=== PATIENT | female | born 1985 | race Caucasian/White ===

== ENCOUNTER 2022-01-27 14:02 | Emergency (ER) | payer OTHER, SELFPAY ==
--- NOTE | ~2022-01-27 | XR_ITS ---
EXAMINATION: XR nasal bones min 3V DATE: 01/27/2022 15:57 INDICATION: Nose injury. TECHNIQUE: 3 views of the nasal bones were obtained. COMPARISON: None. FINDINGS: There are nondisplaced fractures of the nasal bones. There is leftward deviation of the mihaela al septum. IMPRESSION: 1. Nondisplaced fractures of the nasal bones. Reviewed, dictated and finalized at location A.
[2022-01-27 14:20] VITALS: BP 131/88; PULSE 112; RESP 16; TEMP 36.6; O2SAT 100
[2022-01-27] MEDS: IBUPROFEN 400 MG TABLET PO (16:01)
[2022-01-27] MEDS: TETANUS,DIPHTHERIA,AC PERTUSSIS ADULT (0.5 ML) BOOSTRIX IM (16:01)
--- NOTE | 2022-01-27 16:16 | ED.FALL ---
HPI - Fall General Chief Complaint: Fall Stated Complaint: nose pain Time Seen by Provider: 01/27/22 14:48 Source: patient Mode of arrival: ambulatory Limitations: no limitations History of Present Illness HPI Narrative: This is a 36 year old female who presents for evaluation of nose injury. PAtient states last night she accidentally trip over her dog and she hit her nose on bed. She woke up and she nosed swelling and pain to her nose. She also reports having bleeding from her left nostril today. She denies LOC or headache. She denies taking blood thinners. She took ibuprofen for her pain. Related Data Home Medications Medication Instructions Recorded Confirmed alprazolam 0.5 mg tablet 0.5 tablet PO PRN PRN Anxiety 01/27/22 dextroamphetamine-amphetamine 10 10 mg PO PRN PRN adhd 01/27/22 mg tablet dextroamphetamine-amphetamine ER 30 cap PO DAILY 01/27/22 30 mg 24hr capsule,extend release lamotrigine 100 mg tablet 100 tablet PO HS 01/27/22 (Lamictal) lamotrigine 25 mg tablet (Lamictal) 50 tablet PO DAILY 01/27/22 zolpidem 10 mg tablet 10 tablet PO HS PRN Insomnia 01/27/22 Allergies Allergy/AdvReac Type Severity Reaction Status Date / Time No Known Allergies Allergy Unverified 02/07/16 22:34 [facility] Past Medical History Medical History (Updated 01/27/22 @ 22:47 by Raine Chan MD) Depression Surgical History Surgical History (Updated 01/27/22 @ 22:47 by Raine Chan MD) No pertinent past surgical history Social History Social History (Updated 01/27/22 @ 22:47 by Raine Chan MD) Smoking status: Former smoker Exam Const: General: no acute distress and alert Nutritional Appearance: well nourished Orientation/consciousness: patient oriented x3 HENMT: Head: normal to inspection and no hematomas Throat: posterior oropharynx normal Other: nasal bridge swelling and 2 superficial laceration, dried blood in nares, no active epistaxis, no septal hematoma visualized Eyes: Conjunctivae: conjunctivae normal Pupils: Equal, round and reactive pupils present EOM: EOMs intact bilaterally Resp: Effort & Inspection: normal respiratory effort Neuro: General: patient oriented x3, moves all extremities and CN's II-XI intact bilaterally Psych: Mental Status: mental status grossly normal Affect: normal affect Attitude: cooperative Course Reevaluation(s) Reevaluation #1: I Discussed with patient that she was found to have nondisplaced nasal fracture. I Discussed discharge plan Date: 01/27/22 Time: 16:25 Vital Signs Vital signs: Vital Signs Temperature 97.9 F 01/27/22 14:20 Pulse Rate 112 H 01/27/22 14:20 Respiratory Rate 16 01/27/22 14:20 Blood Pressure 131/88 01/27/22 14:20 Pulse Oximetry 100 01/27/22 14:20 Oxygen Delivery Room Air 01/27/22 14:20 Temperature 97.9 F 01/27/22 14:20 Pulse Rate 112 H 01/27/22 14:20 Respiratory Rate 16 01/27/22 14:20 Blood Pressure 131/88 01/27/22 14:20 Pulse Oximetry 100 01/27/22 14:20 Oxygen Delivery Room Air 01/27/22 14:20 MDM - Fall Imaging Data Radiologist's impression: ITS Impressions Nasal Bones X-Ray 01/27/22 15:59 IMPRESSION: 1. Nondisplaced fractures of the nasal bones. Discharge Plan Discharge Clinical Impression: Fracture of nasal bones Patient Disposition: Home, Self-Care Condition: Stable Instructions: Antibiotic Form, Nasal Fracture (ED) Additional Instructions: Today you were found to have broken nose. Follow up discharge instructions. 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 Take antibiotics to prevent infection. Prescriptions: New ibuprofen 800 mg tablet 800 mg PO TID PRN (Reason: pain) Qty: 20 0RF amoxicillin-pot clavulanate 875-125 mg tablet 1 tablet PO Q12H Qty: 14 0RF No Action dextroamphetamine-amphetamine 10 mg tablet 10 mg PO PRN PRN (Reason: adhd) lamotrigine [Lamictal] 25 mg
== END 2022-01-27 16:48 | disposition home or self-care (01) ==
PROVIDERS: Emergency Provider General Practice
DX: S02.2XXA Fracture of nasal bones, initial encounter for closed fracture (principal); Z23 Encounter for immunization; F32.A Depression, unspecified; Z87.891 Personal history of nicotine dependence; W01.190A Fall on same level from slipping, tripping and stumbling with subsequent striking against furniture, initial encounter
CPT/HCPCS: 70160; 90471; 90715; 99283; A9270

== ENCOUNTER 2022-02-05 02:00 | Day surgery (SDC) | payer OTHER, SELFPAY ==
[2022-02-01 11:48] VITALS: BMI 28.3
--- NOTE | 2022-02-01 11:57 | PC.NURSE ---
Report to the Outpatient Waiting Room, entrance under the green pavilion located off [facility], at time 0800 on date 02/05/22. OR Time: 1000. - You and your visitor will be asked a series of questions to screen for COVID 19 for your protection. - Only one visitor is allowed at this time. - The patient visitor is requested to leave or wait in car when not with patient. - A mask is required within the hospital. Patients may have clear liquids (water, carbonated beverages, clear teas, apple juice) until 3 hours prior to surgery with a maximum of 20 ounces. - No food from midnight until time of surgery Take the following medications with a SIP of water the morning of surgery: ANTIBIOTIC, XANAX (IF NEEDED) Medications to discontinue per physician: VITAMINS/SUPPLEMENTS Date to take last dose: 02/01/22 Please no make-up, nail macedonian, hairspray, perfume, deodorant, or body powder the day of surgery. No jewelry (including any body piercings) or valuables the day of surgery, leave them at home. Please take a shower or bath the night before, or the morning of, surgery with an antibacterial soap. Wear comfortable, loose fitting clothing. - Jewelry must be removed prior to entering the operating room. Rings and piercings that are not removed may be cut off. - The hospital will not accept responsibility for valuables. - Please leave all valuables, including medications, at home the day of surgery. If you are going home after surgery, a licensed lifter driver must drive you home. - NO public transportation without another adult. - We recommend that an adult stay with you for 24 hours following discharge. - We also recommend that you do not drive, make important decision, drink alcoholic beverages, or take any drugs that were not prescribed by your health care provider for at least 24 hours after your discharge time. Follow any additional instructions given to you from your surgeon. If you or anyone in your household have experienced Covid symptoms in the past week, please notify your surgeon or the nurse liaison at the phone number below for possible testing. Telephone instructions given to DIANNA MONGE and asked if any additional questions and then verbalized understanding. Patient advised to call surgeon office or pre surgery nurse liaison [phone] if any additional questions.
--- NOTE | 2022-02-04 13:43 | PM.IMHP ---
H&P: HPI History of Present Illness Date/Time: 02/04/22 13:43 Chief Complaint: nasal congestion nasal obstruction nasal septal fracture nasal deviation nasal bone fracture Narrative: patient presents for planned surgical procedure no change in symptoms no change in history Review of Systems Review of Systems: All systems reviewed & are unremarkable except as noted in HPI and below PMFSH Past Medical History Medical History Depression Surgical History Surgical History (Updated 01/27/22 @ 22:47 by Raine Chan MD) No pertinent past surgical history Family History Family History Daughter Leukemia Sibling Lymphoma Social History Social History Smoking packs per day: 0.75 Smoking cigarettes per day: 15.0 Years smoked: 5 Smoking pack-years: 3.75 Smoking status: Former smoker Tobacco type: cigarettes Smoking end date: 08/29/10 Alcohol intake: current Drinks per week: 3 Substance use: never Substance use type: does not use Living arrangements: with family Spiritual care concerns: No Meds Home Medications and Allergies Home Medications Medication Instructions Recorded Confirmed Type alprazolam 0.5 mg tablet 0.5 tablet PO PRN PRN Anxiety 01/27/22 02/01/22 History amoxicillin 875 mg-potassium 1 tablet PO Q12H #14 tabs 01/27/22 02/01/22 Rx clavulanate 125 mg tablet dextroamphetamine-amphetamine 10 10 mg PO PRN PRN adhd 01/27/22 02/01/22 History mg tablet dextroamphetamine-amphetamine ER 30 cap PO DAILY 01/27/22 02/01/22 History 30 mg 24hr capsule,extend release ibuprofen 800 mg tablet 800 mg PO TID PRN pain #20 tabs 01/27/22 02/01/22 Rx lamotrigine 100 mg tablet 100 tablet PO HS 01/27/22 02/01/22 History (Lamictal) lamotrigine 25 mg tablet (Lamictal) 50 tablet PO DAILY 01/27/22 02/01/22 History zolpidem 10 mg tablet 10 tablet PO HS PRN Insomnia 01/27/22 02/01/22 History cyanocobalamin (vitamin B-12) 100 mcg subcut MONTHLY 02/01/22 02/01/22 History 1,000 mcg/mL injection solution sumatriptan succinate 100 mg tablet See Rx Instructions PO .COMPLEX 02/01/22 02/01/22 History Allergies Allergy/AdvReac Type Severity Reaction Status Date / Time No Known Allergies Allergy Unverified 02/01/22 11:46 Exam HENMT: Other: septal deviation dorsal deflection left convex right concave Assessment and Plan Assessment and plan (1) Closed fracture of nasal septum: Code(s): S02.2XXA - Fracture of nasal bones, initial encounter for closed fracture Status: Acute Assessment and Plan: plan for OR closed reduction nasal bone and nasal septal fracture. Will need Aquaplast splint and small amounts of Gelfoam and brown tape. Risks discussed including change in cosmesis need for further procedures failure to resolve symptoms bleeding need for time off work need for postoperative pain medication. Patient voiced understanding of the risks and agreed. Also damage to vision damage to eyes orbit. (2) Nasal congestion: Code(s): R09.81 - Nasal congestion Status: Acute
[2022-02-05] VITALS (9 sets, daily range): BP systolic 122–158; BP diastolic 86–109; PULSE 65–110; RESP 15–26; TEMP 36.3–36.7; O2SAT 98–100
--- NOTE | 2022-02-05 07:07 | WPDHPUPDATE1 ---
History and Physical Update Update Date/Time: 02/05/22 07:07 History and Physical has been reviewed, including an updated exam of the patient. There are NO changes in the patient's condition. Risks, benefits, and alternatives have been discussed and questions answered. Patient agrees to proceed with procedure.
[2022-02-05] MEDS: LACTATED RINGERS 1,000 ML 30 ML IV CONT ×2 (08:44→11:05)
[2022-02-05] MEDS: ACETAMINOPHEN 500 MG TABLET 1000 MG PO (08:50)
--- NOTE | 2022-02-05 09:56 | WPDANESEPPF ---
Anes - Initial Pre Proc Eval Procedure: Operation Date: 02/05/22 10:00 Proposed Procedures p Closed Reduction Nasal Fracture with Septal Repair - Edil Olivo MD Date/Time: 02/05/22 09:56 Surgeon: Edil Olivo MD Pre Op Diagnosis: nasal fracture Patient Data Age: 36 Gender: F Height: 1.57 m Weight: 70 kg Last Vital Signs Temp 98.1 F 02/05/22 08:06 Pulse 82 02/05/22 08:06 Resp 16 02/05/22 08:06 BP 122/94 H 02/05/22 08:06 Pulse Ox 100 02/05/22 08:06 O2 Del Method Room Air 02/05/22 08:06 Allergies Allergy/AdvReac Type Severity Reaction Status Date / Time No Known Allergies Allergy Unverified 02/05/22 08:32 Home Medications Medication Instructions Recorded Confirmed Type alprazolam 0.5 mg tablet 0.5 tablet PO PRN PRN Anxiety 01/27/22 02/05/22 History amoxicillin 875 mg-potassium 1 tablet PO Q12H #14 tabs 01/27/22 02/05/22 Rx clavulanate 125 mg tablet dextroamphetamine-amphetamine 10 10 mg PO PRN PRN adhd 01/27/22 02/05/22 History mg tablet dextroamphetamine-amphetamine ER 30 cap PO DAILY 01/27/22 02/05/22 History 30 mg 24hr capsule,extend release ibuprofen 800 mg tablet 800 mg PO TID PRN pain #20 tabs 01/27/22 02/05/22 Rx lamotrigine 100 mg tablet 100 tablet PO HS 01/27/22 02/05/22 History (Lamictal) lamotrigine 25 mg tablet (Lamictal) 50 tablet PO DAILY 01/27/22 02/05/22 History zolpidem 10 mg tablet 10 tablet PO HS PRN Insomnia 01/27/22 02/05/22 History cyanocobalamin (vitamin B-12) 100 mcg subcut MONTHLY 02/01/22 02/05/22 History 1,000 mcg/mL injection solution sumatriptan succinate 100 mg tablet See Rx Instructions PO .COMPLEX 02/01/22 02/05/22 History Patient hx anesthesia problems: none Family hx anesthesia problems: none Results Review: All pre-operative results and documents have been reviewed as part of the pre-operative evaluation. [facility] Past Medical History Medical History Depression Surgical History Surgical History (Updated 01/27/22 @ 22:47 by Raine Chan MD) No pertinent past surgical history Family History Family History Daughter Leukemia Sibling Lymphoma Social History Social History Smoking packs per day: 0.75 Smoking cigarettes per day: 15.0 Years smoked: 5 Smoking pack-years: 3.75 Smoking status: Former smoker Tobacco type: cigarettes Smoking end date: 08/29/10 Alcohol intake: current Drinks per week: 3 Substance use: never Substance use type: does not use Living arrangements: with family Spiritual care concerns: No Anes - Eval Final PreProcedure Day of Procedure 02/05/22 09:56 Patient weight: normal Heart: regular rate and rhythm Lungs: clear to auscultation Airway: Mallampati scale class II Neurological: alert and oriented Last oral intake: >/= 8 hours ASA classification: II Emergent: no Anesthetic plan: proceed Anesthesia type and monitoring: general ETT and standard monitoring Results Review: All pre-operative results and documents have been reviewed as part of the pre-operative evaluation. Informed Consent: The patient's anesthetic plan and its attendant risks and benefits were discussed with the patient/family/POA. Questions were solicited and answers provided to the satisfaction of the patient/family/POA.
[2022-02-05] MEDS: ceFAZolin 2 GM/D5W 50 ML 2 GM/50 ML BAG IVPB (10:15)
[2022-02-05] MEDS: OXYMETAZOLINE HCL 0.05% NAS 15 ML BTL (*BKC) 1 SPRAY NASAL (10:25)
[2022-02-05] MEDS: fentaNYL CITRATE INJ (*CRX) 100 MCG/2 ML VIAL 25 MCG IV PUSH ×7 (11:06→12:01)
--- NOTE | 2022-02-05 11:09 | P.OP_ITS ---
Procedure Note - Detailed Date of Procedure 02/05/22 Pre-op Diagnosis nasal fracture, nasal septal fracture Post-op Diagnosis Same Procedure Performed Closed reduction nasal septum closed reduction nasal bones Surgeon Edil Olivo MD Anesthesia General Indications See above Findings Bones left was convex right concave right was outfractured left infractured much straighter nasal dorsum dorsal arm still exists which was present prior to injury. Septum leftward deflection corrected fractured right. Description of Procedure Patient identified consent verified. Patient brought operating. Time-out performed. General anesthesia induced endotracheal tube secured taped to left. Patient prepped and draped for procedure 2nd time-out performed. Turbinates outfractured septum fracture with [place] from left to right nasal bone right was outfractured left infractured much straighter nasal dorsum Afrin-soaked pledgets placed for about 15 minutes to stop bleeding Gelfoam then placed deep to the right nasal bone to provide further stenting. Brown tape followed by Aquaplast splint followed by more brown tape then placed over the dorsum. Total blood loss about 30 cc. Patient tolerated the procedure very well. Care the patient given Anesthesiology. Patient taken to PACU. I performed all dictated portions. Estimated Blood Loss -30.0 Drains No Packing Yes (Gelfoam) Pathology None sent Complications No immediate complications Condition Stable Disposition PACU
[2022-02-05] MEDS: oxyCODONE HCL (*CRX) 5 MG TAB IR PO (12:22)
== END 2022-02-05 13:05 | disposition home or self-care (01) ==
PROVIDERS: Visit Provider Otolaryngology
PROC: 0NSBXZZ Reposition Nasal Bone, External Approach (ICD-10-PCS; CPT 21315; principal; 2022-02-05 10:00)
DX: S02.2XXA Fracture of nasal bones, initial encounter for closed fracture (principal); R09.81 Nasal congestion; Z87.891 Personal history of nicotine dependence; W01.190A Fall on same level from slipping, tripping and stumbling with subsequent striking against furniture, initial encounter; F32.A Depression, unspecified
CPT/HCPCS: 21320; A9270; J0330; J0690; J1100; J2250; J2405; J2704; J3010; J7120

== ENCOUNTER 2024-08-29 03:39 | Emergency (ER) | payer OTHER, SELFPAY ==
[2024-08-29 03:53] VITALS: BP 137/94; PULSE 150; RESP 22; TEMP 36.7; O2SAT 97
--- NOTE | 2024-08-29 04:26 | PC.NURSE ---
Pt ambulatory to triage desk stating she had ordered uber and was going home. Pt educated on s/s that warrant a return visit. Pt instructed to follow up w pcp or return to ER if sx persist or worsen. Pt ambulatory out of ER entrance w steady gait.
--- OUTSIDE RECORDS SUMMARY | 2024-09-05 02:11 | XMS_ITS ---
Author Organization [facility] Address [address] [facility] [address] [place] [address] Care Team Providers Care Deck Lid Fitter Name Role Phone Adiel Demarco MD Primary Care Provider Willard Zelaya Unavailable [phone] REASON FOR VISIT Adderall Refill Medications Medication SIG (Take, Route, Frequency, Duration) Notes Start Date End Date Status Amphetamine-Dextroamphetam ine 10 MG 1 tablet Orally once a day for 30 days 08/28/2024 Active Amphetamine-Dextroamphet ER 30 MG 1 capsule every morning Oral Once a day for 30 days 08/28/2024 Active Social History Sex Assigned At : Social History Observation Description Sex Assigned At Female Encounters Encounter Location Date Provider Diagnosis [facility] [place] [address] [address] 08/28/2024 Willard Marin Attention-deficit hyperactivity disorder, combined type F90.2 Assessments Encounter Date Diagnosis (ICD Code) Assessment Notes Treatment Notes Treatment Clinical Notes Section Notes 08/28/2024 Attention-deficit hyperactivity disorder, combined type (ICD-10 - F90.2) Plan Of Treatment Medication Medication Name Sig Start Date Stop Date Notes Amphetamine-Dextroamphetamin e 10 MG 1 tablet Orally once a day for 30 days 08/28/2024 Amphetamine-Dextroamphet ER 30 MG 1 capsule every morning Oral Once a day for 30 days 08/28/2024 Next Appt Details Provider Name:Willard lambert, 09/10/2024 11:15:00 AM, [address] [facility] [address], [facility] [address], [place], [address], Progress Notes * DIANNA MONGE ADOB: [birth year] (38 yo F)Acc No.[id number]:08/28/2024 Patient:?DIANNA MONGE :1985???Age:38 Y???Sex:Female Address:[address] [place] [id number] * Refills? Refill Amphetamine-Dextroamphetamine Tablet, 10 MG, Orally, 30 Tablet, 1 tablet, once a day, 30 days, Refills=0 Refill Amphetamine-Dextroamphet ER Capsule Extended Release 24 Hour, 30 MG, Oral, 30 Capsule, 1 capsule every morning, Once a day, 30 days, Refills=0 Subjective: * Chief Complaints: * ???Adderall Refill * Medical History:? * Surgical History:? * Hospitalization/Major Diagno stic Procedure:? * Medications:? Objective: * Vitals:? * Physical Examination:? Assessment: * Assessment: 1.?Attention-deficit hyperac tivity disorder, combined type - F90.2 (Primary)??? Plan: * Treatment: * Procedure Codes:? * true * Date:? Generated for Kalina joyner/Ghislaine/Yojana on:?09/05/2024 02:10 AM [facility]
--- OUTSIDE RECORDS SUMMARY | 2024-09-05 02:11 | XMS_ITS ---
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 Medications Medication SIG (Take, Route, Frequency, Duration) Notes Start Date End Date Status Amphetamine-Dextroamphetami ne 10 MG 1 tablet Orally once a day for 30 days 08/02/2024 Active ALPRAZolam 0.5 MG 1 tablet Oral Twice a day for 30 days Active QUEtiapine Fumarate 200 MG 1 tablet at b edtime Oral Once a day for 30 days Active Lisinopril 20 MG TAKE 1 TABLET BY BRIANDA TH ONCE DAILY Oral for 30 Days Active Auvelity 45-105 MG 1 tablet once a day for 1 day, 1 tablet 2 times a day for 30 days Orally see sign for 30 days Active Prazosin HCl 1 MG 1 capsule at bedtime Oral Once a day for 30 days Active Spravato (84 MG Dose) 28 MG/DEVICE INHALE 84MG PER NASAL ROUTE TWICE A WEEK for 3 08/14/2024 Active Amphetamine-Dextroamphet ER 30 MG 1 capsule every morning Oral Once a day for 30 days Active lamoTRIgine 100 MG 1 tablet Oral Once a day for 30 days Active Social History Sex Assigned At : Social History Observation Description Sex Assigned At Female Vital Signs Blood pressure systolic 93 mm Hg 08/20/20 24 Blood pressure diastolic 63 mm Hg 024 Heart Rate 71 /min 08/20/2024 Height 62.00 in 08/20/2024 Height-cm 157.48 cm 08/20/2024 Encounters Encounter Location Date Provider Diagnosis [email or web address], [facility] [address] [place] [address] 08/20/2024 Robbie Adhikari Major depressive disorder, recurrent severe without psychotic features F33.2 Assessments Encounter Date Diagnosis (ICD Code) Assessment Notes Treatment Notes Treatment Clinical Notes Section Notes 08/20/2024 Major depressive disorder, 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-10 - F33.2) continue current tx as prescribed by primary psychiatric care provider. 1. Major Depressive Disorder - Patient reports a depression rating of 6/10. - Plan: a. Continue current antidepressant medication. b. Monitor for any changes in mood or worsening of symptoms. 2. Generalized Anxiety Disorder - Patient reports an anxiety rating of 7/10. - Plan: a. Continue current anxiolytic medication. b. Encourage practice of relaxation techniques (deep breathing, mindfulness meditation). 3. Sleep - Patient reports getting approximately 6 hours of sleep per night. - Plan: a. Encourage consistent sleep schedule and good sleep hygiene. 4. Appetite - Patient reports no significant changes in appetite, stating it's so so . - Plan: a. Encourage maintenance of a balanced diet. b. Monitor for changes in appetite or weight. 5. Suicidal ideation, self-harm, and harm to others - Patient denies thoughts of suicide, self-harm, or harming others. - Plan: a. Continue monitoring for changes in mood or behavior indicating increased risk. b. Encourage patient to reach out to support system if experiencing thoughts of self-harm or harm to others. c. Instruct patient to notify clinic if such thoughts occur. 6. Psychotic symptoms - Patient denies experiencing hallucinations, delusions - brief period of paranoia during esketamine observation period that started 15 minutes after administration and subsided within the 2-hour observation period. - Plan: a. Continue monitoring for signs of psychotic symptoms during follow-ups. 7. Medication changes and physical complaints - Patient reports no new medication changes or physical complaints. - Plan: a. Continue current medication regimen. b. Encourage reporting of any new physical complaints or concerns during future appointments. Plan Of Treatment Treatment Notes Assessment Notes Major depressive disorder, r ecurrent severe without psychotic features continue current tx as prescribed by primary psychiatric care provider. Next Appt Details Follow Up: 08/30/2024 @ 3pm, Reason: Esketamine administration Provider Name:Willard lambert, 09/10/2024 11:15:00 AM, [address], [address], [place], [address], Medications Administered Medication Instructions Date of Administration Dosage Notes Spravato (84 MG Dose) 08/20/2024 84 mg Progress Notes * DIANNA MONGE ADOB: [birth year] (38 yo F)Acc No.[id number]:08/20/2024 Patient:?DIANNA MONGE Provider:?MALISSA Recinos :1985???Age:38 Y???Sex:Female D ate:08/20/2024 Address:[address] [place], [place] [id number] Pcp:Adiel Demarco MD Subjective: * Chief Complaints: * ???Patient is here for her E sketamine 84mg treatment.Depression screening positiveSelf rates her depression as a 610. * HPI: ???General Follow Up:?1 Review patient medical records, any recent test results, last visit summary, etc Yes1 Time spent 22 Greet patient and escort to the treatment room No3 Initial Obtained vital signs No4 Prepare equipment and supplies Yes4 Time spent 15 Reviewed and documented history and medication Yes5 Time spent 36 Evaluate patient's clinical status [relevant history/physical assessment] and determine readiness/appropriateness of treatment Yes6 Time spent 17 Confirm orders and review plans with staff Yes7 Time spent 18 Ensure appropriate positioning for administration, observe patient administration, ensure patient comfort and safety Yes8 Time spent 29 Obtained vital signs: Assess treatment tolerance No10 Assess the patient response to treatment: Visually and verbally evaluate the patient; review treatment progress with staff [vital signs, patient tolerance, side effects, etc.] Yes10 Time spent 1511 obtained vital signs: assess treatment tolerance No12 At the completion of observation., Reviewed treatment course and assess the patient for clinical stability/discharge readiness Yes12 Time spent 213 Write a prescription or Reviewed RX for next session and submit to pharmacy No14 Provide patient education/instruction/ Yes14 Time spent 315 Coordinate home-going [that is, discharged to escorted transportation] No16 Complete medical record documentation Yes16 Time spent 1017 cleaning of room/equipment by clinical staff No18 complete medical record documentation; complete and submit rems patient monitoring form Feng attest to the total time spent Before, During and after ecounter was (in Minutes) 40 The note is transcribed using speech recognition software. It is a reflection of a visit with the patient. It might have some inaccuracy, including medication names and transcribing errors, though efforts have been made to correct them. HPI: The patient rates their depression as a 6/10 and anxiety as a 7/10. They deny any thoughts of suicide, self-harm, or harming others. The patient also denies experiencing hallucinations, delusions, or paranoia. Sleep: Dianna reports getting approximately six hours of sleep per night. Other Symptoms: Her appetite is described as so so, No changes in medication or new physical complaints were mentioned during the visit. ???Depression Screening:?RHETT-7 (2018 Edition)?Feeling nervous, anxious, or on edge?More than half the days,?Not being able to stop or control worrying?More than half the days,?Worrying too much about different things?More than hafl the days,?Trouble relaxing?More than half the days,?Being so restless that it is hard to sit still?More than half the days,?Becoming easily annoyed or irritable?More than half the days,?Feeling afraid as if something awful might happen?More than half the days,?Total RHETT-7 Score?14,?Interpretation of Total?(10 to 14) Moderate.?Depression screening:?PHQ-9?Little interest or pleasure in doing things?Several days,?Feeling down, depressed, or hopeless?Several days,?Trouble falling or staying asleep, or sleeping too much?More than half the days,?Feeling tired or having little energy?Several days,?Poor appetite or overeating?Several days,?Feeling bad about yourself or that you are a failure, or have let yourself or your family down?Several days,?Trouble concentrating on things, such as reading the newspaper or watching television?More than half the days,?Moving or speaking so slowly that other people could have noticed; or the opposite, being so fidgety or restless that you have been moving around a lot more than usual?Several days,?Thoughts that you would be better off or of hurting yourself in some way?Not at all,?Total Score?10,?Interpretation?Moderate Depression.?Intervention?Depression Screening Findings?Positve,?Follow-Up for Depression?Mental health treatment assessment, Patient follow-up to return when and if necessary,?Suicide Risk Assessment Performed?08/20/2024 ,?Additional Evaluation for Depression?Psychiatric interview and evaluation,?Name of the standardized tool used for adult depression screening:?Patient Health Questionnaire (PHQ-9).?Esketamine Administration:?Esketamine administration?Time at the start of administration? 1:03 pm,?Time of discharge? 3:03 pm,?Patient must be monitored for at least 2 hours?Yes,?Was the patient clinically ready for discharge prior to the required 2-hour: Yes,?Serious adverse events during the treatment session or since the last treatment session? none? NO,?Silent Alarm used by patient? NO,?staff Notes about today's Visit? Patient last ate last night. Patients is picking her up..? Esketamine Nasal [place] Administration and Supervised monitoring Staff attending the patient Tresa Supervising provider as in rendering provider: MALISSA Recinos Is patient taking any of the following concomitant medication that may cause sedation of blood pressure changes Benzodiazepine Yes Non-benzodiazepine sedative-hypnotics: No Psychostimulant: Yes Monoamine oxidase inhibitors [MAOIs]: No Dose of Spravato: 84 Mg Lot number [id number] Date: 11/27/2026. * ROS:?General / Constitutional:?Fatigue?denies.?Dizziness?Denies.?Sedation?Denies.?spinning sensation?Deneis.?Gastrointestinal:?Nausea?denies.?Vomiting?denies.?Psychiatric:?Patient denies?auditory / visual hallucinations, delusions, eating disorder, loss of appetite, mental or physical abuse, nervous breakdown, mood disorder, stressors, substance abuse, suicidal thoughts, milly, Feeling Intoxicated, Dissociations, Excited, psychosis, irritability, panic attacks, difficulty concentrating, involuntary movements.?Patient complains of?anxiety, depressed mood,difficulty sleeping??brief period of paranoia during esketamine observation period that started 15 minutes after administration and subsided within the 2- hour observation period..?Anxiety?admits.?Auditory / visual hallucinations?denies.?Delusions?denies.?Suicidal thoughts?denies.?Dissociations?Denies.?Excited?Denies.? * Medical History:? * Surgical History:? * Hospitalization/Major Diagno stic Procedure:? * Medications:?TakingAmphetami ne-Dextroamphetamine 10 MG Tablet 1 tablet Orally once a day Lisinopril 20 MG Tablet TAKE 1 TABLET BY MOUTH ONCE DAILY Oral Auvelity 45- 105 MG Tablet Extended Release 1 tablet once a day for 1 day, 1 tablet 2 times a day for 30 days Orally see sign ALPRAZolam 0.5 MG Tablet 1 tablet Oral Twice a day QUEtiapine Fumarate 200 MG Tablet 1 tablet at bedtime Oral Once a day lamoTRIgine 100 MG Tablet 1 tablet Oral Once a day Amphetamine-Dextroamphet ER 30 MG Capsule Extended Release 24 Hour 1 capsule every morning Oral Once a day Prazosin HCl 1 MG Capsule 1 capsule at bedtime Oral Once a day Spravato (84 MG Dose) 28 MG/DEVICE Solution Therapy Pack INHALE 84MG PER NASAL ROUTE TWICE A WEEK Medication List reviewed and reconciled with the patientTaking Amphetamine-Dextroamphetamine 10 MG Tablet 1 tablet Orally once a day Taking Lisinopril 20 MG Tablet TAKE 1 TABLET BY MOUTH ONCE DAILY Oral Taking Auvelity 45-105 MG Tablet Extended Release 1 tablet once a day for 1 day, 1 tablet 2 times a day for 30 days Orally see sign Taking ALPRAZolam 0.5 MG Tablet 1 tablet Oral Twice a day Taking QUEtiapine Fumarate 200 MG Tablet 1 tablet at bedtime Oral Once a day Taking lamoTRIgine 100 MG Tablet 1 tablet Oral Once a day Taking Amphetamine-Dextroamphet ER 30 MG Capsule Extended Release 24 Hour 1 capsule every morning Oral Once a day Taking Prazosin HCl 1 MG Capsule 1 capsule at bedtime Oral Once a day Taking Spravato (84 MG Dose) 28 MG/DEVICE Solution Therapy Pack INHALE 84MG PER NASAL ROUTE TWICE A WEEK Medication List reviewed and reconciled with the patient * Allergies:?N.K.D.A.no[Allerg ies Verified] Objective: * Vitals:?BP: 101/70 mm Hg,107 /73 mm Hg,93/63mm Hg, HR: 76 /min,64 /min,71/min, Ht: 62.00 in, Ht-cm: 157.48 cm. * Examination: ???General Examination: ?Psych:?alert and oriented x 3, cognitive function intact, cooperative with exam, maintains good eye contact, with good judgement and insight, normal affect / mood, with no auditory or visual hallucinations, speech is clear and coherent, thought process is logical and goal directed without suidical ideation or delusions.?- Mental Status Examination: - Patient rates depression severity at 6/10 and anxiety severity at 7/10. - Denies experiencing suicidal or homicidal ideation. - Denies visual or auditory hallucinations, delusions, and feelings of paranoia. - Sleeps approximately six hours per night. - Appetite described as also, which is ambiguous and requires clarification. - patient experienced slight paranoia during treatment 20 minutes after medication administration, which subsided during the 2 hour observation period. - Vital Signs: see note. - Medication: - Reports no changes in medication recently. - Physical Complaints: - No new physical complaints have been reported. ???Psychiatry: ?Thought content:??brief period of paranoia during esketamine observation period that started 15 minutes after administration and subsided within the 2-hour observation period..? Assessment: * Assessment: 1.?Major depressive disorder , recurrent severe without psychotic features - F33.2??? 1. Major Depressive Disorder - Patient reports a depression rating of 6/10. - Plan: a. Continue current antidepressant medication. b. Monitor for any changes in mood or worsening of symptoms. 2. Generalized Anxiety Disorder - Patient reports an anxiety rating of 7/10. - Plan: a. Continue current anxiolytic medication. b. Encourage practice of relaxation techniques (deep breathing, mindfulness meditation). 3. Sleep - Patient reports getting approximately 6 hours of sleep per night. - Plan: a. Encourage consistent sleep schedule and good sleep hygiene. 4. Appetite - Patient reports no significant changes in appetite, stating it's so so . - Plan: a. Encourage maintenance of a balanced diet. b. Monitor for changes in appetite or weight. 5. Suicidal ideation, self-harm, and harm to others - Patient denies thoughts of suicide, self-harm, or harming others. - Plan: a. Continue monitoring for changes in mood or behavior indicating increased risk. b. Encourage patient to reach out to support system if experiencing thoughts of self-harm or harm to others. c. Instruct patient to notify clinic if such thoughts occur. 6. Psychotic symptoms - Patient denies experiencing hallucinations, delusions - brief period of paranoia during esketamine observation period that started 15 minutes after administration and subsided within the 2-hour observation period. - Plan: a. Continue monitoring for signs of psychotic symptoms during follow-ups. 7. Medication changes and physical complaints - Patient reports no new medication changes or physical complaints. - Plan: a. Continue current medication regimen. b. Encourage reporting of any new physical complaints or concerns during future appointments. Plan: * Treatment: * Therapeutic Injections:? Spravato 84 mg : 84 mg (Route: Nasal) given by MALISSA Recinos (Major depressive disorder, recurrent severe without psychotic features) * Procedure Codes:?79039 BEHAV ASSMT W/SCORE & DOCD/STAND [id number] PROLONGED OFFICE OR OTHER OUTPATIENT EVALUATION AND MANAGEMENT SERVICE(S) (BEYOND THE TOTAL TIME OF THE PRIMARY PROCEDURE WHICH HAS BEEN SELECTED USING TOTAL TIME), REQUIRING TOTAL TIME WITH OR WITHOUT DIRECT PATIENT CONTACT BEYOND THE USUAL SERVICE, ON T, Units: 4.00 * Follow Up:?08/30/2024 @ 3pm ( Reason: Esketamine administration) * Billing Information: * Visit Code:? 08086 OFFICE OUTPATIENT VISIT 40 MINUTES COMPREHENSIVE HISTORY AND EXAM/HIGH MEDICAL DECISION MAKING. * Procedure Codes:? 07292 BEHAV ASSMT W/SCORE & DOCD/STAND INSTRUMENT. 28112 PROLONGED OFFICE OR OTHER OUTPATIENT EVALUATION AND MANAGEMENT SERVICE(S) (BEYOND THE TOTAL TIME OF THE PRIMARY PROCEDURE WHICH HAS BEEN SELECTED USING TOTAL TIME), REQUIRING TOTAL TIME WITH OR WITHOUT DIRECT PATIENT CONTACT BEYOND THE USUAL SERVICE, ON T. Units: 4.00. * CAL FACILITIES SECTION DIRECTOR Sign off status: Completed true * Provider:?MALISSA Recinos Date:?08/20 Generated for Kalina joyner/Ghislaine/eTransmitting on:?09/05/2024 02:11 AM MEDICAL FACILITIES SECTION DIRECTOR History and Physical Notes * HPI (History of Present Illness) Category Sub-Category Detail Notes Category Not es Depression screening PHQ-9 Little inte rest or pleasure in doing things: Several days Feeling down, depressed, or hopeless: Se veral days Trouble falling or staying a sleep, or sleeping too much: More than half the days Feeling tired or having little energy: S everal days Poor appetite or overeating: Several day s Feeling bad about yourself o r that you are a failure, or have let yourself or your family down: Several days Trouble concentrating on thi ngs, such as reading the newspaper or watching television: More than half the days Moving or speaking so slowly that other people could have noticed; or the opposite, being so fidgety or restless that you have been moving around a lot more than usual: Several days Thoughts that you would be b tesfaye off or of hurting yourself in some way: Not at all Total Score: 10 Interpretation: Moderate Depression Intervention Depression Screening Findings: P ositve Follow-Up for Depression: [facility] treatment assessment, Patient follow-up to return when and if necessary Suicide Risk Assessment Performed: 08/20 Additional Evaluation for De pression: Psychiatric interview and evaluation Name of the standardized too l used for adult depression screening:: Patient Health Questionnaire (PHQ-9) Depression Screening RHETT-7 (2018 Edition) Feelin g nervous, anxious, or on edge: More than half the days Not being able to stop or control worryi ng: More than half the days Worrying too much about different things : More than hafl the days Trouble relaxing: More than half the day s Being so restless that it is hard to sit still: More than half the days Becoming easily annoyed or irritable: Mo re than half the days Feeling afraid as if something awful marlyn ht happen: More than half the days Total RHETT-7 Score: 14 Interpretation of Total: (10 to 14) Mode rate Esketamine Administration Esketamine administration Time at the start of administration: 1:03 pm Esketamine Nasal [place] Administration and Supervised monitoring Staff attending the patient Tresa Supervising provider as in rendering provider: MALISSA Recinos Is patient taking any of the following concomitant medication that may cause sedation of blood pressure changes Benzodiazepine Yes Non-benzodiazepine sedative-hypnotics: No Psychostimulant: Yes Monoamine oxidase inhibitors [MAOIs]: No Dose of Spravato: 84 Mg Lot number [id number] Date: 11/27/2026 Time of discharge: 3:03 pm Patient must be monitored fo r at least 2 hours: Yes Was the patient clinically r lottie for discharge prior to the required 2-hour:: Yes Serious adverse events durin g the treatment session or since the last treatment session? none: NO Silent Alarm used by patient: NO staff Notes about today's Visit: Patient last ate last night. Patients is picking her up. Examination Category Sub-Category Detail Notes Category Notes Psychiatry Thought content: brief period of paranoia during esketamine observation period that started 15 minutes after administration and subsided within the 2-hour observation period. General Examination Psych: alert and oriented x 3, cogn itive function intact, cooperative with exam, maintains good eye contact, with good judgement and insight, normal affect / mood, with no auditory or visual hallucinations, speech is clear and coherent, thought process is logical and goal directed without suidical ideation or delusions - Mental Status Examination: - Patient rates depression severity at 6/10 and anxiety severity at 7/10. - Denies experiencing suicidal or homicidal ideation. - Denies visual or auditory hallucinations, delusions, and feelings of paranoia. - Sleeps approximately six hours per night. - Appetite described as also, which is ambiguous and requires clarification. - patient experienced slight paranoia during treatment 20 minutes after medication administration, which subsided during the 2 hour observation period. - Vital Signs: see note. - Medication: - Reports no changes in medication recently. - Physical Complaints: - No new physical complaints have been reported.
--- OUTSIDE RECORDS SUMMARY | 2024-09-05 02:11 | XMS_ITS ---
Author Organization [facility] [employer] Address [address] [place] [address] Care Team Providers Care Document Control Assistant Name Role Phone Adiel Demarco MD Primary Care Provider Willard Zelaya Unavailable [phone] Robbie Adhikari Unavailable [phone] Allergies No Known Allergies REASON FOR VISIT Esketamine Administration, The patient rates their depression as a 5/10., MIPS Pre hypertension Medications Medication SIG (Take, Route, Frequency, Duration) Notes Start Date End Date Status lamoTRIgine 100 MG 1 tablet Oral Once a day for 30 days Active QUEtiapine Fumarate 200 MG 1 tablet at b edtime Oral Once a day for 30 days Active Prazosin HCl 1 MG 1 capsule at bedtime Oral Once a day for 30 days Active Amphetamine-Dextroamphet ER 30 MG 1 capsule every morning Oral Once a day for 30 days Active Spravato (84 MG Dose) 28 MG/DEVICE INHALE 84MG PER NASAL ROUTE TWICE A WEEK for 3 08/14/2024 Active ALPRAZolam 0.5 MG 1 tablet Oral Twice a day for 30 days Active Auvelity 45-105 MG 1 tablet once a day for 1 day, 1 tablet 2 times a day for 30 days Orally see sign for 30 days Active Lisinopril 20 MG TAKE 1 TABLET BY BRIANDA ONCE DAILY Oral for 30 Days Active Amphetamine-Dextroamphetami ne 10 MG 1 tablet Orally once a day for 30 days 08/02/2024 Active Social History Tobacco Use: Social History Observation Description Date Details (start date - stop date) Unknown Sex Assigned At : Social History Observation Description Sex Assigned At Female Tobacco Control (Standard) Question Answer Notes Tobacco use: Uses tobacco in other forms Vital Signs Blood pressure systolic 133 mm Hg 08/28/20 24 Blood pressure diastolic 73 mm Hg 024 Heart Rate 80 /min 08/28/2024 Height 62.00 in 08/28/2024 Height-cm 157.48 cm 08/28/2024 Encounters Encounter Location Date Provider Diagnosis [facility] [employer] [address] [facility] [address] [place] [address] 08/28/2024 Robbie Zeynep Major depressive disorder, recurrent severe without psychotic features F33.2 and Elevated blood pressure reading R03.0 Assessments Encounter Date Diagnosis (ICD Code) Assessment Notes Treatment Notes Treatment Clinical Notes Section Notes 08/28/2024 Major depressive disorder, 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-10 - F33.2) continue current tx as prescribed by primary psychiatric care provider. 1. Depression - Patient rates her depression as 5/10. - Plan: - Continue current medications. - Monitor patient's mood and adjust medications as needed. - Encourage patient to engage in therapy and self-care activities. 2. Anxiety - Patient rates her anxiety as 8-9/10. - Plan: - Continue current medications. - Monitor patient's anxiety levels and adjust medications as needed. - Encourage patient to engage in relaxation techniques and therapy. 3. Sleep - Patient reports getting approximately 7 hours of sleep per night. - Plan: - Continue current medication. - Encourage patient to maintain good sleep hygiene. 4. Appetite - Patient reports a neutral appetite, stating It's not like I'm not starving, but I'm not, like, small. - Plan: - Monitor appetite and weight during follow-up visits. - Reassess need for medication adjustments if appetite changes significantly or patient remains concerned. - Provide education on maintaining balanced diet and healthy eating habits. 5. Medication Management - No recent changes in medication. plan: - continue current treatment as prescribed by primary psychiatric care provider. 6. Suicidal/Homicid al Ideation - Patient denies any thoughts of suicide, self-harm, or hurting others. - Plan: a. Continue to assess for suicidal or homicidal ideation at each visit. b. Provide crisis resources and emergency contact information to the patient. 7. Psychotic Symptoms - Patient denies any hallucinations, delusions, or paranoia. - Plan: a. Continue to monitor for any emergence of psychotic symptoms at follow-up visits. 08/28/2024 Elevated blood pressure reading (ICD-10 - R03.0) 1. Depression - Patient rates her depression as 5/10. - Plan: - Continue current medications. - Monitor patient's mood and adjust medications as needed. - Encourage patient to engage in therapy and self-care activities. 2. Anxiety - Patient rates her anxiety as 8-9/10. - Plan: - Continue current medications. - Monitor patient's anxiety levels and adjust medications as needed. - Encourage patient to engage in relaxation techniques and therapy. 3. Sleep - Patient reports getting approximately 7 hours of sleep per night. - Plan: - Continue current medication. - Encourage patient to maintain good sleep hygiene. 4. Appetite - Patient reports a neutral appetite, stating It's not like I'm not starving, but I'm not, like, small. - Plan: - Monitor appetite and weight during follow-up visits. - Reassess need for medication adjustments if appetite changes significantly or patient remains concerned. - Provide education on maintaining balanced diet and healthy eating habits. 5. Medication Management - No recent changes in medication. plan: - continue current treatment as prescribed by primary psychiatric care provider. 6. Suicidal/Homicid al Ideation - Patient denies any thoughts of suicide, self-harm, or hurting others. - Plan: a. Continue to assess for suicidal or homicidal ideation at each visit. b. Provide crisis resources and emergency contact information to the patient. 7. Psychotic Symptoms - Patient denies any hallucinations, delusions, or paranoia. - Plan: a. Continue to monitor for any emergence of psychotic symptoms at follow-up visits. Plan Of Treatment Treatment Notes Assessment Notes Major depressive disorder, r ecurrent severe without psychotic features continue current tx as prescribed by primary psychiatric care provider. Next Appt Details Follow Up: 09/06/2024 @ 3:00 P M, Reason: Esketamine administration Provider Name:Willard lambert, 09/10/2024 11:15:00 AM, [address], [address], [place], [address], Medications Administered Medication Instructions Date of Administration Dosage Notes Spravato (84 MG Dose) 08/28/2024 84 mg Progress Notes * DIANNA MONGE ADOB: [birth year] (38 yo F)Acc No.[id number]:08/28/2024 Patient:DIANNA GARCIA Provider:?MALISSA Recinos :1985???Age:38 Y???Sex:Female D ate:08/28/2024 Address:[address] [place], [place] [id number] Pcp:Adiel Demarco MD Subjective: * Chief Complaints: * ???Esketamine Administration The patient rates their depression as a 5/10.MIPS Pre hypertension * HPI: ???General Follow Up:?1 Review patient medical records, any recent test results, last visit summary, etc?Yes1 Time spent?22 Greet patient and escort to the treatment room?Yes2 Time spent?13 Initial Obtained vital signs?No4 Prepare equipment and supplies?Yes4 Time spent?25 Reviewed and documented history and medication?Yes5 Time spent?36 Evaluate patient's clinical status [relevant history/physical assessment] and determine readiness/appropriateness of treatment?Yes6 Time spent?27 Confirm orders and review plans with staff?Yes7 Time spent?18 Ensure appropriate positioning for administration, observe patient administration, ensure patient comfort and safety?Yes8 Time spent?29 Obtained vital signs: Assess treatment tolerance?No10 Assess the patient response to treatment: Visually and verbally evaluate the patient; review treatment progress with staff [vital signs, patient tolerance, side effects, etc.]?Yes10 Time spent?1511 obtained vital signs: assess treatment tolerance?No12 At the completion of observation., Reviewed treatment course and assess the patient for clinical stability/discharge readiness?Yes12 Time spent?213 Write a prescription or Reviewed RX for next session and submit to pharmacy?No14 Provide patient education/instruction/?Yes14 Time spent?215 Coordinate home-going [that is, discharged to escorted transportation]?No16 Complete medical record documentation?Yes16 Time spent?1017 cleaning of room/equipment by clinical staff?No18 complete medical record documentation; complete and submit rems patient monitoring form?Feng attest to the total time spent Before, During and after ecounter was (in Minutes)?42 The note is transcribed using speech recognition software. It is a reflection of a visit with the patient. It might have some inaccuracy, including medication names and transcribing errors, though efforts have been made to correct them. HPI: The patient rates their depression as a 5/10 and anxiety between 8-9/10. They deny any thoughts of suicide, self-harm, or harming others. The patient also denies experiencing hallucinations, delusions, or paranoia. They report getting approximately 7 hours of sleep per night. Their appetite is described as neutral , neither increased nor decreased, clarifying that they're not starving but also not eating less than usual. The patient reports no recent changes in medication or any physical complaints. ???Esketamine Administration:?Esketamine administration?Time at the start of administration? 1:15 PM,?Time of discharge? 3:15 PM,?Patient must be monitored for at least 2 hours?Yes,?Was the patient clinically ready for discharge prior to the required 2- hour: No,?Silent Alarm used by patient?No,?staff Notes about today's Visit? Patient will be picked up by her . Se said she has not eaten anything yet today. Patient voiced no concerns or issues since last treatment..? Esketamine Nasal [facility] Administration and Supervised monitoring Staff attending the patient Lynnette Ruiz Supervising provider as in rendering provider : MALISSA Recinos Is patient taking any of the following concomitant medication that may cause sedation of blood pressure changes Benzodiazepine Yes Non-benzodiazepine sedative-hypnotics: No Psychostimulant: Yes Monoamine oxidase inhibitors [MAOIs]: No Dose of Spravato: 84 Mg Lot number [id number] Date: 12/26/2026. * ROS:?General / Constitutional:?Fatigue?denies.?Dizziness?Denies.?Sedation?Denies.?spinning sensation?Deneis.?Gastrointestinal:?Nausea?denies.?Vomiting?denies.?Psychiatric:?Anxiety?admits.?Auditory / visual hallucinations?denies.?Delusions?denies.?Suicidal thoughts?denies.?Dissociations?Denies.?Excited?Denies.? * Medical History:? * Surgical History:? * Hospitalization/Major Diagno stic Procedure:? * Social History:?Tobacco Use:?Tobacco Control (Standard)?Tobacco use:?Uses tobacco in other forms.? * Medications:?TakingAmphetami ne-Dextroamphetamine 10 MG Tablet 1 [...] * Allergies:?N.K.D.A.no[Allerg ies Verified] Objective: * Vitals:?BP: 104/83 mm Hg,139 /101 mm Hg,133/73mm Hg, HR: 72 /min,63 /min,80/min, Ht: 62.00 in, Ht-cm: 157.48 cm. * [...] Examination: - Patient rates depression severity at 5/10 and anxiety severity between 8/10 and 9/10. - Denies experiencing suicidal or homicidal ideation. - Denies visual or auditory hallucinations, delusions, or feelings of paranoia. - Reports sleeping approximately seven hours per night. - Describes appetite as neutral, with no significant increase or decrease noted. - Vital Signs: see note - Medication: - No changes in medication reported. Assessment: * Assessment: 1.?Major depressive disorder , recurrent severe without psychotic features - F33.2???2.?Elevated blood pressure reading - R03.0??? 1. Depression - Patient rates her depression as 5/10. - Plan: - Continue current medications. - Monitor patient's mood and adjust medications as needed. - Encourage patient to engage in therapy and self-care activities. 2. Anxiety - Patient rates her anxiety as 8-9/10. - Plan: - Continue current medications. - Monitor patient's anxiety levels and adjust medications as needed. - Encourage patient to engage in relaxation techniques and therapy. 3. Sleep - Patient reports getting approximately 7 hours of sleep per night. - Plan: - Continue current medication. - Encourage patient to maintain good sleep hygiene. 4. Appetite - Patient reports a neutral appetite, stating It's not like I'm not starving, but I'm not, like, small. - Plan: - Monitor appetite and weight during follow-up visits. - Reassess need for medication adjustments if appetite changes significantly or patient remains concerned. - Provide education on maintaining balanced diet and healthy eating habits. 5. Medication Management - No recent changes in medication. plan: - continue current treatment as prescribed by primary psychiatric care provider. 6. Suicidal/Homicidal Ideation - Patient denies any thoughts of suicide, self-harm, or hurting others. - Plan: a. Continue to assess for suicidal or homicidal ideation at each visit. b. Provide crisis resources and emergency contact information to the patient. 7. Psychotic Symptoms - Patient denies any hallucinations, delusions, or paranoia. - Plan: a. Continue to monitor for any emergence of psychotic symptoms at follow-up visits. Plan: * Treatment: * Therapeutic Injections:? Spravato 84 mg : 84 mg (Route: Nasal) given by MALISSA Recinos (Major depressive disorder, recurrent severe without psychotic features) * Procedure Codes:?26203 PROLO NGED OFFICE OR OTHER OUTPATIENT EVALUATION AND MANAGEMENT SERVICE(S) (BEYOND THE TOTAL TIME OF THE PRIMARY PROCEDURE WHICH HAS BEEN SELECTED USING TOTAL TIME), REQUIRING TOTAL TIME WITH OR WITHOUT DIRECT PATIENT CONTACT BEYOND THE USUAL SERVICE, ON T, Units: 4.00 * Preventive Medicine:? ??Counseling:?BP Management:?PRE-HYPERTENSIVE FOLLOW-UP PLAN:?Follow-up 2 weeks ____,?LIFESTYLE RECOMMENDATION:?Lifestyle education Recommended Nonpharmacologic Interventions (Lifestyle Modifications) -Weight ReductionA heart-healthy diet , such as Dietary Approaches to Stop Hypertension (DASH) Eating PlanDietary Sodium RestrictionIncreased Physical ActivityModeration in alcohol consumption,?REFERRAL TO ALTERNATIVE / PRIMARY CARE PROVIDER:?Referral to general physician .? * Follow Up:?09/06/2024 @ 3:00 P M (Reason: Esketamine administration) * Billing Information: * Visit Code:? 12663 OFFICE OUTPATIENT VISIT 40 MINUTES COMPREHENSIVE HISTORY AND EXAM/HIGH MEDICAL DECISION MAKING. * Procedure Codes:? 69740 PROLONGED OFFICE OR OTHER OUTPATIENT EVALUATION AND MANAGEMENT SERVICE(S) (BEYOND THE TOTAL TIME OF THE PRIMARY PROCEDURE WHICH HAS BEEN SELECTED USING TOTAL TIME), REQUIRING TOTAL TIME WITH OR WITHOUT DIRECT PATIENT CONTACT BEYOND THE USUAL SERVICE, ON T. Units: 4.00. * CAULKER Sign off status: Completed true * Provider:?MALISSA Recinos Date:?08/28 Generated for Kalina joyner/Ghislaine/Yojana on:?09/05/2024 02:11 AM [employer] CAULKER History and Physical Notes * HPI (History of Present Illness) Category Sub-Category Detail Notes Category Not es Esketamine Administration Esketamine administration Time at the start of administratio n: 1:15 PM Esketamine Nasal [facility] Administration and Supervised monitoring Staff attending the patient Lynnette Ruiz Supervising provider as in rendering provider : MALISSA Recinos Is patient taking any of the following concomitant medication that may cause sedation of blood pressure changes Benzodiazepine Yes Non-benzodiazepine sedative-hypnotics: No Psychostimulant: Yes Monoamine oxidase inhibitors [MAOIs]: No Dose of Spravato: 84 Mg Lot number [id number] Date: 12/26/2026 Time of discharge: 3:15 PM Patient must be monitored fo r at least 2 hours: Yes Was the patient clinically r lottie for discharge prior to the required 2-hour:: No Silent Alarm used by patient: No staff Notes about today's Visit: Patient will be picked up by her . Se said she has not eaten anything yet today. Patient voiced no concerns or issues since last treatment. Examination Category Sub-Category Detail Notes Category Not es General Examination Psych: alert and or iented x 3, cognitive function intact, cooperative with exam, maintains good eye contact, with good judgement and insight, normal affect / mood, with no auditory or visual hallucinations, speech is clear and coherent, thought process is logical and goal directed without suidical ideation or delusions - Mental Status Examination: - Patient rates depression severity at 5/10 and anxiety severity between 8/10 and 9/10. - Denies experiencing suicidal or homicidal ideation. - Denies visual or auditory hallucinations, delusions, or feelings of paranoia. - Reports sleeping approximately seven hours per night. - Describes appetite as neutral, with no significant increase or decrease noted. - Vital Signs: see note - Medication: - No changes in medication reported.
--- OUTSIDE RECORDS SUMMARY | 2024-09-05 02:12 | XMS_ITS | Clinical Summary ---
Author Organization [facility] Address [address] [place] [phone] Care Team Providers Care Transfer Car Operator Name Role Phone Adiel Demarco MD Primary Care Provider [phone] Allergies No known active allergies Medications ALPRAZolam (XANAX) 0.5 mg tablet TAKE ONE TABLET BY MOUTH THREE TIMES A DAY NEEDED FOR ANXIETY 90 tablet 2 10/29/19 22 Active lamoTRIgine (LaMICtal) 100 mg tablet Take 1.5 tablets (150 mg total) by mouth daily 10/28/19 22 Active dextroamphetamin e-amphetamine (ADDERALL) 10 mg tablet 03/08/20 22 Active dextroamphetamin e-amphetamine XR (ADDERALL XR) 30 mg 24 hr capsule 03/08/20 22 Active Auvelity 45-105 mg tablet, IR & ER, biphasic Take 1 tablet by mouth 2 (two) times a day 12/09/19 23 Active cyanocobalamin (Vitamin B-12) 1,000 mcg/mL injection 01/26/20 23 Active traZODone (DESYREL) 50 mg tabletIndication s:Insomnia due to medical condition TAKE 1 TABLET BY MOUTH ONCE NIGHTLY NEEDED FOR SLEEP 90 tablet 03/22/20 23 Active zolpidem CR (AMBIEN CR) 12.5 mg CR tablet Take 1 tablet (12.5 mg total) by mouth nightly as needed for sleep for sleep 30 tablet 09/05/19 24 Active lisinopriL (PRINIVIL,ZESTRI L) 20 mg tabletIndication s:Elevated BP without diagnosis of hypertension Take 1 tablet by mouth once daily 30 tablet 08/30/19 25 Active lisinopriL (PRINIVIL,ZESTRI L) 20 mg tabletIndication s:Elevated BP without diagnosis of hypertension Take 1 tablet (20 mg total) by mouth daily 30 tablet 06/29/20 24 025 Discontinued Active Problems Problem Noted Date Diagnosed Date Stomatitis and mucositis 11/27/2020 Hypertension, essential 10/26/2019 Parent coping with child illness or disability 0 12/13/2017 Colitis 03/16/2016 Crohn's disease ([facility]) 02/17/2016 Overview (12/09/2017): Impression: stable, followed by GI. Obesity 07/31/2015 Overview (12/09/2017): Impression: she is on wellbutrin and naltrexone to aid with weight loss efforts, tolerating meds without problems. Major depressive disorder 10/01/2014 Overview (12/09/2017): Impression: Doing well on current medication regimen Obesity with body mass index 30 or greater 07/15 Overview (12/09/2017): Impression: she is losing weight Vitamin D deficiency disease 07/15/2014 Generalized anxiety disorder 07/15/2014 Overview (12/09/2017): Impression: Doing well on current medication regimen Insomnia 07/15/2014 Overview (12/09/2017): Impression: Doing well on current medication regimen Encounters Date Type Department Care Team Description 06/29/2024 Orders Only [address] [address] Adiel Demarco MD Elevated BP without diagnosis of hypertension from Last 3 Months Immunizations Name Administration Dates Next Due Flucelvax Influenza Quad 07/08/2018,08/20/2017 HPV, Quadrivalent 02/05/2023,11/20/2022 HPV9 06/30/2023,02/05/2023,11/20/2022 Influenza, Quadrivalent, Isamar l Culture-based MDCK, Preservative Free, Antibiotic Free, Intramuscular 06/30/2023,07/06/2022,05/22/2021,06/16,07/08/2018,08/20/2017,05/08/2016 Influenza, Quadrivalent, Spl it, Intramuscular 04/05/2020 Influenza, Quadrivalent, Spl it, Preservative Free, Intramuscular 04/05/2020,06/11/2015 Influenza, Trivalent, IM (MDV) 05/05/2020,2015 Influenza, Trivalent, Preser vative Free, Intramuscular 08/09/2017,05/08/2016,06/11/2015 Influenza, Unspecified 07/06/2022,05/22/2021 Moderna SARS-CoV-2 Monovalen t Vaccination (12+ YRS) 08/15/2021 Tdap 11/03/2018 Family History Medical History Relation Name Comments Hypertension Father Family history of hypertension - (Added by TW Conv) Ulcerative colitis Other Family hi story of ulcerative colitis - Relation: Aunt (Added by TW Conv) Relation Name Status Comments Father Other Social History Tobacco Use Types Packs/Day Years Used Date Smoking Tobacco: Former Tobacco Cessation:Counseling Given: Not Answered PHQ-2 Answer Date Recorded PHQ-2 Total Score (If total score is 3 or more points, staff should administer the PHQ-9) 0 01/28/2023 Personal Safety Answer Date Recorded Have you ever been in or are you currently in a harmful physical or emotional relationship or is someone making you feel afraid or unsafe? Denies 08/30/2023 Comments No Sex and Gender Information Value Date Recorded Sex Assigned at Not on file Legal Sex Female 4:31 AM RN ACUTE Gender Identity Female 11/23/2019 9:35 AM CDT Sexual Orientation Straight 11/23/2019 9: 35 AM CDT Obstetrics History Last Filed Vital Signs Vital Sign Reading Time Taken Comments Blood Pressure 105/79 08/31/2023 4:45 AM RN ACUTE Pulse 89 08/31/2023 4:45 AM RN ACUTE Temperature 37 ??C (98.6 ??F) 08/30/2023 10:29 PM RN ACUTE Respiratory Rate 15 08/31/2023 4:45 AM RN ACUTE Oxygen Saturation 97% 08/31/2023 4:45 AM RN ACUTE Inhaled Oxygen Concentration - - Weight 65.8 kg (145 lb) 08/30/2023 10:29 PM RN ACUTE Height 152.4 cm (5') 08/30/2023 10:29 PM RN ACUTE Body Mass Index 28.32 08/30/2023 10:29 PM RN ACUTE Plan of Treatment Health Maintenance Due Date Last Done Comments Cervical Cancer Screening 1985 Hepatitis C Screening 1985 Varicella Vaccines (1 of 2 - 13+ 2-dose series) 11/10/2000 Hepatitis B Screening 11/10/2005 Depression Screening 01/29/2024 01/28/2023 Regular Well Visit/Exam 18-64 01/29/2024 01/28/2023, 11/16/2021, 10/26/2019, Additional history exists Covid-19 Vaccine ( season) 2024 08/15/2021, 12/02/2020, 11/04/2020 Influenza Vaccine (#1) 2024 , 07/06/2022, 07/06/2022, Additional history exists DTaP/Tdap/Td Vaccine (3 - Td or Tdap) 01/28/2032 01/27/2022, 11/03/2018 HPV Vaccines Completed 06/30/2023, 01/27, 02/05/2023, Additional history exists Pneumococcal vaccine <65 Aged Out No longer eligible based on patient's age to complete this topic Insurance [facility] Address: [address] [place] [address] R [facility] Address: [address] [address] Care Teams Transfer Car Operator Relationship Specialty Start Date End Date Adiel Demarco MD [address] [place] [address] PCP - General 08/24/17
--- OUTSIDE RECORDS SUMMARY | 2024-09-05 02:12 | XMS_ITS | Encounter Summary ---
Author Organization [facility] Address [address] [place] [address] Phone Care Team Providers Care Mortgage Loan Assistant Name Role Phone Ines Santoyo MD Primary Care Provider Unav argentinaable Haley Irving DO Unavailable Kali Coon DO Unavailable [phone] BALLPOINT PEN ASSEMBLY MACHINE OPERATOR, DIET ASSISTANT Unavailable Reason for Visit * Reason Onset Date Comments Medication Refill 01/11/2020 Encounter Details Date Type Department Care Team (Late st Contact Info) Description 01/11/2020 Refill [facility] - Gastroenterology [facility] [address] [place] [address] Kali Coon, DO [address] [id number] Medication Refill Social History Tobacco Use Types Packs/Day Years Used Date Smoking Tobacco: Never Alcohol Use Standard Drinks/Week Comments No 0 (1 standard drink = 0.6 oz pur e alcohol) 4-5 beers 2-3 days per week Comments No Sex and Gender Information Value Date Recorded Sex Assigned at Not on file Legal Sex Female 9:27 AM CDT Gender Identity Not on file Sexual Orientation Not on file 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 mesalamine (LIALDA) 1.2 GM Tablet Delayed Response 120 Tab 3 Last fill: Patients last OV with GI: 06/08/16 Next Office Visit with GI: None scheduled documented in this encounter Plan of Treatment Not on file documented as of this encounter Visit Diagnoses Not on filedocumented in this encounter Care Teams Mortgage Loan Assistant Relationship Specialty Start Date End Date Ines Santoyo MD PCP - General Internal Medicine 02/27/16 Haley Irving DO [address] [place] [address] Consulting Physician Internal Medicine 02/27/16 Kali Coon DO [address], [place] [address] Gastroenterology 02/27/16 Mey Rm APRN, DIET ASSISTANT [address] [place] [address] Nurse Practitioner Advanced Practice Nurse 06/08/16 documented as of this encounter
--- OUTSIDE RECORDS SUMMARY | 2024-09-05 02:12 | XMS_ITS | Encounter Summary ---
Author Organization [facility] Address [address] [place] [address] Phone Care Team Providers Care Forming Tube Selector Name Role Phone Adiel Demarco MD Primary Care Provider [phone] Encounter Details Date Type Department Care Team (Late st Contact Info) Description 06/29/[address] 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 Gender Identity Female 11/23/2019 9:35 AM CDT Sexual Orientation Straight 11/23/2019 9: 35 AM CDT documented as of this encounter Ordered Prescriptions Prescription Sig Dispense Quantity Refills Last Filled Start Date End Date lisinopriL (PRINIVIL,ZESTRIL) 20 mg tabletIndications: Elevated BP without diagnosis of hypertension Take 1 tablet (20 mg total) by mouth daily 30 tablet 06/29/2024 08/30/2024 documented in this encounter Plan of Treatment Not on file documented as of this encounter Visit Diagnoses Diagnosis Elevated BP without diagnosis of hypertension documented in this encounter Discontinued Medications Medication Sig Discontinue Reason Start Date End Da te scopolamine 1 mg over 3 days patch [address] 1 patch on the skin every third day as needed (nausea) 01/28/2023 06/29/2024 lisinopriL (PRINIVIL,ZESTRIL) 20 mg tabletIndications:Elevate d BP without diagnosis of hypertension Take 1 tablet by mouth once daily Reorder 06/14/2024 06/29/2024 documented as of this encounter Care Teams Forming Tube Selector Relationship Specialty Start Date End Date Adiel Demarco MD [address] [place] [address] PCP - General 08/24/17 documented as of this encounter
--- OUTSIDE RECORDS SUMMARY | 2024-09-05 02:12 | XMS_ITS | Patient Health Record ---
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 Name Role Phone Adiel Demarco MD Primary Care Provider Willard Zelaya Unavailable [phone] Yimi Michael Unavailable [phone] Chelsie Tony Unavailable [phone] Madison Wagner Unavailable [phone] Abdulkadir Vora Unavailable [phone] Katie, Thena Unavailable [phone] Migration, Provider Unavailable Unavailable Robbie Adhikari Unavailable [phone] Allergies No Known Allergies Results Component Value Reference Range Notes AMPHETAMINES, QUALITATIVE, U RINE Reviewed date:11/02/2023 12:00:00 AM Interpretation: Performing Lab: Notes/Report: AMPHETAMINE 2668 ng/mL AMPHETAMINES POSITIVE ng/mL MEDMATCH AMPHETAMINE CONSISTENT METHAMPHETAMINE NEGATIVE ng/mL DRUG SCREEN, 14 DRUGS (DETEC TIMED), URINE Reviewed date:11/02/2023 12:00:00 AM Interpretation: Performing Lab: Notes/Report: Amphetamine positive Barbiturates negative Benzodiazipine negative Buprenorphine negative Cocaine negative MDMA/Ectasy negative Methadone negative Methamphetamine negative Morphine negative Oxycodone negative Phenocyclidine negative THC positive TETRAHYDROCANNABINOL, QUANTI TATIVE, URINE Reviewed date:11/02/2023 12:00:00 AM Interpretation: Performing Lab: Notes/Report: MARIJUANA METABOLITE 43 ng/mL MEDMATCH MARIJUANA METAB INCONSISTENT UNKNOWN Reviewed date:11/02/2023 12:00:00 AM Interpretation: Performing Lab: Notes/Report: PRESCRIBED DRUG 1 Adderall(TM) PRESCRIBED DRUG 2 Alprazolam DOCUMENT LABEL NOT LISTED Reviewed date:11/04/2023 12:00:00 AM Interpretation: Performing Lab: Notes/Report: DRUG SCREEN, 14 DRUGS (DETEC TIMED), URINE Reviewed date:12/01/2023 12:00:00 AM Interpretation: Performing Lab: Notes/Report: Amphetamine positive Barbiturates negative Benzodiazipine negative Buprenorphine negative Cocaine negative Creatinine 20 mg/dl MDMA/Ectasy negative Methadone negative Methamphetamine negative Morphine negative Oxycodone negative PH 7.0 Phenocyclidine negative SG Specific [place] 1.005 THC negative DRUG MONITOR, MARIJUANA META B, QN, URINE ([id number]) Reviewed date:05/25/2024 11:41:49 AM Interpretation: Performing Lab:W[facility] [id number], [id number] Luke Hdz Notes/Report: FASTING: NO Marijuana Metabolite >5000 <5 ng/mL Marijuana Comments See Carole martinez Notes, LDT Notes DRUG MONITOR, ZOLPIDEM, QN, URINE ([id number]) Reviewed date:05/25/2024 11:41:49 AM Interpretation: Performing Lab:W[facility] [id number], [id number] Luke Hdz, Director - [id number] [place], [place] [address] Notes/Report: FASTING: NO Zolpidem NEGATIVE <5 ng/mL Zolpidem Metabolite NEGATIVE <5 ng/mL Zolpidem Comments See LDT No ilya Notes and Comments This drug testing is for medical treatment only. Analysis was performed as non-forensic testing and these results should be used only by healthcare providers to render diagnosis or treatment, or to monitor progress of medical conditions. Marijuana Notes: Marijuana Metabolite detected is consistent with exposure to Marijuana (THC) and/or hemp derived products. Some jurisdictions do not include hemp within the definition of Marijuana. LDT Notes: Confirmation tests were developed and their analytical performance characteristics have been determined by [facility]. It has not been cleared or approved by the FDA. This assay has been validated pursuant to the CLIA regulations and is used for clinical purposes. Healthcare Providers needing Interpretation assistance, please contact us at [phone] ( ) M-F, 8am to 10pm EST DRUG MONITOR, BENZO, QN, [place] ([id number]) Reviewed date:05/25/2024 11:41:49 AM Interpretation: Performing Lab:WILL, [facility] [id number], [id number] Luke Hdz Notes/Report: FASTING: NO Alphahydroxyalprazolam NEGATIVE <25 ng/mL Alphahydroxymidazolam NEGATIVE <50 ng/mL Alphahydroxytriazolam NEGATIVE <50 ng/mL Aminoclonazepam NEGATIVE <25 ng/mL Hydroxyethylflurazepam NEGATIVE <50 ng/mL Lorazepam NEGATIVE <50 ng/mL Nordiazepam NEGATIVE <50 ng/mL Oxazepam NEGATIVE <50 ng/mL Temazepam NEGATIVE <50 ng/mL Benzodiazepines Comments See LDT Notes DRUG MONITOR,AMPHETAMINE, QN , URINE ([id number]) Reviewed date:05/25/2024 11:41:49 AM Interpretation: Performing Lab:WILL, [facility] [id number] [facility], [id number] Luke Hdz Notes/Report: FASTING: NO Amphetamine NEGATIVE <250 ng/mL Methamphetamine NEGATIVE <250 ng/mL Amphetamines Comments See LD T Notes UDT Reviewed date:05/15/2024 11:45:54 AM Interpretation: Performing Lab: Notes/Report: THC POS 0 - 50 ng/ml Cocaine NEG 0 - 300 ng/ml Amphetamine NEG 0 - 1000 ng/ml Buprenorphine (BUP) NEG 0 - 10 ng/ml Secobarbital (Bar) NEG 0 - 300 ng/ml Oxazepam (BZO) NEG 0 - 300 ng/ml 6-logdhapbpd-5,4-ihsejcbb-0, 3-diphe nylpyrrolidine (EDDP) NEG 0 - 300 ng/ml Methamphetamine (MET) NEG 0 - 1000 ng/ml Methylenedioxymethamphetamin e (MDMA) NEG 0 - 500 ng/ml Morphine (MOP 300/[id number]) NEG 0 - 300 ng/ml Methadone (MTD) NEG 0 - 300 ng/ml Phencyclidine (PCP) NEG 0 - 25 ng/ml Propoxyphene (PPX) NEG 0 - 300 ng/ml Nortriptyline (TCA) NEG 0 - 1000 ng/ml Oxycodone NEG 0 - 300 ng/ml Reason For Referral No Information Medications Medication SIG (Take, Route, Frequency, Duration) Notes Start Date End Date Status ALPRAZolam 0.5 MG 1 tablet Oral Twice a day for 30 days Active Auvelity 45-105 MG 1 tablet once a day for 1 day, 1 tablet 2 times a day for 30 days Orally see sign for 30 days Active lamoTRIgine 100 MG [...] a day for 30 days 08/28/2024 Active Prazosin HCl 1 MG 1 capsule at bedtime Oral Once a day for 30 days Active Amphetamine-Dextroamphet ER 30 MG 1 capsule every morning Oral Once a day for 30 days 08/28/2024 Active Spravato (84 MG Dose) 28 MG/DEVICE INHALE 84MG PER NASAL ROUTE TWICE A WEEK for 3 08/14/2024 Active Immunizations Vaccine Route Administration Date Status Comme nts Pfizer Biontech Covid-19 Vac cine 2nd dose Unknown 11/04/2020 Administered Pfizer Biontech Covid-19 Vac cine 2nd dose Unknown 12/02/2020 Administered Moderna Covid-19 Vaccine 1st dose Unknown 08/15/2021 Ad ministered Social History Tobacco Use: Social History Observation Description Date Details (start date - stop date) Unknown Sex Assigned At : Social History Observation Description Sex Assigned At Female Tobacco Control (Standard) Question Answer Notes Tobacco use: Uses tobacco in other forms Problems Problem Type SNOMED Code ICD Code Onset Dates Problem Status W/U Status Risk Notes Problem Severe recurrent major depression without psychotic features (49491731) Major depressive disorder, recurrent severe without 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) Active confirmed Problem Generalized anxiety disorder (41981498) Generalized anxiety disorder (F41.1) Active confirmed Problem Insomnia disorder related to another mental disorder (12748790) Insomnia due to other mental 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) Active confirmed Problem Attention deficit hyperactivity disorder, combined type (57444262) Attention-deficit hyperactivity disorder, combined type (F90.2) 12/26/19 24 Active confirmed Problem 32002197 MDD (major depressive disorder), recurrent episode, moderate (F33.1) Active confirmed Problem 5971344 Passive suicidal ideations (R45.851) Active confirmed Problem 099901520 Vapes nicotine containing substance (Z72.0) Active confirmed Vital Signs Heart Rate 80 /min 08/28/2024 Blood pressure diastolic 73 mm Hg 08/28/2024 Height-cm 157.48 cm 08/28/2024 Weight-kg 78.47 kg 08/07/2024 Height 62.00 in 08/28/2024 Blood pressure systolic 133 mm Hg 08/28/2024 Weight 173.0 lbs 08/07/2024 BMI 31.64 kg/m2 08/07/2024 Encounters Encounter Location Date Provider Diagnosis [address] [address] 07/09/2024 Chelsie Membreno [place] [address] [address] [facility] [address] [address] 09/06/2023 Abdulkadir Diony Major depressive disorder, recurrent, mild F33.0 ; Attention-deficit hyperactivity disorder, combined type F90.2 ; Generalized anxiety disorder F41.1 and Insomnia due to other mental disorder F51.05 [facility] [employer] [address] 09/09/2023 Provider Migration Generalized anxiety disorder F41.1 [facility] [employer] [address] 09/13/2023 Abdulkadir Diony Major depressive disorder, recurrent, mild F33.0 ; Attention-deficit hyperactivity disorder, combined type F90.2 ; Insomnia due to other mental disorder F51.05 and Generalized anxiety disorder F41.1 [facility] [place] [address] [facility] [address] [address] 09/15/2023 Yimi Michael Generalized anxiety disorder F41.1 and Major depressive disorder, recurrent, moderate F33.1 [facility] [place] [address] [facility] [address] [address] 09/20/2023 Abdulkadir Diony Insomnia due to othe r mental disorder F51.05 ; Generalized anxiety disorder F41.1 ; Attention-deficit hyperactivity disorder, combined type F90.2 and Major depressive disorder, recurrent severe without psychotic features F33.2 [facility] [employer] [address] [place] [address] 09/27/2023 Willard Marin Insomnia due to othe r mental disorder F51.05 ; Generalized anxiety disorder F41.1 ; Attention-deficit hyperactivity disorder, combined type F90.2 and Major depressive disorder, recurrent severe without psychotic features F33.2 [facility], [facility] [address] [place] [address] 09/29/2023 Yimi Michael Generalized anxiety disorder F41.1 and Major depressive disorder, recurrent, moderate F33.1 [facility], [facility] [address] [place] [address] 10/04/2023 Abdulkadir Diony Major depressive disorder, recurrent, moderate F33.1 ; Insomnia due to other mental disorder F51.05 ; Generalized anxiety disorder F41.1 and Attention-deficit hyperactivity disorder, combined type F90.2 [facility], [facility] [address] [place] [address] 10/13/2023 Yimi Michael Generalized anxiety disorder F41.1 and Major depressive disorder, recurrent, moderate F33.1 [facility], [facility] [address] [place] [address] 10/18/2023 Abdulkadir Diony Attention-deficit hyperactivity disorder, combined type F90.2 ; Major depressive disorder, recurrent, moderate F33.1 and Insomnia due to other mental disorder F51.05 [facility], [facility] [address] [place] [address] 10/24/2023 Abdulkadir Diony Major depressive disorder, recurrent severe without psychotic features F33.2 [facility], [facility] [address] [place] [address] 10/26/2023 Abdulkadir Diony Major depressive disorder, recurrent severe without psychotic features F33.2 [facility], [facility] [address] [place] [address] 10/27/2023 Abdulkadir Diony Major depressive disorder, recurrent severe without psychotic features F33.2 [facility], [facility] [address] [place] [address] 10/28/2023 Abdulkadir Diony Attention-deficit hyperactivity disorder, combined type F90.2 and Major depressive disorder, recurrent severe without psychotic features F33.2 [facility], [facility] [address] [place] [address] 10/31/2023 Abdulkadir Diony Major depressive disorder, recurrent severe without psychotic features F33.2 [facility], [facility] [address] [place] [address] 11/01/2023 Abdulkadir Diony Major depressive disorder, recurrent severe without psychotic features F33.2 [facility], [facility] [address] [place] [address] 11/02/2023 Abdulkadir Diony Major depressive disorder, recurrent severe without psychotic features F33.2 ; Attention-deficit hyperactivity disorder, combined type F90.2 and Bariatric surgery status Z98.84 [facility], [facility] [address] [place] [address] 11/02/2023 Abdulkadir Dioyn [facility], [facility] [address] [place] [address] 11/04/2023 Abdulkadir Diony Major depressive disorder, recurrent severe without psychotic features F33.2 [facility], [facility] [address] [place] [address] 11/07/2023 Abdulkadir Diony Major depressive disorder, recurrent severe without psychotic features F33.2 [facility], [facility] [address] [place] [address] 11/08/2023 Yimi Michael Major depressive disorder, recurrent, moderate F33.1 ; Generalized anxiety disorder F41.1 and Major depressive disorder, recurrent severe without psychotic features F33.2 [facility], [facility] [address] [place] [address] 11/08/2023 Abdulkadir Diony [facility], [facility] [address] [place] [address] 11/09/2023 Abdulkadir Diony Major depressive disorder, recurrent severe without psychotic features F33.2 [facility], [facility] [address] [place] [address] 11/10/2023 Abdulkadir Diony Bariatric surgery status Z98.84 ; Attention-deficit hyperactivity disorder, combined type F90.2 and Major depressive disorder, recurrent severe without psychotic features F33.2 [facility], [facility] [address] [place] [address] 11/10/2023 Abdulkadir Diony [facility], [facility] [address] [place] [address] 2023 Abdulkadir Diony Major depressive disorder, recurrent severe without psychotic features F33.2 [facility], [facility] [address] [place] [address] 11/14/2023 Abdulkadir Diony Major depressive disorder, recurrent severe without psychotic features F33.2 [facility], [facility] [address] [place] [address] 11/15/2023 Abdulkadir Diony Major depressive disorder, recurrent severe without psychotic features F33.2 [facility], [facility] [address] [place] [address] 11/16/2023 Abdulkadir Diony Major depressive disorder, recurrent severe without psychotic features F33.2 [facility], [facility] [address] [place] [address] 11/17/2023 Abdulkadir Diony Major depressive disorder, recurrent severe without psychotic features F33.2 [facility], [facility] [address] [place] [address] 11/18/2023 Abdulkadir Diony Major depressive disorder, recurrent severe without psychotic features F33.2 [facility], [facility] [address] [place] [address] 11/21/2023 Abdulkadir Diony Major depressive disorder, recurrent severe without psychotic features F33.2 [facility], [facility] [address] [place] [address] 11/22/2023 Abdulkadir Diony Major depressive disorder, recurrent severe without psychotic features F33.2 [facility], [facility] [address] [place] [address] 11/28/2023 Provider Migration Attention-deficit hyperactivity disorder, combined type F90.2 [facility], [facility] [address] [place] [address] 11/30/2023 Abdulkadir Diony Major depressive disorder, recurrent severe without psychotic features F33.2 [facility], [facility] [address] [place] [address] 12/01/2023 Abdulkadir Diony Major depressive disorder, recurrent, moderate F33.1 and Major depressive disorder, recurrent severe without psychotic features F33.2 [facility], [facility] [address] [place] [address] 12/01/2023 Abdulkadir Diony [facility], [facility] [address] [place] [address] 12/02/2023 Abdulkadir Diony [facility], [facility] [address] [place] [address] 12/08/2023 Abdulkadir Diony Major depressive disorder, recurrent severe without psychotic features F33.2 and Generalized anxiety disorder F41.1 [facility], [facility] [address] [place] [address] 12/09/2023 Thena Katie Major depressive disorder, recurrent severe without psychotic features F33.2 [facility], [facility] [address] [place] [address] 12/12/2023 Thena Katie Major depressive disorder, recurrent severe without psychotic features F33.2 [facility], [facility] [address] [place] [address] 12/13/2023 Provider Migration [facility], [facility] [address] [place] [address] 12/15/2023 Thena Katie Major depressive disorder, recurrent severe without psychotic features F33.2 [facility], [facility] [address] [place] [address] 12/16/2023 Thena Katie Major depressive disorder, recurrent severe without psychotic features F33.2 [facility], [facility] [address] [place] [address] 12/26/2023 Provider Migration Attention-deficit hyperactivity disorder, combined type F90.2 [facility], [facility] [address] [place] [address] 01/09/2024 Provider Migration Generalized anxiety disorder F41.1 [facility], [facility] [address] [place] [address] 05/14/2024 Willard Marin Attention-deficit hyperactivity disorder, combined type F90.2 ; Generalized anxiety disorder F41.1 ; Major depressive disorder, recurrent severe without psychotic features F33.2 and Insomnia due to other mental disorder F51.05 [facility] [employer], [facility] [address] [place] [address] 05/18/2024 Chelsie Membreno Attention-deficit hyperactivity disorder, combined type F90.2 ; Major depressive disorder, recurrent severe without psychotic features F33.2 and Generalized anxiety disorder F41.1 [facility] [employer], [facility] [address] [place] [address] 06/14/2024 Willard Marin Attention-deficit hyperactivity disorder, combined type F90.2 ; Generalized anxiety disorder F41.1 ; Major depressive disorder, recurrent severe without psychotic features F33.2 and Insomnia due to other mental disorder F51.05 [facility] [employer], [facility] [address] [place] [address] 06/19/2024 Robbie Clubb MDD (major depressiv e disorder), recurrent episode, moderate F33.1 and Nicotine use Z72.0 [facility] [address] [place] [address] 06/22/2024 Robbie Clubb Nicotine use Z72.0 ; Major depressive disorder, recurrent severe without psychotic features F33.2 and Passive suicidal ideations R45.851 [facility] [address] [place] [address] 06/25/2024 Robbie Clubb Nicotine use Z72.0 and Major depressive disorder, recurrent severe without psychotic features F33.2 [facility] [employer], [facility] [address] [place] [address] 06/26/2024 Chelsie Membreno Attention-deficit hyperactivity disorder, combined type F90.2 ; Major depressive disorder, recurrent severe without psychotic features F33.2 and Generalized anxiety disorder F41.1 [facility] [employer] [facility] [address] [place] [address] 06/28/2024 Robbie Clubb Major depressive disorder, recurrent severe without psychotic features F33.2 [facility] [address] [place] [address] 07/02/2024 Robbie Clubb Major depressive disorder, recurrent severe without psychotic features F33.2 [facility] [employer] [facility] [address] [place] [address] 07/05/2024 Robbie Clubb Major depressive disorder, recurrent severe without psychotic features F33.2 [facility], [facility] [address] [place] [address] 07/10/2024 Robbie Clubb Major depressive disorder, recurrent severe without psychotic features F33.2 [facility], [facility] [address] [place] [address] 07/12/2024 Robbie Clubb Major depressive disorder, recurrent severe without psychotic features F33.2 [facility] [address] [place] [address] 07/18/2024 Willard Marin Attention-deficit hyperactivity disorder, combined type F90.2 ; Generalized anxiety disorder F41.1 ; Major depressive disorder, recurrent severe without psychotic features F33.2 and Insomnia due to other mental disorder F51.05 [facility], [facility] [address] [place] [address] 07/19/2024 Robbie Clubb Major depressive disorder, recurrent severe without psychotic features F33.2 [facility] [address] [place] [address] 07/24/2024 Robbie Clubb Major depressive disorder, recurrent severe without psychotic features F33.2 and Vapes nicotine containing substance Z72.0 [facility] [address] [place] [address] 08/02/2024 Madison Kristy Major depressive disorder, recurrent severe without psychotic features F33.2 [facility] [address] [place] [address] 08/07/2024 Willard Marin Attention-deficit hyperactivity disorder, combined type F90.2 ; Generalized anxiety disorder F41.1 ; Major depressive disorder, recurrent severe without psychotic features F33.2 and Insomnia due to other mental disorder F51.05 [facility], [facility] [address] [place] [address] 08/09/2024 Robbie Clubb Major depressive disorder, recurrent severe without psychotic features F33.2 and Vapes nicotine containing substance Z72.0 [facility], [facility] [address] [place] [address] 08/20/2024 Robbie Clubb Major depressive disorder, recurrent severe without psychotic features F33.2 [facility], [facility] [address] [place] [address] 08/28/2024 Robbie Adhikari Major depressive disorder, recurrent severe without psychotic features F33.2 and Elevated blood pressure reading R03.0 [facility], [facility] [address] [place] [address] 09/09/2023 Provider [facility], [facility] [address] [place] [address] 09/13/2023 Provider [facility], [facility] [address] [place] [address] 09/14/2023 Provider [facility], [facility] [address] [place] [address] 10/07/2023 Provider [facility], [facility] [address] [place] [address] 10/12/2023 Provider [place] [facility] [address] [place] [address] 10/28/2023 Provider [facility], [facility] [address] [place] [address] 11/03/2023 Provider [facility], [facility] [address] [place] [address] 11/07/2023 Provider [facility], [facility] [address] [place] [address] 11/08/2023 Provider [facility], [facility] [address] [place] [address] 11/09/2023 Provider [facility], [facility] [address] [place] [address] 11/17/2023 Provider [facility], [facility] [address] [place] [address] 11/27/2023 Provider [facility], [facility] [address] [place] [address] 11/28/2023 Provider [facility], [facility] [address] [place] [address] 11/29/2023 Provider [facility], [facility] [address] [place] [address] 12/07/2023 Provider [facility], [facility] [address] [place] [address] 12/16/2023 Provider [facility], [facility] [address] [place] [address] 12/26/2023 Provider [facility], [facility] [address] [place] [address] 01/04/2024 Provider [facility], [facility] [address] [place] [address] 01/05/2024 Provider [facility], [facility] [address] [place] [address] 01/06/2024 Provider [facility], [facility] [address] [place] [address] 01/14/2024 Provider [facility], [facility] [address] [place] [address] 01/15/2024 [facility], [facility] [address] [place] [address] 04/24/2024 Abdulkadir Vora [facility], [facility] [address] [place] [address] 05/08/2024 [facility] [address] [place] [address] 05/09/2024 [facility] [address] [place] [address] 05/23/2024 [facility] [address] [place] [address] 05/28/2024 [employer], [facility] [address] [place] [address] 06/06/2024 Willard Marin Major depressive disorder, recurrent severe without psychotic features F33.2 [facility], [facility] [address] [place] [address] 06/13/2024 [facility] [address] [place] [address] 06/15/2024 [facility] [address] [place] [address] 06/15/2024 [facility] [address] [place] [address] 06/20/2024 Willard Marin Major depressive disorder, recurrent severe without psychotic features F33.2 [facility], [facility] [address] [place] [address] 06/20/2024 Willard Eliasa [facility], [facility] [address] [place] [address] 08/02/2024 Willard Eliasa [facility], [facility] [address] [place] [address] 08/13/2024 Willard Marin [facility], [facility] [address] [place] [address] 08/28/2024 Willard Marin Attention-deficit hyperactivity disorder, combined type F90.2 [facility], [facility] [address] [place] [address] 02/21/2024 Abdulkadircarlos alberto Vora Attention-deficit hyperactivity disorder, combined type F90.2 [facility], [facility] [address] [place] [address] 02/21/2024 Abdulkadir Waddellam [facility], [facility] [address] [place] [address] 02/23/2024 Madison Wagner [facility], [facility] [address] [place] [address] 03/27/2024 Willard Marin Attention-deficit hyperactivity disorder, combined type F90.2 [facility], [facility] [address] [place] [address] 04/16/2024 Willard Marin Attention-deficit hyperactivity disorder, combined type F90.2 and Major depressive disorder, recurrent, mild F33.0 [facility], [facility] [address] [place] [address] 04/20/2024 Abdulkadir Diony [facility], [facility] [address] [place] [address] 04/23/2024 Willard Eliasa [facility], [facility] [address] [place] [address] 04/26/2024 Willard Eliasa [facility], [facility] [address] [place] [address] 05/02/2024 Willard Eliasa [facility], [facility] [address] [place] [address] 05/07/2024 Willard Marin Attention-deficit hyperactivity disorder, combined type F90.2 [facility], [facility] [address] [place] [address] 05/08/2024 [facility], [facility] [address] [place] [address] 05/08/20[facility] [address] [place] [address] 05/08/2024 [facility], [facility] [address] [place] [address] 05/24/2024 Willard Marin [facility], [facility] [address] [place] [address] 06/05/2024 Willard Marin [facility], [facility] [address] [place] [address] 06/07/2024 Willard Marin Attention-deficit hyperactivity disorder, combined type F90.2 [facility], [facility] [address] [place] [address] 06/11/2024 Willard Marin Attention-deficit hyperactivity disorder, combined type F90.2 [facility], [facility] [address] [place] [address] 06/11/2024 Willard Marin Attention-deficit hyperactivity disorder, combined type F90.2 [facility], [facility] [address] [place] [address] 06/13/2024 Willard Eliasa [facility], [facility] [address] [place] [address] 06/15/2024 Willard Batistaoza [facility], [facility] [address] [place] [address] 07/09/2024 Willard Marin Attention-deficit hyperactivity disorder, combined type F90.2 [facility], [facility] [address] [place] [address] 07/09/2024 Willard Marin [facility], [facility] [address] [place] [address] 07/09/2024 Madison Wagner Generalized anxiety disorder F41.1 [facility] [address] [place] [address] 07/10/2024 Willrad Marin Attention-deficit hyperactivity disorder, combined type F90.2 [facility] [address] [place] [address] 08/02/2024 Willard Marin Major depressive disorder, recurrent severe without psychotic features F33.2 [facility] [address] [place] [address] 08/02/2024 Willard Marin Attention-deficit hyperactivity disorder, combined type F90.2 [facility] [address] [address] 08/03/2024 Willard Marin [facility] [address] [address] 08/05/2024 Willard Marin [facility], [facility] [address] [facility] [address] [place] [address] 08/06/2024 Willard Marin [facility], [facility] [address] [facility] [address] [place] [address] 08/16/2024 Willardmarquez Batistaoza [facility], [facility] [address] [address] 08/16/2024 Willard Marin Assessments Encounter Date Diagnosis (ICD Code) Assessment Notes Treatment Notes Treatment Clinical Notes Section Notes 02/21/2024 Attention-defic it hyperactivity disorder, combined type (ICD-10 - F90.2) 06/20/2024 Major depressive disorder, 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-10 - F33.2) 08/28/2024 Attention-defic it hyperactivity disorder, combined type (ICD-10 - F90.2) 08/07/2024 Attention-defic it hyperactivity disorder, combined type (ICD-10 - F90.2) SPRAVATO trademark is contraindicated in patients with: Aneurysmal vascular disease (including thoracic and abdominal aorta, No history intracranial and peripheral arterial vessels) or arteriovenous malformation No history History of intracerebral hemorrhage No history Hypersensitivity to esketamine, ketamine, or any of the ingredients No history 1. Suspected Autism Spectrum Disorder (ASD) or Learning Disability: - Patient reports difficulty with social cues, comprehension, and obsessive behaviors. Plan: - Refer the patient to Dr. Marcus Rivas for a comprehensive neuropsychological evaluation, including ADHD questionnaires, memory tests, and intelligence assessments. - Frame the referral in terms of obsessive behaviors, ADHD behaviors, social cue behaviors, and comprehension issues to increase the likelihood of insurance coverage. 2. Depression: - Patient reports improvement in mood since starting Spravato. Plan: - Continue Spravato as prescribed. - Monitor for any changes in mood or depressive symptoms. 3. Anxiety and Insomnia: - Patient reports increased anxiety and difficulty sleeping. Plan: - Temporarily increase quetiapine dosage to 200mg at bedtime to help with sleep and anxiety. - Reassess the patient's response to the increased dosage at the next visit. 4. Possible Bipolar Disorder: - Patient reports a history of significant overspending after a traumatic event. Plan: - Continue to monitor the patient for any signs of milly or hypomania. - Consider further evaluation for bipolar disorder if symptoms emerge. 5. Medication management: - Current medications: Spravato, quetiapine, Auvelity, Xanax. Plan: - Continue current medications as prescribed, with the temporary increase in quetiapine dosage. - Monitor for any side effects or changes in the patient's response to medications. 08/09/2024 Major depressive disorder, 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-10 - F33.2) 1. Anxiety - Patient reports anxiety levels at 7-8 out of 10. - Patient denies suicidal thoughts, homicidal thoughts, hallucinations, paranoia, and delusions. - Plan: a. Continue monitoring anxiety levels. b. Consider adjusting medication dosage or adding an anxiolytic if anxiety persists or worsens. c. Encourage engagement in stress-reducing activities (exercise, meditation, therapy). 2. Depression - Patient reports depression levels at 5 out of 10. - Patient denies suicidal thoughts, homicidal thoughts, hallucinations, paranoia, and delusions. - Plan: a. Continue monitoring depression levels. B. Encourage engagement in activities promoting mental well-being (socializing, exercise, therapy). 3. Sleep Disturbance - Patient reports broken sleep, averaging 4-6 hours per night. - Plan: a. Monitor sleep patterns and quality. b. Consider sleep hygiene interventions (regular sleep schedule, relaxing bedtime routine, limiting screen exposure). c. Initiate quetiapine dose 4. Medication Management - Patient's medication dosage increased to 200 mg but not yet started. - Plan: a. Encourage patient to start taking increased dosage as prescribed. b. Monitor for side effects or adverse reactions. c. Reevaluate medication effectiveness and dosage at next appointment. 5. Physical Health - Patient denies new physical complaints. - Patient reports adequate appetite. - Plan: a. Continue monitoring for new or worsening physical symptoms. b. Encourage maintenance of healthy lifestyle (regular exercise, balanced diet, routine medical check-ups). 08/09/2024 Vapes nicotine containing substance (ICD-10 - Z72.0) 6-Quit - Yes [place] Tobacco Quitline Call a Smoking Quitline The [employer] [place]'s Smoking Quitline, (4-900-01S-QUIT ) Smokefree.gov, which connects you with your State's Quitline, (5-358-IREYFZO) Veterans Smoking Quitline, (2-837-VIGHIND) 1. Anxiety - Patient reports anxiety levels at 7-8 out of 10. - Patient denies suicidal thoughts, homicidal thoughts, hallucinations, paranoia, and delusions. - Plan: a. Continue monitoring anxiety levels. b. Consider adjusting medication dosage or adding an anxiolytic if anxiety persists or worsens. c. Encourage engagement in stress-reducing activities (exercise, meditation, therapy). 2. Depression - Patient reports depression levels at 5 out of 10. - Patient denies suicidal thoughts, homicidal thoughts, hallucinations, paranoia, and delusions. - Plan: a. Continue monitoring depression levels. B. Encourage engagement in activities promoting mental well-being (socializing, exercise, therapy). 3. Sleep Disturbance - Patient reports broken sleep, averaging 4-6 hours per night. - Plan: a. Monitor sleep patterns and quality. b. Consider sleep hygiene interventions (regular sleep schedule, relaxing bedtime routine, limiting screen exposure). c. Initiate quetiapine dose 4. Medication Management - Patient's medication dosage increased to 200 mg but not yet started. - Plan: a. Encourage patient to start taking increased dosage as prescribed. b. Monitor for side effects or adverse reactions. c. Reevaluate medication effectiveness and dosage at next appointment. 5. Physical Health - Patient denies new physical complaints. - Patient reports adequate appetite. - Plan: a. Continue monitoring for new or worsening physical symptoms. b. Encourage maintenance of healthy lifestyle (regular exercise, balanced diet, routine medical check-ups). 08/20/2024 Major depressive disorder, recurrent severe without [...] physical complaints or concerns during future appointments. 08/28/2024 Major depressive disorder, recurrent severe without [...] emergence of psychotic symptoms at follow-up visits. 07/18/2024 Attention-defic it hyperactivity disorder, combined type (ICD-10 - F90.2) SPRAVATO trademark is contraindicated in patients with: Aneurysmal vascular disease (including thoracic and abdominal aorta, No history intracranial and peripheral arterial vessels) or arteriovenous malformation No history History of intracerebral hemorrhage No history Hypersensitivity to esketamine, ketamine, or any of the ingredients No history 1. Major Depressive Disorder: - Patient reports improvement in mood and interest in activities since starting Spravato treatments. - PHQ-9 score has decreased from 12 to 8, indicating improvement. Plan: - Continue Spravato treatments, transitioning from twice weekly to once weekly. - Monitor patient's response and adjust frequency as needed. - Encourage patient to track mood changes between treatments. 2. Attention Deficit Hyperactivity Disorder (ADHD): - Patient is currently on Adderall ER 30 mg daily and reports it is working well. Plan: - Continue Adderall ER 30 mg daily. - Monitor for tolerance and consider alternative treatments if necessary. - Encourage patient to continue working on ADHD management skills through therapy and self-help resources. 3. Anxiety: - Patient is taking alprazolam twice daily and reports no issues. Plan: - Continue alprazolam as prescribed. - Encourage patient to discuss anxiety management strategies with therapist. 4. Insomnia and Nightmares: - Patient is taking prazosin for nightmares and reports it is effective. Plan: - Continue prazosin as prescribed. - Encourage patient to maintain good sleep hygiene and discuss any sleep concerns with therapist. 5. Medication management for depression: - Patient is on Auvelity twice daily, quetiapine 100 mg at bedtime, and lamotrigine 100 mg daily. Plan: - Continue current medications as prescribed. - Monitor patient's response to treatment and adjust as needed. 6. Therapy: - Patient is seeing therapist Chelsie and reports a positive experience. Plan: - Encourage patient to continue therapy sessions and work on stress management, self-love, and ADHD management skills. Overall, the patient is showing improvement in depressive symptoms and is engaging in positive life changes. Continue to monitor progress and adjust treatment plans as needed. 07/19/2024 Major depressive disorder, 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-10 - F33.2) continue current treatment as prescribed by primary psychiatric care provider 1. Depression - Patient rates depression 01/05 - Plan: a. Continue current antidepressant medication. b. Monitor for changes in symptoms. c. Encourage regular physical activity. 2. Anxiety - Patient rates anxiety as 03/07. - Plan: a. Continue current anxiolytic medication. b. Monitor for changes in symptoms. c. Encourage relaxation techniques such as deep breathing exercises and mindfulness. 3. Suicidal Ideation and Self-Harm - Patient denies thoughts of suicide or self-harm. - Plan: a. Continue monitoring for changes in mood or behavior indicating increased risk. 4. Homicidal Ideation - Patient denies thoughts of hurting others. - Plan: a. Continue monitoring for changes in mood or behavior indicating increased risk. 5. Psychotic Symptoms - Patient denies experiencing hallucinations, delusions, or paranoia. - Plan: a. No intervention needed at this time. b. Continue monitoring for changes in symptoms. 6. Appetite - Patient reports mediocre appetite, describing it as Not bad, but not good. - Plan: a. Encourage maintaining a balanced diet. b. Monitor for changes in appetite that may indicate need for intervention. 7. Sleep - Patient reports sleep as okay. - Plan: a. Continue current sleep hygiene practices. b. Monitor for changes in sleep quality. 8. Medication Changes - No recent changes in medication reported. - Plan: a. Continue monitoring for side effects or changes in symptoms. 07/24/2024 Major depressive disorder, 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-10 - F33.2) 1. Tobacco Use - Patient confirms they are still a smoker. - Plan: a. Provide smoking cessation education and resources. b. Encourage patient to consider quitting. c. Discuss potential pharmacological and non-pharmacological interventions. d. Inform patient about health risks of smoking. 2. Depression - Patient rates her depression as 5-6/10. - Plan: a. Continue current antidepressant therapy as prescribed by primary psychiatric care provider. b. Monitor patient's mood and response to treatment. c. Encourage regular physical activity and social interactions. 3. Anxiety - Patient rates her anxiety as 6-7/10. - Plan: a. Continue current anxiolytic therapy as prescribed by primary psychiatric care provider. b. Monitor anxiety levels and response to treatment. c. Encourage relaxation techniques like deep breathing and mindfulness. 4. Suicidality and Self-Harm - Patient reports no thoughts of suicide or self-harm. - Plan: a. Continue monitoring for signs of suicidality or self-harm at future visits. b. Ensure clear communication and understanding of self-harm related questions. 5. Psychosis - Patient denies hallucinations, delusions, or paranoia. - Plan: a. Continue monitoring for signs of psychosis at future visits. 6. Sleep - Patient reports 6-7 hours of sleep per night. - Plan: a. Encourage maintenance of good sleep hygiene. 7. Appetite - Patient reports okay appetite. - Plan: a. Continue monitoring appetite. b. Consider interventions if appetite worsens or does not improve. 8. Medication Changes - No reported medication changes. - Plan: a. Continue current medication regimen. b. Monitor for side effects or changes in efficacy. 9. Physical Complaints - No reported physical complaints. - Plan: a. Encourage patient to report any new or worsening physical symptoms at future visits. 07/24/2024 Vapes nicotine containing substance (ICD-10 - Z72.0) -Quit - Yes [place] [employer] Quitline Call a Smoking Quitline The [employer] [place]'s Smoking Quitline, (1-466-27W-QUIT ) Smokefree.gov, which connects you with your State's Quitline, (5-487-DCSOQGA) Veterans Smoking Quitline, (7-188-VFJJCEF) 1. Tobacco Use - Patient confirms they are still a smoker. - Plan: a. Provide smoking cessation education and resources. b. Encourage patient to consider quitting. c. Discuss potential pharmacological and non-pharmacological interventions. d. Inform patient about health risks of smoking. 2. Depression - Patient rates her depression as 5-6/10. - Plan: a. Continue current antidepressant therapy as prescribed by primary psychiatric care provider. b. Monitor patient's mood and response to treatment. c. Encourage regular physical activity and social interactions. 3. Anxiety - Patient rates her anxiety as 6-7. - Plan: a. Continue current anxiolytic therapy as prescribed by primary psychiatric care provider. b. Monitor anxiety levels and response to treatment. c. Encourage relaxation techniques like deep breathing and mindfulness. 4. Suicidality and Self-Harm - Patient reports no thoughts of suicide or self-harm. - Plan: a. Continue monitoring for signs of suicidality or self-harm at future visits. b. Ensure clear communication and understanding of self-harm related questions. 5. Psychosis - Patient denies hallucinations, delusions, or paranoia. - Plan: a. Continue monitoring for signs of psychosis at future visits. 6. Sleep - Patient reports 6-7 hours of sleep per night. - Plan: a. Encourage maintenance of good sleep hygiene. 7. Appetite - Patient reports okay appetite. - Plan: a. Continue monitoring appetite. b. Consider interventions if appetite worsens or does not improve. 8. Medication Changes - No reported medication changes. - Plan: a. Continue current medication regimen. b. Monitor for side effects or changes in efficacy. 9. Physical Complaints - No reported physical complaints. - Plan: a. Encourage patient to report any new or worsening physical symptoms at future visits. 08/02/2024 Major depressive disorder, 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-10 - F33.2) 08/02/2024 Attention-defic it hyperactivity disorder, combined type (ICD-10 - F90.2) 06/22/2024 Major depressive disorder, 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-10 - F33.2) 1. Major Depressive Disorder - Patient rates her depression as 7/10. - Reports passive suicidal thoughts, occurring about three times, but denies any plan or intent. - Plan: a. Continue current medication regimen. b. Monitor for increase in suicidal thoughts or worsening of depressive symptoms. c. Consider referral to a therapist for additional support and coping strategies. D. safety plan in place. discussed crisis prevention and '988'. 2. Generalized Anxiety Disorder - Patient rates her anxiety as 8/10. - Plan: a. Continue current medication regimen. b. Monitor for any increase in anxiety symptoms. c. Consider referral to a therapist for additional support and coping strategies, such as CBT. 3. Sleep - Patient reports approximately 6 hours of sleep per night. - Describes sleep as okay. - Plan: a. Encourage good sleep hygiene practices, including consistent sleep schedule and relaxing bedtime routine. b. Monitor for changes in sleep patterns or quality. 4. Appetite - Patient reports appetite as okay. - Plan: a. Encourage a balanced diet and regular meal times. b. Monitor for changes in appetite or weight. 5. Safety - Patient denies hallucinations, delusions, paranoia, or thoughts of harming others. - Plan: a. Continue to monitor for changes in mental status or safety concerns. 6. Physical Health - Patient reports no physical complaints. - Plan: a. Encourage regular exercise and routine healthcare appointments. 06/22/2024 Nicotine use (ICD-10 - Z72.0) 1-866-Quit - Yes [place] Tobacco Quitline Call a Smoking Quitline The [employer] [place]'s Smoking Quitline, (6-487-01S-QUIT ) Smokefree.gov, which connects you with your State's Quitline, (0-054-FFTOJQT) Veterans Smoking Quitline, (7-222-VOTOYHU) Advised patient to quit smoking 1. Major Depressive Disorder - Patient rates her depression as 7/10. - Reports passive suicidal thoughts, occurring about three times, but denies any plan or intent. - Plan: a. Continue current medication regimen. b. Monitor for increase in suicidal thoughts or worsening of depressive symptoms. c. Consider referral to a therapist for additional support and coping strategies. D. safety plan in place. discussed crisis prevention and '988'. 2. Generalized Anxiety Disorder - Patient rates her anxiety as 8/10. - Plan: a. Continue current medication regimen. b. Monitor for any increase in anxiety symptoms. c. Consider referral to a therapist for additional support and coping strategies, such as CBT. 3. Sleep - Patient reports approximately 6 hours of sleep per night. - Describes sleep as okay. - Plan: a. Encourage good sleep hygiene practices, including consistent sleep schedule and relaxing bedtime routine. b. Monitor for changes in sleep patterns or quality. 4. Appetite - Patient reports appetite as okay. - Plan: a. Encourage a balanced diet and regular meal times. b. Monitor for changes in appetite or weight. 5. Safety - Patient denies hallucinations, delusions, paranoia, or thoughts of harming others. - Plan: a. Continue to monitor for changes in mental status or safety concerns. 6. Physical Health - Patient reports no physical complaints. - Plan: a. Encourage regular exercise and routine healthcare appointments. 06/25/2024 Nicotine use (ICD-10 - Z72.0) 1-694-Quit - Yes [place] Tobacco Quitline Call a Smoking Quitline The National [facility] [place]'s Smoking Quitline, (3-533-93T-QUIT ) Smokefree.gov, which connects you with your State's Quitline, (6-358-BKYKWPO) Veterans Smoking Quitline, (6-962-TSAYSLZ) Advised patient to quit smoking Patient had reduction in suicidal ideation and/or behavior upon follow-up assessment within 120 days of index assessment ([id number]) 1. Major Depressive Disorder - Patient rates her depression as 8/10. - Plan: a. Continue current antidepressant medication. b. Monitor for changes in symptoms. c. Encourage regular physical activity. d. Consider incorporating relaxation techniques like deep breathing or mindfulness meditation. 2. Generalized Anxiety Disorder - Patient rates her anxiety as 8/10. - Plan: a. Continue current anxiolytic medication. b. Monitor for changes in symptoms. c. Encourage regular physical activity. d. Consider incorporating relaxation techniques like deep breathing or mindfulness meditation. 3. Suicidal Ideation - Patient denies thoughts of suicide or harm to others. - Plan: a. Continue monitoring for changes in mood or suicidal ideation at follow-ups. b. Encourage reaching out to support system or mental health professional if experiencing thoughts of self-harm or harm to others. 4. Psychotic Symptoms - Patient denies hallucinations, delusions, or paranoia. - Plan: a. Continue monitoring for changes in psychotic symptoms at follow-ups. 5. Appetite - Patient reports neutral appetite. - Plan: a. Encourage maintaining a balanced diet. b. Monitor for changes in appetite at follow-ups. 6. Sleep Disturbances - Patient reports no change in sleep quality, which is currently poor. - Plan: a. Encourage good sleep hygiene practices. b. Consider referral to sleep specialist if disturbances persist. 7. Medication Management - No reported changes in medication. - Plan: a. Continue current medication regimen. b. Monitor for side effects or changes in symptoms. c. Encourage reporting of any concerns or adverse effects related to medications. 06/26/2024 Attention-defic it hyperactivity disorder, combined type (ICD-10 - F90.2) PLAN: DBT and follow up Thought Evaluation, Codependent on , and Belief Challenge Major Depressive Disorder - Assessment: Patient has Major Depressive Disorder and is currently receiving Spravato treatment (on third treatment). Previous TMS treatment reported as ineffective. - Plan: - Continue current antidepressant medication. - Encourage daily exercise, such as 15 minutes on the elliptical at [employer]. - Recommend engaging in activities that improve mood, such as tanning and massage bed at [employer]. - Consider EMDR therapy for trauma-related symptoms. - Schedule regular follow-up appointments to monitor progress and adjust treatment as needed. Anxiety - Assessment: Patient experiences anxiety. - Plan: - Teach patient coping strategies, such as tapping for anxiety management. - Encourage patient to engage in daily affirmations and explore page for support. - Address family dynamics and communication with parents to reduce anxiety triggers. - Monitor patient's response to anxiety management strategies during follow-up appointments. Low Self-Esteem and Negative Core Beliefs - Assessment: Patient has low self-esteem and negative core beliefs. Identified thinking errors include catastrophizing and minimization. - Plan: - Utilize Cognitive Behavioral Therapy (CBT) techniques to challenge and reframe negative beliefs. - Encourage patient to recognize and celebrate personal achievements. - Address the impact of childhood experiences and comparisons on self-esteem. - Explore the possibility of pursuing a career in cosmetology as a means of personal fulfillment and empowerment. - Implement thought evaluation exercises and belief challenge worksheets. Codependency - Assessment: Patient shows signs of codependency in relationship with spouse. - Plan: - Discuss the importance of maintaining individual interests and activities outside of the relationship with spouse. - Encourage the development of a support network, including friends and support groups. - Monitor progress in establishing healthy boundaries and independence during follow-up appointments. Each section addresses a specific problem area and outlines a corresponding plan for treatment and support. 06/28/2024 Major depressive disorder, 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-10 - F33.2) 1. Major Depressive Disorder - Patient rates her depression as 7/10. - No thoughts of suicide or self-harm. - No hallucinations, delusions, or paranoia. - Plan: a. Continue current medication regimen. b. Monitor for any changes in mood or symptoms. c. Encourage engagement in therapy and self-care activities. 2. Generalized Anxiety Disorder - Patient rates her anxiety as 7/10. - No thoughts of hurting others. - Plan: a. Continue current medication regimen. b. Monitor for any changes in anxiety levels. c. Encourage engagement in relaxation techniques and therapy. 3. Sleep - Patient reports approximately 6 hours of sleep per night. - Plan: a. Encourage good sleep hygiene practices. b. Consider adjusting medications if sleep does not improve. c. Monitor for any changes in sleep patterns. 4. Appetite - Patient reports appetite is okay . - Plan: a. Continue to monitor appetite. b. Encourage maintenance of a balanced diet. 5. Medication Management - No recent medication changes. - Plan: a. Continue current medication regimen. b. Monitor for any side effects or changes in symptoms. c. Schedule regular follow-up appointments to assess medication effectiveness. 6. Physical Health - No physical complaints reported. - Plan: a. Encourage regular physical activity. b. Encourage maintenance of a healthy lifestyle. c. Monitor for any new physical complaints during follow-up appointments. 07/02/2024 Major depressive disorder, 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-10 - F33.2) 1. Major Depressive Disorder - Patient reports depression rating of 7/10. - No thoughts of suicide or self-harm. - No hallucinations, delusions, or paranoia. - Sleep: approximately 6 hours per night. - Appetite: within normal limits. - No recent medication changes. - Plan: a. Continue current antidepressant medication regimen. b. Encourage regular physical activity and consistent sleep schedule. c. Provide psychoeducation on coping strategies for managing depressive symptoms. 2. Generalized Anxiety Disorder - Patient reports anxiety rating of 7/10. - No thoughts of harming others. - No recent medication changes. - Plan: a. Continue current anxiolytic medication regimen. b. Encourage relaxation techniques like deep breathing exercises and progressive muscle relaxation. 07/05/2024 Major depressive disorder, 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-10 - F33.2) 1. Major Depressive Disorder - Patient rates her depression as 6/10. - Plan: a. Continue current antidepressant medication. b. Monitor for changes in symptoms. 2. Generalized Anxiety Disorder - Patient rates her anxiety as 7/10. - Plan: a. Continue current anxiolytic medication. b. Encourage engagement in relaxation techniques (deep breathing exercises, mindfulness meditation). 3. Sleep - Patient reports getting 6 hours of sleep per night. - Plan: a. Encourage good sleep hygiene practices (consistent sleep schedule, relaxing bedtime routine). b. Advise avoiding caffeine and electronic devices before bedtime. c. Reassess sleep duration and quality at next appointment. 4. Appetite - Patient reports normal appetite. - Plan: a. Encourage maintenance of a balanced diet. b. Monitor for appetite changes related to mental health. 5. Suicidal ideation, homicidal ideation, and psychosis - Patient denies suicidal thoughts, thoughts of harming others, hallucinations, delusions, or paranoia. - Plan: a. Continue monitoring for changes in mental status. b. Encourage immediate reporting of any concerning thoughts or experiences. 6. Medication management - Patient reports no changes in medication. - Plan: a. Continue current medications as prescribed. b. Monitor for side effects or changes in treatment response. c. Review medication regimen at next appointment. 7. Physical complaints - Patient reports no physical complaints. 07/09/2024 Attention-defic it hyperactivity disorder, combined type (ICD-10 - F90.2) 07/09/2024 Generalized anxiety disorder (ICD-10 - F41.1) 07/10/2024 Attention-defic it hyperactivity disorder, combined type (ICD-10 - F90.2) 07/10/2024 Major depressive disorder, 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-10 - F33.2) continue current treatment prescribed by [facility] psychiatric care provider. 1. Major Depressive Disorder - Patient reports a depression rating of 7/10. - No recent thoughts of suicide or self-harm. - No recent thoughts of harming others. - No reported hallucinations, delusions, or paranoia. - No recent changes in medication or medical conditions. - Plan: a. Continue current antidepressant medication regimen. b. Monitor patient's mood and depressive symptoms closely. c. Encourage patient to engage in regular therapy sessions. 2. Generalized Anxiety Disorder - Patient reports an anxiety rating of 8/10. - Plan: a. Continue current anxiolytic medication regimen. b. Monitor patient's anxiety levels closely. c. Encourage patient to practice relaxation techniques and engage in regular therapy sessions. 3. Sleep Disturbance - Patient reports getting approximately 6 hours of sleep per night. - Plan: a. Encourage patient to practice good sleep hygiene, including maintaining a consistent sleep schedule and creating a relaxing bedtime routine. 4. Appetite - Patient reports an okay appetite. - Plan: a. Monitor patient's appetite and weight. b. Encourage patient to maintain a balanced diet and regular meal schedule. 5. Physical Health - Patient reports no physical complaints. - Plan: a. Continue to monitor patient's overall physical health. b. Encourage patient to engage in regular physical activity and maintain a healthy lifestyle. 07/12/2024 Major depressive disorder, 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-10 - F33.2) continue current treatment prescribed by [facility] psychiatric care provider. 1. Major Depressive Disorder - Patient reports a depression rating of 7/10. - Decreased appetite, stating I haven't really been eating. - No recent medication changes. - Plan: a. Continue current antidepressant medication regimen. b. Monitor depressive symptoms and appetite closely. c. Encourage regular physical activity and social interactions. d. Follow up with psychiatric provider. 2. Generalized Anxiety Disorder - Patient reports an anxiety rating of 8/10. - No recent medication changes. - Plan: a. Continue current anxiolytic medication regimen. b. Monitor anxiety symptoms closely. c. Encourage relaxation techniques, such as deep breathing exercises and mindfulness meditation. d. Follow up with psychiatric provider next week. 3. Sleep Disturbance - Patient reports average of 6-7 hours of sleep per night, with only 5 hours last night. - Plan: a. Encourage consistent sleep schedule and good sleep hygiene. b. Monitor sleep patterns and consider medication adjustments if disturbances persist. c. Follow up with psychiatric provider next week. 4. Mental Status - No reported thoughts of suicide, self-harm, or harm to others. - No reported hallucinations, delusions, or paranoia. - Plan: a. Continue monitoring for changes in mental status or emergence of concerning symptoms. b. Encourage patient to reach out to support system and mental health providers if experiencing distressing thoughts or behaviors. c. Follow up with psychiatric provider next week. 5. Treatment Progress - Patient expressed positivity, stating This is helping. I can tell it's helping. We're moving forward, so that's good. 04/16/2024 Attention-defic it hyperactivity disorder, combined type (ICD-10 - F90.2) 05/07/2024 Attention-defic it hyperactivity disorder, combined type (ICD-10 - F90.2) 05/14/2024 Generalized anxiety disorder (ICD-10 - F41.1) SPRAVATO trademark is contraindicated in patients with: Aneurysmal vascular disease (including thoracic and abdominal aorta, No history intracranial and peripheral arterial vessels) or arteriovenous malformation No history History of intracerebral hemorrhage No history Hypersensitivity to esketamine, ketamine, or any of the ingredients No history 1. Major Depressive Disorder: - Patient reports worsening depression symptoms, difficulty getting out of bed, and lack of interest in daily activities. Plan: - Taper off vilazodone (20 mg for two days, then 10 mg for two days, then discontinue). - Initiate Auvelity (one tablet once a day for a week, then one tablet twice a day). - Submit prior authorization for Spravato. - Continue quetiapine and lamotrigine at current doses. 2. Anxiety: - Patient reports increased anxiety and stress due to recent life events. Plan: - Increase alprazolam to twice a day as needed for anxiety. - Monitor patient's response to medication adjustments and consider additional interventions if needed. 3. Insomnia: - Patient reports quetiapine helps with sleep, achieving approximately six hours per night. Plan: - Continue quetiapine at the current dose. 4. Nightmares and Night Sweats: - Patient reports no current nightmares or night sweats. Plan: - Continue prazosin at the current dose. 5. ADHD: - Patient is currently on amphetamine/dextroam phetamine ER 30 mg. Plan: - Continue amphetamine/dextroam phetamine ER at the current dose. Follow-up: - Patient to see provider next week for further evaluation and monitoring of medication adjustments. - Complete paperwork for prior authorization for Spravato before leaving the clinic. - Provide patient with medication samples. 05/14/2024 Attention-defic it hyperactivity disorder, combined type (ICD-10 - F90.2) SPRAVATO trademark is contraindicated in patients with: Aneurysmal vascular disease (including thoracic and abdominal aorta, No history intracranial and peripheral arterial vessels) or arteriovenous malformation No history History of intracerebral hemorrhage No history Hypersensitivity to esketamine, ketamine, or any of the ingredients No history 1. Major Depressive Disorder: - Patient reports worsening depression symptoms, difficulty getting out of bed, and lack of interest in daily activities. Plan: - Taper off vilazodone (20 mg for two days, then 10 mg for two days, then discontinue). - Initiate Auvelity (one tablet once a day for a week, then one tablet twice a day). - Submit prior authorization for Spravato. - Continue quetiapine and lamotrigine at current doses. 2. Anxiety: - Patient reports increased anxiety and stress due to recent life events. Plan: - Increase alprazolam to twice a day as needed for anxiety. - Monitor patient's response to medication adjustments and consider additional interventions if needed. 3. Insomnia: - Patient reports quetiapine helps with sleep, achieving approximately six hours per night. Plan: - Continue quetiapine at the current dose. 4. Nightmares and Night Sweats: - Patient reports no current nightmares or night sweats. Plan: - Continue prazosin at the current dose. 5. ADHD: - Patient is currently on amphetamine/dextroam phetamine ER 30 mg. Plan: - Continue amphetamine/dextroam phetamine ER at the current dose. Follow-up: - Patient to see provider next week for further evaluation and monitoring of medication adjustments. - Complete paperwork for prior authorization for Spravato before leaving the clinic. - Provide patient with medication samples. 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 She explained, I have been depressed since I was a teenager and things have gotten progressively worse. I completed IOP at [facility] for suicidal ideations early in the year. Dianna is a pt of Giovanni Marin, customer service analyst, [facility]. Dianna takes prescribed Adderall, Seroquel, Lamictal, and Xanax. She is starting Auvelity tomorrow. I want to change my temperament and I want to be in control my reaction/actions. I do not do well with a change. I do not do well handling stress. I over think everything and then catastrophize. I need validation and approval to make a decision. Core Belief: I am not good enough. Youngest daughter was dx with cancer in 2017. She is in remission. When she was sick, I did not care about anything else. I let everything go. We defaulted on our home last year. The IRS has put a lean on our home. We are in a financial mess. Family Origin (/children): Pt and her of 15 years have two children, ages 12 and 9. They attend [employer]. My does a lot around the house because I have been so depressed. Childhood Family Dynamic: Dianna has 2 older brothers; one lives in [place] (9 years older) and one in [place] (6 years older). They are identified as helpful and supportive. Parents are supportive as well. I am starting to open up to my parents. Pt explained her mother freaked out over everything during her childhood. I am repeating a cycle. Dad was controlling and hard on me . My dad called the outside machinist on me in for drinking ETOH in the basement of my home. Trauma/PTSD: I grew up in a home of yelling and criticism. Education and Occupation: Went to [employer]. 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 He is a pharmacist. : None Drug/ETOH use/Pattern of use/treatment? Overuse of ETOH in early 2023 as part of a suicide plan to drink herself to . She did not need detox or have any seizures. She has not drink since August with the exception of 1 drink 1 day. Spirituality: Attends [employer] Other family members with mental illness or substance abuse/addiction issues: Generational trauma, MGGM was it by a car and grandmother took over in raining young children at a young age. Legal: None Major Depressive Disorder - Assessment: - Patient reports longstanding depression issues since teenage years. - Recent severe depressive episode in August leading to IOP treatment. - Plan: - Consider exploring possible bipolar disorder, particularly depressive type. Anxiety - Assessment: - Patient reports significant anxiety and overthinking. - Struggles with change and unexpected events. ADHD - Assessment: - Patient mentions difficulty with organization and time management. - Plan: - Consider additional support or strategies for ADHD symptoms. Family and Relationship Issues - Assessment: - History of family issues, particularly with parents. - Past marital stress due to 's social media behavior. Financial Stress - Assessment: - Significant financial issues stemming from daughter's cancer treatment in 2016. - Current tax debt and potential home foreclosure. Substance Use (Alcohol) - Assessment: - History of problematic drinking, particularly during stressful period. - One reported drink since August, otherwise maintaining sobriety. Possible Undiagnosed Bipolar Disorder or Borderline Personality Disorder - Plan: - Consider further evaluation for borderline personality traits. - Explore family history of mood disorders. Follow-up and Continuity of Care - Plan: - Recommend reading Adult Children of Emotionally Immature Parents . - Consider family therapy to address generational trauma. - Explore strategies for improving communication with children about schedule changes and expectations. 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 She explained, I have been depressed since I was a teenager and things have gotten progressively worse. I completed IOP at [facility] for suicidal ideations early in the year. Dianna is a pt of Giovanni Marin, customer service analyst, at [facility]. Dianna takes prescribed Adderall, Seroquel, Lamictal, and Xanax. She is starting Auvelity tomorrow. I want to change my temperament and I want to be in control my reaction/actions. I do not do well with a change. I do not do well handling stress. I over think everything and then catastrophize. I need validation and approval to make a decision. Core Belief: I am not good enough. Youngest daughter was dx with cancer in 2017. She is in remission. When she was sick, I did not care about anything else. I let everything go. We defaulted on our home last year. The IRS has put a lean on our home. We are in a financial mess. Family Origin (/children): Pt and her of 15 years have two children, ages 12 and 9. They attend [employer]. My does a lot around the house because I have been so depressed. Childhood Family Dynamic: Dianna has 2 older brothers; one lives in [place] (9 years older) and one in [place] (6 years older). They are identified as helpful and supportive. Parents are supportive as well. I am starting to open up to my parents. Pt explained her mother freaked out over everything during her childhood. I am repeating a cycle. Dad was controlling and hard on me . My dad called the outside machinist on me in for drinking ETOH in the basement of my home. Trauma/PTSD: I grew up in a home of yelling and criticism. Education and Occupation: Went to [employer]. 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 He is a pharmacist. : None Drug/ETOH use/Pattern of use/treatment? Overuse of ETOH in early 2023 as part of a suicide plan to drink herself to . She did not need detox or have any seizures. She has not drink since August with the exception of 1 drink 1 day. Spirituality: Attends [employer] Other family members with mental illness or substance abuse/addiction issues: Generational trauma, MGGM was it by a car and grandmother took over in raining young children at a young age. Legal: None Major Depressive Disorder - Assessment: - Patient reports longstanding depression issues since teenage years. - Recent severe depressive episode in August leading to IOP treatment. - Plan: - Consider exploring possible bipolar disorder, particularly depressive type. Anxiety - Assessment: - Patient reports significant anxiety and overthinking. - Struggles with change and unexpected events. ADHD - Assessment: - Patient mentions difficulty with organization and time management. - Plan: - Consider additional support or strategies for ADHD symptoms. Family and Relationship Issues - Assessment: - History of family issues, particularly with parents. - Past marital stress due to 's social media behavior. Financial Stress - Assessment: - Significant financial issues stemming from daughter's cancer treatment in 2017. - Current tax debt and potential home foreclosure. Substance Use (Alcohol) - Assessment: - History of problematic drinking, particularly during stressful period. - One reported drink since August, otherwise maintaining sobriety. Possible Undiagnosed Bipolar Disorder or Borderline Personality Disorder - Plan: - Consider further evaluation for borderline personality traits. - Explore family history of mood disorders. Follow-up and Continuity of Care - Plan: - Recommend reading Adult Children of Emotionally Immature Parents . - Consider family therapy to address generational trauma. - Explore strategies for improving communication with children about schedule changes and expectations. 06/06/2024 Major depressive disorder, 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-10 - F33.2) 06/07/2024 Attention-defic it hyperactivity disorder, combined type (ICD-10 - F90.2) 06/11/2024 Attention-defic it hyperactivity disorder, combined type (ICD-10 - F90.2) 06/11/2024 Attention-defic it hyperactivity disorder, combined type (ICD-10 - F90.2) 06/14/2024 Attention-defic it hyperactivity disorder, combined type (ICD-10 - F90.2) SPRAVATO trademark is contraindicated in patients with: Aneurysmal vascular disease (including thoracic and abdominal aorta, No history intracranial and peripheral arterial vessels) or arteriovenous malformation No history History of intracerebral hemorrhage No history Hypersensitivity to esketamine, ketamine, or any of the ingredients No history 1. Major Depressive Disorder: - Patient reports worsening depression symptoms, difficulty getting out of bed, and lack of interest in daily activities. Plan: - Taper off vilazodone (20 mg for two days, then 10 mg for two days, then discontinue). - Initiate Auvelity (one tablet once a day for a week, then one tablet twice a day). - Submit prior authorization for Spravato. - Continue quetiapine and lamotrigine at current doses. 2. Anxiety: - Patient reports increased anxiety and stress due to recent life events. Plan: - Increase alprazolam to twice a day as needed for anxiety. - Monitor patient's response to medication adjustments and consider additional interventions if needed. 3. Insomnia: - Patient reports quetiapine helps with sleep, achieving approximately six hours per night. Plan: - Continue quetiapine at the current dose. 4. Nightmares and Night Sweats: - Patient reports no current nightmares or night sweats. Plan: - Continue prazosin at the current dose. 5. ADHD: - Patient is currently on amphetamine/dextroam phetamine ER 30 mg. Plan: - Continue amphetamine/dextroam phetamine ER at the current dose. Follow-up: - Patient to see provider next week for further evaluation and monitoring of medication adjustments. - Complete paperwork for prior authorization for Spravato before leaving the clinic. - Provide patient with medication samples. 1. Major Depressive Disorder: - Patient reports improvement in mood and fewer severely expressed days since starting Auvelity twice a day. - Patient is interested in Spravato treatment. Plan: - Continue Auvelity twice a day. - Patient to discuss Spravato treatment with work and arrange transportation. - Schedule Spravato treatment once patient confirms availability and transportation. 2. Anxiety: - Patient experiences impulsive reactions and struggles with sudden changes. Plan: - Encourage patient to work on pausing before responding and managing anxiety through therapy. - Continue lamotrigine 100 mg once a day and quetiapine 100 mg at bedtime. 3. ADHD: - Patient reports Adderall helps with ADHD symptoms and impulsive reactions. Plan: - Continue Adderall as prescribed. - Sent Adderall prescription to the pharmacy. 4. Nightmares: - Patient did not report any nightmares during the visit. Plan: - Continue prazosin as prescribed. 5. Spravato Treatment: - Patient is interested in Spravato treatment and its potential benefits. Plan: - Provide patient with information about Spravato treatment, including scheduling, side effects, and precautions. - Patient to discuss Spravato treatment with work and arrange transportation. - Schedule Spravato treatment once patient confirms availability and transportation. 6. Therapy: - Patient acknowledges the importance of therapy in conjunction with medication. Plan: - Encourage patient to continue therapy and work on developing positive habits and tools. Follow-up: - Patient to reach out to [facility] for scheduling Spravato treatment. - Schedule a follow-up appointment to assess patient's progress and response to treatment. 06/19/2024 MDD (major depressive disorder), recurrent episode, moderate (ICD-10 - F33.1) Assessment and plan reviewed with patient Call for problems with medication, side effects or need for dosage change Compliance issues reviewed Discussed the risks/benefits of this medication Discussed medication side effects Return if symptoms worsen Treatment options reviewed. discussed that it can take weeks to see full therapeutic effects of psychotropic medications. discussed when to seek emergency services. discussed crisis prevention hotline [id number]. 1. Depression - She rates depression as 6/10. - Plan: a. Continue current medications. b. Monitor for any changes in mood. c. Encourage regular physical activity. d. Maintain a healthy sleep schedule. 2. Anxiety - She rates anxiety as 8/10. - Plan: a. Continue Xanax 0.5 mg twice a day as needed. b. Consider incorporating relaxation techniques and deep breathing exercises. 3. Insomnia - She reports difficulty falling asleep and getting 6-7 hours of sleep per night. - Plan: a. Continue quetiapine as prescribed, taken once a night. b. Encourage consistent bedtime routine and good sleep hygiene. 4. Appetite - She reports not eating very well. - Plan: a. Encourage balanced diet and regular meals. b. Monitor for changes in appetite and weight. 5. Suicidal Ideation and Self-Harm - No reported suicidal ideation, self-harm, or harm to others. - She confirmed no passive thoughts of suicide. 8. Psychosis - No reported hallucinations, delusions, or paranoia. 9. pt uses nicotine - discussed the risk of nicotine use - discussed tx options - pt in precontemplation stage of change. - provide support. Follow-up: - Plan: a. Schedule follow-up appointment in 4 weeks. b. Monitor progress and adjust treatment plan as needed. c. Encourage her to reach out if concerns or changes in symptoms arise before next appointment. 06/19/2024 Nicotine use (ICD-10 - Z72.0) -6-Quit - Yes [place] Tobacco Quitline Call a Smoking Quitline The National [facility] [place]'s Smoking Quitline, (9-908-46E-QUIT )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 currently poor. - Plan: a. Encourage good sleep hygiene practices. b. Consider referral to sleep specialist if disturbances persist. 7. Medication Management - No reported changes in medication. - Plan: a. Continue current medication regimen. b. Monitor for side effects or changes in symptoms. c. Encourage reporting of any concerns or adverse effects related to medications. 08/07/2024 Generalized anxiety disorder (ICD-10 - F41.1) SPRAVATO trademark is contraindicated in patients with: Aneurysmal vascular disease (including thoracic and abdominal aorta, No history intracranial and peripheral arterial vessels) or arteriovenous malformation No history History of intracerebral hemorrhage No history Hypersensitivity to esketamine, ketamine, or any of the ingredients No history 1. Suspected Autism Spectrum Disorder (ASD) or Learning Disability: - Patient reports difficulty with social cues, comprehension, and obsessive behaviors. Plan: - Refer the patient to Dr. Marcus Rivas for a comprehensive neuropsychological evaluation, including ADHD questionnaires, memory tests, and intelligence assessments. - Frame the referral in terms of obsessive behaviors, ADHD behaviors, social cue behaviors, and comprehension issues to increase the likelihood of insurance coverage. 2. Depression: - Patient reports improvement in mood since starting Spravato. Plan: - Continue Spravato as prescribed. - Monitor for any changes in mood or depressive symptoms. 3. Anxiety and Insomnia: - Patient reports increased anxiety and difficulty sleeping. Plan: - Temporarily increase quetiapine dosage to 200mg at bedtime to help with sleep and anxiety. - Reassess the patient's response to the increased dosage at the next visit. 4. Possible Bipolar Disorder: - Patient reports a history of significant overspending after a traumatic event. Plan: - Continue to monitor the patient for any signs of milly or hypomania. - Consider further evaluation for bipolar disorder if symptoms emerge. 5. Medication management: - Current medications: Spravato, quetiapine, Auvelity, Xanax. Plan: - Continue current medications as prescribed, with the temporary increase in quetiapine dosage. - Monitor for any side effects or changes in the patient's response to medications. 08/02/2024 Major depressive disorder, 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-10 - F33.2) Electronic Prior Authorization was requested for Auvelity 45-105 MG Tablet Extended Release. Provider can order medication once approval received. 08/28/2024 Elevated blood pressure reading (ICD-10 - [...] emergence of psychotic symptoms at follow-up visits. 08/07/2024 Major depressive disorder, 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-10 - F33.2) Spravato 84mg- change to weekly SPRAVATO trademark is contraindicated in patients with: Aneurysmal vascular disease (including thoracic and abdominal aorta, No history intracranial and peripheral arterial vessels) or arteriovenous malformation No history History of intracerebral hemorrhage No history Hypersensitivity to esketamine, ketamine, or any of the ingredients No history 1. Suspected Autism Spectrum Disorder (ASD) or Learning Disability: - Patient reports difficulty with social cues, comprehension, and obsessive behaviors. Plan: - Refer the patient to Dr. Marcus Rivas for a comprehensive neuropsychological evaluation, including ADHD questionnaires, memory tests, and intelligence assessments. - Frame the referral in terms of obsessive behaviors, ADHD behaviors, social cue behaviors, and comprehension issues to increase the likelihood of insurance coverage. 2. Depression: - Patient reports improvement in mood since starting Spravato. Plan: - Continue Spravato as prescribed. - Monitor for any changes in mood or depressive symptoms. 3. Anxiety and Insomnia: - Patient reports increased anxiety and difficulty sleeping. Plan: - Temporarily increase quetiapine dosage to 200mg at bedtime to help with sleep and anxiety. - Reassess the patient's response to the increased dosage at the next visit. 4. Possible Bipolar Disorder: - Patient reports a history of significant overspending after a traumatic event. Plan: - Continue to monitor the patient for any signs of milly or hypomania. - Consider further evaluation for bipolar disorder if symptoms emerge. 5. Medication management: - Current medications: Spravato, quetiapine, Auvelity, Xanax. Plan: - Continue current medications as prescribed, with the temporary increase in quetiapine dosage. - Monitor for any side effects or changes in the patient's response to medications. 06/26/2024 Generalized anxiety disorder (ICD-10 - F41.1) PLAN: DBT and follow up Thought Evaluation, Codependent on , and Belief Challenge Major Depressive Disorder - Assessment: Patient has Major Depressive Disorder and is currently receiving Spravato treatment (on third treatment). Previous TMS treatment reported as ineffective. - Plan: - Continue current antidepressant medication. - Encourage daily exercise, such as 15 minutes on the elliptical at [employer]. - Recommend engaging in activities that improve mood, such as tanning and massage bed at [employer]. - Consider EMDR therapy for trauma-related symptoms. - Schedule regular follow-up appointments to monitor progress and adjust treatment as needed. Anxiety - Assessment: Patient experiences anxiety. - Plan: - Teach patient coping strategies, such as tapping for anxiety management. - Encourage patient to engage in daily affirmations and explore page for support. - Address family dynamics and communication with parents to reduce anxiety triggers. - Monitor patient's response to anxiety management strategies during follow-up appointments. Low Self-Esteem and Negative Core Beliefs - Assessment: Patient has low self-esteem and negative core beliefs. Identified thinking errors include catastrophizing and minimization. - Plan: - Utilize Cognitive Behavioral Therapy (CBT) techniques to challenge and reframe negative beliefs. - Encourage patient to recognize and celebrate personal achievements. - Address the impact of childhood experiences and comparisons on self-esteem. - Explore the possibility of pursuing a career in [employer] as a means of personal fulfillment and empowerment. - Implement thought evaluation exercises and belief challenge worksheets. Codependency - Assessment: Patient shows signs of codependency in relationship with spouse. - Plan: - Discuss the importance of maintaining individual interests and activities outside of the relationship with spouse. - Encourage the development of a support network, including friends and support groups. - Monitor progress in establishing healthy boundaries and independence during follow-up appointments. Each section addresses a specific problem area and outlines a corresponding plan for treatment and support. 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 Major Depressive Disorder: - Patient reports improvement in mood and interest in activities since starting Spravato treatments. - PHQ-9 score has decreased from 12 to 8, indicating improvement. Plan: - Continue Spravato treatments, transitioning from twice weekly to once weekly. - Monitor patient's response and adjust frequency as needed. - Encourage patient to track mood changes between treatments. 2. Attention Deficit Hyperactivity Disorder (ADHD): - Patient is currently on Adderall ER 30 mg daily and reports it is working well. Plan: - Continue Adderall ER 30 mg daily. - Monitor for tolerance and consider alternative treatments if necessary. - Encourage patient to continue working on ADHD management skills through therapy and self-help resources. 3. Anxiety: - Patient is taking alprazolam twice daily and reports no issues. Plan: - Continue alprazolam as prescribed. - Encourage patient to discuss anxiety management strategies with therapist. 4. Insomnia and Nightmares: - Patient is taking prazosin for nightmares and reports it is effective. Plan: - Continue prazosin as prescribed. - Encourage patient to maintain good sleep hygiene and discuss any sleep concerns with therapist. 5. Medication management for depression: - Patient is on Auvelity twice daily, quetiapine 100 mg at bedtime, and lamotrigine 100 mg daily. Plan: - Continue current medications as prescribed. - Monitor patient's response to treatment and adjust as needed. 6. Therapy: - Patient is seeing therapist Chelsie and reports a positive experience. Plan: - Encourage patient to continue therapy sessions and work on stress management, self-love, and ADHD management skills. Overall, the patient is showing improvement in depressive symptoms and is engaging in positive life changes. Continue to monitor progress and adjust treatment plans as needed. 05/14/2024 Insomnia due to other mental disorder (ICD-10 - F51.05) cont prazosin 1mg hs for nightmares SPRAVATO trademark is contraindicated in patients with: Aneurysmal vascular disease (including thoracic and abdominal aorta, No history intracranial and peripheral arterial vessels) or arteriovenous malformation No history History of intracerebral hemorrhage No history Hypersensitivity to esketamine, ketamine, or any of the ingredients No history 1. Major Depressive Disorder: - Patient reports worsening depression symptoms, difficulty getting out of bed, and lack of interest in daily activities. Plan: - Taper off vilazodone (20 mg for two days, then 10 mg for two days, then discontinue). - Initiate Auvelity (one tablet once a day for a week, then one tablet twice a day). - Submit prior authorization for Spravato. - Continue quetiapine and lamotrigine at current doses. 2. Anxiety: - Patient reports increased anxiety and stress due to recent life events. Plan: - Increase alprazolam to twice a day as needed for anxiety. - Monitor patient's response to medication adjustments and consider additional interventions if needed. 3. Insomnia: - Patient reports quetiapine helps with sleep, achieving approximately six hours per night. Plan: - Continue quetiapine at the current dose. 4. Nightmares and Night Sweats: - Patient reports no current nightmares or night sweats. Plan: - Continue prazosin at the current dose. 5. ADHD: - Patient is currently on amphetamine/dextroam phetamine ER 30 mg. Plan: - Continue amphetamine/dextroam phetamine ER at the current dose. Follow-up: - Patient to see provider next week for further evaluation and monitoring of medication adjustments. - Complete paperwork for prior authorization for Spravato before leaving the clinic. - Provide patient with medication samples. 06/14/2024 Major depressive disorder, 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-10 - F33.2) Spravato approved SPRAVATO trademark is contraindicated in patients with: Aneurysmal vascular disease (including thoracic and abdominal aorta, No history intracranial and peripheral arterial vessels) or arteriovenous malformation No history History of intracerebral hemorrhage No history Hypersensitivity to esketamine, ketamine, or any of the ingredients No history 1. Major Depressive Disorder: - Patient reports worsening depression symptoms, difficulty getting out of bed, and lack of interest in daily activities. Plan: - Taper off vilazodone (20 mg for two days, then 10 mg for two days, then discontinue). - Initiate Auvelity (one tablet once a day for a week, then one tablet twice a day). - Submit prior authorization for Spravato. - Continue quetiapine and lamotrigine at current doses. 2. Anxiety: - Patient reports increased anxiety and stress due to recent life events. Plan: - Increase alprazolam to twice a day as needed for anxiety. - Monitor patient's response to medication adjustments and consider additional interventions if needed. 3. Insomnia: - Patient reports quetiapine helps with sleep, achieving approximately six hours per night. Plan: - Continue quetiapine at the current dose. 4. Nightmares and Night Sweats: - Patient reports no current nightmares or night sweats. Plan: - Continue prazosin at the current dose. 5. ADHD: - Patient is currently on amphetamine/dextroam phetamine ER 30 mg. Plan: - Continue amphetamine/dextroam phetamine ER at the current dose. Follow-up: - Patient to see provider next week for further evaluation and monitoring of medication adjustments. - Complete paperwork for prior authorization for Spravato before leaving the clinic. - Provide patient with medication samples. 1. Major Depressive Disorder: - Patient reports improvement in mood and fewer severely expressed days since starting Auvelity twice a day. - Patient is interested in Spravato treatment. Plan: - Continue Auvelity twice a day. - Patient to discuss Spravato treatment with work and arrange transportation. - Schedule Spravato treatment once patient confirms availability and transportation. 2. Anxiety: - Patient experiences impulsive reactions and struggles with sudden changes. Plan: - Encourage patient to work on pausing before responding and managing anxiety through therapy. - Continue lamotrigine 100 mg once a day and quetiapine 100 mg at bedtime. 3. ADHD: - Patient reports Adderall helps with ADHD symptoms and impulsive reactions. Plan: - Continue Adderall as prescribed. - Sent Adderall prescription to the pharmacy. 4. Nightmares: - Patient did not report any nightmares during the visit. Plan: - Continue prazosin as prescribed. 5. Spravato Treatment: - Patient is interested in Spravato treatment and its potential benefits. Plan: - Provide patient with information about Spravato treatment, including scheduling, side effects, and precautions. - Patient to discuss Spravato treatment with work and arrange transportation. - Schedule Spravato treatment once patient confirms availability and transportation. 6. Therapy: - Patient acknowledges the importance of therapy in conjunction with medication. Plan: - Encourage patient to continue therapy and work on developing positive habits and tools. Follow-up: - Patient to reach out to [place] for scheduling Spravato treatment. - Schedule a follow-up appointment to assess patient's progress and response to treatment. 06/14/2024 Insomnia due to other mental disorder (ICD-10 - F51.05) cont prazosin 1mg hs for nightmares SPRAVATO trademark is contraindicated in patients with: Aneurysmal vascular disease (including thoracic and abdominal aorta, No history intracranial and peripheral arterial vessels) or arteriovenous malformation No history History of intracerebral hemorrhage No history Hypersensitivity to esketamine, ketamine, or any of the ingredients No history 1. Major Depressive Disorder: - Patient reports worsening depression symptoms, difficulty getting out of bed, and lack of interest in daily activities. Plan: - Taper off vilazodone (20 mg for two days, then 10 mg for two days, then discontinue). - Initiate Auvelity (one tablet once a day for a week, then one tablet twice a day). - Submit prior authorization for Spravato. - Continue quetiapine and lamotrigine at current doses. 2. Anxiety: - Patient reports increased anxiety and stress due to recent life events. Plan: - Increase alprazolam to twice a day as needed for anxiety. - Monitor patient's response to medication adjustments and consider additional interventions if needed. 3. Insomnia: - Patient reports quetiapine helps with sleep, achieving approximately six hours per night. Plan: - Continue quetiapine at the current dose. 4. Nightmares and Night Sweats: - Patient reports no current nightmares or night sweats. Plan: - Continue prazosin at the current dose. 5. ADHD: - Patient is currently on amphetamine/dextroam phetamine ER 30 mg. Plan: - Continue amphetamine/dextroam phetamine ER at the current dose. Follow-up: - Patient to see provider next week for further evaluation and monitoring of medication adjustments. - Complete paperwork for prior authorization for Spravato before leaving the clinic. - Provide patient with medication samples. 1. Major Depressive Disorder: - Patient reports improvement in mood and fewer severely expressed days since starting Auvelity twice a day. - Patient is interested in Spravato treatment. Plan: - Continue Auvelity twice a day. - Patient to discuss Spravato treatment with work and arrange transportation. - Schedule Spravato treatment once patient confirms availability and transportation. 2. Anxiety: - Patient experiences impulsive reactions and struggles with sudden changes. Plan: - Encourage patient to work on pausing before responding and managing anxiety through therapy. - Continue lamotrigine 100 mg once a day and quetiapine 100 mg at bedtime. 3. ADHD: - Patient reports Adderall helps with ADHD symptoms and impulsive reactions. Plan: - Continue Adderall as prescribed. - Sent Adderall prescription to the pharmacy. 4. Nightmares: - Patient did not report any nightmares during the visit. Plan: - Continue prazosin as prescribed. 5. Spravato Treatment: - Patient is interested in Spravato treatment and its potential benefits. Plan: - Provide patient with information about Spravato treatment, including scheduling, side effects, and precautions. - Patient to discuss Spravato treatment with work and arrange transportation. - Schedule Spravato treatment once patient confirms availability and transportation. 6. Therapy: - Patient acknowledges the importance of therapy in conjunction with medication. Plan: - Encourage patient to continue therapy and work on developing positive habits and tools. Follow-up: - Patient to reach out to [facility] for scheduling Spravato treatment. - Schedule a follow-up appointment to assess patient's progress and response to treatment. 07/18/2024 Insomnia due to other mental disorder (ICD-10 - F51.05) cont prazosin 1mg hs for nightmares SPRAVATO trademark is contraindicated in patients with: Aneurysmal vascular disease (including thoracic and abdominal aorta, No history intracranial and peripheral arterial vessels) or arteriovenous malformation No history History of intracerebral hemorrhage No history Hypersensitivity to esketamine, ketamine, or any of the ingredients No history 1. Major Depressive Disorder: - Patient reports improvement in mood and interest in activities since starting Spravato treatments. - PHQ-9 score has decreased from 12 to 8, indicating improvement. Plan: - Continue Spravato treatments, transitioning from twice weekly to once weekly. - Monitor patient's response and adjust frequency as needed. - Encourage patient to track mood changes between treatments. 2. Attention Deficit Hyperactivity Disorder (ADHD): - Patient is currently on Adderall ER 30 mg daily and reports it is working well. Plan: - Continue Adderall ER 30 mg daily. - Monitor for tolerance and consider alternative treatments if necessary. - Encourage patient to continue working on ADHD management skills through therapy and self-help resources. 3. Anxiety: - Patient is taking alprazolam twice daily and reports no issues. Plan: - Continue alprazolam as prescribed. - Encourage patient to discuss anxiety management strategies with therapist. 4. Insomnia and Nightmares: - Patient is taking prazosin for nightmares and reports it is effective. Plan: - Continue prazosin as prescribed. - Encourage patient to maintain good sleep hygiene and discuss any sleep concerns with therapist. 5. Medication management for depression: - Patient is on Auvelity twice daily, quetiapine 100 mg at bedtime, and lamotrigine 100 mg daily. Plan: - Continue current medications as prescribed. - Monitor patient's response to treatment and adjust as needed. 6. Therapy: - Patient is seeing therapist Chelsie and reports a positive experience. Plan: - Encourage patient to continue therapy sessions and work on stress management, self-love, and ADHD management skills. Overall, the patient is showing improvement in depressive symptoms and is engaging in positive life changes. Continue to monitor progress and adjust treatment plans as needed. 08/07/2024 Insomnia due to other mental disorder (ICD-10 - F51.05) cont prazosin 1mg hs for nightmares SPRAVATO trademark is contraindicated in patients with: Aneurysmal vascular disease (including thoracic and abdominal aorta, No history intracranial and peripheral arterial vessels) or arteriovenous malformation No history History of intracerebral hemorrhage No history Hypersensitivity to esketamine, ketamine, or any of the ingredients No history 1. Suspected Autism Spectrum Disorder (ASD) or Learning Disability: - Patient reports difficulty with social cues, comprehension, and obsessive behaviors. Plan: - Refer the patient to Dr. Marcus Rivas for a comprehensive neuropsychological evaluation, including ADHD questionnaires, memory tests, and intelligence assessments. - Frame the referral in terms of obsessive behaviors, ADHD behaviors, social cue behaviors, and comprehension issues to increase the likelihood of insurance coverage. 2. Depression: - Patient reports improvement in mood since starting Spravato. Plan: - Continue Spravato as prescribed. - Monitor for any changes in mood or depressive symptoms. 3. Anxiety and Insomnia: - Patient reports increased anxiety and difficulty sleeping. Plan: - Temporarily increase quetiapine dosage to 200mg at bedtime to help with sleep and anxiety. - Reassess the patient's response to the increased dosage at the next visit. 4. Possible Bipolar Disorder: - Patient reports a history of significant overspending after a traumatic event. Plan: - Continue to monitor the patient for any signs of milly or hypomania. - Consider further evaluation for bipolar disorder if symptoms emerge. 5. Medication management: - Current medications: Spravato, quetiapine, Auvelity, Xanax. Plan: - Continue current medications as prescribed, with the temporary increase in quetiapine dosage. - Monitor for any side effects or changes in the patient's response to medications. 06/14/2024 Other What to expect on the day you will receive Spravato: Expect that you will be in the clinic for about 2 hours. During these 2 hours we will assess your blood pressure prior to administration, at 40 minutes post administration, and blood pressure prior to discharge. We will monitor for any side effects during this time. Spravato [Esketamine] can cause sedation and/or dissociation. You are instructed not to engage in potentially hazardous activities, such as driving a motor vehicle or operating machinery, until the next day after a restful sleep SPRAVATO trademark is contraindicated in patients with: Aneurysmal vascular disease (including thoracic and abdominal aorta, No history intracranial and peripheral arterial vessels) or arteriovenous malformation No history History of intracerebral hemorrhage No history Hypersensitivity to esketamine, ketamine, or any of the ingredients No history 1. Major Depressive Disorder: - Patient reports worsening depression symptoms, difficulty getting out of bed, and lack of interest in daily activities. Plan: - Taper off vilazodone (20 mg for two days, then 10 mg for two days, then discontinue). - Initiate Auvelity (one tablet once a day for a week, then one tablet twice a day). - Submit prior authorization for Spravato. - Continue quetiapine and lamotrigine at current doses. 2. Anxiety: - Patient reports increased anxiety and stress due to recent life events. Plan: - Increase alprazolam to twice a day as needed for anxiety. - Monitor patient's response to medication adjustments and consider additional interventions if needed. 3. Insomnia: - Patient reports quetiapine helps with sleep, achieving approximately six hours per night. Plan: - Continue quetiapine at the current dose. 4. Nightmares and Night Sweats: - Patient reports no current nightmares or night sweats. Plan: - Continue prazosin at the current dose. 5. ADHD: - Patient is currently on amphetamine/dextroam phetamine ER 30 mg. Plan: - Continue amphetamine/dextroam phetamine ER at the current dose. Follow-up: - Patient to see provider next week for further evaluation and monitoring of medication adjustments. - Complete paperwork for prior authorization for Spravato before leaving the clinic. - Provide patient with medication samples. 1. Major Depressive Disorder: - Patient reports improvement in mood and fewer severely expressed days since starting Auvelity twice a day. - Patient is interested in Spravato treatment. Plan: - Continue Auvelity twice a day. - Patient to discuss Spravato treatment with work and arrange transportation. - Schedule Spravato treatment once patient confirms availability and transportation. 2. Anxiety: - Patient experiences impulsive reactions and struggles with sudden changes. Plan: - Encourage patient to work on pausing before responding and managing anxiety through therapy. - Continue lamotrigine 100 mg once a day and quetiapine 100 mg at bedtime. 3. ADHD: - Patient reports Adderall helps with ADHD symptoms and impulsive reactions. Plan: - Continue Adderall as prescribed. - Sent Adderall prescription to the pharmacy. 4. Nightmares: - Patient did not report any nightmares during the visit. Plan: - Continue prazosin as prescribed. 5. Spravato Treatment: - Patient is interested in Spravato treatment and its potential benefits. Plan: - Provide patient with information about Spravato treatment, including scheduling, side effects, and precautions. - Patient to discuss Spravato treatment with work and arrange transportation. - Schedule Spravato treatment once patient confirms availability and transportation. 6. Therapy: - Patient acknowledges the importance of therapy in conjunction with medication. Plan: - Encourage patient to continue therapy and work on developing positive habits and tools. Follow-up: - Patient to reach out to [facility] for scheduling Spravato treatment. - Schedule a follow-up appointment to assess patient's progress and response to treatment. 06/22/2024 Other Assessment and plan reviewed with patient Call for problems with medication, side effects or need for dosage change Compliance issues reviewed Discussed the risks/benefits of this medication Discussed medication side effects Return if symptoms worsen Treatment options reviewed. discussed that it can take weeks to see full therapeutic effects of psychotropic medications. discussed when to seek emergency services. discussed crisis prevention hotline 988. 1. Major Depressive Disorder - Patient rates her depression as 7/10. - Reports passive suicidal thoughts, occurring about three times, but denies any plan or intent. - Plan: a. Continue current medication regimen. b. Monitor for increase in suicidal thoughts or worsening of depressive symptoms. c. Consider referral to a therapist for additional support and coping strategies. D. safety plan in place. discussed crisis prevention and '988'. 2. Generalized Anxiety Disorder - Patient rates her anxiety as 8/10. - Plan: a. Continue current medication regimen. b. Monitor for any increase in anxiety symptoms. c. Consider referral to a therapist for additional support and coping strategies, such as CBT. 3. Sleep - Patient reports approximately 6 hours of sleep per night. - Describes sleep as okay. - Plan: a. Encourage good sleep hygiene practices, including consistent sleep schedule and relaxing bedtime routine. b. Monitor for changes in sleep patterns or quality. 4. Appetite - Patient reports appetite as okay. - Plan: a. Encourage a balanced diet and regular meal times. b. Monitor for changes in appetite or weight. 5. Safety - Patient denies hallucinations, delusions, paranoia, or thoughts of harming others. - Plan: a. Continue to monitor for changes in mental status or safety concerns. 6. Physical Health - Patient reports no physical complaints. - Plan: a. Encourage regular exercise and routine healthcare appointments. 06/25/2024 Other Assessment and plan reviewed with patient Call for problems with medication, side effects or need for dosage change Compliance issues reviewed Discussed the risks/benefits of this medication Discussed medication side effects Return if symptoms worsen Treatment options reviewed. discussed that it can take weeks to see full therapeutic effects of psychotropic medications. discussed when to seek emergency services. discussed crisis prevention hotline 988. Patient had reduction in suicidal ideation and/or behavior upon follow-up assessment within 120 days of index assessment ([id number]) 1. Major Depressive Disorder - Patient rates her depression as 8/10. - Plan: a. Continue current antidepressant medication. b. Monitor for changes in symptoms. c. Encourage regular physical activity. d. Consider incorporating relaxation techniques like deep breathing or mindfulness meditation. 2. Generalized Anxiety Disorder - Patient rates her anxiety as 8/10. - Plan: a. Continue current anxiolytic medication. b. Monitor for changes in symptoms. c. Encourage regular physical activity. d. Consider incorporating relaxation techniques like deep breathing or mindfulness meditation. 3. Suicidal Ideation - Patient denies thoughts of suicide or harm to others. - Plan: a. Continue monitoring for changes in mood or suicidal ideation at follow-ups. b. Encourage reaching out to support system or mental health professional if experiencing thoughts of self-harm or harm to others. 4. Psychotic Symptoms - Patient denies hallucinations, delusions, or paranoia. - Plan: a. Continue monitoring for changes in psychotic symptoms at follow-ups. 5. Appetite - Patient reports neutral appetite. - Plan: a. Encourage maintaining a balanced diet. b. Monitor for changes in appetite at follow-ups. 6. Sleep Disturbances - Patient reports no change in sleep quality, which is currently poor. - Plan: a. Encourage good sleep hygiene practices. b. Consider referral to sleep specialist if disturbances persist. 7. Medication Management - No reported changes in medication. - Plan: a. Continue current medication regimen. b. Monitor for side effects or changes in symptoms. c. Encourage reporting of any concerns or adverse effects related to medications. 07/18/2024 Other She is using [employer] alisha SPRAVATO trademark is contraindicated in patients with: Aneurysmal vascular disease (including thoracic and abdominal aorta, No history intracranial and peripheral arterial vessels) or arteriovenous malformation No history History of intracerebral hemorrhage No history Hypersensitivity to esketamine, ketamine, or any of the ingredients No history 1. Major Depressive Disorder: - Patient reports improvement in mood and interest in activities since starting Spravato treatments. - PHQ-9 score has decreased from 12 to 8, indicating improvement. Plan: - Continue Spravato treatments, transitioning from twice weekly to once weekly. - Monitor patient's response and adjust frequency as needed. - Encourage patient to track mood changes between treatments. 2. Attention Deficit Hyperactivity Disorder (ADHD): - Patient is currently on Adderall ER 30 mg daily and reports it is working well. Plan: - Continue Adderall ER 30 mg daily. - Monitor for tolerance and consider alternative treatments if necessary. - Encourage patient to continue working on ADHD management skills through therapy and self-help resources. 3. Anxiety: - Patient is taking alprazolam twice daily and reports no issues. Plan: - Continue alprazolam as prescribed. - Encourage patient to discuss anxiety management strategies with therapist. 4. Insomnia and Nightmares: - Patient is taking prazosin for nightmares and reports it is effective. Plan: - Continue prazosin as prescribed. - Encourage patient to maintain good sleep hygiene and discuss any sleep concerns with therapist. 5. Medication management for depression: - Patient is on Auvelity twice daily, quetiapine 100 mg at bedtime, and lamotrigine 100 mg daily. Plan: - Continue current medications as prescribed. - Monitor patient's response to treatment and adjust as needed. 6. Therapy: - Patient is seeing therapist Chelsie and reports a positive experience. Plan: - Encourage patient to continue therapy sessions and work on stress management, self-love, and ADHD management skills. Overall, the patient is showing improvement in depressive symptoms and is engaging in positive life changes. Continue to monitor progress and adjust treatment plans as needed. 07/24/2024 Other continue treatment as prescribed by [facility] psychiatric care provider. 1. Tobacco Use - Patient confirms they are still a smoker. - Plan: a. Provide smoking cessation education and resources. b. Encourage patient to consider quitting. c. Discuss potential pharmacological and non-pharmacological interventions. d. Inform patient about health risks of smoking. 2. Depression - Patient rates her depression as 5-6/10. - Plan: a. Continue current antidepressant therapy as prescribed by primary psychiatric care provider. b. Monitor patient's mood and response to treatment. c. Encourage regular physical activity and social interactions. 3. Anxiety - Patient rates her anxiety as 6-7/10. - Plan: a. Continue current anxiolytic therapy as prescribed by primary psychiatric care provider. b. Monitor anxiety levels and response to treatment. c. Encourage relaxation techniques like deep breathing and mindfulness. 4. Suicidality and Self-Harm - Patient reports no thoughts of suicide or self-harm. - Plan: a. Continue monitoring for signs of suicidality or self-harm at future visits. b. Ensure clear communication and understanding of self-harm related questions. 5. Psychosis - Patient denies hallucinations, delusions, or paranoia. - Plan: a. Continue monitoring for signs of psychosis at future visits. 6. Sleep - Patient reports 6-7 hours of sleep per night. - Plan: a. Encourage maintenance of good sleep hygiene. 7. Appetite - Patient reports okay appetite. - Plan: a. Continue monitoring appetite. b. Consider interventions if appetite worsens or does not improve. 8. Medication Changes - No reported medication changes. - Plan: a. Continue current medication regimen. b. Monitor for side effects or changes in efficacy. 9. Physical Complaints - No reported physical complaints. - Plan: a. Encourage patient to report any new or worsening physical symptoms at future visits. 08/09/2024 Other continue current treatment as prescribed by primary psychiatric care provider. 1. Anxiety - Patient reports anxiety levels at 7-8 out of 10. - Patient denies suicidal thoughts, homicidal thoughts, hallucinations, paranoia, and delusions. - Plan: a. Continue monitoring anxiety levels. b. Consider adjusting medication dosage or adding an anxiolytic if anxiety persists or worsens. c. Encourage engagement in stress-reducing activities (exercise, meditation, therapy). 2. Depression - Patient reports depression levels at 5 out of 10. - Patient denies suicidal thoughts, homicidal thoughts, hallucinations, paranoia, and delusions. - Plan: a. Continue monitoring depression levels. B. Encourage engagement in activities promoting mental well-being (socializing, exercise, therapy). 3. Sleep Disturbance - Patient reports broken sleep, averaging 4-6 hours per night. - Plan: a. Monitor sleep patterns and quality. b. Consider sleep hygiene interventions (regular sleep schedule, relaxing bedtime routine, limiting screen exposure). c. Initiate quetiapine dose 4. Medication Management - Patient's medication dosage increased to 200 mg but not yet started. - Plan: a. Encourage patient to start taking increased dosage as prescribed. b. Monitor for side effects or adverse reactions. c. Reevaluate medication effectiveness and dosage at next appointment. 5. Physical Health - Patient denies new physical complaints. - Patient reports adequate appetite. - Plan: a. Continue monitoring for new or worsening physical symptoms. b. Encourage maintenance of healthy lifestyle (regular exercise, balanced diet, routine medical check-ups). Plan Of Treatment Next Appt Details Provider Name:Willard lambert, 09/10/2024 11:15:00 AM, [address] [facility] [address], [facility] [address], [place], [address], Insurance Providers Payer Name Payer Address Payer Phone Subscriber Number Group Number Insured Name Patient Relationship to Insured Coverage Start Date Coverage End Date [facility] [address] [address] [place] [address] [id number] PATRICK MONGE Spouse - patient is the spouse of the insured Medications Administered Medication Instructions Date of Administration Dosage Notes Spravato (56 MG Dose) 06/19/2024 56 mg Spravato (84 MG Dose) 06/22/2024 84 mg Spravato (84 MG Dose) 06/25/2024 84 mg Spravato (84 MG Dose) 06/28/2024 84 mg Spravato (84 MG Dose) 07/02/2024 84 mg Spravato (84 MG Dose) 07/05/2024 84 mg Spravato (84 MG Dose) 07/10/2024 84 mg Spravato (84 MG Dose) 07/12/2024 84 mg Spravato (84 MG Dose) 07/19/2024 84 mg Spravato (84 MG Dose) 07/24/2024 84 mg Spravato (84 MG Dose) 08/02/2024 84 mg Spravato (84 MG Dose) 08/09/2024 84 mg Spravato (84 MG Dose) 08/20/2024 84 mg Spravato (84 MG Dose) 08/28/2024 84 mg Medical (General) History Medical History History ICD Code Problems: Attention deficit hyperactivit y disorder, combined type Generalized anxiety disorder 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
--- OUTSIDE RECORDS SUMMARY | 2024-09-05 02:12 | XMS_ITS | Clinical Summary ---
Author Organization [facility] Address [address], [address] [address] Phone Care Team Providers Care Easement Man Name Role Phone Ines Santoyo MD Primary Care Provider Unav ailable Haley Irving DO Unavailable [phone] Kali Coon DO Unavailable [phone] Mey Rm SALES EXHIBITOR, HEALTH RECORD TECHNICIAN Unavailable Allergies No known active allergies Medications venlafaxine (EFFEXOR-XR) 150 MG CAPSULE SR 24 HR Take 150 mg by mouth daily. Active Ergocalciferol (VITAMIN D2 PO) Take 50,000 Units by mouth daily. Active Vit-Fe Fumarate-FA ( MULTIVITAMIN) 27-0.8 MG Tablet Take 1 Tab by mouth nightly. Active budesonide (ENTOCORT ED) [address] Particles TAKE ONE CAPSULE BY MOUTH ONCE DAILY IN THE MORNING 60 Cap 0 05/05/2016 Active metroNIDAZOLE (FLAGYL) 500 MG Tablet Take 1 Tab by mouth 3 times daily. 30 Tab 0 06/08/2016 Active ondansetron (ZOFRAN) 4 MG Tablet TAKE ONE TABLET BY MOUTH EVERY 6 HOURS NEEDED FOR NAUSEA 30 Tab 1 10/27/2016 Active hyoscyamine (LEVSIN SL) 0.125 MG SL Tablet DISSOLVE ONE TABLET UNDER THE TONGUE EVERY 8 HOURS NEEDED FOR CRAMPS 20 Tab 2 01/10/2017 Active mesalamine (LIALDA) 1.2 GM Tablet Delayed Response Take 4 Tabs by mouth daily. 360 Tab 3 01/11/2020 Active Active Problems Problem Noted Date Diagnosed Date Colitis 03/16/2016 Immunizations Immunization Administration Dates Next Due Influenza Vaccine greater than 3 yrs 05/11/2016 Family History Medical History Relation Name Comments Hypertension Father Relation Name Status Comments Father Social History Tobacco Use Types Packs/Day Years [...] file Not on file Not on file Last Filed Vital Signs Vital Sign Reading Time Taken Comments Blood Pressure 118/80 06/08/2016 1:58 PM CDT Pulse 100 06/08/2016 1:58 PM CDT Temperature 36.2 ??C (97.2 ??F) 06/08/2016 1:58 PM CD T Respiratory Rate 16 06/08/2016 1:58 PM CDT Oxygen Saturation 98% 06/08/2016 1:58 PM CDT Inhaled Oxygen Concentration - - Weight 104.8 kg (231 lb) 06/08/2016 1:58 PM CDT Height 157.5 cm (5' 2 ) 06/08/2016 1:58 PM CDT Body Mass Index 42.25 06/08/2016 1:58 PM CDT Plan of Treatment Health Maintenance Due Date Last Done Comments Hepatitis C Virus (HCV) Screening 1985 TdaP Immunization 1985 Hepatitis B Immunization (1 of 3 - 19+ 3-dose series) 11/10/2006 Pap Smear 11/10/2008 Cervical Cancer Screening (CCS) 11/10/2017 HPV/Cotest 11/10/2017 Influenza Immunization (#1) 2024 05/11/2016 SARS-COV-2 Immunization ( - 2023- season) 2024 Respiratory Syncytial Virus (RSV) Immunization (Adult) (1 - 1-dose 75+ series) 11/10/2062 Meningococcal Immunization (ACWY) Aged Out No longer eligible based on patient's age to complete this topic Pneumococcal Immunization Combined Aged Out No longer eligible based on patient's age to complete this topic Rotavirus Immunization Aged Out No lo nger eligible based on patient's age to complete this topic Care Teams Easement Man Relationship Specialty Start Date End Date Ines Santoyo MD PCP - General Internal Medicine 02/27/16 Haley Irving DO [address] [place] [address] Consulting Physician Internal Medicine 02/27/16 Kali Coon DO [address] [place] [address] Gastroenterology 02/27/16 Mey Rm APRN, HEALTH RECORD TECHNICIAN [address] [place] [address] Nurse Practitioner Advanced Practice Nurse 06/08/16
--- OUTSIDE RECORDS SUMMARY | 2024-09-05 02:12 | XMS_ITS | Referral Summary ---
Author Organization [facility] Address [address] [place] [id number] Care Team Providers Care Associate Professor Of Sociology Name Role Phone Adiel Demarco MD Primary Care Provider [phone] Encounters Date Type Department Care Team Description 06/29/2024 Orders Only [address] [address] Adiel Demarco MD Elevated BP without diagnosis of hypertension from Last 3 Months Allergies No known active allergies Medications ALPRAZolam [...] disability 0 12/13/2017 Colitis 03/16/2016 Crohn's disease ([facility]) 02/17/2016 Overview (12/09/2017): Impression: stable, followed by [...] Impression: Doing well on current medication regimen Immunizations Name Administration Dates Next Due Flucelvax [...] t Vaccination (12+ YRS) 08/15/2021 Tdap 11/03/2018 Social History Tobacco Use Types Packs/Day Years [...] on file Legal Sex Female 4:31 AM ACETONE BUTTON PASTER Gender Identity Female 11/23/2019 9:35 AM CDT Sexual Orientation Straight 11/23/2019 9: 35 AM CDT Last Filed Vital Signs Vital Sign Reading Time Taken Comments Blood Pressure 105/79 08/31/2023 4:45 AM ACETONE BUTTON PASTER Pulse 89 08/31/2023 4:45 AM ACETONE BUTTON PASTER Temperature 37 ??C (98.6 ??F) 08/30/2023 10:29 PM ACETONE BUTTON PASTER Respiratory Rate 15 08/31/2023 4:45 AM ACETONE BUTTON PASTER Oxygen Saturation 97% 08/31/2023 4:45 AM ACETONE BUTTON PASTER Inhaled Oxygen Concentration - - Weight 65.8 kg (145 lb) 08/30/2023 10:29 PM ACETONE BUTTON PASTER Height 152.4 cm (5') 08/30/2023 10:29 PM ACETONE BUTTON PASTER Body Mass Index 28.32 08/30/2023 10:29 PM ACETONE BUTTON PASTER Plan of Treatment Not on file Insurance [facility] H[facility]PPO Address: [address] [address] [facility]PPO Address: [address] [place] [phone] Care Teams Associate Professor Of Sociology Relationship Specialty Start Date End Date Adiel Demarco MD [address] [place] [address] [facility] - General 08/24/17
--- OUTSIDE RECORDS SUMMARY | 2024-09-05 02:12 | XMS_ITS | Encounter Summary ---
Author Organization [facility] Address [address] [place] [address] Phone Care Team Providers Care Tailoring Teacher Name Role Phone Ines Santoyo MD Primary Care Provider Unav Haley Humphrey DO Unavailable [phone] Kali Coon DO Unavailable [phone] Mey Rm RETURNED GOODS RECEIVING CLERK, OUTREACH AND EDUCATION SOCIAL WORKER Unavailable Reason for Visit * Reason Comments Medication Refill Encounter Details Date Type Department Care Team (Late st Contact Info) Description 09/13/2019 Refill [facility] - Gastroenterology [facility] [address] [place] [id number] Mey Rm, RETURNED GOODS RECEIVING CLERK, OUTREACH AND EDUCATION SOCIAL WORKER [address] [place] [address] Medication Refill Social History Tobacco Use Types [...] Miscellaneous Notes * Telephone Encounter - Indra Love, SR. LOGISTICS ANALYST - 09/13/2019 12:52 PM HEEL SEAT TRIMMER Patient calling requesting refill of: Requested Prescriptions Pending Prescriptions Disp Refills ??? mesalamine (LIALDA) 1.2 GM Tablet Delayed Response [Pharmacy Med Name: Mesalamine 1.2 GM Oral Tablet Delayed Release] 120 Tab 0 Sig: TAKE 4 TABLETS BY MOUTH ONCE DAILY Last fill: 09/13/2019 Patients last OV with GI: 06/08/16 Next Office Visit with GI: None scheduled SEAT TRIMMER documented in this encounter Plan of Treatment Not on file documented as of this encounter Visit Diagnoses Not on filedocumented in this encounter Care Teams Tailoring Teacher Relationship Specialty Start Date End Date Ines Santoyo MD PCP - General Internal Medicine 02/27/16 Haley Irving DO [address], [place] [address] Consulting Physician Internal Medicine 02/27/16 Kali Coon DO [address] [place] [address] Gastroenterology 02/27/16 Mey Rm APRN, CNP [address], [place] [address] Nurse Practitioner Advanced Practice Nurse 06/08/16 documented as of this encounter
--- OUTSIDE RECORDS SUMMARY | 2024-09-05 02:13 | XMS_ITS | Encounter Summary ---
Author Organization [facility] Address [address] [place] [address] Phone Care Team Providers Care Airplane Gas Tank Liner Assembler Name Role Phone Adiel Demarco MD Primary Care Provider [phone] Reason for Visit * Reason Onset Date Comments Med Refill 10/26/2019 Encounter Details Date Type Department Care Team (Late st Contact Info) Description 10/26/2019 Telephone [facility] [address] [place] [address] Adiel Demarco MD [address] [place] [address] Med Refill Social History Tobacco Use Types Packs/Day Years Used Date Smoking Tobacco: Former Comments Unknown Sex and Gender Information Value Date Recorded Sex Assigned at Not on file Legal Sex Female 4:31 AM CITY MAINTENANCE MANAGER Gender Identity Female 11/23/2019 9:35 AM CDT Sexual Orientation Straight 11/23/2019 9: 35 AM CDT documented as of this encounter Miscellaneous Notes * Telephone Encounter - Gem Topete MA - 10/26/2019 3:46 PM CST PHONED IN PTS RX. MAINTENANCE MANAGER * Telephone Encounter - Aydee Villanueva MA - 10/26/2019 3:01 PM CST She has two scripts that Dr. Demarco gave her that weren't signed. Wanting to confirm you will callin those scripts today. MAINTENANCE MANAGER documented in this encounter Plan of Treatment Not on file documented as of this encounter Visit Diagnoses Not on filedocumented in this encounter Care Teams Airplane Gas Tank Liner Assembler Relationship Specialty Start Date End Date Adiel Demarco MD [address] [place] [address] PCP - General 08/24/17 documented as of this encounter
--- OUTSIDE RECORDS SUMMARY | 2024-09-05 02:13 | XMS_ITS | Encounter Summary ---
Author Organization [facility] Address [address] [place] [address] Phone Care Team Providers Care Arborer Name Role Phone Adiel Demarco MD Primary Care Provider [phone] Encounter Details Date Type Department Care Team (Late st Contact Info) Description 07/15/2020 Telephone [facility] [address] [place] [address] Adiel Demarco MD [address] [place] [address] Social History Tobacco Use Types Packs/Day Years Used Date Smoking Tobacco: Former Comments Unknown Sex and Gender Information Value Date Recorded Sex Assigned at Not on file Legal Sex Female 4:31 AM FOUNDRY SUPERVISOR Gender Identity Female 11/23/2019 9:35 AM CDT Sexual Orientation Straight 11/23/2019 9: 35 AM CDT documented as of this encounter Miscellaneous Notes * Telephone Encounter - Aydee Villanueva MA - 07/15/2020 12:01 PM CST My Chart says that a script was sent to her pharmacy but she called the pharmacy and they don't have any medication for her. DRY SUPERVISOR documented in this encounter Plan of Treatment Not on file documented as of this encounter Visit Diagnoses Not on filedocumented in this encounter Care Teams Arborer Relationship Specialty Start Date End Date Adiel Demarco MD [address] [place] [address] PCP - General 08/24/17 documented as of this encounter
--- OUTSIDE RECORDS SUMMARY | 2024-09-05 02:13 | XMS_ITS | Encounter Summary ---
Author Organization [facility] Address [address] [place] [address] Phone Care Team Providers Care Non Licensed Nuclear Equipment Operator Name Role Phone Adiel Demarco MD Primary Care Provider [phone] Reason for Visit * Reason Comments Surgical Clearance Encounter Details Date Type Department Care Team (Late st Contact Info) Description 04/23/2020 9:30 AM CDT Office Visit 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 Gender Identity Female 11/23/2019 9:35 AM CDT Sexual Orientation Straight 11/23/2019 9: 35 AM CDT documented as of this encounter Last Filed Vital Signs Vital Sign Reading Time Taken Comments Blood Pressure 124/80 04/23/2020 9:30 AM CDT Pulse 93 04/23/2020 9:30 AM CDT Temperature 36.2 ??C (97.2 ??F) 04/23/2020 9:30 AM CD T Respiratory Rate - - Oxygen Saturation 96% 04/23/2020 9:30 AM CDT Inhaled Oxygen Concentration - - Weight 107.5 kg (237 lb) 04/23/2020 9:30 AM CDT Height - - Body Mass Index 42.66 10/26/2019 11:14 AM CRITICAL CARE NURSE SPECIALIST documented in this encounter Ordered Prescriptions Prescription Sig Dispense Quantity Refills Last Filled Start Date End Date hydrocortisone 2.5 % creamIndications:A llergic dermatitis due to other chemical product Apply topically 2 (two) times a day as needed for irritation or rash 30 g 5 04/23/2020 1 documented in this encounter Progress Notes * Lynnette Perry NP - 04/23/2020 9:30 AM CDT Subjective/Objective Patient ID: Brissa Buckley is a 34 y.o. female. Chief Complaint Surgical Clearance HPI [facility]. She is hoping to have a gastric sleeve procedure. Has a rash on her abdomen that has been present for about a week or so. She recently changed detergents. Review of Systems All other systems reviewed and are negative. Physical Exam Vitals signs reviewed. Constitutional: Appearance: She is well-developed. HENT: Head: Normocephalic and atraumatic. Right Ear: External ear normal. Left Ear: External ear normal. Eyes: Conjunctiva/sclera: Conjunctivae normal. Pupils: Pupils are equal, round, and reactive to light. Neck: Musculoskeletal: Normal range of motion and neck supple. Cardiovascular: Rate and Rhythm: Normal rate and regular rhythm. Pulmonary: Effort: Pulmonary effort is normal. Breath sounds: Normal breath sounds. Abdominal: General: Bowel sounds are normal. Palpations: Abdomen is soft. Musculoskeletal: Normal range of motion. Skin: General: Skin is warm and dry. Capillary Refill: Capillary refill takes less than 2 seconds. Neurological: Mental Status: She is alert and oriented to person, place, and time. Psychiatric: Behavior: Behavior normal. Vitals BP 124/80 Pulse 93 Temp 36.2 ??C (97.2 ??F) Wt 107.5 kg (237 lb) SpO2 96% BMI 42.66 kg/m?? Current Outpatient Medications Medication Sig Dispense Refill ??? ALPRAZolam (XANAX) 0.5 mg tablet TAKE ONE TABLET BY MOUTH THREE TIMES A DAY NEEDED FOR ANXIETY 90 tablet 2 ??? mesalamine (LIALDA) 1.2 gram EC tablet TAKE 4 TABLETS BY MOUTH ONCE DAILY ??? sertraline (ZOLOFT) 100 mg tablet TAKE ONE TABLET BY MOUTH ONCE DAILY 30 tablet 2 ??? SUMAtriptan (IMITREX) 100 mg tablet ??? zolpidem (AMBIEN) 10 mg tablet TAKE ONE-HALF TO ONE TABLET BY MOUTH AT BEDIME NEEDED 30 tablet 0 No current facility-administered medications for this visit. Assessment/Plan Diagnoses and all orders for this visit: Pre-operative clearance (Z01.818) (Primary) She is safe to proceed with the surgery pending clearance from the anesthesia department/Pre-op laboratory data. Essential hypertension (I10) She will work on sodium intake and exercise . Contact dermatitis: Hydrocortisone 2.5% BID to rash. All medications were discussed. Use and possible adverse effects were reviewed. We discussed red flag symptoms and when to seek emergency treatment. The patient verbalized understanding and agreement. The patient was encouraged to reach out to this provider with any further needs or questions. documented in this encounter Plan of Treatment Not on file documented as of this encounter Visit Diagnoses Diagnosis Pre-operative clearance- Primary Unspecified pre-operative examination Essential hypertension Unspecified essential hypertension Encounter for pre-bariatric surgery counseling and education Allergic dermatitis due to other chemical product documented in this encounter Discontinued Medications Medication Sig Discontinue Reason Start Date End Da te butalbital-acetaminophe n-caffeine (FIORICET,ESGIC) 50-300-40 mg per capsule TAKE 1 TO 2 CAPSULES BY MOUTH EVERY 4 HOURS NEEDED FOR PAIN. MAX DAILY DOSE OF 6 CAPSULES IN 24 HOUR PERIOD. 05/01/2019 04/23/2020 documented as of this encounter Historical Medications * This list may reflect changes made after this encounter. Medication Sig Dispense Quantity Refills Last Filled Start D ate End Date SUMAtriptan (IMITREX) 100 mg tablet 11/14/2019 11/16/2021 added in this encounter Care Teams Non Licensed Nuclear Equipment Operator Relationship Specialty Start Date End Date Adiel Demarco MD [address] [place] [address] PCP - General 08/24/17 documented as of this encounter
--- OUTSIDE RECORDS SUMMARY | 2024-09-05 02:13 | XMS_ITS | Encounter Summary ---
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 Gender Identity Female 11/23/2019 9:35 AM CDT Sexual Orientation Straight 11/23/2019 9: 35 AM CDT documented as of this encounter Ordered Prescriptions Prescription Sig Dispense Quantity Refills Last Filled Start Date End Date valACYclovir (VALTREX) 1 gram tablet Take 2 tablets (2,000 mg total) by mouth 2 (two) times a day for 1 day 4 tablet 04/17/2021 documented in this encounter Plan of Treatment Not on file documented as of this encounter Visit Diagnoses Not on filedocumented in this encounter Care Teams Guest Service Host Relationship Specialty Start Date End Date Adiel Demarco MD [address] [place] [address] PCP - General 08/24/17 documented as of this encounter
--- OUTSIDE RECORDS SUMMARY | 2024-09-05 02:13 | XMS_ITS | Encounter Summary ---
Author Organization 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 TELEVISIT Brissa Buckley is a 35 y.o. female called to discuss the following: Ten days ago she went to urgent care because she had sores in her mouth and tongue. She had difficulty swallowing. She had no loss of taste. She had no fever, chills or sweats. She was diagnosed withstomatitis. She has not had any alfa cold sores that she can identify but her mouth is sore and painful and she wonders about thrush or vitamin malabsorption from her bariatric surgery. Patient Name: Brissa Buckley Date of : 1985 No past medical history on file. No past surgical history on file. Family History: Family History Problem Relation Age of Onset ??? Hypertension Father Family history of hypertension - (Added by TW Conv) ??? Ulcerative colitis Other Family history of ulcerative colitis - Relation: Aunt (Added by TW Conv) Social History: Social History Socioeconomic History ??? Marital status: Spouse name: Not on file ??? Number of children: Not on file ??? Years of education: Not on file ??? Highest education level: Not on file Occupational History ??? Not on file Tobacco Use ??? Smoking status: Former Smoker Substance and Sexual Activity ??? Alcohol use: Not on file ??? Drug use: Not on file ??? Sexual activity: Not on file Social Determinants of Health Physical Activity: ??? Days of Exercise per Week: ??? Minutes of Exercise per Session: Stress: ??? Feeling of Stress : Allergies: No Known Allergies Current Medications: Outpatient Encounter Medications as of 11/27/2020 Medication Sig Dispense Refill ? ? al & mag hydroxide emfhxuzqcwn-tvaqodvgrqsxpog-owiwvowmd-nystatin (MAGIC MOUTHWASH) suspension 1-1-1-1 Swish and swallow 20 mL every 4 (four) hours as needed (Mouth pain) 240 mL 3 ??? ALPRAZolam (XANAX) 0.5 mg tablet Take 1 tablet (0.5 mg total) by mouth 3 (three) times a day asneeded for anxiety 90 tablet 2 ??? sertraline (ZOLOFT) 100 mg tablet TAKE ONE TABLET BY MOUTH ONCE DAILY 30 tablet 2 ??? sertraline (ZOLOFT) 25 mg tablet Take 2 tablets (50 mg total) by mouth daily Take along with 100 mg tablet for total daily dose of 125 mg 180 tablet 3 ??? SUMAtriptan (IMITREX) 100 mg tablet ??? zolpidem (AMBIEN) 10 mg tablet 1 at bedtime if needed 30 tablet 3 No facility-administered encounter medications on file as of 11/27/2020. There were no vitals filed for this visit. Care Team Providers: Patient Care Team: Adiel Demarco MD as PCP - General Primary Pharmacy/DME suppliers: [facility] - [place], [place] - [address] [facility] [address] [place] [address] [place] [address] ROS per HPI otherwise all other systems negative. There were no vitals taken for this visit. PHYSICAL EXAMINATION: GENERAL: This is a well- developed, well nourished age appropriate patient in no acute distress. The patient is alert and oriented x3. Pleasant and cooperative. PSYCHIATRIC: Mood is euthymic. Affect appears appropriate. EYES: Anicteric sclera. Extraocular movements appear intact. EAR, NOSE, THROAT: Hearing is intact to the spoken word. Nares are patent with no drainage. What I can visualize of her mouth and oropharynx on the TB screen does not demonstrate any lesions. The mucosa is rather beefy red. RESPIRATORY: There is equal chest rise on inspection. Breathing is non-labored with no audible wheezing. CARDIOVASCULAR: There is no upper extremity lymphedema. ABDOMEN:Nondistended SKIN: No obvious skin lesions or rashes are noted. NEUROLOGIC: No ataxia. Awake alert. Speech is fluent and clear. Lab Results Component Value Date WBC 10.2 07/16/2014 HGB 11.0 (L) 07/16/2014 CREATININE 0.89 07/16/2014 BUNSER 11 07/16/2014 CO2 23 07/16/2014 TSH 1.120 07/16/2014 HGBA1C 4.9 07/16/2014 Diagnoses and all orders for this visit: Stomatitis and mucositis (Primary) Other orders - al & mag hydroxide wclwtcgymgd-krogebpfyftagpc-xehlcnrtv-nystatin (MAGIC MOUTHWASH) suspension 1-1-1-1; Swish and swallow 20 mL every 4 (four) hours as needed (Mouth pain) Adiel Demarco MD This was a telemedicine visit which took place via [email or web address] . During the visit, I was located in [facility] and the patient was located at his home in the state of [place]. The patient visit started at 3:50 p.m. and ended at 4:05 p.m. Total encounter time includes time spent in direct contact with patient The patient: has been informed that the visit may not be secure and acknowledged the information. The option of participating in a telephone or video visit during the COVID-19 public health emergencywas explained to them. documented in this encounter Plan of Treatment Not on file documented as of this encounter Visit Diagnoses Diagnosis Stomatitis and mucositis- Primary Stomatitis and mucositis, unspecified documented in this encounter Care Teams Chairman Emeritus Relationship Specialty Start Date End Date Adiel Demarco MD [address] [place] [address] PCP - General 08/24/17 documented as of this encounter
--- OUTSIDE RECORDS SUMMARY | 2024-09-05 02:13 | XMS_ITS | Encounter Summary ---
Author Organization [facility] Address [address] [place] [address] Phone Care Team Providers Care Footwear Sales Leader Name Role Phone Adiel Demarco MD Primary Care Provider [phone]- [phone] Reason for Visit * Reason Onset Date Comments Med Refill 11/20/2020 Encounter Details Date Type Department Care Team (Late st Contact Info) Description 11/20/2020 Telephone [facility] [address] [place] [address] Adiel Demarco MD [address] [place] [address] Med Refill Social History Tobacco Use Types Packs/Day Years Used Date Smoking Tobacco: Former Comments Unknown Sex and Gender Information Value Date Recorded Sex Assigned at Not on file 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 * Telephone Encounter - Divya Rain MA - 11/20/2020 8:40 AM CDT sent Sertraline 100mg and 50mg What is the pt taking 125mg Or 150mg please advise documented in this encounter Plan of Treatment Not on file documented as of this encounter Visit Diagnoses Not on filedocumented in this encounter Care Teams Footwear Sales Leader Relationship Specialty Start Date End Date Adiel Demarco MD [address] [place] [address] PCP - General 08/24/17 documented as of this encounter
--- OUTSIDE RECORDS SUMMARY | 2024-09-05 02:13 | XMS_ITS | Encounter Summary ---
Author Organization [facility] Healthcare Address [address] [place] [address] Care Team Providers Care Jewel Gauger Name Role Phone Adiel Demarco MD Primary Care Provider [phone]- [phone] Encounter Details Date Type Department Care Team (Late st Contact Info) Description 03/14/2020 E-Visit [facility] HealthCare/ Physicians [address], [place] [id number] Vania Cullen NP [address] [place], [place] [id number] RE: E-Visit Submission: COVID-19 Evaluation Social History Tobacco Use Types Packs/Day Years Used Date Smoking Tobacco: Former Comments Unknown Sex and Gender Information Value Date Recorded Sex Assigned at Not on file 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 The patient-submitted questionnaire was assessed for pertinent information and the patient's problem list, medication list, and allergies were reviewed as part of the e-visit. The chart was updated to identify any changes in these areas. Assessment: Diagnosis Plan 1. Sore throat Self-isolate 10 days, work note routed Salt water gargles Tylenol as needed Increase fluid intake Report new or worsening symptoms to PCP 2. Loss of smell 3. Loss of taste 4. Diarrhea, unspecified type Plan: The patient was given information regarding any new medication(s) prescribed, if applicable, as well as any [id number] remedies. She was given instructions regarding follow up and timeframe if symptoms worsen or don???t improve. These instructions were included in the [x+1] message reply tothe patient. Patient Instructions were included in the message reply to patient. Vania Cullen NP documented in this encounter Plan of Treatment Not on file documented as of this encounter Visit Diagnoses Diagnosis Sore throat- Primary Acute pharyngitis Loss of smell Disturbances of sensation of smell and taste Loss of taste Disturbances of sensation of smell and taste Diarrhea, unspecified type documented in this encounter Care Teams Jewel Gauger Relationship Specialty Start Date End Date Adiel Demarco MD [address] [place] [address] PCP - General 08/24/17 documented as of this encounter
--- OUTSIDE RECORDS SUMMARY | 2024-09-05 02:13 | XMS_ITS | Encounter Summary ---
Author Organization [facility] Address [address] [place] [address] Phone Care Team Providers Care Almond Pan Finisher Name Role Phone Adiel Demarco MD Primary Care Provider [phone]- [phone] Encounter Details Date Type Department Care Team (Late st Contact Info) Description 11/16/2021 10:00 AM CDT Office Visit 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 Gender Identity Female 11/23/2019 9:35 AM CDT Sexual Orientation Straight 11/23/2019 9: 35 AM CDT documented as of this encounter Last Filed Vital Signs Vital Sign Reading Time Taken Comments Blood Pressure 123/98 11/16/2021 10:06 AM CDT Pulse 83 11/16/2021 10:06 AM CDT Temperature - - Respiratory Rate - - Oxygen Saturation - - Inhaled Oxygen Concentration - - Weight 75.8 kg (167 lb) 11/16/2021 10:06 AM CDT Height 157.5 cm (5' 2 ) 11/16/2021 10:06 AM CDT Body Mass Index 30.54 11/16/2021 10:06 AM CDT documented in this encounter Progress Notes * Lynnette Perry NP - 11/16/2021 10:00 AM CDT Subjective: Chief Complaint: Brissa Buckley is an 36 y.o. female here for an annual wellness visit. Patient Care Team: Adiel Demarco MD as PCP - General HPI: Reports feeling well since the last visit. The diet is reported to be healthy with adequate fruits and vegetables. Lean proteins are favored. Exercise is regular. They are driving with no accidents or problems in the past year. There have been no recent falls. Lives independently with help available. Depression/anxiety: Seeing a psychiatric registered nurse who changed her to Lamictal. Feeling good. 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 ADD: recently started on adderall. Feeling great with it. Smoking: none Exercise: very active Alcohol: social drinker - minimal Diet: well rounded Dentition: sees dentist Sexual Activity: active Illicit Drugs: none Seatbelt Use: always Texting while driving: none Sunscreen use: needs improvement No past medical history on file. No past surgical history on file. Family History Problem Relation Age of Onset ??? Hypertension Father Family history of hypertension - (Added by TW Conv) ??? Ulcerative colitis Other Family history of ulcerative colitis - Relation: Aunt (Added by TW Conv) Current Outpatient Medications Medication Sig Dispense Refill ??? ALPRAZolam (XANAX) 0.5 mg tablet TAKE ONE TABLET BY MOUTH THREE TIMES A DAY NEEDED FOR ANXIETY 90 tablet 2 ??? lamoTRIgine (LaMICtal) 100 mg tablet Take 150 mg by mouth daily ??? zolpidem (AMBIEN) 10 mg tablet TAKE ONE TABLET BY MOUTH AT BEDTIME NEEDED 30 tablet 3 ??? dextroamphetamine-amphetamine XR (ADDERALL XR) 20 mg 24 hr capsule No current facility-administered medications for this visit. Review of Systems All other systems reviewed and are negative. Objective: Vital Signs: BP 123/98 Pulse 83 Ht 157.5 cm (5' 2 ) Wt 75.8 kg (167 lb) BMI 30.54 kg/m?? No exam data present Physical Exam Vitals reviewed. Constitutional: Appearance: She is well-developed. HENT: Head: Normocephalic and atraumatic. Right Ear: External ear normal. Left Ear: External ear normal. Eyes: Conjunctiva/sclera: Conjunctivae normal. Pupils: Pupils are equal, round, and reactive to light. Cardiovascular: Rate and Rhythm: Normal rate and regular rhythm. Heart sounds: Normal heart sounds. Pulmonary: Effort: Pulmonary effort is normal. Breath sounds: Normal breath sounds. Abdominal: General: Bowel sounds are normal. Palpations: Abdomen is soft. Musculoskeletal: General: Normal range of motion. Cervical back: Normal range of motion and neck supple. Skin: General: Skin is warm and dry. Capillary Refill: Capillary refill takes less than 2 seconds. Neurological: Mental Status: She is alert and oriented to person, place, and time. Psychiatric: Behavior: Behavior normal. Assessment and Plan: Diagnoses and all orders for this visit: Healthcare maintenance (Primary) - POCT lipid panel - POCT glucose - POCT hemoglobin A1c Wellness: Influenza: Discussed. Encouraged Annual Flu Shot. Tetanus: Tetanus vaccination status reviewed: Next TDaP due: 2028 PAP AND PELVIC EXAMS: Last PAP: 2020 BONE HEALTH: Encouraged adequate Vitamin D and Calcium intake as well as weight bearing exercises. DIABETES SCREENING TESTS: Discussed. Hemoglobin A1C: 4.8% All medications were discussed. Use and possible adverse effects were reviewed. We discussed red flag symptoms and when to seek emergency treatment. The patient verbalized understanding and agreement. The patient was encouraged to reach out to this provider with any further needs or questions. The patient presented today for an annual wellness visit. This procedure was completed. In addition, counselling has been provided to maintain a healthy lifestyle through fitness, diet, rest, resilience, prevention/reduction and safety. Immunization status was reviewed and addressed. Today, the patient presented with additional active problems which were separately tended to. The result of this evaluation and management are outlined above. Things look good but each of these issues contributed to separate additional evaluation and management. Annual Wellness Visit in one year is encouraged to be scheduled. The following health maintenance schedule was reviewed with the patient and provided in printed form in the after visit summary: Health Maintenance Topic Date Due ??? Depression Screening-PHQ Never done ??? Cervical Cancer Screening-Pap and HPV Never done ??? Varicella Vaccines (1 of 2 - 2-dose childhood series) Never done ??? Regular Well Visit/Exam 18-64 11/16/2022 ??? DTaP/Tdap/Td Vaccine (2 - Td or Tdap) 11/03/2028 ??? Covid-19 Vaccine Completed ??? Influenza Vaccine Completed ? ? Pneumococcal vaccine <65 Aged Out documented in this encounter Plan of Treatment Not on file documented as of this encounter Procedures Procedure Name Priority Date/Time Associated Diagnosis Comments POCT LIPID PANEL Routine 11/16/2021 10:3 1 AM CDT Healthcare maintenance POCT GLUCOSE Routine 11/16/2021 10:31 AM CDT Healthcare maintenance POCT HEMOGLOBIN A1C Routine 11/16/2021 1 0:21 AM CDT Healthcare maintenance documented in this encounter Results * POCT glucose (11/16/2021 10:31 AM CDT) Glucose Blood, POC 75 mg/dL Blood specimen (specimen) 11/16/2021 10:31 AM CDT Lynnette Perry FIRE LOSS PREVENTION ENGINEER POINT OF CARE ALONSO T ORDERABLES Final Result * POCT lipid panel (11/16/2021 10:31 AM CDT) Cholesterol, POC 175 mg/dL HDL, POC 69 mg/dL Triglycerides, POC 103 mg/dL LDL Cholesterol POC 86 mg/dL Chol/HDL Ratio, POC 2.6 Non-HDL Cholesterol, POC 107 mg/dL Cholesterol Total, POC 175 mg/dL Capillary blood 11/16/2021 1 0:31 AM CDT Lynnette Perry NP POINT OF CARE ALONSO T ORDERABLES Final Result * POCT hemoglobin A1c (11/16/2021 10:21 AM CDT) Hemoglobin A1C, POC 4.8 Blood specimen (specimen) 11/16/2021 10:21 AM CDT Lynnette Perry NP POINT OF CARE ALONSO T ORDERABLES Final Result documented in this encounter Visit Diagnoses Diagnosis Healthcare maintenance- Primary documented in this encounter Discontinued Medications Medication Sig Discontinue Reason Start Date End Da te hydrOXYzine (ATARAX) 25 mg tabletIndications:Genera lized anxiety disorder Take 1 tablet (25 mg total) by mouth 3 (three) times a day Therapy completed 05/18/2021 11/16/2021 lamoTRIgine (LaMICtal) 25 mg tablet Therapy completed 09/30/2021 11/16/2021 ALPRAZOLAM ORAL Take 0.5 mg by mouth 2 (two) times a day as needed Therapy completed 11/16/2021 vortioxetine (TRINTELLIX) 10 mg tabletIndications:major depressive disorder Take 1 tablet (10 mg total) by mouth daily 06/24/2021 11/16/2021 SUMAtriptan (IMITREX) 100 mg tablet 11/14/2019 11/16/2021 documented as of this encounter Historical Medications * This list may reflect changes made after this encounter. lamoTRIgine (LaMICtal) 100 mg tablet Take 1.5 tablets (150 mg total) by mouth daily 10/27/2021 dextroamphetamine -amphetamine XR (ADDERALL XR) 20 mg 24 hr capsule 11/09/2021 03/19/20 lamoTRIgine (LaMICtal) 25 mg tablet 09/30/2021 11/16/2021 ALPRAZOLAM ORAL Take 0.5 mg by mouth 2 (two) times a day as needed 11/16/2021 added in this encounter Care Teams Almond Pan Finisher Relationship Specialty Start Date End Date Adiel Demarco MD [address] [place] [address] PCP - General 08/24/17 documented as of this encounter
--- OUTSIDE RECORDS SUMMARY | 2024-09-05 02:13 | XMS_ITS | Encounter Summary ---
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
--- OUTSIDE RECORDS SUMMARY | 2024-09-05 02:13 | XMS_ITS | Encounter Summary ---
Author Organization [facility] Healthcare Address [address] [place] [address] Care Team Providers Care Watch Train Assembler Name Role Phone Adiel Demarco MD Primary Care Provider [phone]- [phone] Encounter Details Date Type Department Care Team (Late st Contact Info) Description 03/08/2020 Patient Self-Triage [facility] HealthCare/ Physicians [address] [place] [address] Mychart, Generic Provider [address] [place], [place] [address] Social History Tobacco Use Types Packs/Day Years Used Date Smoking Tobacco: Former Comments Unknown Sex and Gender Information Value Date Recorded Sex Assigned at Not on file 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
--- OUTSIDE RECORDS SUMMARY | 2024-09-05 02:13 | XMS_ITS | Encounter Summary ---
Author Organization [facility] Address [address] [place] [address] Phone Care Team Providers Care Senior Project Coordinator Name Role Phone Adiel Demarco MD Primary Care Provider [phone] Encounter Details Date Type Department Care Team (Late st Contact Info) Description 12/17/2022 10:30 AM CDT Office Visit 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 Gender Identity Female 11/23/2019 9:35 AM CDT Sexual Orientation Straight 11/23/2019 9: 35 AM CDT documented as of this encounter Last Filed Vital Signs Vital Sign Reading Time Taken Comments Blood Pressure 155/104 12/17/2022 10:43 AM CDT Pulse 100 12/17/2022 10:43 AM CDT Temperature 36.7 ??C (98 ??F) 12/17/2022 10: 43 AM CDT Respiratory Rate - - Oxygen Saturation - - Inhaled Oxygen Concentration - - Weight 67.4 kg (148 lb 11.2 oz) 023 10:43 AM CDT Height 154.9 cm (5' 1 ) 12/17/2022 10:4 3 AM CDT Body Mass Index 28.1 12/17/2022 10:43 AM CDT documented in this encounter Patient Instructions * Patient Instructions* Lynnette Perry NP - 12/17/2022 10:30 AM CDT Images from the original note were not included. Patient Education DASH Eating Plan CLIENT INTEGRATION MANAGER: The DASH (Dietary Approaches to Stop Hypertension) Eating Plan is designed to help prevent or lowerhigh blood pressure. It can also help to lower LDL (bad) cholesterol and decrease your risk for heart disease. The plan is low in sodium, sugar, unhealthy fats, and total fat. It is high in potassium, calcium, magnesium, and fiber. These nutrients are added when you eat more fruits, vegetables, andwhole grains. Your sodium limit each day: Your dietitian will tell you how much sodium is safe for you to have each day. People with high blood pressure should have no more than 1,500 to 2,300 mg of sodium in a day. A teaspoon (tsp) of salt has 2,300 mg of sodium. This may seem like a difficult goal, but small changes to the foods you eat can make a big difference. Your healthcare provider or dietitian can help you create a meal plan that follows your sodium limit. How to limit sodium: Read food labels. Food labels can help you choose foods that are low in sodium. The amount of sodium is listed in milligrams (mg). The % Daily Value (DV) column tells you how much of your daily needsare met by 1 serving of the food for each nutrient listed. Choose foods that have less than 5% of the DV of sodium. These foods are considered low in sodium. Foods that have 20% or more of the DV of s odium are considered high in sodium. Avoid foods that have more than 300 mg of sodium in each serving. Choose foods that say low-sodium, reduced-sodium, or no salt added on the food label. Avoid salt. Do not salt food at the table, and add very little salt to foods during cooking. Use herbs and spices, such as onions, garlic, and salt-free seasonings to add flavor to foods. Try lemon or [place] juice or vinegar to give foods a tart flavor. Use hot peppers or a small amount of hot peppersauce to add a spicy flavor to foods. Ask about salt substitutes. Ask your healthcare provider if you may use salt substitutes. Some saltsubstitutes have ingredients that can be harmful if you have certain health conditions. Choose foods carefully at restaurants. Meals from restaurants, especially fast food restaurants, are often high in sodium. Some restaurants have nutrition information that tells you the amount of sodium in their foods. Ask to have your food prepared with less, or no salt. What you need to know about fats: Include healthy fats. Examples are unsaturated fats and omega-3 fatty acids. Unsaturated fats are found in soybean, canola, olive, or sunflower oil, and liquid and soft tub margarines. [place]-3 fatty acids are found in fatty fish, such as salmon, tuna, mackerel, and sardines. It is also found in flaxseed oil and ground flaxseed. Avoid unhealthy fats. Do not eat unhealthy fats, such as saturated fats and trans fats. Saturated fats are found in foods that contain fat from animals. Examples are fatty meats, whole milk, butter, cream, and other dairy foods. It is also found in shortening, stick margarine, palm oil, and coconutoil. Trans fats are found in fried foods, crackers, chips, and baked goods made with margarine or shortening. Foods to include: With the DASH eating plan, you need to eat a certain number of servings from eachfood group. This will help you get enough of certain nutrients and limit others. The amount of servings you should eat depends on how many calories you need. Your dietitian can tell you how many calories you need. The number of servings listed next to the food groups below are for people who need about 2,000 calories each day. Grains: 6 to 8 servings (3 of these servings should be whole-grain foods) 1 slice of whole-grain bread 1 ounce of dry cereal ?? cup of cooked cereal, pasta, or brown rice Vegetables and fruits: 4 to 5 servings of fruits and 4 to 5 servings of vegetables 1 medium fruit ?? cup of frozen, canned (no added salt), or chopped fresh vegetables ?? cup of fresh, frozen, dried, or canned fruit (canned in light syrup or fruit juice) ?? cup of vegetable or fruit juice Dairy: 2 to 3 servings 1 cup of nonfat (skim) or 1% milk 1?? ounces of fat-free or low-fat cheese 6 ounces of nonfat or low-fat yogurt Lean meat, poultry, and fish: 6 ounces or less Poultry (chicken, turkey) with no skin Fish (especially fatty fish, such as salmon, fresh tuna, or mackerel) Lean beef and pork (loin, round, extra lean hamburger) Egg whites and egg substitutes Nuts, seeds, and legumes: 4 to 5 servings each week ?? cup of cooked beans and peas 1?? ounces of unsalted nuts 2 tablespoons of peanut butter or seeds Sweets and added sugars: 5 or less each week 1 tablespoon of sugar, jelly, or jam ?? cup of sorbet or gelatin 1 cup of lemonade Fats: 2 to 3 servings each day 1 teaspoon of soft margarine or vegetable oil 1 tablespoon of mayonnaise 2 tablespoons of salad dressing Foods to avoid: Grains: Baked goods, such as doughnuts, pastries, cookies, and biscuits (high in fat and sugar) Mixes for cornbread and biscuits, packaged foods, such as bread stuffing, rice and pasta mixes, macaroni and cheese, and instant cereals (high in sodium) Fruits and vegetables: Regular, canned vegetables (high in sodium) Sauerkraut, pickled vegetables, and other foods prepared in brine (high in sodium) Fried vegetables or vegetables in butter or high-fat sauces Fruit in cream or butter sauce (high in fat) Dairy: Whole milk, 2% milk, and cream (high in fat) Regular cheese and processed cheese (high in fat and sodium) Meats and protein foods: Smoked or cured meat, such as corned beef, valero, ham, hot dogs, and sausage (high in fat and sodium) Canned beans and canned meats or spreads, such as potted meats, sardines, anchovies, and imitation seafood (high in sodium) Deli or lunch meats, such as bologna, ham, turkey, and roast beef (high in sodium) High-fat meat (T-bone steak, regular hamburger, and ribs) Whole eggs and egg yolks (high in fat) Other: Seasonings made with salt, such as garlic salt, celery salt, onion salt, seasoned salt, meat tenderizers, and monosodium glutamate (MSG) Miso soup and canned or dried soup mixes (high in sodium) Regular soy sauce, barbecue sauce, teriyaki sauce, steak sauce, Worcestershire sauce, and most flavored vinegars (high in sodium) Regular condiments, such as mustard, ketchup, and salad dressings (high in sodium) Gravy and sauces, such as [place] or cheese sauces (high in sodium and fat) Drinks high in sugar, such as soda or fruit drinks Snack foods, such as salted chips, popcorn, pretzels, pork rinds, salted crackers, and salted nuts Frozen foods, such as dinners, entrees, vegetables with sauces, and breaded meats (high in sodium) Other guidelines to follow: Maintain a healthy weight. Your risk for heart disease is higher if you are overweight. Your healthcare provider may suggest that you lose weight if you are overweight. You can lose weight by eating fewer calories and foods that have added sugars and fat. The DASH meal plan can help you do this. Decrease calories by eating smaller portions at each meal and fewer snacks. Ask your healthcare provider for more information about how to lose weight. Exercise regularly. Regular exercise can help you reach or maintain a healthy weight. Regular exercise can also help decrease your blood pressure and improve your cholesterol levels. Get 30 minutes or more of moderate exercise each day of the week. To lose weight, get at least 60 minutes of exercise. Talk to your healthcare provider about the best exercise program for you. Limit alcohol. Women should limit alcohol to 1 drink a day. Men should limit alcohol to 2 drinks a day. A drink of alcohol is 12 ounces of beer, 5 ounces of wine, or 1?? ounces of liquor. ?? Copyright [employer] 2020 Information is for End User's use only and may not be sold, redistributed or otherwise used for commercial purposes. All illustrations and images included in CareNotes?? are the copyrighted property of [employer] or [employer] The above information is an certified medical aide only. It is not intended as medical advice for individual conditions or treatments. Talk to your doctor, nurse or pharmacist before following any medical regimen to see if it is safe and effective for you. documented in this encounter Ordered Prescriptions Prescription Sig Dispense Quantity Refills Last Filled Start Date End Date lisinopriL (PRINIVIL,ZESTRIL) 20 mg tabletIndications: Elevated BP without diagnosis of hypertension Take 1 tablet (20 mg total) by mouth daily 90 tablet 4 12/17/2022 01/28/2023 documented in this encounter Progress Notes * Lynnette Perry NP - 12/17/2022 10:30 AM CDT Subjective/Objective Patient ID: Brissa Buckley is a 37 y.o. female. Chief Complaint No chief complaint on file. HPI BP: Takes adderall 30mg on more mornings and recently added auvelity. Stress has been high recently. Home BP has been around 139/103. Review of Systems All other systems reviewed and are negative. Physical Exam Vitals reviewed. Constitutional: Appearance: She [...] time. Psychiatric: Behavior: Behavior normal. Vitals BP (!) 155/104 (BP Location: Right arm, Patient Position: Sitting) Pulse 100 Temp 36.7 ??C (98 ??F) Ht 154.9 cm (5' 1 ) Wt 67.4 kg (148 lb 11.2 oz) BMI 28.10 kg/m?? Current Outpatient Medications Medication Sig Dispense Refill ALPRAZolam (XANAX) 0.5 mg tablet TAKE ONE TABLET BY MOUTH THREE TIMES A DAY NEEDED FOR ANXIETY 90 tablet 2 dextroamphetamine-amphetamine (ADDERALL) 10 mg tablet dextroamphetamine-amphetamine XR (ADDERALL XR) 30 mg 24 hr capsule lamoTRIgine (LaMICtal) 100 mg tablet Take 1.5 tablets (150 mg total) by mouth daily zolpidem (AMBIEN) 10 mg tablet TAKE 1 TABLET BY MOUTH NIGHTLY NEEDED FOR SLEEP 30 tablet 0 No current facility-administered medications for this visit. Assessment/Plan Diagnoses and all orders for this visit: Elevated BP without diagnosis of hypertension (R03.0) (Primary) - lisinopriL (PRINIVIL,ZESTRIL) 20 mg tablet; Take 1 tablet (20 mg total) by mouth daily All medications were discussed. Use and possible [...] Diagnoses Diagnosis Elevated BP without diagnosis of hypertension- Primary documented in this encounter Historical Medications * This list may reflect changes made after this encounter. Auvelity 45-105 mg tablet, IR & ER, biphasic Take 1 tablet by mouth 2 (two) times a day 12/08/2022 added in this encounter Care Teams Senior Project Coordinator Relationship Specialty Start Date End Date Adiel Demarco MD [address] [place] [address] PCP - General 08/24/17 documented as of this encounter
--- OUTSIDE RECORDS SUMMARY | 2024-09-05 02:13 | XMS_ITS | Encounter Summary ---
Author Organization [facility] Address [address] [place] [address] Phone Care Team Providers Care Medical Record Librarians Teacher Name Role Phone Adiel Demarco MD Primary Care Provider [phone]- [phone] Reason for Visit * Reason Comments Annual Exam Encounter Details Date Type Department Care Team (Late st Contact Info) Description 01/28/2023 10:00 AM CDT Office Visit [facility] [address] [place] [address] Lynnette Perry NP [address] [place], [place] [id number] Healthcare maintenance (Primary Dx); Vitamin D deficiency disease; History of anemia due to vitamin B12 deficiency; Insomnia due to medical condition; Elevated BP without diagnosis of hypertension Social History Tobacco Use Types Packs/Day Years Used Date Smoking Tobacco: Former Tobacco Cessation:Counseling Given: Not Answered PHQ-2 Answer Date Recorded PHQ-2 Total Score (If total score is 3 or more points, staff should administer the PHQ-9) 0 01/28/2023 Comments No Sex and Gender Information Value Date Recorded Sex Assigned at Not on file 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 Gender Identity Female 11/23/2019 9:35 AM CDT Sexual Orientation Straight 11/23/2019 9: 35 AM CDT documented as of this encounter Last Filed Vital Signs Vital Sign Reading Time Taken Comments Blood Pressure 115/83 01/28/2023 10:07 AM CDT Pulse 74 01/28/2023 10:07 AM CDT Temperature 36.4 ??C (97.5 ??F) 01/28/2023 10:07 AM C DT Respiratory Rate - - Oxygen Saturation 99% 01/28/2023 10:07 AM CDT Inhaled Oxygen Concentration - - Weight 68.5 kg (151 lb) 01/28/2023 10:07 AM CDT Height 157.5 cm (5' 2 ) 01/28/2023 10:07 AM CDT Body Mass Index 27.62 01/28/2023 10:07 AM CDT documented in this encounter Ordered Prescriptions Prescription Sig Dispense Quantity Refills Last Filled Start Date End Date scopolamine 1 mg over 3 days patch [address] 1 patch on the skin every third day as needed (nausea) 4 patch 2 01/28/2023 4 lisinopriL (PRINIVIL,ZESTRIL) 20 mg tabletIndications: Elevated BP without diagnosis of hypertension Take 1 tablet (20 mg total) by mouth daily 90 tablet 4 01/28/2023 4 traZODone (DESYREL) 50 mg tabletIndications: Insomnia due to medical condition Take 1 tablet (50 mg total) by mouth nightly as needed for sleep for up to 90 doses 90 tablet 01/28/2023 3 documented in this encounter Progress Notes * Lynnette Perry, ARASH - 01/28/2023 10:00 AM CDT Subjective: Chief Complaint: Brissa Buckley is an 37 y.o. female here for an annual wellness [...] recent falls. Lives independently with help available. HTN: Started lisinopril 20mg 12/17/2022 due to elevated BP likely secondary to stimulant use. Reports home BP 120s/80s. ADD: Taking adderall and is managed by psych. Depression: Started auvelity but stopped due to side effects. Smoking: none Exercise: moderately active Alcohol: social drinker Diet: well rounded Dentition: sees regularly Sexual Activity: active with Illicit Drugs: none Seatbelt Use: always Texting while driving: rare Sunscreen use: daily Guns in the home: yes, locked in safe No past medical history on file. No past surgical history on file. Family History Problem Relation Age of Onset Hypertension Father Family history of hypertension - (Added by МАРИНА Conv) Ulcerative colitis Other Family history of ulcerative colitis - Relation: Aunt (Added by МАРИНА Cody) Current Outpatient Medications Medication Sig Dispense Refill ALPRAZolam (XANAX) 0.5 mg tablet TAKE ONE TABLET BY MOUTH THREE TIMES A DAY NEEDED FOR ANXIETY 90 tablet 2 Auvelity 45-105 mg tablet, IR & ER, biphasic Take 1 tablet by mouth 2 (two) times a day dextroamphetamine-amphetamine (ADDERALL) 10 mg tablet dextroamphetamine-amphetamine XR (ADDERALL XR) 30 mg 24 hr capsule lamoTRIgine (LaMICtal) 100 mg tablet Take 1.5 tablets (150 mg total) by mouth daily zolpidem (AMBIEN) 10 mg tablet Take 1 tablet (10 mg total) by mouth nightly as needed for sleep forsleep 30 tablet 0 cyanocobalamin (Vitamin B-12) 1,000 mcg/mL injection lisinopriL (PRINIVIL,ZESTRIL) 20 mg tablet Take 1 tablet (20 mg total) by mouth daily 90 tablet 4 scopolamine 1 mg over 3 days patch [address] 1 patch on the skin every third day as needed (nausea) 4 patch 2 traZODone (DESYREL) 50 mg tablet Take 1 tablet (50 mg total) by mouth nightly as needed for sleep for up to 90 doses 90 tablet 0 No current facility-administered medications for this visit. Review of Systems All other systems reviewed and are negative. Objective: Vital Signs: BP 115/83 Pulse 74 Temp 36.4 ??C (97.5 ??F) Ht 157.5 cm (5' 2 ) Wt 68.5 kg (151 lb) SpO2 99% BMI 27.62 kg/m?? No results found. Physical Exam Vitals reviewed. Constitutional: Appearance: She [...] for this visit: Healthcare maintenance (Primary) - Hemoglobin A1c; Future - Lipid panel; Future - Comprehensive metabolic panel; Future - CBC with auto differential; Future Vitamin D deficiency disease - Vitamin D 25 hydroxy; Future History of anemia due to vitamin B12 deficiency - Vitamin B12; Future - Iron profile w/ IBC; Future Insomnia due to medical condition - traZODone (DESYREL) 50 mg tablet; Take 1 tablet (50 mg total) by mouth nightly as needed for sleep for up to 90 doses Elevated BP without diagnosis of hypertension - lisinopriL (PRINIVIL,ZESTRIL) 20 mg tablet; Take 1 tablet (20 mg total) by mouth daily Other orders - scopolamine 1 mg over 3 days patch 3 day; Place 1 patch on the skin every third day as needed (nausea) Wellness: Influenza: Discussed. Encouraged Annual Flu Shot. Tetanus: Tetanus vaccination status reviewed: Next TDaP due: 2019 PAP AND PELVIC EXAMS: Last PAP: follows with [facility] [employer] [facility], 11/2022 Result: negative BONE HEALTH: Encouraged adequate Vitamin D and Calcium intake as well as weight bearing exercises. DIABETES SCREENING TESTS: Discussed. All medications were discussed. Use and possible [...] visit summary: Health Maintenance Topic Date Due Cervical Cancer Screening-Pap and HPV Never done Varicella Vaccines (1 of 2 - 2-dose childhood series) Never done Covid-19 Vaccine (4 - Pfizer series) 10/10/2021 Regular Well Visit/Exam 18-64 11/16/2022 Depression Screening-PHQ 01/29/2024 DTaP/Tdap/Td Vaccine (2 - Td or Tdap) 11/03/2028 Influenza Vaccine Completed Pneumococcal vaccine <65 Aged Out Cosigned by Adiel Demarco MD at 02/03/2023 4:00 PM CDT documented in this encounter Plan of Treatment Not on file documented as of this encounter Procedures Procedure Name Priority Date/Time Associated Diagnosis Comments IRON PROFILE W/ IBC Routine 01/28/2023 1 0:25 AM CDT History of anemia due to vitamin B12 deficiency VITAMIN D 25 HYDROXY Routine 01/28/2023 10:25 AM CDT Vitamin D deficiency disease VITAMIN B12 Routine 01/28/2023 10:25 AM CDT History of anemia due to vitamin B12 deficiency CBC WITH AUTO DIFFERENTIAL Routine 01/28/2023 10:23 AM CDT Healthcare maintenance HEMOGLOBIN A1C Routine 01/28/2023 10:23 AM CDT Healthcare maintenance LIPID PANEL Routine 01/28/2023 10:23 AM CDT Healthcare maintenance COMPREHENSIVE METABOLIC PANEL Routine 01/28/2023 10:23 AM CDT Healthcare maintenance documented in this encounter Results * (ABNORMAL) Iron profile w/ IBC (01/28/2023 10:25 AM CDT) Iron 154.1(H) 37.0 - 145.0 ug/dL [facility] Total Iron Binding Capacity 337.9 ug/dL [facility] Unsaturated Iron Binding Capacity 183.8 112.0 - 346.0 ug/dL [facility] % Iron Saturation 45.6(H) 25.0 - 45.0 % [facility] Blood 01/28/2023 10:2 5 AM CDT 01/28/2023 10:37 AM CDT Lynnette Perry SUPPORT SERVICES SPECIALIST LAB BLOOD ORDERAB LES Final Result Performing Organization Address [facility] Co de Phone Number [address] [phone] * (ABNORMAL) Vitamin D 25 hydroxy (01/28/2023 10:25 AM CDT) Vitamin D 23.50(L) >29.00 ng/ml [facility] Blood 01/28/2023 10:2 5 AM CDT 01/28/2023 10:37 AM CDT Lynnette Perry SUPPORT SERVICES SPECIALIST LAB BLOOD ORDERAB LES Final Result Performing Organization Address [facility] Co de Phone Number [address] [phone] * (ABNORMAL) Vitamin B12 (01/28/2023 10:25 AM CDT) Vitamin B12 1,551(H) 232 - 1,245 pg/mL [facility] Blood 01/28/2023 10:2 5 AM CDT 01/28/2023 10:37 AM CDT Lynnette Perry SUPPORT SERVICES SPECIALIST LAB BLOOD ORDERAB LES Final Result Performing Organization Address [facility]/ZIP Co de Phone Number [address] [phone] * CBC with auto differential (01/28/2023 10:23 AM CDT) WBC 5.0 3.5 - 10.0 K/uL [facility] RBC 4.56 3.50 - 5.50 M/uL [facility] Hemoglobin 13.9 11.5 - 16.5 g/dL [facility] Hematocrit 38.8 35.0 - 55.0 % [facility] MCV 85.0 75.0 - 100.0 fL [facility] MCH 30.60 25.00 - 35.00 pg [facility] MCHC 36.00 31.00 - 38.00 g/dL [facility] RDW 13.0 11.0 - 16.0 % [facility] Platelets 364 140 - 400 K/uL [facility] MPV 8.0 8.0 - 11.0 fL [facility] Granulocyte, Absolute 3.2 1.2 - 8.0 K/uL [facility] Lymphocyte, Absolute 1.4 0.5 - 5.0 K/uL [facility] Monocyte, Absolute 0.4 0.1 - 1.5 K/uL [facility] Granulocyte, Percentage 63.8 35.0 - 80.0 % [facility] Lymphocyte, Percentage 28.9 15.0 - 50.0 % [facility] Monocyte, Percentage 7.3 2.0 - 15.0 % [facility] Blood 01/28/2023 10:2 3 AM CDT 01/28/2023 10:37 AM CDT Lynnette Perry SUPPORT SERVICES SPECIALIST LAB BLOOD ORDERAB LES Final Result Performing Organization Address City/State/[facility] Co de Phone Number [facility] [address] [place] [address] * (ABNORMAL) Comprehensive metabolic panel (01/28/2023 10:23 AM CDT) Glucose 75 74 - 200 mg/dL [facility] BUN 9 6 - 20 mg/dL [facility] Creatinine 0.7 0.7 - 1.3 mg/dL [facility] eGFR 99 mL/min/1.7 3m2 [facility] BUN/Creat Ratio 13 Ratio [facility] Bilirubin, Total 0.2 0.0 - 1.2 mg/dL [facility] AST (SGOT) 13 0 - 32 U/L [facility] ALT (SGPT) 12 10 - 35 U/L [facility] Alkaline phosphatase 65 35 - 104 U/L [facility] Calcium 8.9 8.6 - 10.0 mg/dL [facility] Sodium 135(L) 136 - 145 mEq/L [facility] Potassium 4.5 3.5 - 5.1 mEq/L [facility] Chloride 102 98 - 107 mEq/L [facility] CO2 28.0 22.0 - 29.0 mEq/L [facility] Anion Gap 5 3 - 12 mEq/L [facility] Total Protein 6.7 6.6 - 8.7 g/dL [facility] Albumin 4.2 3.5 - 5.2 g/dL [facility] Globulin 2.5 g/dL [facility] Albumin/Globulin 1.6 Ratio [facility] Blood 01/28/2023 10:2 3 AM CDT 01/28/2023 10:37 AM CDT Lynnette Perry NP LAB BLOOD ORDERAB LES Final Result Performing Organization Address City/[facility] Co de Phone Number [facility] [address] [place] [address] * Lipid panel (01/28/2023 10:23 AM CDT) Triglyceride 79 0 - 150 mg/dL [facility] Cholesterol 159 0 - 200 mg/dL [facility] HDL 92 >45 mg/dL [facility] LDL-Calculated 51 mg/dL [facility] CHOL/HDL Risk Ratio 2 Ratio [facility] LDL/HDL Risk Ratio 1 Ratio [facility] Blood 01/28/2023 10:2 3 AM CDT 01/28/2023 10:37 AM CDT Lynnette Perry NP LAB BLOOD ORDERAB LES Final Result Performing Organization Address City/[facility] Co de Phone Number [facility] [address] [place] [address] * (ABNORMAL) Hemoglobin A1c (01/28/2023 10:23 AM CDT) HBA1C 4.8(L) 5.0 - 6.3 % [facility] Comment: Interpretive Comment: Normal: ? 4.5 - 5.6 Pre-Diabetes: 5.7 - 6.4 Diabetes is: ??6.5 Ranges based on ADA Guidelines Blood 01/28/2023 10:2 3 AM CDT 01/28/2023 10:37 AM CDT Lynnette Perry SUPPORT SERVICES SPECIALIST LAB BLOOD ORDERAB LES Final Result [facility] [address] [place] [address] documented in this encounter Visit Diagnoses Diagnosis Healthcare maintenance- Primary Vitamin D deficiency disease Unspecified vitamin D deficiency History of anemia due to vitamin B12 deficiency Insomnia due to medical condition Organic insomnia, unspecified Elevated BP without diagnosis of hypertension documented in this encounter Discontinued Medications Medication Sig Discontinue Reason Start Date End Da te lisinopriL (PRINIVIL,ZESTRIL) 20 mg tabletIndications:Elevate d BP without diagnosis of hypertension Take 1 tablet (20 mg total) by mouth daily Reorder 12/17/2022 01/28/2023 documented as of this encounter Historical Medications * This list may reflect changes made after this encounter. Medication Sig Dispense Quantity Refills Last Filled Start D ate End Date cyanocobalamin (Vitamin B-12) 1,000 mcg/mL injection 01/25/2023 added in this encounter Care Teams Medical Record Librarians Teacher Relationship Specialty Start Date End Date Adiel Demarco MD [address] [place] [address] PCP - General 08/24/17 documented as of this encounter
--- OUTSIDE RECORDS SUMMARY | 2024-09-05 02:13 | XMS_ITS | Encounter Summary ---
Author Organization [facility] Address [address] [place] [address] Phone Care Team Providers Care Seat Nailer Name Role Phone Adiel Demarco MD Primary Care Provider [phone]- [phone] Encounter Details Date Type Department Care Team (Late st Contact Info) Description 06/24/2021 4:[address] 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 female. Chief Complaint No chief complaint on file. HPI Depression/anxiety: liking the trintellix. It is very helpful but very expensive. Sees a therapist and has been having good progress. Therapist is of the opinion that Brissa may have ADHD. She has been off work since 05/18/2021. She would like to go back to work and transition to intermittent FMLA. She would like to return to work 06/29/2021. Review of Systems All other systems reviewed and are negative. Physical Exam GENERAL: Alert and oriented x 3. No apparent distress. Pleasant and cooperative. PSYCHIATRIC: Mood is euthymic. Affect appears appropriate. EYES: Anicteric sclera and moist conjunctiva. Extraocular movements appear intact. EAR/NOSE/THROAT: Hearing intact to spoken word. Nares patent, with no drainage. RESPIRATORY: Equal chest rise on inspection. Breathing is non-labored, with no audible wheezing CARDIOVASCULAR: Distal pedal pulses were present and symmetric in the bilateral lower extremities. No lower extremity edema. SKIN: No skin lesions or rashes noted. Warm to touch. GASTROINTESTINAL: Abdomen soft, non-tender, non-distended, no masses palpated. NEUROLOGICAL: Speaks with ease, no agitation, PERRLA MUSCULOSKELETAL: Moves all extremities well, no deformities or edema There were no vitals taken for this visit. Current Outpatient Medications Medication Sig Dispense Refill ? ? al & mag hydroxide bialxixzjoe-iwxypgvjoyggcez-avreznabg-nystatin (MAGIC MOUTHWASH) suspension 1-1-1-1 Swish and swallow 20 mL every 4 (four) hours as needed (Mouth pain) 240 mL 3 ??? ALPRAZolam (XANAX) 0.5 mg tablet TAKE ONE TABLET BY MOUTH THREE TIMES A DAY NEEDED FOR ANXIETY 90 tablet 2 ??? hydrOXYzine (ATARAX) 25 mg tablet Take 1 tablet (25 mg total) by mouth 3 (three) times a day 90tablet 3 ??? SUMAtriptan (IMITREX) 100 mg tablet ??? valACYclovir (VALTREX) 1 gram tablet Take 2 tablets (2,000 mg total) by mouth 2 (two) times a day for 1 day 4 tablet 0 ??? vortioxetine (TRINTELLIX) 10 mg tablet Take 1 tablet (10 mg total) by mouth daily 90 tablet 3 ??? zolpidem (AMBIEN) 10 mg tablet TAKE ONE TABLET BY MOUTH AT BEDTIME NEEDED 30 tablet 3 No current facility-administered medications for this visit. Assessment/Plan Diagnoses and all orders for this visit: Generalized anxiety disorder (F41.1) - vortioxetine (TRINTELLIX) 10 mg tablet; Take 1 tablet (10 mg total) by mouth daily Mild episode of recurrent major depressive disorder (HCC) (F33.0) - vortioxetine (TRINTELLIX) 10 mg tablet; Take 1 tablet (10 mg total) by mouth daily She will continue with trintellix and therapy. Return to work 06/29/21 with change to intermittent FMLA. All medications were discussed. Use and possible adverse effects were reviewed. We discussed red flag symptoms and when to seek emergency treatment. The patient verbalized understanding and agreement. The patient was encouraged to reach out to this provider with any further needs or questions. This was a telemedicine visit with Brissa griffin which took place via Real-time video connection (aCon, Mix[employer] or similar). During the visit, I was located in the office and the patient was located in the state [facility]. The patient visit started at 1615 and ended at 1640. Greater than 50 % ofthe video/phone call was spent on counseling and coordinating care. Patient was counseled on depression and anxiety management. The patient: has been informed that the visit may not be secure and acknowledged the information. The option of participating in a telephone or video visit during the [address] explained to them. After being given an opportunity to ask questions about and discuss this type of visit, they verbally consented to proceeding with the telephone/video visit and understand thatthis service replaces an office visit. documented in this encounter Plan of Treatment Not on file documented as of this encounter Visit Diagnoses Diagnosis Generalized anxiety disorder Mild episode of recurrent major depressive disorder (HCC) documented in this encounter Discontinued Medications Medication Sig Discontinue Reason Start Date End Da te vortioxetine (TRINTELLIX) 10 mg tabletIndications:major depressive disorder Take 1 tablet (10 mg total) by mouth daily Reorder 05/18/2021 06/24/2021 al & mag hydroxide simethicone-diphenhydram mbb-xjycykzor-zdekwkhg (MAGIC MOUTHWASH) suspension 1-1-1-1 Swish and swallow 20 mL every 4 (four) hours as needed (Mouth pain) 11/27/2020 06/24/2021 documented as of this encounter Care Teams Seat Nailer Relationship Specialty Start Date End Date Adiel Demarco MD [address] [place] [address] PCP - General 08/24/17 documented as of this encounter
--- OUTSIDE RECORDS SUMMARY | 2024-09-05 02:13 | XMS_ITS | Encounter Summary ---
Author Organization [facility] Healthcare Address [address] [place] [address] Care Team Providers Care Quality Assurance Consultant Name Role Phone Adiel Demarco MD Primary Care Provider [phone] Reason for Visit * Reason Comments Addiction Problem Encounter Details Date Type Department Care Team (Late st Contact Info) Description 08/30/2023 10:43 PM RIBBON WINDER - 08/31/2023 12:17 PM [facility] Emergency [address] [address] Montrell Pacheco II, MD [address] [place] [id number] Acute alcoholic intoxication without complication (HCC) (Primary Dx); Suicidal ideation Discharge Disposition: Discharge to home or self care Social History Tobacco Use Types Packs/Day Years [...] on file Legal Sex Female 4:31 AM [facility] Gender Identity Female 11/23/2019 9:35 AM CDT Sexual Orientation Straight 11/23/2019 9: 35 AM CDT documented as of this encounter Last Filed Vital Signs Vital Sign Reading Time Taken Comments Blood Pressure 105/79 08/31/2023 4:45 AM [facility] Pulse 89 08/31/2023 4:45 AM [facility] Temperature 37 ??C (98.6 ??F) 08/30/2023 10:29 PM [facility] Respiratory Rate 15 08/31/2023 4:45 AM [facility] Oxygen Saturation 97% 08/31/2023 4:45 AM [facility] Inhaled Oxygen Concentration - - Weight 65.8 kg (145 lb) 08/30/2023 10:29 PM [facility] Height 152.4 cm (5') 08/30/2023 10:29 PM [facility] Body Mass Index 28.32 08/30/2023 10:29 PM [facility] documented in this encounter Discharge Instructions * Discharge Instructions* Everett Welsh PA - 08/31/2023 11:02 AM [facility] MENTAL HEALTH CRISIS/URGENT CARE SERVICES National Suicide Prevention Hotline (Available by calling or texting 234 to speak with a counselor for support or additional resources) [facility] [phone] (Crisis hotline) [facility] [phone] (Crisis hotline) Addiction Resources for [facility] Medical Stabilization/Detox - Private Insurance/Private Pay [facility]: Debora Mackay [phone] or [phone] (can also work with vets/CCN) [facility]: Paolo Joseph [phone] [facility]: [phone] [facility]: [phone] Medical Stabilization/Detox - Medicaid/Medicare/Private Insurance/Private Pay [facility]: [phone] [facility] ([place]): [phone] [facility]: [phone] [facility]: [phone] (can also take uninsured clients for detox) [facility] ([facility]): [phone] Residential - Private Insurance/Private Pay [facility]: Debora Mackay [phone] or [phone] (can also work with vets/CCN) [facility] Recovery [place]: [place] Area: Debbi Yañez [phone] 24 hour admission line [phone] [facility]: Paolo Joseph [phone] [facility]: [phone] [facility]: [phone] Residential - State Funded/Private Insurance/Private Pay [facility] ([facility]): [phone]. Have client e-mail [email or web address] (women only, Medicaid/State Funded only): [phone] [facility] ([facility]): [phone] [facility] ([facility]): [phone] [facility] ([place]): [phone] [facility] ([place]): [phone] [facility] [place] ([facility]): [phone] [facility]): [phone] Out of State Detox/Residential - Private Insurance/Private Pay/ [facility] ([place]): Nicole Forrest [phone] [facility]: Katherin Simons [phone] Patient Safety Plan Step 1: Warning Signs (thoughts, images, mood, situation, behavior) that a crisis may be developing: Lack of motivation 2. Drinking more than normal 3. Sleep is poor Step 2: Internal Coping Strategies-Things I can do to take my mind off my problems without contacting another person (relaxation technique, physical activity): Color 2. Listen to music Step 3: People and social settings that provide distraction: Name: Markus Alonzo Phone number: Place: Local store Place: Go for a walk Step 4: People whom I can ask for help: Name: Parents A. Phone number: 2. Name: Brothers B. Phone number: 3. Name: C. Phone number: Step 5: Professionals or agencies I can contact during a crisis: Clinician Name: Giovanni Marin NP A. Phone number: B. Pager or Emergency number: [phone]. Clinician Name: MD Amanda Gould. Phone number: [phone] B. Pager of Emergency number: [phone] 4. Suicide Prevention Lifeline Phone: Dial or Text: [phone] Step 6: Making the environment safe: Gun is locked up 2. Refrain from drinking alcohol The one thing that is most important to me and worth living for is (patients/clients own words): My family ON WINDER ON WINDER * Attachments The following attachments cannot be sent through Care Everywhere. * Abuse of Alcohol (AfterCare(R) Instructions(ER/ED)) (Latvian) documented in this encounter Medications at Time of Discharge ALPRAZolam (XANAX) 0.5 mg tablet TAKE ONE TABLET BY MOUTH THREE TIMES A DAY NEEDED FOR ANXIETY 90 tablet 2 10/28/2021 Auvelity 45-105 mg tablet, IR & ER, biphasic Take 1 tablet by mouth 2 (two) times a day 12/08/2022 cyanocobalamin (Vitamin B-12) 1,000 mcg/mL injection 01/25/2023 dextroamphetamine- amphetamine (ADDERALL) 10 mg tablet 03/08/2022 dextroamphetamine- amphetamine XR (ADDERALL XR) 30 mg 24 hr capsule 03/08/2022 lamoTRIgine (LaMICtal) 100 mg tablet Take 1.5 tablets (150 mg total) by mouth daily 10/27/2021 traZODone (DESYREL) 50 mg tabletIndications: Insomnia due to medical condition TAKE 1 TABLET BY MOUTH ONCE NIGHTLY NEEDED FOR SLEEP 90 tablet 03/22/2023 lisinopriL (PRINIVIL,ZESTRIL) 20 mg tabletIndications: Elevated BP without diagnosis of hypertension Take 1 tablet (20 mg total) by mouth daily 90 tablet 4 01/28/2023 4 scopolamine 1 mg over 3 days patch [address] 1 patch on the skin every third day as needed (nausea) 4 patch 2 01/28/2023 4 zolpidem CR (AMBIEN CR) 12.5 mg CR tablet TAKE 1 TABLET BY MOUTH NIGHTLY NEEDED FOR SLEEP 30 tablet 07/07/2023 4 documented as of this encounter Discharge Disposition Disposition Code Departure Means Destination Comment s Discharge to home or self care documented in this encounter Progress Notes * Gisella rTan - 08/31/2023 12:17 PM CST Peer Geodetic Engineer- PRS consulted for Alcohol Use Disorder-AUD/ETOH. PRS called patient and left a voice mail with call back info to discuss treatment options. PRS will attempt to follow up with patient again. Gisella Tran, Peer Geodetic Engineer Medical Stabilization [phone] ON WINDER documented in this encounter Consult Notes * Channing Schuster, PIPE MAKER - 08/31/2023 9:35 AM CSTAssociated Order(s): CONSULT TO BEHAVIORAL HEALTH [facility] Behavioral Health Integration Services ([facility]) [facility] Initial Assessment Date: 08/31/23 Assessment Start time: 947 Assessment End time: 1045 Patient Name: Brissa Buckley Preferred Name: Brissa Preferred Pronouns: she/her/hers Legal Status: Patient is own legal guardian. Date of : 1985 Information Source: Patient, spouse and EMR Chief Complaint: Addiction Problem [facility] consultation was requested by CHIQUITA Higginbotham for SI. Presenting Problem: I don't know. I'm really depressed and sad. I drank a lot. Yesterday I told my that I wanted help and he brought me here. I was so drunk yesterday. Information was also obtained from patient's . reports that patient has been drinking heavily for the last few weeks. He reports that yesterday she drank a 1/5 of Whiskey. Both patientand report that that is much more than typical. reports that the only time that shehas mentioned suicidal thoughts is when she is intoxicated. He denies any current concerns for her safety. Only concerns at this time are related to her alcohol use. confirms that the fire arm is locked up. History of Present Illness/Summary Patient arrived to the ED via private vehicle.. Brissa Buckley is a 37 y.o. White female who is Alert and oriented x4. Patient has a past psychiatric history of depression. Med Compliance: Patient has not been taking her psychotropic medications as prescribed. Patient was brought to the ED by due to depression and alcohol use. Patient has been struggling with depression, which hasrecently worsened since the passing of their friend and neighbor. Patient has a significant historyof trauma, including her daughter being treated for cancer. Patient still struggles with taking herdaughter to the doctor's office due to the trauma. Patient denies suicidal thoughts/plan/intent. Patient denies homicidal thoughts. Patient reports having that it feels like people are watching her and taking about her. Patient denies delusions. No delusions voiced/observed. Patient denies hallucinations. Patient does not appear to be responding to internal stimuli. Patient admits to drinking alcohol. Last use: yesterday Alcohol level 406 upon arrival to ED. Patient denies drug use. There is no petition/certificate related to this encounter to review for patient at [facility]. Recommendations: CHIQUITA Welsh and [facility] discussed patient disposition. Based on the clinical presentation of suicidal statements made while intoxicated and denying current suicidal thoughts, plan or intent, patient does not meet criteria for inpatient psychiatric admission. Patient acknowledges her understanding of the plan of care without any questions at this time. ~ No further intervention needed from Behavioral Health Services at this time, we will sign off on patient. Please contact [facility] for any further needs. [phone]. Plan of Care: Patient will be discharged. ~[facility] has completed After Visit Summary on patient. ~[facility] has completed safety plan with patient. ~Referral made to Intensive Outpatient Program [facility]. Care Plan while remaining in hospital: Patient Strengths: Motivation/Readiness to change, Medication compliance, Insurance, Steady employment, Jew/cultural/spiritual involvement, Education, and Stable home environment Patient Coping Mechanisms: Talking with friends/family and Listen to music Patient Triggers: Feeling overwhelmed/high stress and Financial problems Distractions and things that may help: Allow patient to have cell phone if safety can be maintained, Follow medication protocols for substance abuse issues, Be specific on time frames and follow them, and Give options when possible What staff can do proactively: For Depression: ~ Make time to listen to patient and use empathy ~ Discourage sleeping during the day and use sleep hygiene to encourage sleep at night ~ Encourage completion of ADL's Psychiatric History and Symptoms Mental Health Treatment: (Inpatient/outpatient, when, where, and how many admissions in past year): Patient denies any previous inpatient psychiatric admissions. Patient has a past psychiatric history of depression. Patient is followed by Giovanni Marin NP for psychiatry. Patient is not currently receiving any outpatient group treatment. Next appointment with psychiatrist: September 08 Next appointment with therapist/counselor: denies Physics Teacher Name, Agency and Phone number: denies Current suicidal ideation: Patient denies current suicidal thoughts, plan or intent.. Patient reports that she was told that she said that she made statements, however she reports that she does not remember making them. Previous suicide attempt(s): Patient has no previous suicide attempts. Suicidal Ideation in the past month? Denies currently, however it was reported initially. SAFE-T Protocol with C-SSRS (Webb Risk and Protective Factors) - Recent Step 1: Identify Risk Factors: Webb Suicide Severity Rating Scale (Recent Screener) Initial Screening: Reassessment (as needed): Is the patient being treated today because it is known or suspected that they prepared, started, ortried to end their life? Yes No Is the patient able to appropriately answer questions? Yes Information obtained from: Patient 1. In the past month, have you wished you were or that you could go to sleep and not wake up? Yes Yes 2. In the past month, have you actually had any thoughts of killing yourself? Yes Yes 3. In the past month, have you been thinking about how you might kill yourself? Yes Yes 4. In the past month, have you had these thoughts and had some intention of acting on them? Yes No 5. In the past month, have you started to work out or worked out the details of how to kill yourself and do you intend to carry out this plan? Yes No 6. Have you ever done anything, started to do anything, or prepared to do anything to end your life? No No 6b. Was this within the past three months? No Suicide Risk Level: High Activating Events: Financial issues Treatment History: history of mental illness and insomnia Clinical Status: major depressive episode and substance use disorder Other: N/A Access to lethal methods (specifically about the presence or absence of a firearm in the home or ease of accessing): No . has a gun in the home, however it is locked up. confirms this. Step 2: Identify Protective Factors (Protective factors may not counteract significant acute suicide risk factors): Internal: identifies the following reasons to live: , kids, parents and other family and friends, and dog. External: responsibility to family/others, living with family, supportive social network or family:, parents and brothers, engaged in work, and established outpatient psychiatrist Giovanni Marin NP, Step 3: Specific Questioning about Thoughts, Plans, and Suicidal Intent (see Step 1 for Ideation Severity and Behavior): C-SSRS Suicidal Ideation Intensity (with respect to the most severe ideation 1-5 identified above) Month Frequency In the past month, how many times have you had these thoughts? (1) Less than once a week Duration When you have the thoughts how long do they last? (2) Less than 1 hour/some of the time Controllability Could/can you stop thinking about killing yourself or wanting to if you want to? (2) Can control thoughts with little difficulty Deterrents Are there things - anyone or anything (e.g., family, congregational, pain of ) - that stopped you from wanting to or acting on thoughts of suicide? (1) Deterrents definitely stopped you from attempting suicide Reasons for Ideation What sort of reasons did you have for thinking about wanting to or killing yourself? Was it to end the pain or stop the way you were feeling (in other words you couldn???t go on livingwith this pain or how you were feeling) or was it to get attention, revenge or a reaction from others? Or both? (5) Completely to end or stop the pain (you couldn't go on living with the pain or how you were feeling) Total Suicidal Ideation Intensity Score* (add values of selected answers above) *Score can range from 2- 25: -Low: 2-5 -Moderate: 6-10 -Moderately Severe: 11-15 -Severe: 16-20 -Very Severe: 21-25 11 Step 4: Guidelines to Determine Level of Risk and Develop Interventions to LOWER Risk Level: Assessment of risk level is based on clinical judgment after completing steps 1-3. The Suicide Ideation Intensity Score does not directly correlate to Suicide Risk. The Suicide Ideation Intensity score must be used in conjunction with clinical judgment to determine risk stratification. Initial Risk Stratification Suggested Interventions High Suicide Risk Suicidal ideation with intent or intent with plan in past month (C-SSRS Suicidal Ideation #4 or #5) OR Suicidal behavior within past 3 months (C-SSRS Suicidal Behavior) High Suicide Precautions 1:1 observation All belongings secured Hospital attire Elopement precautions Minimize environment risk in room Moderate-High Suicide Risk Suicidal ideation with method WITHOUT plan, intent or behavior in past month (C- SSRS Suicidal Ideation #3) OR Multiple risk factors and few protective factors Moderate-High Suicide Precautions Patient sitter not required May keep items evaluated as safe, other belongings secured Hospital attire Minimize environment risk in room Moderate-Low Suicide Risk Suicidal behavior more than 3 months ago (C-SSRS Suicidal Behavior Lifetime) OR Multiple risk factors and few protective factors Moderate-Low Suicide Precautions Resources given to patient Nursing handoff precautions Low Suicide Risk Wish to or Suicidal Ideation WITHOUT method, intent, plan or behavior (C- SSRS Suicidal Ideation#1 or #2) OR Modifiable risk factors and strong protective factors OR No reported history of Suicidal Ideation or Behavior Low Suicide Precautions Resources given to patient Step 5: Assessment and Plan: Updated Risk Level: Low Suicide Risk Rationale for risk level decision and actions taken: Patient reported SI while acutely intoxicated and has no recollection of statements. Patient denies current Suicidal thoughts, plan or intent. Patient has forward thinking. Reports that she wants to be able to go home and be with her family. Patient reports reasons against suicide (family and friends) Risk factors include: history of mental illness, depression, and history of alcohol use Has patient's risk level changed from initial C-SSRS? Yes. Previous risk level was high. New risk level is low risk. Self-Harm: Denies Violent behavior: Denied Homicidal Ideation: Denied Mood Symptoms: depressed, irritable, decreased ADLs, withdrawal, hopelessness/helplessness, fatigue, decreased interest/pleasure, and poor concentration. Frequency/Time Frame: Has worsened in the last few months Sleep: Insomnia and Disrupted. Patient reports getting 5 hours hours of sleep in a 24-hour period. Appetite: Eating less. Weight changes: Weight Change: No changes Time Frame: last few months Psychotic Symptoms: Patient reports that it feels like people are watching her and talking about her. Patient denies delusions. No delusions voiced/observed. Patient denies hallucinations. Patient does not appear to be responding to internal stimuli. Insight (into psychotic symptoms): Yes Anxiety Symptoms: Anxiety/worry, Heart racing, Chest pressure, Shaky and restless, and Short of breath Trauma: Traumatic/Stressful life events: [] Natural disaster [] Human made disaster [] Serious accident or injury [x] of a spouse, child, close friend or family member [x] Life threatening illness [] Being kidnapped or taken hostage [] Involved in combat war [] Lived in war affected area [] [place] responsible for the serious injury or of another person [] Sexual assault [] None of the above Describe: (include timeline and if seeking treatment currently): When patient was a child, her brother had cancer. In 2017, her daughter was diagnosed with cancer. Her uncle when she was in highschool (he was like a second dad). Friend (and neighbor) recently . Abuse: Physical: Denies; Emotional/Mental: Denies; Sexual: Denies; Neglect: Denies; Exploitation: Denies Symptoms of Trauma or Abuse: Flashbacks, Intrusive thoughts, and Distress Mental Status Exam Appearance/hygiene: appropriate and wearing scrubs Behavior: cooperative Psychomotor: normal/no abnormality Speech: of normal rate and rhythm Thought process: linear and goal-directed Thought content: no suicidal ideations, no homicidal ideations, and no delusions Perception: no hallucinations. Patient does not appear to be responding to internal stimuli. Affect: flat which is congruent with their overall presentation. Mood: Pt states mood is: sad Insight: fair Judgement: fair Intellectual Functioning: WNL Medical History Patient Active Problem List Diagnosis Date Noted Stomatitis and mucositis 11/27/2020 Hypertension, essential 10/26/2019 Parent coping with child illness or disability 12/13/2017 Colitis 03/16/2016 Crohn's disease ([facility] ([facility]) 02/17/2016 Obesity 07/31/2015 Major depressive disorder 10/01/2014 Obesity with body mass index 30 or greater 07/15/2014 Vitamin D deficiency disease 07/15/2014 Generalized anxiety disorder 07/15/2014 Insomnia 07/15/2014 Assistive Medical Devices: none Performs ADL's: Yes Independent PCP: Adiel Demarco MD Last PCP Visit: May 09, 2023 Allergies No Known Allergies Medications: Patient in the Emergency Room: Prior to Admission medications Medication Sig Start Date End Date Taking? Authorizing Provider ALPRAZolam (XANAX) 0.5 mg tablet TAKE ONE TABLET BY MOUTH THREE TIMES A DAY NEEDED FOR ANXIETY 10/28/21 Adiel Demarco MD Auvelity 45-105 mg tablet, IR & ER, biphasic Take 1 tablet by mouth 2 (two) times a day 12/08/22Alex Shea MD cyanocobalamin (Vitamin B-12) 1,000 mcg/mL injection 01/25/23 Alex Shea MD dextroamphetamine-amphetamine (ADDERALL) 10 mg tablet 03/08/22 Alex Shea MD dextroamphetamine-amphetamine XR (ADDERALL XR) 30 mg 24 hr capsule 03/08/22 Alex Shea MD lamoTRIgine (LaMICtal) 100 mg tablet Take 1.5 tablets (150 mg total) by mouth daily 10/27/21 Alex Shea MD lisinopriL (PRINIVIL,ZESTRIL) 20 mg tablet Take 1 tablet (20 mg total) by mouth daily 01/28/23 01/28/24Lynnette Perry NP scopolamine 1 mg over 3 days patch [address] 1 patch on the skin every third day as needed (nausea) 01/28/23 Lynnette Perry NP traZODone (DESYREL) 50 mg tablet TAKE 1 TABLET BY MOUTH ONCE NIGHTLY NEEDED FOR SLEEP 03/22/23 Lynnette Perry NP zolpidem CR (AMBIEN CR) 12.5 mg CR tablet TAKE 1 TABLET BY MOUTH NIGHTLY NEEDED FOR SLEEP 07/07/23 Adiel Demarco MD Medication Compliant: Patient reports they are compliant with their medication(s). Medication(s) Reviewed with Patient: Yes Notes: Patient's xanax is now only once daily. Patient is no longer on Auvelity, Adderal, Scopolamine and Trazodone. Patient is now on [id number] - [place], [place] - [address] [place] [address] [facility] [address] [place], [place] [address] [facility] [address] [facility] [address] Social/Family History Brissa Buckley is a 37 y.o. White female who was born in [place], [place] and raised in [place], [place]. Patient's gender assigned at was female and currently identifies as a female. Patient prefers Preferred Pronouns: she/her/hers pronouns. Patient currently resides with spouse and two daughters. Patient has two siblings. Patient has two children. Patient received her associates degree at [employer]. Patient reports She has no difficulty reading or writing in Latvian. Patient is able to read and write. Patient states her confucianism preference is Jehovah'S Witness Patient is currentlyworking for a [employer] in [place]. Financial issues related to credit card debt. Patient has never served in the [employer]. Patient denies any legal issues. There is no current involvementwith [facility] or [place] and [facility]. Patient denies any family history of mental illness. Patient denies any family history of suicide attempts/ by suicide. Patient denies any family history of substance use. Substance Screening Smoking Status: Vape Substance Use: Patient admits to drinking alcohol. Last use: Yesterday Alcohol level 406 upon arrival to ED. Patient denies drug use. Additional Assessments: Behavioral Health Integration Services [facility] Intake Assessment Addendum Substance Use Alcohol Alcohol Type(s): Beer, Other (Comment) (Bryan) Age Started: In high school Amount: Half a fifth Frequency: daily Duration: few weeks Last Use: Yesterday Amphetamine Amphetamine Type: Denies Cannabis Cannabis Type: Denies Cocaine Cocaine Type: Denies Hallucinogens Hallucinogens Type: Denies Inhalants Inhalants Type: Denies Opiate/Opiate Like Opiate/Opiate Like Type: Denies PCP PCP Type: Denies Sedatives/Hypnotics Sedatives, Hypnotics Type: Denies Over The Counter Over The Counter Type: Denies Thank you for the opportunity to participate in this patient's care. Channing Schuster, [facility] Behavioral Health [facility] This was a telepsych/telemedicine visit with Brissa Buckley which took place via real-time video connection with [place]. During the visit, I was located at my residence, and the patient was located at [facility] in the [facility]. My visit with the patient started at 0948 and ended at 1046. After being given an opportunity to ask questions about and discuss this type of visit, the patientand/or guardian verbally consented to proceeding with the video visit. The patient and/or guardian understands that they may be billed and/or responsible for any applicable copayments. The patient and/or guardian agrees to participate in a psychiatric assessment service via Interactive Video Conferencing with a Qualified Mental Health Professional. Patient and/or guardian understands that their privacy and confidentiality will be protected at all times and all reasonable and appropriate measures will be made to eliminate all confidentiality risks. Patient and/or guardian understands that the s ervices they receive are part of the patient's hospital record. Patient and/or guardian is aware that the [facility] and Hospital Staff will have access to the patient's relevant medical information including psychiatric and/or psychological information, alcohol and/or drug use and mental health records. Patient and/or guardian understands this consent is part of the patient's medical record. ON WINDER documented in this encounter ED Notes * Channing Schuster LCSW - 08/31/2023 10:25 AM CST Patient Safety Plan Step 1: Warning Signs (thoughts, images, mood, situation, behavior) that a crisis may be developing: Lack of motivation 2. Drinking more than normal 3. Sleep is poor Step 2: Internal Coping Strategies-Things I can do to take my mind off my problems without contacting another person (relaxation technique, physical activity): Color 2. Listen to music Step 3: People and social settings that provide distraction: Name: Markus PatelTamika Phone number: Place: Local store Place: Go for a walk Step 4: People whom I can ask for help: Name: Parents A. Phone number: 2. Name: Brothers B. Phone number: 3. Name: C. Phone number: Step 5: Professionals or agencies I can contact during a crisis: Clinician Name: Giovanni Marin NP A. Phone number: B. Pager or Emergency number: [phone]. Clinician Name: MD Amanda Gould. Phone number: [phone] B. Pager of Emergency number: [phone] 4. Suicide Prevention Lifeline Phone: Dial or Text: [phone] Step 6: Making the environment safe: Gun is locked up 2. Refrain from drinking alcohol The one thing that is most important to me and worth living for is (patients/clients own words): My family [facility]anning [facility] 08/31/23 10:26 AM ON WINDER * Anjana Chavez, RN - 08/31/2023 3:05 AM CST Pt received 1L NS when she arrived to ED. Pt reporting, I'm parched. I need more fluids. Pt also reporting she is unable top walk and wants a purewick so she can void. Anjana Chavez, RN 08/31/23 0305 ON WINDER * Irma Leone PA - 08/30/2023 10:39 PM CST CHIEF COMPLAINT: Chief Complaint Patient presents with Addiction Problem HPI 6:25 AM Brissa Buckley is a 37 y.o. female presenting to the ED c/o Si and etoh abuse. Pt states last drink at 5pm, has 1/5th of whisky or 15 beers/day. States wants to put a gun to her head and knows she needs help and plans to go to rehab. States on adderall for adhd, vapes, no other drugs. No hxof dts or seizures. Pt shakes when she quits drinking. PCP: Adiel Demarco MD PAST MEDICAL HISTORY No past medical history on file. PAST SURGICAL HISTORY No past surgical history on file. FAMILY HISTORY Family History Problem Relation Age of Onset Hypertension Father Family history of hypertension - (Added by TW Conv) Ulcerative colitis Other Family history of ulcerative colitis - Relation: Aunt (Added by TW Conv) MEDICATIONS GIVEN IN THE ED Medications LORazepam (ATIVAN) injection 1 mg (has no administration in time range) LORazepam (ATIVAN) injection 1 mg (1 mg intravenous Given 08/30/238) sodium chloride 0.9% bolus 1,000 mL (0 mL intravenous Stopped 08/31/23 0234) ALPRAZolam (XANAX) tablet 1 mg (1 mg oral Given 08/31/23 0257) acetaminophen (TYLENOL) tablet 650 mg (650 mg oral Given 08/31/23 8224) CURRENT HOME MEDICATIONS Current Facility-Administered Medications: LORazepam (ATIVAN) injection 1 mg, 1 mg, intravenous, Q4H CANDIN, Irma Leone PA Current Outpatient Medications: ALPRAZolam (XANAX) 0.5 mg tablet, TAKE ONE TABLET BY MOUTH THREE TIMES A DAY NEEDED FOR ANXIETY,Disp: 90 tablet, Rfl: 2 Auvelity 45-105 mg tablet, IR & ER, biphasic, Take 1 tablet by mouth 2 (two) times a day, Disp:, Rfl: cyanocobalamin (Vitamin B-12) 1,000 mcg/mL injection, , Disp: , Rfl: dextroamphetamine-amphetamine (ADDERALL) 10 mg tablet, , Disp: , Rfl: dextroamphetamine-amphetamine XR (ADDERALL XR) 30 mg 24 hr capsule, , Disp: , Rfl: lamoTRIgine (LaMICtal) 100 mg tablet, Take 1.5 tablets (150 mg total) by mouth daily, Disp: , Rfl: lisinopriL (PRINIVIL,ZESTRIL) 20 mg tablet, Take 1 tablet (20 mg total) by mouth daily, Disp: 90 tablet, Rfl: 4 scopolamine 1 mg over 3 days patch 3 day, Place 1 patch on the skin every third day as needed (nausea), Disp: 4 patch, Rfl: 2 traZODone (DESYREL) 50 mg tablet, TAKE 1 TABLET BY MOUTH ONCE NIGHTLY NEEDED FOR SLEEP, Disp: 90tablet, Rfl: 0 zolpidem CR (AMBIEN CR) 12.5 mg CR tablet, TAKE 1 TABLET BY MOUTH NIGHTLY NEEDED FOR SLEEP, Disp: 30 tablet, Rfl: 0 ALLERGIES No Known Allergies SOCIAL HISTORY Social History Tobacco Use Smoking status: Former Smokeless tobacco: Not on file Substance and Sexual Activity Drug use: Not on file Sexual activity: Not on file Alcohol Use: Not on file PHYSICAL EXAM TRIAGE VITAL SIGNS: ED Triage Vitals [08/30/232228] Temp Pulse Resp BP SpO2 37 ??C (98.6 ??F) 104 24 121/88 98 % Temp src Heart Rate Source Patient Position BP Location FiO2 (%) Oral Pulse Oximetry Sitting Right arm -- Height Height Method Weight Weight Method 1.524 m (5') Stated 65.8 kg (145 lb) Stated;Estimated Physical Exam Vitals and nursing note reviewed. Constitutional: General: She is not in acute distress. Appearance: She is well-developed. Comments: Labile, emotional intoxicated HENT: Head: Normocephalic and atraumatic. Eyes: Conjunctiva/sclera: Conjunctivae normal. Cardiovascular: Rate and Rhythm: Normal rate and regular rhythm. Heart sounds: Normal heart sounds. No murmur heard. Pulmonary: Effort: Pulmonary effort is normal. No respiratory distress. Breath sounds: Normal breath sounds. Abdominal: General: Bowel sounds are normal. There is no distension. Palpations: Abdomen is soft. Tenderness: There is no abdominal tenderness. There is no guarding. Musculoskeletal: Cervical back: Neck supple. Skin: General: Skin is warm and dry. Neurological: Mental Status: She is alert and oriented to person, place, and time. LABS Labs Reviewed COMPREHENSIVE METABOLIC PANEL - Abnormal Result Value Sodium 145 Potassium, pl 4.0 Chloride 106 CO2 24 Anion gap 15 BUN 11 Creatinine 0.59 (*) Glucose 95 Calcium 8.8 Bilirubin, total <0.2 Protein, pl 6.7 Albumin 4.5 Alk phos 67 ALT 26 AST 34 ETHANOL - Abnormal Ethanol 406 (*) ETHANOL - Abnormal Ethanol 210 (*) POCT HCG, URINE - Normal HCG, ur, POC Negative Lot Number [id number] QC Backgroud Clear Acceptable QC Control Line Acceptable URINALYSIS AND REFLEX TO MICROSCOPIC AND CULTURE Color, ur Straw Clarity, ur Clear Specific gravity, ur 1.009 pH, urine 6.0 Protein, ur ql Negative Glucose, ur ql Negative Ketones, ur Negative Bilirubin, ur Negative Blood, ur Negative Urobilinogen, ur <2.0 Nitrite, ur Negative Leukocyte esterase, ur Negative UA reflex comment Value: Reflex conditions for microscopic UA and culture not met. INFLUENZA A/B, RSV, AND COVID-19 PCR COVID-19 RNA Negative Influenza A RNA Negative Influenza B RNA Negative RSV RNA Negative Narrative: Is the Patient experiencing symptoms consistent with COVID?->No Reason for testing?->Screening prior to admission to [facility] unit URINALYSIS AND REFLEX TO MICROSCOPIC AND CULTURE CBC WITH AUTO DIFFERENTIAL WBC 5.4 Hgb 13.8 Hct 40.4 Plt 295 MPV 9.1 RBC 4.41 MCV 91.6 MCH 31.3 MCHC 34.2 RDW CV 12.8 RDW SD 42.5 NRBC abs 0.00 SALICYLATE LEVEL Salicylate <1.0 DRUGS OF ABUSE SCREEN, URINE WITH REFLEX CONFIRMATION Amphetamine, ur Not Detected Barbiturates, ur Not Detected Benzodiazepines, ur Not Detected Cannabinoids, ur Not Detected Cocaine, ur Not Detected Fentanyl, Ur Not Detected Methadone, ur Not Detected Opiates, ur Not Detected Oxycodone, ur Not Detected Phencyclidine, ur Not Detected Urine Creatinine 40 Narrative: Drug of Abuse screening is performed by immunoassay for medical purposes only. This is not to be used for Pain Management purposes. If Detected, confirmation testing will be performed for Amphetamines, Cocaine, Fentanyl, Methadone, Opiates, Oxycodone or Phencyclidine. TSH REFLEX TO FREE T4 TSH 1.09 ACETAMINOPHEN LEVEL Acetaminophen <5 MAGNESIUM Magnesium 1.9 DIFFERENTIAL AUTO Neutrophil abs 3.0 Imm gran abs 0.0 Lymphocyte abs 1.9 Monocyte abs 0.3 Eosinophil abs 0.1 Basophil abs 0.1 Neutrophil pct 55.7 Imm gran pct 0.2 Lymphocyte pct 35.8 Monocyte pct 6.1 Eosinophil pct 1.3 Basophil pct 0.9 EGFR eGFR 120 ETHANOL ETHANOL RADIOLOGY Impression: NA EKG NA ED COURSE/MEDICAL DECISION MAKING Patient's medical records were reviewed. Will obtain QMHP consult when patient's etoh < 100. Pt at 400 upon arrival. Will check etoh levels at 8am and noon. Workup otherwise unremarkable. Ativan IV for withdrawal 7:20am: Pt signed out to DR Pacheco at shift change pending repeat Etoh, QMHP eval, placement for SI Procedures FINAL IMPRESSION Suicidal ideation Alcohol withdrawal syndrome without complication (HCC) {DISPOSITION:Pending Irma Leone PA 08/31/23 0717 Cosigned by Montrell Pacheco II, MD at 08/31/2023 3:22 PM RIBBON WINDER ON WINDER ON WINDER * Clarence López RN - 08/30/2023 10:32 PM CST When asked why patient is here patient states I dont know, Markus, why am I here talking to her who is with her, who states she's here for detox from alcohol . Patient, begrudgingly, endorses this and during the triage process expresses she wants to . When asked if she has a plan she reports no, I just have been thinking of a gun to my head . Patient and family reports no hx of seizures and last drink was this afternoon some time at least per . Patient is A&Ox4 GCS 15,presents to ventilating expert and PA observably intoxicated. Cooperative with care at this time. ON WINDER documented in this encounter Miscellaneous Notes * ED Triage Provider Note - Irma Leone PA - 08/30/2023 10:33 PM RIBBON WINDER Brissa Buckley is 37 y.o. female here with concern for SI and etoh. Last drink at 5pm today. Pt very intoxicated and agitated in triage. Wants to put a gun to her head. 1/5th of whisky or 15 beers/day No hx of DTs. Vapes. On adderall. No other drugs. Triage exam: VITAL SIGNS: Patient Vital Signs for the past 24 hrs: BP MAP (mmHg) Temp Temp src Pulse Resp SpO2 Height Weight 08/30/23 2229 121/88 99 37 ??C (98.6 ??F) Oral 104 24 98 % 152.4 cm (5') 65.8 kg (145 lb) GENERAL: Well developed, well nourished. Mild address. HEAD: Atraumatic RESPIRATORY: Normal respiratory effort NEUROLOGIC: Alert, moves all extremities equally, follow commands without difficulty Cosigned by Teo Bruce Jr., MD at 09/01/2023 4:33 AM RIBBON WINDER ON WINDER ON WINDER ON WINDER Associated attestation - Teo Bruce Jr., MD - 09/01/2023 4:33 AM RIBBON WINDER I was present and available in the emergency department for midlevel consultation regarding this patient seen by the midlevel. I was not consulted for her or him but as noted was available. Based on brief overview of the EMR the workup and care provided by the mid level was appropriate. documented in this encounter Plan of Treatment Not on file documented as of this encounter Procedures Procedure Name Priority Date/Time Associated Diagnosis Comments ETHANOL Timed 08/31/2023 8:07 AM RIBBON WINDER ETHANOL STAT 08/31/2023 3:39 AM RIBBON WINDER DRUGS OF ABUSE SCREEN, URINE WITH REFLEX CONFIRMATION STAT 08/30/2023 11:31 PM RIBBON WINDER URINALYSIS AND REFLEX TO MICROSCOPIC AND CULTURE STAT 08/30/2023 11:31 PM RIBBON WINDER POCT HCG, URINE Routine 08/30/2023 11:30 PM RIBBON WINDER INFLUENZA A/B, RSV, AND COVID-19 PCR Routine 08/30/2023 10:41 PM RIBBON WINDER EGFR STAT 08/30/2023 10:41 PM RIBBON WINDER DIFFERENTIAL AUTO STAT 08/30/2023 10: 41 PM RIBBON WINDER THYROID FUNCTION CASCADE Routine 08/30/2023 10:41 PM RIBBON WINDER CBC WITH AUTO DIFFERENTIAL STAT 08/30/2023 10:41 PM RIBBON WINDER MAGNESIUM STAT 08/30/2023 10:41 PM RIBBON WINDER ETHANOL STAT 08/30/2023 10:41 PM RIBBON WINDER ACETAMINOPHEN LEVEL STAT 08/30/2023 1 0:41 PM RIBBON WINDER SALICYLATE LEVEL STAT 08/30/2023 10:4 1 PM RIBBON WINDER COMPREHENSIVE METABOLIC PANEL STAT 08/30/2023 10:41 PM RIBBON WINDER documented in this encounter Results * (ABNORMAL) Ethanol (08/31/2023 8:07 AM RIBBON WINDER) Ethanol 73(H) <=10 mg/dL [facility] Comment: Interpretive Data Legal limit of intoxication > or = 80 mg/dL Levels > or = 400 mg/dL are potentially TOXIC. Current interpretive data was last revised on 2018. Blood 08/31/2023 8:07 AM RIBBON WINDER 08/31/2023 8:14 AM RIBBON WINDER Irma [facility] LAB BLOOD ORDERABLES Final R esult Performing Organization Address City/[facility] Co de Phone Number LUIS ARMANDO[address] [place] [address] * (ABNORMAL) Ethanol (08/31/2023 3:39 AM RIBBON WINDER) Ethanol 210(H) <=10 mg/dL [facility] Comment: Interpretive Data Legal limit of intoxication > or = 80 mg/dL Levels > or = 400 mg/dL are potentially TOXIC. Current interpretive data was last revised on 2018. Blood 08/31/2023 3:39 AM RIBBON WINDER 08/31/2023 3:45 AM RIBBON WINDER us Irma [facility] BLOOD ORDERABLES Final R esult Performing Organization Address City/[facility] Co de Phone Number [address] [place] [address] * Urinalysis reflex to microscopic and culture Urine (08/30/2023 11:31 PM RIBBON WINDER) Color, ur Straw Yellow [facility] Clarity, ur Clear Clear [facility] Specific gravity, ur 1.009 1.003 - 1.030 [facility] pH, urine 6.0 [facility] Comment: Interpretive Data ? Urine pH is affected by diet, medications, systemic acid-base disturbances, and renal tubular function. ??pH may affect urinary stone formation. ??For example, urine pH below 6.0 may help reduce the tendency for calcium phosphate stones and pH greater than 6.0 may reduce the tendency for uric acid stone formation. Source: [facility] Current Interpretive Data was last revised on 2017 Protein, ur ql Negative Negative [facility] Glucose, ur ql Negative Negative [facility] Ketones, ur Negative Negative [facility] Bilirubin, ur Negative Negative [facility] Blood, ur Negative Negative [facility] Urobilinogen, ur <2.0 <2.0 mg/dL [facility] Nitrite, ur Negative Negative [facility] Leukocyte esterase, ur Negative Negative [facility] UA reflex comment Reflex conditions for microscopic UA and culture not met. [facility] Urine 08/30/2023 11:3 1 PM RIBBON WINDER 08/30/2023 11:34 PM RIBBON WINDER Irma [facility] MICROBIOLOGY - GENERAL O RDERABLES Final Result [facility] [address] [facility] Department [place] [address] * Drugs of Abuse Screen, Urine with Reflex Confirmation (08/30/2023 11:31 PM RIBBON WINDER) Amphetamine, ur Not Detected CutOff 500ng/mL [facility] Comment: Interpretive Data - Amphetamines: ??Samples containing greater than 500 ng/mL d-methamphetamine ??or other cross-reacting amphetamine compounds are reported as positive. ??Amphetamine immunoassays are subject to significant false positive rates due to cross-reactivity of non-amphetamine drugs. Confirmatory testing required for definitive results. Current Interpretive Data was last reviewed 2023. Barbiturates, ur Not Detected CutOff 200ng/mL [facility] Comment: Interpretive Data - Barbiturates: ??Samples containing greater than 200 ng/mL secobarbital or other cross-reacting barbiturate compounds are reported as positive. ??False positive and false negative results are possible. Confirmatory testing required for definitive results. Current Interpretive Data was last reviewed 2023. Benzodiazepines, ur Not Detected CutOff 100ng/mL [facility] Comment: Interpretive Data - Benzodiazepines: ??Samples containing greater than 100 ng/mL nordiazepam or other cross-reacting compounds are reported as positive. False positive and false negative results are possible. Confirmatory testing required for definitive results. Current Interpretive Data was last reviewed 2023. Cannabinoids, ur Not Detected CutOff 50 ng/mL [facility] Comment: Interpretive Data - Cannabinoids: ??Samples containing greater than 50 ng/mL delta-9 THC -COOH or other cross-reacting compounds are reported as positive. ??False positive and false negative results are possible. ??Confirmatory testing required for definitive results. Current Interpretive Data was last reviewed 2023. Cocaine, ur Not Detected CutOff 150ng/mL [facility] Comment: Interpretive Data - Cocaine: ??Samples containing greater than 150 ng/mL benzoylecgonine or other cross-reacting compounds are reported as positive. False positive and false negative results are possible. Confirmatory testing required for definitive results. Current Interpretive Data was last reviewed 2023. Fentanyl, Ur Not Detected Cutoff 1 ng/mL [facility] Comment: Interpretive Data - Fentanyl: ??Samples containing greater than 1 ng/mL fentanyl or other cross-reacting fentanyl compounds are reported as positive. ??False positive and false negative results are possible. Confirmatory testing required for definitive results. Current Interpretive Data was last reviewed 2023. Methadone, ur Not Detected CutOff 300ng/mL [facility] Comment: Interpretive Data - Methadone: ??Samples containing greater than 300 ng/mL d,l-methadone or other cross-reacting compounds are reported as positive. ??False positive and false negative results are possible. Confirmatory testing required for definitive results. Current Interpretive Data was last reviewed 2023. Opiates, ur Not Detected CutOff 300ng/mL [facility] Comment: Interpretive Data - Opiates: ??Samples containing greater than 300 ng/mL morphine or other cross-reacting compounds are reported as positive. ??False positive and false negative results are possible. Confirmatory testing required for definitive results. Current Interpretive Data was last reviewed 2023. Oxycodone, ur Not Detected CutOff 100ng/mL [facility] Comment: Interpretive Data - Oxycodone: ??Samples containing greater than 100 ng/mL oxycodone or other cross-reacting compounds are reported as ??positive. ??False positive and false negative results are possible. Confirmatory testing required for definitive results. Current Interpretive Data was last reviewed 2023. Phencyclidine, ur Not Detected CutOff 25 ng/mL [facility] Comment: Interpretive Data - Phencyclidine: ??Samples containing greater than 25 ng/mL phencyclidine or other cross-reacting compounds are reported as positive. ??False positive and false negative results are possible. Confirmatory testing required for definitive results. Current Interpretive Data was last reviewed 2023. Urine Creatinine 40 mg/dL [facility] Comment: Interpretive Data Urine Creatinine: < 10 mg/dL is extremely dilute = or > 10 but < 20 mg/dL is dilute = or > 20 mg/dL is normal Current Interpretive Data was last revised on 2017. Urine 08/30/2023 11:3 1 PM [facility]IB[facility]ON WINDER 08/30/2023 11:34 PM RIBBON WINDER Narrative [facility] - 08/31/2023 12:00 AM RIBBON WINDER Drug of Abuse screening is performed by immunoassay for medical purposes only. ??This is not to be used for Pain Management purposes. ??If Detected, confirmation testing will be performed for Amphetamines, Cocaine, Fentanyl, Methadone, Opiates, Oxycodone or Phencyclidine. Irma [facility] URINE ORDERABLES Final R esult [facility] [address] [facility] Department [place] [address] * POCT hCG, urine (08/30/2023 11:30 PM RIBBON WINDER) HCG, ur, POC Negative Negative Lot Number [id number] QC Backgroud Clear Acceptable QC Control Line Acceptable Urine 08/30/2023 11:3 0 PM [facility]IBB[facility] WINDER Irma [facility] POINT OF CARE TEST ORDERABLE S Final Result * eGFR (08/30/2023 10:41 PM RIBBON WINDER) eGFR 120 mL/min/1. 73 m2 [facility] Comment: Interpretive Data Reference Interval Normal ?>/= 90 mL/min/1.73m2 Mildly decreased* ? 60 - 89 mL/min/1.73m2 Mildly to moderately decreased ?45 - 59 mL/min/1.73m2 Moderately to severely decreased ??30 - 44 mL/min/1.73m2 Severely decreased ?15 - 29 mL/min/1.73m2 Kidney Failure ?< 15 ??mL/min/1.73m2 *Relative to young adult level Estimated glomerular filtration rate is determined by the 2020 CKD-EPI equation recommended by the National Kid[employer] (A Unifying Approach to GFR Estimation: Recommendations of the NKF-ASK Task Force on Reassessing the Inclusion of Race in Diagnosing Kidney Disease, JASN 2020). The CKD-EPI equation should not be used for patients with unstable renal function and has not been validated in children and those over 70. Current interpretive data was last reviewed 2021. Blood 08/30/2023 10:4 1 PM RIB[facility]ON WINDER 08/30/2023 10:45 PM RIBBON WINDER us Irma [facility] LAB BLOOD ORDERABLES Final R esult [facility] [address] [facility] Department [place] [address] * Differential, auto (08/30/2023 10:41 PM RIBBON WINDER) Neutrophil abs 3.0 1.5 - 6.5 K/cumm [facility] Imm gran abs 0.0 0.0 - 0.1 K/cumm [facility] Lymphocyte abs 1.9 0.8 - 3.3 K/cumm [facility] Monocyte abs 0.3 0.2 - 0.8 K/cumm [facility] Eosinophil abs 0.1 0.0 - 0.5 K/cumm [facility] Basophil abs 0.1 0.0 - 0.1 K/cumm [facility] Neutrophil pct 55.7 % [facility] Comment: Interpretive Data Percent cell count reference ranges are not reported, since discordance with absolute values may lead to misinterpretation of CBC data. Current Interpretive Data was last revised on 2017. Imm gran pct 0.2 % [facility] Comment: Interpretive Data Percent cell count reference ranges are not reported, since discordance with absolute values may lead to misinterpretation of CBC data. Current Interpretive Data was last revised on 2017. Lymphocyte pct 35.8 % [facility] Comment: Interpretive Data Percent cell count reference ranges are not reported, since discordance with absolute values may lead to misinterpretation of CBC data. Current Interpretive Data was last revised on 2017. Monocyte pct 6.1 % [facility] Comment: Interpretive Data Percent cell count reference ranges are not reported, since discordance with absolute values may lead to misinterpretation of CBC data. Current Interpretive Data was last revised on 2017. Eosinophil pct 1.3 % [facility] Comment: Interpretive Data Percent cell count reference ranges are not reported, since discordance with absolute values may lead to misinterpretation of CBC data. Current Interpretive Data was last revised on 2017. Basophil pct 0.9 % [facility] Comment: Interpretive Data Percent cell count reference ranges are not reported, since discordance with absolute values may lead to misinterpretation of CBC data. Current Interpretive Data was last revised on 2017. Blood 08/30/2023 10:4 1 PM [facility] W[facility]ER 08/30/2023 10:45 PM RIB[facility] WINDER Irma PORRAS LAB BLOOD ORDERABLES Final R esult [facility] [address] [facility] Department of Laboratories [place], [place] [id number] * Influenza A/B, RSV, and COVID-19 PCR Nasopharyngeal (08/30/2023 10:41 PM RIBBON WINDER) COVID-19 RNA Negative Negative [facility] Influenza A RNA Negative Negative [facility] Influenza B RNA Negative Negative [facility] RSV RNA Negative Negative [facility] Comment: Interpretive data: Testing performed by [facility]. This test is performed using the [employer] Xpert Xpress CoV-2/Flu/RSV plus assay. This is a multiplex, real-time reverse transcriptase PCR assay intended for the qualitative detection of nucleic acid from SARS-CoV-2, influenza A, influenza B, and respiratory syncytial virus. This assay has been cleared by the [place] Food and Drug administration. The performance characteristics have been verified by the [facility]. ??Results must be considered in the clinical context, and a negative result does not rule out infection. Interpretive Data last revised 2023 Nasopharyngeal 08/30/2023 10 :41 PM R[facility]BON WINDER 08/30/2023 10:45 PM [facility] WINDER Narrative [place] - 08/30/2023 11:23 PM RIBBON WINDER Is the Patient experiencing symptoms consistent with COVID?->No Reason for testing?->Screening prior to admission to [facility] unit [facility] MICROBIOLOGY - GENERAL O RDERABLES Final Result Performing Organization Address [facility] Co de Phone Number [address] [place] [address] * Magnesium (08/30/2023 10:41 PM RIBBON WINDER) Pathologist [facility] Magnesium 1.9 1.4 - 2.5 mg/dL [place] Blood 08/30/2023 10:4 1 PM R[facility] WINDER 08/30/2023 10:45 PM RIBB[facility] WINDER Irma PORR[facility] BLOOD ORDERABLES Final R esult Performing Organization Address [facility] Co de Phone Number [address] [address] * Acetaminophen level (08/30/2023 10:41 PM RIBBON WINDER) Acetaminophen <5 <=5 mcg/mL [facility] Comment: Interpretive Data Significant hepatic injury may occur and treatment with n-acetyl cysteine is generally recommended if the acetaminophen level exceeds: 150 mcg/mL at 4 hours after ingestion ??75 mcg/mL at 8 hours after ingestion ??38 mcg/mL at 12 hours after ingestion ??19 mcg/mL at 16 hours after ingestion Consult toxicology or poison control ([phone]) for unknown ingestion time. Current interpretive data was last revised 2023. Blood 08/30/2023 10:4 1 PM RIBBON WINDER 08/30/2023 10:45 PM RIBBON WINDER Irma [facility] BLOOD ORDERABLES Final R esult Performing Organization Address City/[facility] Co de Phone Number [place] [address] [place] [address] * TSH reflex to free T4 (08/30/2023 10:41 PM RIBBON WINDER) TSH 1.09 0.30 - 4.20 mcIUnit/mL [place] Blood 08/30/2023 10:4 1 PM RIBBON WINDER 08/30/2023 10:45 PM RIBBON WINDER Irma [facility] BLOOD ORDERABLES Final R esult Performing Organization Address [facility] Co de Phone Number LUIS ARMANDO[address] [place] [address] * (ABNORMAL) Ethanol (08/30/2023 10:41 PM RIBBON WINDER) Ethanol 406(H) <=10 mg/dL [facility] Comment: Interpretive Data Legal limit of intoxication > or = 80 mg/dL Levels > or = 400 mg/dL are potentially TOXIC. Current interpretive data was last revised on 2018. Blood 08/30/2023 10:4 1 PM RIBBON WINDER 08/30/2023 10:45 PM RIBBON WINDER Irma [facility] BLOOD ORDERABLES Final R esult Performing Organization Address [facility] Co de Phone Number [place] [address] [place] [address] * Salicylate level (08/30/2023 10:41 PM RIBBON WINDER) Pathologist [facility] Salicylate <1.0 <=1.0 mg/dL [facility] Comment: Interpretive Data Toxic: 30 mg/dL or greater. Current interpretive data was last revised 2023. Blood 08/30/2023 10:4 1 PM RIBBON WINDER 08/30/2023 10:45 PM RIBBON WINDER Irma PORR[facility] BLOOD ORDERABLES Final R esult [facility] [address] [facility] Department [place] [address] * (ABNORMAL) Comprehensive metabolic panel (08/30/2023 10:41 PM RIBBON WINDER) [facility] Sodium 145 135 - 145 mmol/L [facility] Potassium, pl 4.0 3.3 - 4.9 mmol/L [facility] Chloride 106 97 - 110 mmol/L [facility] CO2 24 22 - 32 mmol/L [facility] Anion gap 15 2 - 15 mmol/L [facility] BUN 11 6 - 25 mg/dL [facility] Creatinine 0.59(L) 0.60 - 1.10 mg/dL [facility] Glucose 95 70 - 199 mg/dL [facility] Comment: Interpretive Data Fasting glucose >/= 126 mg/dl is diagnostic for diabetes. ?? Fasting is defined as no caloric intake for at least 8 hours. Fasting glucose between 100 mg/dl to 125 mg/dl is diagnostic of prediabetes. In a patient with classic symptoms of hyperglycemia or hyperglycemic crisis, a random glucose >/= 200 mg/dl is diagnostic for diabetes. In the absence of unequivocal hyperglycemia, results should be confirmed by repeat testing. The classification and Diagnosis of Diabetes Diabetes Care 2021; 46: S19-S40. Current interpretive data was last revised 2022. Calcium 8.8 8.5 - 10.3 mg/dL [facility] Bilirubin, total <0.2 0.1 - 1.2 mg/dL [facility] Protein, pl 6.7 6.5 - 8.5 g/dL [facility] Albumin 4.5 3.5 - 5.0 g/dL [facility] Alk phos 67 40 - 130 Units/L [facility] ALT 26 7 - 45 Units/L [facility] AST 34 10 - 45 Units/L [facility] Blood 08/30/2023 10:4 1 PM RIBB[facility] WINDER 08/30/2023 10:45 PM RIBB[facility] WINDER us Irma [facility] BLOOD ORDERABLES Final R esult Performing Organization Address [facility] Co de Phone Number [place] [address] [place] [address] * CBC with auto differential (08/30/2023 10:41 PM RIBBON WINDER) WBC 5.4 3.8 - 9.9 K/cumm [facility] Hgb 13.8 11.9 - 15.5 g/dL [facility] Hct 40.4 35.6 - 45.5 % [facility] Plt 295 150 - 400 K/cumm [facility] MPV 9.1 9.1 - 12.3 fL [facility] RBC 4.41 3.90 - 5.20 M/cumm [facility] MCV 91.6 81.3 - 96.4 fL [facility] MCH 31.3 27.1 - 33.3 pg [facility] MCHC 34.2 32.3 - 35.7 g/dL [facility] RDW CV 12.8 11.1 - 14.9 % [facility] RDW SD 42.5 35.7 - 48.1 fL [facility] NRBC abs 0.00 0.00 - 0.01 K/cumm [facility] Blood 08/30/2023 10:4 1 PM R[facility] WINDER 08/30/2023 10:45 PM RIBB[facility] WINDER us Ir[facility] BLOOD ORDERABLES Final R esult Performing Organization Address [facility] Co de Phone Number [place] [address] [place] [address] documented in this encounter Visit Diagnoses Diagnosis Acute alcoholic intoxication without complication (HCC)- Primary Suicidal ideation documented in this encounter Administered Medications Inactive Administered Medications - up to 3 most recent administrations Medication Order MAR Action Action Date Dose Rate Site acetaminophen (TYLENOL) tablet 650 mg 650 mg, oral, Once, On Tue08/31/23 at 0403, For 1 dose Given 08/31/2023 4:15 AM RIBB[facility] WINDER 650 mg ALPRAZolam (XANAX) tablet 0.5 mg 0.5 mg, oral, Once, On Tue08/31/23 at 0803, For 1 dose Given 08/31/2023 8:08 AM R[facility] W[facility]ER 0.5 mg ALPRAZolam (XANAX) tablet 1 mg 1 mg, oral, Once, On Tue08/31/23 at 0231, For 1 dose Given 08/31/2023 2:57 AM RIBB[facility] WINDER 1 mg ibuprofen (ADVIL,MOTRIN) tablet/capsule 600 mg 600 mg, oral, Once, On Tue08/31/23 at 0745, For 1 dose Given 08/31/2023 8:08 AM R[facility] WINDER 600 mg lisinopriL (PRINIVIL,ZESTRIL) tablet 20 mg 20 mg, oral, Once, On Tue08/31/23 at 0803, For 1 dose Given 08/31/2023 8:08 AM R[facility] WINDER 20 mg LORazepam (ATIVAN) injection 1 mg 1 mg, intravenous, Once, On Tue08/30/23 at 2239, For 1 dose, For IV administration, draw up ordered admin dose/volume, then dilute with equal volume of 0.9% sodium chloride and administer total volume to patient. Do not exceed a rate of 2 mg/minute., Indications: anxietyIndications:anxiety Given 08/30/2023 11:08 PM RIBB[facility] WINDER 1 mg LORazepam (ATIVAN) injection 1 mg 1 mg, intravenous, Every 4 hours PRN, other, withdrawan, Starting on Tue08/31/23 at 0730, For IV administration, draw up ordered admin dose/volume, then dilute with equal volume of 0.9% sodium chloride and administer total volume to patient. Do not exceed a rate of 2 mg/minute., Indications: anxietyIndications:anxiety sodium chloride 0.9% bolus 1,000 mL 1,000 mL, intravenous, Once, On Tue08/30/23 at 2242, For 1 dose New Bag 08/30/2023 11:08 PM RIBB[facility] WINDER 1,000 mL documented in this encounter Active and Recently Administered Medications Times are shown in [facility]ER. Scheduled Medication Order 08/29/2023 08/30/2023 08/31/2023 acetaminophen (TYLENOL) tablet 650 mg (COMPLETED) 650 mg, oral, Once, On Tue08/31/23 at 0403, For 1 dose 0415 (Given - Provid er: Anjana Chavez RN) ALPRAZolam (XANAX) tablet 0.5 mg (COMPLETED) 0.5 mg, oral, Once, On Tue08/31/23 at 0803, For 1 dose 0808 (Given - Provid er: Norma Joyner RN) ALPRAZolam (XANAX) tablet 1 mg (COMPLETED) 1 mg, oral, Once, On Tue08/31/23 at 0231, For 1 dose 0257 (Given - Provid er: Padma Claudio RN) ibuprofen (ADVIL,MOTRIN) tablet/capsule 600 mg (COMPLETED) 600 mg, oral, Once, On Tue08/31/23 at 0745, For 1 dose 08 (Given - Provid er: Norma Joyner RN) lisinopriL (PRINIVIL,ZESTRIL) tablet 20 mg (COMPLETED) 20 mg, oral, Once, On Tue08/31/23 at 0803, For 1 dose 08 (Given - Provid er: Norma Joyner RN) LORazepam (ATIVAN) injection 1 mg (COMPLETED) 1 mg, intravenous, Once, On Tue08/30/23 at 2239, For 1 dose, For IV administration, draw up ordered admin dose/volume, then dilute with equal volume of 0.9% sodium chloride and administer total volume to patient. Do not exceed a rate of 2 mg/minute., Indications: anxiety 2308 (Given - Provider: Brooke Stahl, MEERA) sodium chloride 0.9% bolus 1,000 mL (COMPLETED) 1,000 mL, intravenous, Once, On Tue08/30/23 at 2242, For 1 dose 2308 (New Bag - Provider: Brooke Stahl, MEERA) 0234 (Stopped - Provider: Anjana Chavez RN) PRN Medication Order 08/29/2023 08/30/2023 08/31/2023 LORazepam (ATIVAN) injection 1 mg 1 mg, intravenous, Every 4 hours PRN, other, withdrawan, Starting on Tue08/31/23 at 0730, For IV administration, draw up ordered admin dose/volume, then dilute with equal volume of 0.9% sodium chloride and administer total volume to patient. Do not exceed a rate of 2 mg/minute., Indications: anxiety documented in this encounter Orders Medications Ordered That Ajith ht Not Have Been Administered Count Last Ordered Date First Ordered Date LORazepam (ATIVAN) injection 1 mg 1 024 Consult Count Last Ordered Date First Orde red Date CONSULT TO [facility]IORAL HEALTH [facility] 1 024 documented in this encounter Care Teams Quality Assurance Consultant Relationship Specialty Start Date End Date Adiel Demarco MD [address] [place] [address] PCP - General 08/24/17 documented as of this encounter
--- OUTSIDE RECORDS SUMMARY | 2024-09-05 02:13 | XMS_ITS | Encounter Summary ---
Author Organization [facility] Address [address] [place] [address] Phone Care Team Providers Care Trolley Collector Name Role Phone Adiel Demarco MD Primary Care Provider [phone]- [phone] Reason for Visit * Reason Comments Med Refill Encounter Details Date Type Department Care Team (Late st Contact Info) Description 03/19/2022 8:20 AM CDT Office Visit [facility] [address] [place] [address] Adiel Demarco MD [address] [place] [address] Insomnia due to medical condition (Primary Dx) Social History Tobacco Use Types Packs/Day Years Used Date Smoking Tobacco: Former Comments Unknown Sex and Gender Information Value Date Recorded Sex Assigned at Not on file 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 Gender Identity Female 11/23/2019 9:35 AM CDT Sexual Orientation Straight 11/23/2019 9: 35 AM CDT documented as of this encounter Last Filed Vital Signs Vital Sign Reading Time Taken Comments Blood Pressure 128/100 03/19/2022 8:30 AM CDT Pulse 103 03/19/2022 8:30 AM CDT Temperature - - Respiratory Rate - - Oxygen Saturation 99% 03/19/2022 8:30 AM CDT Inhaled Oxygen Concentration - - Weight 67.6 kg (149 lb) 03/19/2022 8:30 AM CDT Height - - Body Mass Index 27.25 11/16/2021 10:06 AM CDT documented in this encounter Ordered Prescriptions Prescription Sig Dispense Quantity Refills Last Filled Start Date End Date zolpidem (AMBIEN) 10 mg tablet Take 1 tablet (10 mg total) by mouth nightly as needed for sleep 30 tablet 5 03/19/2022 3 documented in this encounter Progress Notes * Adiel Demarco MD - 03/19/2022 8:20 AM CDT Images from the original note were not included. Patient Name: Brissa Buckley Date of : 1985 History of present illness: Med Refill Here to get a refill on zolpidem. She takes it during the week but does not take it on the weekends. She has been prescribed Adderall by a psychiatric nurse practitioner for ADHD. This does not seem to have impaired her sleep. Problem List Items Addressed This Visit Unprioritized Insomnia - Primary (Chronic) Family History: Family History Problem Relation Age of Onset ??? Hypertension Father Family history of hypertension - (Added by TW Conv) ??? Ulcerative colitis Other Family history of ulcerative colitis - Relation: Aunt (Added by TW Conv) Social History: Social History Tobacco Use ??? Smoking status: Former Smoker ??? Smokeless tobacco: None Substance and Sexual Activity ??? Drug use: None ??? Sexual activity: None Alcohol Use: Not on file Allergies: No Known Allergies Current Medications: Outpatient Encounter Medications as of 03/19/2022 Medication Sig Dispense Refill ??? ALPRAZolam (XANAX) 0.5 mg tablet TAKE ONE TABLET BY MOUTH THREE TIMES A DAY NEEDED FOR ANXIETY 90 tablet 2 ??? dextroamphetamine-amphetamine (ADDERALL) 10 mg tablet ??? dextroamphetamine-amphetamine XR (ADDERALL XR) 30 mg 24 hr capsule ??? lamoTRIgine (LaMICtal) 100 mg tablet Take 150 mg by mouth daily ??? [DISCONTINUED] zolpidem (AMBIEN) 10 mg tablet Take 1 tablet (10 mg total) by mouth nightly as needed for sleep 30 tablet 3 ??? zolpidem (AMBIEN) 10 mg tablet Take 1 tablet (10 mg total) by mouth nightly as needed for sleep30 tablet 5 ??? [DISCONTINUED] dextroamphetamine-amphetamine XR (ADDERALL XR) 20 mg 24 hr capsule (Patient not taking: Reported on 03/19/2022) No facility-administered encounter medications on file as of 03/19/2022. Vitals: 03/19/22 0830 BP: 128/100 Pulse: 103 SpO2: 99% Weight: 67.6 kg (149 lb) Care Team Providers: Patient Care Team: Adiel Demarco MD as PCP - General Primary Pharmacy/DME suppliers: [facility] [place] [facility] [address] [address] [facility] [id number] [place] - [address] [place] [address] ROS per HPI otherwise all other systems negative. BP 128/100 Pulse 103 Wt 67.6 kg (149 lb) SpO2 99% BMI 27.25 kg/m?? PHYSICAL EXAMINATION: GENERAL: This is a well- developed, well nourished age appropriate patient in no acute distress. The patient is alert and oriented x3. Pleasant and cooperative. PSYCHIATRIC: Mood is euthymic. Affect appears appropriate. EYES: Anicteric sclera. Extraocular movements appear intact. EAR, NOSE, THROAT: Hearing is intact to the spoken word. Nares are patent with no drainage. RESPIRATORY: There is equal chest rise on inspection. Breathing is non-labored with no audible wheezing. CARDIOVASCULAR: There is no upper extremity lymphedema. Heart has a regular rate and rhythm ABDOMEN:Nondistended SKIN: No obvious skin lesions or rashes are noted. Skin is warm to touch NEUROLOGIC: No ataxia. Lab Results Component Value Date WBC 10.2 07/16/2014 HGB 11.0 (L) 07/16/2014 CREATININE 0.89 07/16/2014 BUNSER 11 07/16/2014 CO2 23 07/16/2014 TSH 1.120 07/16/2014 HGBA1C 4.8 11/16/2021 Diagnoses and all orders for this visit: Insomnia due to medical condition (Primary) Other orders - zolpidem (AMBIEN) 10 mg tablet; Take 1 tablet (10 mg total) by mouth nightly as needed for sleep We discussed sleep hygiene. She is to monitor her blood pressure and try to spend weekends without Adderall to establish whether not she has underlying hypertension. Adiel Demarco MD Portions of this document were created using voice recognition software. There may be occasional wrong words, misspelling or syntax errors. Please interpret in context and contact my office if there are any questions at [phone]. documented in this encounter Plan of Treatment Not on file documented as of this encounter Visit Diagnoses Diagnosis Insomnia due to medical condition- Primary Organic insomnia, unspecified documented in this encounter Discontinued Medications Medication Sig Discontinue Reason Start Date End Da te dextroamphetamine-amphet amine XR (ADDERALL XR) 20 mg 24 hr capsule 11/09/2021 03/19/2022 zolpidem (AMBIEN) 10 mg tablet Take 1 tablet (10 mg total) by mouth nightly as needed for sleep Reorder 11/16/2021 03/19/2022 documented as of this encounter Historical Medications * This list may reflect changes made after this encounter. Medication Sig Dispense Quantity Refills Last Filled Start D ate End Date dextroamphetamine-amphe tamine XR (ADDERALL XR) 30 mg 24 hr capsule 03/08/2022 dextroamphetamine-amphe tamine (ADDERALL) 10 mg tablet 03/08/2022 added in this encounter Care Teams Trolley Collector Relationship Specialty Start Date End Date Adiel Demarco MD [address] [place] [address] PCP - General 08/24/17 documented as of this encounter
--- OUTSIDE RECORDS SUMMARY | 2024-09-05 02:13 | XMS_ITS | Encounter Summary ---
Author Organization [facility] Healthcare Address [address] [place] [address] Care Team Providers Care Import Export Manager Name Role Phone Adiel Demarco MD Primary Care Provider [phone]- [phone] Encounter Details Date Type Department Care Team (Late st Contact Info) Description 03/08/2020 Patient Self-Triage [facility] HealthCare/ Physicians [address] [place] [address] Mychart, Generic Provider [address] [place], [place] [id number] Social History Tobacco Use Types Packs/Day Years Used Date Smoking Tobacco: Former Comments Unknown Sex and Gender Information Value Date Recorded Sex Assigned at Not on file 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
--- OUTSIDE RECORDS SUMMARY | 2024-09-05 02:13 | XMS_ITS | Encounter Summary ---
Author Organization [facility] Address [address] [place] [address] Phone Care Team Providers Care Television Cabinet Finisher Name Role Phone Adiel Demarco MD Primary Care Provider +1- [phone] Encounter Details Date Type Department Care Team (Late st Contact Info) Description 05/09/2023 1:00 PM CDT Telemedicine [address] [address] Adiel Demarco MD [address] [place] [address] Insomnia due to medical condition (Primary Dx) Social History Tobacco Use Types Packs/Day Years Used Date Smoking Tobacco: Former PHQ-2 Answer Date Recorded PHQ-2 Total Score (If total score is 3 or more points, staff should administer the PHQ-9) 0 01/28/2023 Comments No Sex and Gender Information Value Date Recorded Sex Assigned at Not on file 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 TELEVISIT Brissa Buckley is a 37 y.o. female called to discuss the following: Sleep is a problem. She had been taking Ambien for awhile and it was modestly successful but after about 3 hours she would wake up. She tried trazodone and that was on acceptable because of the way to affected her mood. Little alcohol is ingested. Patient Name: Brissa Buckley Date of : 1985 No past medical history on file. No past surgical history on file. Family History: Family History Problem Relation Age of Onset Hypertension Father Family history of hypertension - (Added by TW Conv) Ulcerative colitis Other Family history of ulcerative colitis - Relation: Aunt (Added by TW Conv) Social History: Social History Tobacco Use Smoking status: Former Smokeless tobacco: Not on file Substance and Sexual Activity Drug use: Not on file Sexual activity: Not on file Alcohol Use: Not on file Allergies: No Known Allergies Current Medications: Outpatient Encounter Medications as of 05/09/2023 Medication Sig Dispense Refill ALPRAZolam (XANAX) 0.5 mg tablet TAKE ONE TABLET BY MOUTH THREE TIMES A DAY NEEDED FOR ANXIETY 90 tablet 2 Auvelity 45-105 mg tablet, IR & ER, biphasic Take 1 tablet by mouth 2 (two) times a day cyanocobalamin (Vitamin B-12) 1,000 mcg/mL injection dextroamphetamine-amphetamine (ADDERALL) 10 mg tablet dextroamphetamine-amphetamine XR (ADDERALL XR) 30 mg 24 hr capsule lamoTRIgine (LaMICtal) 100 mg tablet Take 1.5 tablets (150 mg total) by mouth daily lisinopriL (PRINIVIL,ZESTRIL) 20 mg tablet Take 1 tablet (20 mg total) by mouth daily 90 tablet 4 scopolamine 1 mg over 3 days patch [address] 1 patch on the skin every third day as needed (nausea) 4 patch 2 traZODone (DESYREL) 50 mg tablet TAKE 1 TABLET BY MOUTH ONCE NIGHTLY NEEDED FOR SLEEP 90 tablet 0 zolpidem CR (AMBIEN CR) 12.5 mg CR tablet Take 1 tablet (12.5 mg total) by mouth nightly as needed for sleep 30 tablet 1 [DISCONTINUED] zolpidem (AMBIEN) 10 mg tablet Take 1 tablet (10 mg total) by mouth nightly as needed for sleep for sleep 30 tablet 0 No facility-administered encounter medications on file as of 05/09/2023. There were no vitals filed for this visit. Care Team Providers: Patient Care Team: Adiel Demarco MD as PCP - General Primary Pharmacy/DME suppliers: [facility], [place] - [address] [place] [address] [facility] - [place], [place] - [address] [place] [address] [facility] - [place], [place] - [address] [facility] [address] [facility] [place] [address] ROS per HPI otherwise all other systems [...] clear. Lab Results Component Value Date WBC 5.0 01/28/2023 HGB 13.9 01/28/2023 HCT 38.8 01/28/2023 LABPLAT 364 01/28/2023 TRIG 79 01/28/2023 HDL 92 01/28/2023 ALT 12 01/28/2023 AST 13 01/28/2023 SODIUM 135 (L) 01/28/2023 POTASSIUM 4.5 01/28/2023 CHLORIDE 102 01/28/2023 CREATININE 0.7 01/28/2023 BUNSER 11 07/16/2014 CO2 28.0 01/28/2023 TSH 1.120 07/16/2014 HGBA1C 4.8 (L) 01/28/2023 Diagnoses and all orders for this visit: Insomnia due to medical condition (Primary) Other orders - zolpidem CR (AMBIEN CR) 12.5 mg CR tablet; Take 1 tablet (12.5 mg total) by mouth nightly as needed for sleep Reviewed risks and side effects of this medication including the fact that it is a controlled drugs Reviewed sleep hygiene issues Adiel Demarco MD This was a telemedicine visit which took place via Zoom. During the visit, I was located in [facility] and the patient was located at his home in the [facility]. The patient visit started at 1:20 p.m. and ended at 1:28 p.m. Total encounter time includes time spent in direct contact with patient The patient: has been informed that the visit may not be secure and acknowledged the information. The option of participating in a telephone or video visit during the [facility] emergencywas explained to them. documented in this encounter Plan of Treatment Not on file documented as of this encounter Visit Diagnoses Diagnosis Insomnia due to medical condition- Primary Organic insomnia, unspecified documented in this encounter Discontinued Medications Medication Sig Discontinue Reason Start Date End Da te zolpidem (AMBIEN) 10 mg tablet Take 1 tablet (10 mg total) by mouth nightly as needed for sleep for sleep 12/29/2022 05/09/2023 documented as of this encounter Care Teams Television Cabinet Finisher Relationship Specialty Start Date End Date Adiel Demarco MD [address] [place] [address] PCP - General 08/24/17 documented as of this encounter
--- OUTSIDE RECORDS SUMMARY | 2024-09-05 02:13 | XMS_ITS | Encounter Summary ---
Author Organization [facility] Address [address] [place] [address] Phone Care Team Providers Care Lumber Estimator Name Role Phone Adiel Demarco MD Primary Care Provider +1- [phone] Encounter Details Date Type Department Care Team (Late st Contact Info) Description 11/19/2020 11:20 AM CDT Telemedicine [address] [address] Adiel Demarco MD [address] [place] [address] Parent coping with child illness or disability (Primary Dx); Mild episode of recurrent major depressive disorder (CMS/HCC); Insomnia due to medical condition; Generalized anxiety disorder Social History Tobacco Use Types Packs/Day Years Used Date Smoking Tobacco: Former Comments Unknown Sex and Gender Information Value Date Recorded Sex Assigned at Not on file Legal Sex Female 4:31 AM DIRECTOR INDUSTRIAL Gender Identity Female 11/23/2019 9:35 AM CDT Sexual Orientation Straight 11/23/2019 9: 35 AM CDT documented as of this encounter Ordered Prescriptions Prescription Sig Dispense Quantity Refills Last Filled Start Date End Date zolpidem (AMBIEN) 10 mg tablet 1 at bedtime if needed 30 tablet 3 11/19/2020 1 sertraline (ZOLOFT) 25 mg tablet Take 2 tablets (50 mg total) by mouth daily Take along with 100 mg tablet for total daily dose of 125 mg 180 tablet 3 11/19/2020 1 ALPRAZolam (XANAX) 0.5 mg tablet Take 1 tablet (0.5 mg total) by mouth 3 (three) times a day as needed for anxiety 90 tablet 2 11/19/2020 documented in this encounter Progress Notes * Adiel Demarco MD - 11/19/2020 11:20 AM CDT Images from the original note were not included. TELEVISIT Brissa Buckley is a 35 y.o. female called to discuss the following: Anxiety disorder: Symptoms have been fairly well-controlled. There have been no panic attacks. Concentration is good. Medications have not caused sedation or other side effects. Modest, regular exercise has been helpful. At last visit we increased sertraline from 100 mg to 125 mg daily. She finds that this has made her feel ???blah -indifferent. 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 She has received her 1st COVID vaccine and is scheduled to get the 2nd shortly. She says that she uses alprazolam about 3 or 4 times a week and zolpidem 1 or 2 times a week. Patient Name: Brissa Buckley Date of : [...] Current Medications: Outpatient Encounter Medications as of 11/19/2020 Medication Sig Dispense Refill ??? ALPRAZolam (XANAX) 0.5 mg tablet Take [...] at bedtime if needed 30 tablet 3 ??? [DISCONTINUED] ALPRAZolam (XANAX) 0.5 mg tablet Take 1 tablet (0.5 mg total) by mouth 3 (three)times a day as needed for anxiety 90 tablet 2 ??? [DISCONTINUED] sertraline (ZOLOFT) 25 mg tablet Take 1 tablet (25 mg total) by mouth daily Takealong with 100 mg tablet for total daily dose of 125 mg 90 tablet 3 ??? [DISCONTINUED] zolpidem (AMBIEN) 10 mg tablet 1 at bedtime if needed 30 tablet 0 No facility-administered encounter medications on file as of 11/19/2020. There were no vitals filed for this visit. Care Team Providers: Patient Care Team: Adiel Demarco MD as PCP - General Primary Pharmacy/DME suppliers: [facility] - [facility] [address] [facility] [address] [facility] [place] [address] ROS per HPI otherwise all other systems negative. There were no vitals taken for this visit. PHYSICAL EXAMINATION: GENERAL: This is a well- developed, well nourished age appropriate patient in no acute distress. The patient is alert and oriented x3. Pleasant and cooperative. PSYCHIATRIC: Mood is anxious. Affect appears appropriate. EYES: Anicteric sclera. Extraocular [...] Diagnoses and all orders for this visit: Parent coping with child illness or disability (Primary) Mild episode of recurrent major depressive disorder (CMS/HCC) Insomnia due to medical condition Generalized anxiety disorder Other orders - ALPRAZolam (XANAX) 0.5 mg tablet; Take 1 tablet (0.5 mg total) by mouth 3 (three) times a day as needed for anxiety - sertraline (ZOLOFT) 25 mg tablet; Take 2 tablets (50 mg total) by mouth daily Take along with 100mg tablet for total daily dose of 125 mg - zolpidem (AMBIEN) 10 mg tablet; 1 at bedtime if needed Adiel Demarco MD This was a telemedicine visit which took place via ITema. During the visit, I was located in [facility] and the patient was located at his home in the [facility]. The patient visit started at 11 20 and ended at 1135 Total encounter time includes time spent in direct contact with patient The patient: has been informed that the visit may not be secure and acknowledged the information. The option of participating in a telephone or video visit during the [facility] [place] [address] emergencywas explained to them. 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 insomnia, unspecified Generalized anxiety disorder documented in this encounter Discontinued Medications Medication Sig Discontinue Reason Start Date End Da te ALPRAZolam (XANAX) 0.5 mg tablet Take 1 tablet (0.5 mg total) by mouth 3 (three) times a day as needed for anxiety Reorder 10/08/2020 11/19/2020 sertraline (ZOLOFT) 25 mg tablet Take 1 tablet (25 mg total) by mouth daily Take along with 100 mg tablet for total daily dose of 125 mg 10/08/2020 11/19/2020 zolpidem (AMBIEN) 10 mg tablet 1 at bedtime if needed Reorder 11/07/2020 11/19/2020 documented as of this encounter Care Teams Lumber Estimator Relationship Specialty Start Date End Date Adiel Demarco MD [address] [place] [address] PCP - General 08/24/17 documented as of this encounter
--- OUTSIDE RECORDS SUMMARY | 2024-09-05 02:13 | XMS_ITS | Encounter Summary ---
Author Organization [facility] Address [address] [place] [address] Phone Care Team Providers Care Mobile Web Application Developer Name Role Phone Adiel Demarco MD Primary Care Provider +1- [phone] Encounter Details Date Type Department Care Team (Late st Contact Info) Description 11/25/2020 Telephone [facility] [address] [place] [address] Adiel Demarco MD [address] [place], [place] [id number] Social History Tobacco Use Types Packs/Day Years Used Date Smoking Tobacco: Former Comments Unknown Sex and Gender Information Value Date Recorded Sex Assigned at Not on file Legal Sex Female 4:31 AM ASSISTED LIVING NURSING DIRECTOR Gender Identity Female 11/23/2019 9:35 AM CDT Sexual Orientation Straight 11/23/2019 9: 35 AM CDT documented as of this encounter Miscellaneous Notes * Telephone Encounter - Ellen Nina MA - 11/25/2020 3:57 PM CDT Office contact patient/pharmacy all question answered. * Telephone Encounter - Ellen Nina MA - 11/25/2020 3:57 PM CDT ----- Message from Brisas Buckley sent at 11/25/2020 3:19 PM CDT ----- Regarding: Prescription Question Contact: Dc Dr. Demarco. My pharmacy called yesterday regarding my new Zoloft prescription. They were unsureof the instructions that were written and couldn't get a hold of anyone at the office. They reachedout to me to reach out to you. Will you or your emergency veterinary assistant please contact [facility] and let them know the directions for Zoloft. I appreciate your time. Thank you! documented in this encounter Plan of Treatment Not on file documented as of this encounter Visit Diagnoses Not on filedocumented in this encounter Care Teams Mobile Web Application Developer Relationship Specialty Start Date End Date Adiel Demarco MD [address] [place] [address] PCP - General 08/24/17 documented as of this encounter
--- OUTSIDE RECORDS SUMMARY | 2024-09-05 02:13 | XMS_ITS | Encounter Summary ---
Author Organization [facility] Address [address] [place] [address] Phone Care Team Providers Care Chief Of Party Name Role Phone Adiel Demarco MD Primary Care Provider +1- [phone] Reason for Visit * Reason Onset Date Comments covid testing 06/19/2020 Encounter Details Date Type Department Care Team (Late st Contact Info) Description 06/19/[address] 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 * Telephone Encounter - Adiel Demarco MD - 06/20/2020 2:09 PM CDT I cannot send electronic order to [facility]. She would have to come and pick it up. It would make much more sense for her to go to urgent care * Telephone Encounter - Calli Crowe MA - 06/19/2020 2:58 PM CDT Patient calling regarding an order to be sent to [facility] for Covid testing. Patient is fatigue, running a temp. Cough also was exposed to a co-worker who tested positive on Tuesday. Please call. Thank you documented in this encounter Plan of Treatment Not on file documented as of this encounter Visit Diagnoses Not on filedocumented in this encounter Care Teams Chief Of Party Relationship Specialty Start Date End Date Adiel Demarco MD [address] [place] [address] PCP - General 08/24/17 documented as of this encounter
--- OUTSIDE RECORDS SUMMARY | 2024-09-05 02:13 | XMS_ITS | Encounter Summary ---
Author Organization [facility] Address [address] [place] [address] Phone Care Team Providers Care Counter Hand Name Role Phone Adiel Demarco MD Primary Care Provider +1- [phone] Encounter Details Date Type Department Care Team (Late st Contact Info) Description 11/16/2021 Orders Only [facility] [address] [place] [address] Adiel Demarco MD [address] [place], [place] [id number] Social History Tobacco Use Types Packs/Day Years Used Date Smoking Tobacco: Former Comments Unknown Sex and Gender Information Value Date Recorded Sex Assigned at Not on file Legal Sex Female 4:31 AM SUPPLIER QUALITY MANAGER Gender Identity Female 11/23/2019 9:35 AM CDT Sexual Orientation Straight 11/23/2019 9: 35 AM CDT documented as of this encounter Ordered Prescriptions Prescription Sig Dispense Quantity Refills Last Filled Start Date End Date zolpidem (AMBIEN) 10 mg tablet Take 1 tablet (10 mg total) by mouth nightly as needed for sleep 30 tablet 3 11/16/2021 2 documented in this encounter Plan of Treatment Not on file documented as of this encounter Visit Diagnoses Not on filedocumented in this encounter Discontinued Medications Medication Sig Discontinue Reason Start Date End Da te zolpidem (AMBIEN) 10 mg tablet TAKE ONE TABLET BY MOUTH AT BEDTIME NEEDED Reorder 07/29/2021 11/16/2021 documented as of this encounter Care Teams Counter Hand Relationship Specialty Start Date End Date Adiel Demarco MD [address] [place] [address] PCP - General 08/24/17 documented as of this encounter
--- OUTSIDE RECORDS SUMMARY | 2024-09-05 02:13 | XMS_ITS | Encounter Summary ---
Author Organization [facility] Address [address] [place] [address] Care Team Providers Care Toy Consultant Name Role Phone Adiel Demarco MD Primary Care Provider +1- [phone] Encounter Details Date Type Department Care Team (Late st Contact Info) Description 03/14/2020 Patient Self-T[address] [facility] [address] [place] [address] Mychart, Generic Provider [address] [place], [place] [id number] Social History Tobacco Use Types Packs/Day Years Used Date Smoking Tobacco: Former Comments Unknown Sex and Gender Information Value Date Recorded Sex Assigned at Not on file Legal Sex Female 4:31 AM ACCOUNTING METHODS ANALYST Gender Identity Female 11/23/2019 9:35 AM CDT Sexual Orientation Straight 11/23/2019 9: 35 AM CDT documented as of this encounter Plan of Treatment Not on file documented as of this encounter Visit Diagnoses Not on filedocumented in this encounter Care Teams Toy Consultant Relationship Specialty Start Date End Date Adiel Demarco MD [address] [place] [address] PCP - General 08/24/17 documented as of this encounter
--- OUTSIDE RECORDS SUMMARY | 2024-09-05 02:13 | XMS_ITS | Encounter Summary ---
Author Organization [facility] Address [address] [place] [address] Phone Care Team Providers Care Health And Safety Technician Name Role Phone Adiel Demarco MD Primary Care Provider +1- [phone] Encounter Details Date Type Department Care Team (Late st Contact Info) Description 05/01/2021 Orders Only [facility] [address] [place] [address] Lynnette Perry NP [address] [place], [place] [id number] Social History Tobacco Use Types Packs/Day Years Used Date Smoking Tobacco: Former Comments Unknown Sex and Gender Information Value Date Recorded Sex Assigned at Not on file Legal Sex Female 4:31 AM GROCERY MANAGER Gender Identity Female 11/23/2019 9:35 AM CDT Sexual Orientation Straight 11/23/2019 9: 35 AM CDT documented as of this encounter Ordered Prescriptions Prescription Sig Dispense Quantity Refills Last Filled Start Date End Date valACYclovir (VALTREX) 1 gram tablet Take 2 tablets (2,000 mg total) by mouth 2 (two) times a day for 1 day 4 tablet 05/01/2021 documented in this encounter Plan of Treatment Not on file documented as of this encounter Visit Diagnoses Not on filedocumented in this encounter Care Teams Health And Safety Technician Relationship Specialty Start Date End Date Adiel Demarco MD [address] [place] [address] PCP - General 08/24/17 documented as of this encounter
--- OUTSIDE RECORDS SUMMARY | 2024-09-05 02:13 | XMS_ITS | Encounter Summary ---
Author Organization [facility] Address [address] [place] [address] Phone Care Team Providers Care Constitutional Law Professor Name Role Phone Adiel Demarco MD Primary Care Provider +1- [phone] Encounter Details Date Type Department Care Team (Late st Contact Info) Description 01/28/2023 10:40 AM CDT Lab [facility] [address] [place] [address] Social History Tobacco Use Types Packs/Day Years Used Date Smoking Tobacco: Former PHQ-2 Answer Date Recorded PHQ-2 Total Score (If total score is 3 or more points, staff should administer the PHQ-9) 0 01/28/2023 Comments No Sex and Gender Information Value Date Recorded Sex Assigned at Not on file Legal Sex Female 4:31 AM CONSTRUCTION MANAGER Gender Identity Female 11/23/2019 9:35 AM CDT Sexual Orientation Straight 11/23/2019 9: 35 AM CDT documented as of this encounter Plan of Treatment Not on file documented as of this encounter Visit Diagnoses Not on filedocumented in this encounter Care Teams Constitutional Law Professor Relationship Specialty Start Date End Date Adiel Demarco MD [address] [place] [address] PCP - General 08/24/17 documented as of this encounter
--- OUTSIDE RECORDS SUMMARY | 2024-09-05 02:13 | XMS_ITS | Encounter Summary ---
Author Organization [facility] Address [address] [place] [address] Phone Care Team Providers Care Oil Lease Buyer Name Role Phone Adiel Demarco MD Primary Care Provider +1- [phone] Encounter Details Date Type Department Care Team (Late st Contact Info) Description 11/23/2019 11:00 AM CDT Office Visit [facility] [address] [place] [address] Lynnette Perry NP [address] [place] [address] Generalized anxiety disorder (Primary Dx); Mild episode of recurrent major depressive disorder (CMS/HCC); Hypertension, essential Social History Tobacco Use Types Packs/Day Years Used Date Smoking Tobacco: Former Comments Unknown Sex and Gender Information Value Date Recorded Sex Assigned at Not on file Legal Sex Female 4:31 AM FAST 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 female. Patient has agreed to evaluation and management via televisit. The understand that this will be billed like a typical visit as if they were in person. They also understand that HIPAA rules have been relaxed in setting of current pandemic COVID-19. Video modality:Facetime Chief Complaint No chief complaint on file. HPI Has been taking her BP at home. 128/102 BP: BP taken during the visit 139/115. Went to historiography teacher last week 132/80. Weight was 225lb this morning.No SOB, chest pain, dizziness, headache, or visual changes. Depression: Started Zoloft about a month ago. She likes it better than the Effexor. She is still having low moods. Review of Systems All other systems reviewed and are negative. Physical Exam as performed by the patient on video with direction from this provider. GENERAL: Alert and oriented x 3. No apparent distress. Pleasant and cooperative. PSYCHIATRIC: Mood is euthymic. Affect appears appropriate. EYES: Anicteric sclera and moist conjunctiva. Extraocular movements appear intact. EAR/NOSE/THROAT: Hearing intact to spoken word. Nares patent, with no drainage. RESPIRATORY: Equal chest rise on inspection. Breathing is non-labored, with no audible wheezing CARDIOVASCULAR: No lower extremity edema. SKIN: No skin lesions or rashes noted. Warm to touch. GASTROINTESTINAL: Abdomen soft, non-tender, non-distended, no masses palpated. NEUROLOGICAL: Speaks with ease, no agitation, PERRLA MUSCULOSKELETAL: Moves all extremities well, no deformities or edema There were no vitals taken for this visit. Current Outpatient Medications Medication Sig Dispense Refill ??? ALPRAZolam (XANAX) 0.5 mg tablet Take 0.5 tablets (0.25 mg total) by mouth 3 (three) times a day as needed for anxiety 90 tablet 2 ??? mblfcfpjzi-gxwzermpemkpc-rxmytklh (FIORICET,ESGIC) 50-300-40 mg per capsule TAKE 1 TO 2 CAPSULES BY MOUTH EVERY 4 HOURS NEEDED FOR PAIN. MAX DAILY DOSE OF 6 CAPSULES IN 24 HOUR PERIOD. 1 ??? mesalamine (LIALDA) 1.2 gram EC tablet TAKE 4 TABLETS BY MOUTH ONCE DAILY ??? sertraline (ZOLOFT) 50 mg tablet Take 1 tablet (50 mg total) by mouth daily 30 tablet 1 ??? zolpidem (AMBIEN) 10 mg tablet TAKE 1/2 TO 1 (ONE-HALF TO ONE) TABLET BY MOUTH ONCE DAILY AT BEDTIME NEEDED 30 tablet 0 No current facility-administered medications for this visit. Assessment/Plan Diagnoses and all orders for this visit: Generalized anxiety disorder (F41.1) (Primary) - sertraline (ZOLOFT) 100 mg tablet; Take 1 tablet (100 mg total) by mouth daily Mild episode of recurrent major depressive disorder (CMS/HCC) (F33.0) - sertraline (ZOLOFT) 100 mg tablet; Take 1 tablet (100 mg total) by mouth daily INCREASE ZOLOFT TO 100MG. WILL UPDATE VIA PORTAL ON STATUS. Hypertension, essential (I10) As her BP was only mildly elevated at the [employer]GET[employer] office she will obtain a different home BP machine due to potentially inaccurate readings. She will work on diet and exercise. New BP readings will be sent to me in 2 weeks time. All medications were discussed. Use and possible [...] this encounter Visit Diagnoses Diagnosis Generalized anxiety disorder- Primary Mild episode of recurrent major depressive disorder (HCC) Hypertension, essential Unspecified essential hypertension documented in this encounter Discontinued Medications Medication Sig Discontinue Reason Start Date End Da te sertraline (ZOLOFT) 50 mg tablet Take 1 tablet (50 mg total) by mouth daily Reorder 10/26/2019 11/23/2019 documented as of this encounter Care Teams Oil Lease Buyer Relationship Specialty Start Date End Date Adiel Demarco MD [address] [place] [address] PCP - General 08/24/17 documented as of this encounter
--- OUTSIDE RECORDS SUMMARY | 2024-09-05 02:13 | XMS_ITS | Encounter Summary ---
Author Organization [facility] Address [address] [place] [address] Phone Care Team Providers Care Assistant Education Director Name Role Phone Adiel Demarco MD Primary Care Provider +1- [phone] Encounter Details Date Type Department Care Team (Late st Contact Info) Description 10/08/2020 10:40 AM ENGAGEMENT SPECIALIST Telemedicine [address] [address] Adiel Demarco MD [address] [place] [address] Parent coping with child illness or disability (Primary Dx); Obesity with body mass index 30 or greater; Mild episode of recurrent major depressive disorder (CMS/HCC); Generalized anxiety disorder; Crohn's disease of small intestine with other complication (CMS/HCC); Hypertension, essential; Insomnia due to medical condition Social History Tobacco Use Types Packs/Day Years Used Date Smoking Tobacco: Former Comments Unknown Sex and Gender Information Value Date Recorded Sex Assigned at Not on file Legal Sex Female 4:31 AM ENGAGEMENT SPECIALIST Gender Identity Female 11/23/2019 9:35 AM CDT Sexual Orientation Straight 11/23/2019 9: 35 AM CDT documented as of this encounter Ordered Prescriptions Prescription Sig Dispense Quantity Refills Last Filled Start Date End Date sertraline (ZOLOFT) 25 mg tablet Take 1 tablet (25 mg total) by mouth daily Take along with 100 mg tablet for total daily dose of 125 mg 90 tablet 3 10/08/2020 ALPRAZolam (XANAX) 0.5 mg tablet Take 1 tablet (0.5 mg total) by mouth 3 (three) times a day as needed for anxiety 90 tablet 2 10/08/2020 documented in this encounter Progress Notes * Adiel Demarco MD - 10/08/2020 10:40 AM CST Images from the original note were not included. TELEVISIT Brissa Buckley is a 34 y.o. female called to discuss the following: Anxiety disorder: Symptoms have been worse lately. She has been working from home for the past 11 months. She is caring for a daughter with some developmental problems. She has some big financial stressors. She has been requesting alprazolam refills and not been seen in a while.. There have been no panic attacks. Concentration is good. Medications have not caused sedation or other side effects. Modest, regular exercise has been possible during the COVID pandemic She had a sleeve procedure done and has gotten her weight down to 200 lb representing a 40 lb weight loss. She is quite pleased with the procedure, her diet and the outcome.. Patient Name: Brissa Buckley Date of : [...] file ??? Sexual activity: Not on file Lifestyle ??? Physical activity Days per week: Not on file Minutes per session: Not on file ??? Stress: Not on file Allergies: No Known Allergies Current Medications: Outpatient Encounter Medications as of 10/08/2020 Medication Sig Dispense Refill ??? ALPRAZolam (XANAX) 0.5 mg tablet Take 1 tablet (0.5 mg total) by mouth 3 (three) times a day asneeded for anxiety 90 tablet 2 ??? hydrocortisone 2.5 % cream Apply topically 2 (two) times a day as needed for irritation or rash30 g 5 ??? mesalamine (LIALDA) 1.2 gram EC tablet TAKE 4 TABLETS BY MOUTH ONCE DAILY ??? sertraline (ZOLOFT) 100 mg tablet TAKE ONE TABLET BY MOUTH ONCE DAILY 30 tablet 2 ??? sertraline (ZOLOFT) 25 mg tablet Take 1 tablet (25 mg total) by mouth daily Take along with 100mg tablet for total daily dose of 125 mg 90 tablet 3 ??? SUMAtriptan (IMITREX) 100 mg tablet ??? zolpidem (AMBIEN) 10 mg tablet 1 at bedtime if needed 30 tablet 0 ??? [DISCONTINUED] ALPRAZolam (XANAX) 0.5 mg tablet TAKE ONE TABLET BY MOUTH THREE TIMES A DAY NEEDED FOR ANXIETY 90 tablet 2 No facility-administered encounter medications on file as of 10/08/2020. There were no vitals filed for this visit. Care Team Providers: Patient Care Team: Adiel Demarco MD as PCP - General Primary Pharmacy/DME suppliers: [facility] - [place], [place] - [address] [facility] [address] [facility] [place] [address] ROS per HPI otherwise all other systems [...] coping with child illness or disability (Primary) Obesity with body mass index 30 or greater Mild episode of recurrent major depressive disorder (CMS/HCC) Generalized anxiety disorder Crohn's disease of small intestine with other complication (CMS/HCC) Hypertension, essential Insomnia due to medical condition Other orders - ALPRAZolam (XANAX) 0.5 mg tablet; Take 1 tablet (0.5 mg total) by mouth 3 (three) times a day as needed for anxiety - sertraline (ZOLOFT) 25 mg tablet; Take 1 tablet (25 mg total) by mouth daily Take along with 100 mg tablet for total daily dose of 125 mg Follow-up tele visit 6 weeks Anxiety: In addition to pharmacologic therapy, we discussed the role of nonpharmacologic treatment.Strong emphasis was placed on regular aerobic exercise. We discussed the need for socialization andavoidance of being solitary. We discussed the data suggesting that getting a pet helps to minimize anxiety. We also touched on the role of community involvement, good sleep hygiene and the role of psychological counseling in general. Novel but unproven modalities such as makerist, coloring in avoidance of stimulants such as caffeine were mentioned. Will continue to monitor symptoms and any side effects of our treatment strategy. Adiel Demarco MD This was a telemedicine visit which took place via [employer]. During the visit, I was located in [facility] and the patient was located at his home in the [facility]. The patient visit started at 1048 and ended at 1102 Total encounter time includes time spent in direct contact with patient The patient: has been informed that the visit may not be secure and acknowledged the information. The option of participating in a telephone or video visit during the COVID-19 public health emergencywas explained to them. GEMENT SPECIALIST documented in this encounter Plan of Treatment Not on file documented as of this encounter Visit Diagnoses Diagnosis Parent coping with child illness or disability- Primary Obesity with body mass index 30 or greater Mild episode of recurrent major depressive disorder (HCC) Generalized anxiety disorder Crohn's disease of small intestine with other complication (HCC) Hypertension, essential Unspecified essential hypertension Insomnia due to medical condition Organic insomnia, unspecified documented in this encounter Discontinued Medications Medication Sig Discontinue Reason Start Date End Da te ALPRAZolam (XANAX) 0.5 mg tablet TAKE ONE TABLET BY MOUTH THREE TIMES A DAY NEEDED FOR ANXIETY Reorder 07/14/2020 10/08/2020 hydrocortisone 2.5 % creamIndications:Aller gic dermatitis due to other chemical product Apply topically 2 (two) times a day as needed for irritation or rash 04/23/2020 10/08/2020 mesalamine (LIALDA) 1.2 gram EC tablet TAKE 4 TABLETS BY MOUTH ONCE DAILY 09/14/2019 10/08/2020 documented as of this encounter Care Teams Assistant Education Director Relationship Specialty Start Date End Date Adiel Demarco MD [address] [place] [address] PCP - General 08/24/17 documented as of this encounter
--- OUTSIDE RECORDS SUMMARY | 2024-09-05 02:13 | XMS_ITS | Encounter Summary ---
Author Organization [facility] Address [address] [place] [address] Phone Care Team Providers Care Fruit Stuffer Name Role Phone Adiel Demarco MD Primary Care Provider +1- [phone] Encounter Details Date Type Department Care Team (Late st Contact Info) Description 06/25/[address] [facility] [address] [place] [address] Scanning, Provider Social History Tobacco Use Types Packs/Day Years Used Date Smoking Tobacco: Former Comments Unknown Sex and Gender Information Value Date Recorded Sex Assigned at Not on file Legal Sex Female 4:31 AM DIRECTOR CASE Gender Identity Female 11/23/2019 9:35 AM CDT Sexual Orientation Straight 11/23/2019 9: 35 AM CDT documented as of this encounter Plan of Treatment Not on file documented as of this encounter Procedures Procedure Name Priority Date/Time Associated Diagnosis Comments GI - RESULT 06/25/2020 4:49 PM CDT documented in this encounter Results * GI - RESULT (06/25/2020 4:49 PM CDT) Anatomical Region Laterality Modality Other us Provider Scanning Final Result documented in this encounter Visit Diagnoses Not on filedocumented in this encounter Care Teams Fruit Stuffer Relationship Specialty Start Date End Date Adiel Demarco MD [address] [place] [address] PCP - General 08/24/17 documented as of this encounter
--- OUTSIDE RECORDS SUMMARY | 2024-09-05 02:13 | XMS_ITS | Encounter Summary ---
Author Organization [facility] Address [address] [place] [address] Phone Care Team Providers Care Residential Treatment Specialist Name Role Phone Adiel Demarco MD Primary Care Provider +1- [phone] Encounter Details Date Type Department Care Team (Late st Contact Info) Description 03/25/2020 Telephone [facility] [address] [place] [address] Adiel Demarco MD [address] [place] [address] Social History Tobacco Use Types Packs/Day Years Used Date Smoking Tobacco: Former Comments Unknown Sex and Gender Information Value Date Recorded Sex Assigned at Not on file Legal Sex Female 4:31 AM MOVER HELPER Gender Identity Female 11/23/2019 9:35 AM CDT Sexual Orientation Straight 11/23/2019 9: 35 AM CDT documented as of this encounter Miscellaneous Notes * Telephone Encounter - Gem Topete MA - 03/25/2020 3:19 PM CDT Portal note sent documented in this encounter Plan of Treatment Not on file documented as of this encounter Visit Diagnoses Not on filedocumented in this encounter Care Teams Residential Treatment Specialist Relationship Specialty Start Date End Date Adiel Demarco MD [address] [place] [address] PCP - General 08/24/17 documented as of this encounter
--- OUTSIDE RECORDS SUMMARY | 2024-09-05 02:13 | XMS_ITS | Encounter Summary ---
Author Organization [facility] Address [address] [place] [address] Care Team Providers Care Hydraulic Pile Hammer Operator Name Role Phone Adiel Demarco MD Primary Care Provider +1- [phone] Encounter Details Date Type Department Care Team (Late st Contact Info) Description 03/08/2020 E-[address] [facility] [address] [place], [place] [id number] Nathalia Forte MD [address] [place] [address] [phone] RE: E-Visit Submission: COVID-19 Evaluation Social History Tobacco Use Types Packs/Day Years Used Date Smoking Tobacco: Former Comments Unknown Sex and Gender Information Value Date Recorded Sex Assigned at Not on file Legal Sex Female 4:31 AM REMELT SUGAR BOILER Gender Identity Female 11/23/2019 9:35 AM CDT Sexual Orientation Straight 11/23/2019 9: 35 AM CDT documented as of this encounter Miscellaneous Notes * E-Visit Note - Nathalia Forte MD - 03/09/2020 7:13 AM CDT Brissa Buckley 03/09/2020 E-Visit Submission Subjective/Objective: Brissa Ina contacted the office today via e-visit for COVID-19 evaluation. The patient-submitted questionnaire was assessed for pertinent information and the patient's problem list, medication list, and allergies were reviewed as part of the e-visit. The chart was updated to identify any changes in these areas. Assessment: Diagnosis Plan 1. Loss of smell 2. Loss of taste 3. Diarrhea, unspecified type Plan: The patient was given information regarding any new medication(s) prescribed, if applicable, as well as any usww-dhl-ltzqctc remedies. She was given instructions regarding follow up and timeframe if symptoms worsen or don???t improve. These instructions were included in the [employer] message reply tothe patient. Patient Instructions were included in the message reply to patient. Nathalia Forte MD documented in this encounter Plan of Treatment Not on file documented as of this encounter Visit Diagnoses Diagnosis Loss of smell- Primary Disturbances of sensation of smell and taste Loss of taste Disturbances of sensation of smell and taste Diarrhea, unspecified type documented in this encounter Care Teams Hydraulic Pile Hammer Operator Relationship Specialty Start Date End Date Adiel Demarco MD [address] [place] [address] PCP - General 08/24/17 documented as of this encounter
--- OUTSIDE RECORDS SUMMARY | 2024-09-05 02:13 | XMS_ITS | Encounter Summary ---
Author Organization [facility] Address [address] [place] [address] Phone Care Team Providers Care Service Mechanic Name Role Phone Adiel Demarco MD Primary Care Provider +1- [phone] Encounter Details Date Type Department Care Team (Late st Contact Info) Description 06/23/2021 Orders Only [facility] [address] [place] [address] Lynnette Perry NP [address] [place], [place] [id number] Social History Tobacco Use Types Packs/Day Years Used Date Smoking Tobacco: Former Comments Unknown Sex and Gender Information Value Date Recorded Sex Assigned at Not on file Legal Sex Female 4:31 AM LIFE SCIENTISTS Gender Identity Female 11/23/2019 9:35 AM CDT Sexual Orientation Straight 11/23/2019 9: 35 AM CDT documented as of this encounter Ordered Prescriptions Prescription Sig Dispense Quantity Refills Last Filled Start Date End Date valACYclovir (VALTREX) 1 gram tablet Take 2 tablets (2,000 mg total) by mouth 2 (two) times a day for 1 day 4 tablet 06/23/2021 documented in this encounter Plan of Treatment Not on file documented as of this encounter Visit Diagnoses Not on filedocumented in this encounter Care Teams Service Mechanic Relationship Specialty Start Date End Date Adiel Demarco MD [address] [place] [address] PCP - General 08/24/17 documented as of this encounter
--- OUTSIDE RECORDS SUMMARY | 2024-09-05 02:13 | XMS_ITS | Encounter Summary ---
Author Organization [facility] Address [address] [place] [address] Phone Care Team Providers Care Contract Administration Coordinator Name Role Phone Adiel Demarco MD Primary Care Provider +1- [phone] Reason for Visit * Reason Comments Anxiety Encounter Details Date Type Department Care Team (Late st Contact Info) Description 05/18/2021 1:30 PM CDT Office Visit [facility] [address] [place] [address] Lynnette Perry NP [address] [place], [place] [id number] Generalized anxiety disorder (Primary Dx); Mild episode of recurrent major depressive disorder (HCC); Fever blister Social History Tobacco Use Types Packs/Day Years Used Date Smoking Tobacco: Former Comments Unknown Sex and Gender Information Value Date Recorded Sex Assigned at Not on file Legal Sex Female 4:31 AM FIELD SPEC Gender Identity Female 11/23/2019 9:35 AM CDT Sexual Orientation Straight 11/23/2019 9: 35 AM CDT documented as of this encounter Last Filed Vital Signs Vital Sign Reading Time Taken Comments Blood Pressure 126/97 05/18/2021 1:25 PM CDT Pulse 86 05/18/2021 1:25 PM CDT Temperature 36.7 ??C (98 ??F) 05/18/2021 1:25 PM CDT Respiratory Rate - - Oxygen Saturation 100% 05/18/2021 1:25 PM CDT Inhaled Oxygen Concentration - - Weight 85.7 kg (189 lb) 05/18/2021 1:25 PM CDT Height 157.5 cm (5' 2 ) 05/18/2021 1:25 PM CDT Body Mass Index 34.57 05/18/2021 1:25 PM CDT documented in this encounter Patient Instructions * Patient Instructions* Lynnette Perry NP - 05/18/2021 1:30 PM CDT [facility] documented in this encounter Ordered Prescriptions Prescription Sig Dispense Quantity Refills Last Filled Start Date End Date valACYclovir (VALTREX) 1 gram tabletIndications: Skin/Soft Tissue Infection Take 2 tablets (2,000 mg total) by mouth 2 (two) times a day for 1 day 4 tablet 05/18/2021 1 hydrOXYzine (ATARAX) 25 mg tabletIndications: Generalized anxiety disorder Take 1 tablet (25 mg total) by mouth 3 (three) times a day 90 tablet 3 05/18/2021 2 vortioxetine (TRINTELLIX) 10 mg tabletIndications: major depressive disorder Take 1 tablet (10 mg total) by mouth daily 90 tablet 3 05/18/2021 1 documented in this encounter Progress Notes * Lynnette Perry NP - 05/18/2021 1:30 PM CDT Subjective/Objective Patient ID: Brissa Buckley is a 35 y.o. female. Chief Complaint Anxiety HPI Her anxiety is getting bad. She has been isolated at home due to pandemic. Working from home. She had a mental breakdown . Has had panic attacks (chest hurting, can't breathe, feels paralyzed). It is starting to interfere with parenting and her relationship. She knows she needs a therapist. [id number] Zoloft daily. Has tried lexapro, Effexor, and wellbutrin in the past. Uses alprazolam and it is helpful. Review of Systems All other systems reviewed and are negative. Physical Exam Vitals BP 126/97 Pulse 86 Temp 36.7 ??C (98 ??F) Ht 157.5 cm (5' 2 ) Wt 85.7 kg (189 lb) SpO2 100% BMI 34.57 kg/m?? Current Outpatient Medications Medication Sig Dispense Refill ? ? al & mag hydroxide upyqsmovrug-xmxcflnkjiqpylw-wcsracofm-nystatin (MAGIC MOUTHWASH) suspension 1-1-1-1 Swish and swallow 20 mL every 4 (four) hours as needed (Mouth pain) 240 mL 3 ??? ALPRAZolam (XANAX) 0.5 mg tablet TAKE ONE TABLET BY MOUTH THREE TIMES A DAY NEEDED FOR ANXIETY 90 tablet 2 ??? sertraline (ZOLOFT) 100 [...] visit: Generalized anxiety disorder (F41.1) (Primary) - vortioxetine (TRINTELLIX) 10 mg tablet; Take 1 tablet (10 mg total) by mouth daily - hydrOXYzine (ATARAX) 25 mg tablet; Take 1 tablet (25 mg total) by mouth 3 (three) times a day Mild episode of recurrent major depressive disorder (HCC) (F33.0) - vortioxetine (TRINTELLIX) 10 mg tablet; Take 1 tablet (10 mg total) by mouth daily Fever blister (B00.1) - valACYclovir (VALTREX) 1 gram tablet; Take 2 tablets (2,000 mg total) by mouth 2 (two) times a day for 1 day All medications were discussed. Use and possible [...] episode of recurrent major depressive disorder (HCC) Fever blister Herpes simplex without mention of complication documented in this encounter Discontinued Medications Medication Sig Discontinue Reason Start Date End Da te sertraline (ZOLOFT) 25 mg tablet Take 2 tablets (50 mg total) by mouth daily Take along with 100 mg tablet for total daily dose of 125 mg 11/19/2020 05/18/2021 sertraline (ZOLOFT) 100 mg tabletIndications:Genera lized anxiety disorder,Mild episode of recurrent major depressive disorder (HCC) TAKE ONE TABLET BY MOUTH ONCE DAILY 10/07/2020 05/18/2021 documented as of this encounter Care Teams Contract Administration Coordinator Relationship Specialty Start Date End Date Adiel Demarco MD [address] [place] [address] PCP - General 08/24/17 documented as of this encounter
--- OUTSIDE RECORDS SUMMARY | 2024-09-05 02:14 | XMS_ITS | Encounter Summary ---
Author Organization [facility] Facility Care Team Providers Care Senior Staff Psychologist Name Role Phone Unavailable Primary Care Provider Unavailabl e Encounter Details Date Type Department Care Team (Late st Contact Info) Description 10/27/2010 - 08/28/2011 11:59 PM RELIGION PROFESSOR Hospital Encounter [facility] Social History Tobacco Use Types Packs/Day Years Used Date Smoking Tobacco: Never Assessed Comments Unknown Sex and Gender Information Value Date Recorded Sex Assigned at Not on file Legal Sex Female 4:31 AM RELIGION PROFESSOR Gender Identity Female 11/23/2019 9:35 AM CDT Sexual Orientation Straight 11/23/2019 9: 35 AM CDT documented as of this encounter Plan of Treatment Not on file documented as of this encounter Visit Diagnoses Not on filedocumented in this encounter
--- OUTSIDE RECORDS SUMMARY | 2024-09-05 02:14 | XMS_ITS | Encounter Summary ---
Author Organization [facility] Address [address] [place] [address] Phone Care Team Providers Care Fans Clerk Name Role Phone Adiel Demarco MD Primary Care Provider [phone]- [phone] Reason for Visit * Reason Comments Preventative Care Encounter Details Date Type Department Care Team (Late st Contact Info) Description 11/03/2018 11:00 AM RN RECRUITMENT Office Visit [facility] [address] [place] [address] Adiel Demarco MD [address] [place] [address] Health care maintenance (Primary Dx); Crohn's disease of small intestine without complication (CMS/HCC); Generalized anxiety disorder; Other insomnia; Current mild episode of major depressive disorder without prior episode (CMS/HCC) Social History Tobacco Use Types Packs/Day Years Used Date Smoking Tobacco: Former Comments Unknown Sex and Gender Information Value Date Recorded Sex Assigned at Not on file Legal Sex Female 4:31 AM RN RECRUITMENT Gender Identity Female 11/23/2019 9:35 AM CDT Sexual Orientation Straight 11/23/2019 9: 35 AM CDT documented as of this encounter Last Filed Vital Signs Vital Sign Reading Time Taken Comments Blood Pressure 140/100 11/03/2018 11:38 AM RN RECRUITMENT Pulse - - Temperature - - Respiratory Rate - - Oxygen Saturation - - Inhaled Oxygen Concentration - - Weight 94.8 kg (209 lb) 11/03/2018 11:38 AM RN RECRUITMENT Height 160 cm (5' 3 ) 11/03/2018 11:38 AM RN RECRUITMENT Body Mass Index 37.02 11/03/2018 11:38 AM RN RECRUITMENT documented in this encounter Patient Instructions * Patient Instructions* Adiel Demarco MD - 11/03/2018 11:00 AM RN RECRUITMENT Check with your local [facility] or [facility] pharmacy about the availability of GARDASIL, and vaccine to prevent HPV. RECRUITMENT documented in this encounter Ordered Prescriptions Prescription Sig Dispense Quantity Refills Last Filled Start Date End Date naltrexone (DEPADE) 50 mg tablet Take 1 tablet (50 mg total) by mouth 2 (two) times a day 180 tablet 11/03/2018 05/03/2019 documented in this encounter Progress Notes * Adiel Demarco MD - 11/03/2018 11:00 AM CST Images from the original note were not included. 04/13/2018 Brissa Buckley 1985 ANNUAL WELLNESS EXAM AGE 32 y.o. Overall feels well.4 year old daughter finishing chemo for ALL. Exercises 0 times a week. A healthy diet consisting of generous fruits and vegetables with avoidance of salt and fat is absent. Seatbelts are worn regularly. Sunscreen is utilized when needed. Drives a car with no recent violations or accidents. The home situation is felt to be safe and secure. Texting while driving does not occur PERSONAL HABITS: She does not currently smoke, consume alcohol to excess or utilize recreational drugs. Patient Name: Brissa Buckley Date of : 1985 No past medical history on file. No past surgical history on file. I have reviewed the patient's medical history and updated as appropriate. Family History: Family History Problem Relation Age of Onset ??? Hypertension Father Family history of hypertension - (Added by [employer]) ??? Ulcerative colitis Other Family history of ulcerative colitis - Relation: Aunt (Added by [employer]) Social History: Social History Socioeconomic History ??? Marital status: Unknown Spouse name: Not on file ??? Number of children: Not on file ??? Years of education: Not on file ??? Highest education level: Not on file Occupational History ??? Not on file Social Needs ??? Financial resource strain: Not on file ??? Food insecurity: Worry: Not on file Inability: Not on file ??? Transportation needs: Medical: Not on file Non-medical: Not on file Tobacco Use ??? Smoking status: Former Smoker Substance and Sexual Activity ??? Alcohol use: Not on file ??? Drug use: Not on file ??? Sexual activity: Not on file Lifestyle ??? Physical activity: Days per week: Not on file Minutes per session: Not on file ??? Stress: Not on file Relationships ??? Social connections: Talks on phone: Not on file Gets together: Not on file Attends mandaeism service: Not on file Active member of club or organization: Not on file Attends meetings of clubs or organizations: Not on file Relationship status: Not on file ??? Intimate partner violence: Fear of current or ex partner: Not on file Emotionally abused: Not on file Physically abused: Not on file Forced sexual activity: Not on file Other Topics Concern ??? Not on file Social History Narrative Drives car : (Added by [employer]) Always uses seat belt : (Added by [employer]) Consumes alcohol occasionally : (Added by [employer]) Eats in fast food outlets : (Added by [employer]) Employed : (Added by [employer]) Exercises sporadically : (Added by [employer]) Activities: Treadmill (Added by [employer]) : (Added by [employer]) Monogamous relationship with monogamous partner : (Added by [employer]) Owns dog : (Added by [employer]) Seeing a dentist : (Added by [employer]) Seeing a pier master : (Added by [employer]) Seeing an eye doctor : (Added by [employer]) Parent coping with child illness or disability : (Added by [employer]) Allergies: No Known Allergies Current Medications: Outpatient Encounter Medications as of 11/03/2018 Medication Sig Dispense Refill ??? ALPRAZolam (XANAX) 0.5 mg tablet TAKE 1 TABLET BY MOUTH THREE TIMES DAILY NEEDED 90 tablet 0 ??? buPROPion XL (WELLBUTRIN XL) 300 mg 24 hr tablet TAKE ONE TABLET BY MOUTH ONCE DAILY 30 tablet 11 ??? naltrexone (DEPADE) 50 mg tablet TAKE 1 TABLET BY MOUTH TWICE DAILY 180 tablet 0 ??? zolpidem (AMBIEN) 10 mg tablet TAKE 1/2 TO 1 (ONE-HALF TO ONE) TABLET BY MOUTH ONCE DAILY AT BEDTIME NEEDED 30 tablet 3 No facility-administered encounter medications on file as of 11/03/2018. Vitals: 11/03/18 1138 BP: 140/100 Weight: 94.8 kg (209 lb) Height: 160 cm (5' 3 ) Care Team Providers: Patient Care Team: Adiel Demarco MD as PCP - General Primary Pharmacy/DME suppliers: [facility] - [place], [place] - [address] [place] [address] No problems updated. A 14 point review of systems was performed and was negative except as noted above BP 140/100 Ht 160 cm (5' 3 ) Wt 94.8 kg (209 lb) BMI 37.02 kg/m?? PHYSICAL EXAMINATION: Well-appearing, no acute distress. Normocephalic. Pupils are reactive to light. Conjunctiva is pink. Oropharynx is clear. Neck is supple and without lymphadenopathy or masses. There is no goiter. Heart hasa regular rate and rhythm without murmurs. Normal respiratory effort is noted. Lungs are clear. Abdomen is soft and nontender. There is no hepatosplenomegaly. There is no guarding or rigidity. Extremities have no edema. Neurologic examination is nonfocal. No significant rashes are noted. Skin turgor appears good. Mucous membranes are moist. Joints are without any active synovitis. Affect is approp riate. Assessment/Plan ANNUAL WELLNESS EXAM:: IMPRESSION: We discussed ways to maintain a healthy lifestyle through regular fitness, diet, rest, resilience, obesity prevention/reduction and safety. Immunization status was reviewed and addressed. Age appropriate counseling and testing was discussed using the Agency for Health Care Research and Quality (AHRQ.gov) recommendations as a basis. I recommended exercise regularly at least 20 minutes 5 times a week. A low-fat, low carbohydrate diet is recommended. Try to get 6-8 hours of sleep daily. She was encouraged to contact this office should any new problems develop in the interim until nextexam. Pap smear should be performed every 3 years-more frequently if pathology is found. A lipid profile was obtained and reviewed. Seatbelt use was encouraged. Followup exam in one year is encouraged. Blood pressure elevation: Patient insists that this is an aberration. I have requested weekly bloodpressure checks ??4 with follow-up via the patient portal or if markedly elevated follow-up visit in one month's time. We reviewed the DASH diet and the impoimportance of keeping blood pressure 120/80 or lower. Adiel Demarco MD RECRUITMENT documented in this encounter Plan of Treatment Not on file documented as of this encounter Procedures Procedure Name Priority Date/Time Associated Diagnosis Comments POCT ASSAY QUANTITATIVE, GLUCOSE Routine 11/03/2018 11:58 AM RN RECRUITMENT Health care maintenance POCT URINALYSIS, AUTO W/O SCOPE Routine 11/03/2018 11:58 AM RN RECRUITMENT Health care maintenance POCT LIPID PANEL Routine 11/03/2018 11:5 8 AM RN RECRUITMENT Health care maintenance documented in this encounter Results * POCT assay quantitative glucose (11/03/2018 11:58 AM RN RECRUITMENT) Glucose Blood, POC 87 mg/dL Capillary blood 11/03/2018 1 1:58 AM RN RECRUITMENT Adiel Demarco MD POINT OF CARE TEST ORDERAB LES Final Result * (ABNORMAL) POCT UA, AUTO W/O SCOPE (11/03/2018 11:58 AM RN RECRUITMENT) Glucose, ur, POC Negative Negative mg/dL Bilirubin, ur, POC Negative Negative Ketones, ur, POC Negative Negative Specific [place], POC 1.010 1.005 - 1.030 Blood, ur, POC Negative Negative pH, ur, POC 7.0 5.0 - 8.0 Protein, ur, POC Negative Negative Urobilinogen, Urine, POC 0.2 mg/dL Leukocytes, ur, POC Trace(A) Negative Nitrite, ur, POC Negative Negative Urine 11/03/2018 11:5 8 AM RN RECRUITMENT Adiel Demarco MD POINT OF CARE TEST ORDERAB LES Final Result * POCT lipid panel (11/03/2018 11:58 AM RN RECRUITMENT) HDL, POC 71 mg/dL Triglycerides, POC 74 mg/dL LDL Cholesterol POC 87 mg/dL Chol/HDL Ratio, POC 1.2 Non-HDL Cholesterol, POC 101 mg/dL Cholesterol Total, POC 172 mg/dL Capillary blood 11/03/2018 1 1:58 AM RN RECRUITMENT Adiel Demarco MD POINT OF CARE TEST ORDERAB LES Final Result documented in this encounter Visit Diagnoses Diagnosis Health care maintenance- Primary Crohn's disease of small intestine without complication (CMS/HCC) (HCC) Generalized anxiety disorder Other insomnia Current mild episode of major depressive disorder without prior episode (HCC) documented in this encounter Discontinued Medications Medication Sig Discontinue Reason Start Date End Da te naltrexone (DEPADE) 50 mg tablet TAKE 1 TABLET BY MOUTH TWICE DAILY Reorder 10/23/2018 11/03/2018 documented as of this encounter Orders Immunization/Injection Count Last Ordered Date First Ordered Date TDAP VACCINE GREATER THAN OR EQUAL TO 7YO IM 1 11/03/2018 documented in this encounter Care Teams Fans Clerk Relationship Specialty Start Date End Date Adiel Demarco MD [address] [place] [address] PCP - General 08/24/17 documented as of this encounter
--- OUTSIDE RECORDS SUMMARY | 2024-09-05 02:14 | XMS_ITS | Encounter Summary ---
Author Organization [facility] Address [address] [place] [address] Phone Care Team Providers Care Relay Record Clerk Name Role Phone Adiel Demarco MD Primary Care Provider [phone]- [phone] Reason for Visit * Reason Comments Follow-up Encounter Details Date Type Department Care Team (Latest Contact Info) Description 05/03/2019 1:20 PM CDT Office Visit [address] [address] Adiel Demarco MD [address] [place] [address] Vitamin D deficiency disease (Primary Dx); Class 2 severe obesity due to excess calories with serious comorbidity in adult, unspecified BMI (CMS/HCC); Crohn's disease without complication, unspecified gastrointestinal tract location (CMS/HCC); Primary insomnia; Generalized anxiety disorder; Major depressive disorder with single episode, in remission (CMS/HCC) Social History Tobacco Use Types Packs/Day Years Used Date Smoking Tobacco: Former Comments Unknown Sex and Gender Information Value Date Recorded Sex Assigned at Not on file Legal Sex Female 4:31 AM CONSTRUCTION ADMINISTRATOR Gender Identity Female 11/23/2019 9:35 AM CDT Sexual Orientation Straight 11/23/2019 9: 35 AM CDT documented as of this encounter Last Filed Vital Signs Vital Sign Reading Time Taken Comments Blood Pressure 120/90 05/03/2019 1:19 PM CDT Pulse - - Temperature - - Respiratory Rate - - Oxygen Saturation - - Inhaled Oxygen Concentration - - Weight 95.3 kg (210 lb) 05/03/2019 1:19 PM CDT Height - - Body Mass Index 37.2 11/03/2018 11:38 AM CONSTRUCTION ADMINISTRATOR documented in this encounter Ordered Prescriptions Prescription Sig Dispense Quantity Refills Last Filled Start Date End Date ALPRAZolam (XANAX) 0.5 mg tablet Take 1 tablet (0.5 mg total) by mouth 3 (three) times a day as needed for anxiety 90 tablet 2 05/03/2019 9 venlafaxine XR (EFFEXOR-XR) 150 mg 24 hr capsuleIndications :Anxiety with Depression Take 1 capsule (150 mg total) by mouth daily 90 capsule 3 05/03/2019 0 documented in this encounter Progress Notes * Adiel Demarco MD - 05/03/2019 1:20 PM CDT Depression: Things are going well. The patient denies anhedonia, low mood, feelings of hopelessness, and thoughts of . Motivation has been good. Sleep has been fairly solid. No eating binges oranorexia. Medications taken regularly. No side effects noted. Anxiety disorder: Symptoms have been fairly well-controlled. There have been no panic attacks. Concentration is good. Medications have not caused sedation or other side effects. Modest, regular exercise has been helpful. Wellbutrin plus naltrexone was tolerated resulted in no weight loss Comfortable appearing. Good eye contact. Serious affect but smiles at a joke. No psychomotor retardation. Speech is clear and fluent. Thought is logical. No tremulous ness or agitation apparent Depression: This appears well controlled. Medications are to be continued. Reviewed their side effects. We discussed the need to take them regularly without stopping abruptly. We discussed nonpharmacologic/adjunctive treatment of depression including aerobic exercise, socialization and perhaps getting a pet. Anxiety: In addition to pharmacologic therapy, we discussed the role of nonpharmacologic treatment.Strong emphasis was placed on regular aerobic exercise. We discussed the need for socialization andavoidance of being solitary. We discussed the data suggesting that getting a pet helps to minimize anxiety. We also touched on the role of cognitive behavioral therapy, relaxation techniques (Ost's applied relaxation) and the role of psychological counseling in general Obesity: Counseled regarding diet and exercise. I recommended 20-40 minutes of daily exercise and [id number] daily diet. I recommended eating small meals throughout the day. Plenty of water. Avoid sodas and probably diet sodas. Approximately 5 pound weight loss per month is recommended. Consider Weight Watchers. Having an exercise and diet partner is often helpful. documented in this encounter Plan of Treatment Not on file documented as of this encounter Visit Diagnoses Diagnosis Vitamin D deficiency disease- Primary Unspecified vitamin D deficiency Class 2 severe obesity due to excess calories with serious comorbidity in adult, unspecified BMI (HCC) Crohn's disease without complication, unspecified gastrointestinal tract location (HCC) Primary insomnia Persistent disorder of initiating or maintaining sleep Generalized anxiety disorder Major depressive disorder with single episode, in remission (HCC) documented in this encounter Discontinued Medications Medication Sig Discontinue Reason Start Date End Da te buPROPion XL (WELLBUTRIN XL) 300 mg 24 hr tablet TAKE ONE TABLET BY MOUTH ONCE DAILY 11/23/2018 05/03/2019 naltrexone (DEPADE) 50 mg tablet Take 1 tablet (50 mg total) by mouth 2 (two) times a day 11/03/2018 05/03/2019 venlafaxine XR (EFFEXOR-XR) 150 mg 24 hr capsule TAKE 1 CAPSULE BY MOUTH ONCE DAILY 03/27/2019 05/03/2019 ALPRAZolam (XANAX) 0.5 mg tablet TAKE 1 TABLET BY MOUTH THREE TIMES DAILY NEEDED FOR ANXIETY Reorder 03/27/2019 05/03/2019 documented as of this encounter Historical Medications * This list may reflect changes made after this encounter. butalbital-aceta minophen-caffein e (FIORICET,ESGIC) 50-300-40 mg per capsule TAKE 1 TO 2 CAPSULES BY MOUTH EVERY 4 HOURS NEEDED FOR PAIN. MAX DAILY DOSE OF 6 CAPSULES IN 24 HOUR PERIOD. 1 05/01/2019 04/23/2020 added in this encounter Care Teams Relay Record Clerk Relationship Specialty Start Date End Date Adiel Demarco MD [address] [place] [address] PCP - General 08/24/17 documented as of this encounter
--- OUTSIDE RECORDS SUMMARY | 2024-09-05 02:14 | XMS_ITS | Encounter Summary ---
Author Organization [facility] Facility Care Team Providers Care Administrative Assistant Office Manager Name Role Phone Unavailable Primary Care Provider Unavailabl e Encounter Details Date Type Department Care Team (Late st Contact Info) Description 01/07/2011 2:29 PM CDT - 01/07/2011 11:59 PM CDT Hospital Encounter 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
--- OUTSIDE RECORDS SUMMARY | 2024-09-05 02:14 | XMS_ITS | Encounter Summary ---
Author Organization [facility] Facility Care Team Providers Care Master Dyer Name Role Phone Unavailable Primary Care Provider Unavailabl e Encounter Details Date Type Department Care Team (Late st Contact Info) Description 06/13/2012 - 08/28/2012 11:59 PM PRESIDENT PRACTICING UROLOGIST Hospital Encounter [facility] Social History Tobacco Use Types Packs/Day Years Used Date Smoking Tobacco: Never Assessed Comments Unknown Sex and Gender Information Value Date Recorded Sex Assigned at Not on file Legal Sex Female 4:31 AM PRESIDENT PRACTICING UROLOGIST Gender Identity Female 11/23/2019 9:35 AM CDT Sexual Orientation Straight 11/23/2019 9: 35 AM CDT documented as of this encounter Plan of Treatment Not on file documented as of this encounter Visit Diagnoses Not on filedocumented in this encounter
--- OUTSIDE RECORDS SUMMARY | 2024-09-05 02:14 | XMS_ITS | Encounter Summary ---
Author Organization [facility] Address [address] [place] [address] Phone Care Team Providers Care Hotel Or Motel Manager Name Role Phone Adiel Demarco MD Primary Care Provider [phone] Reason for Visit * Reason Comments Preventative Care Encounter Details Date Type Department Care Team (Late st Contact Info) Description 10/26/2019 10:40 AM M[facility] Office Visit [facility] [address] [place] [address] Adiel Demarco MD [address] [place] [address] Preventative health care (Primary Dx); Obesity with body mass index 30 or greater; Generalized anxiety disorder; Primary insomnia; Crohn's disease of small intestine with other complication (CMS/HCC); Current mild episode of major depressive disorder, unspecified whether recurrent (CMS/HCC); Hypertension, essential Social History Tobacco Use Types Packs/Day Years Used Date Smoking Tobacco: Former Comments Unknown Sex and Gender Information Value Date Recorded Sex Assigned at Not on file Legal Sex Female 4:31 AM M[facility] Gender Identity Female 11/23/2019 9:35 AM CDT Sexual Orientation Straight 11/23/2019 9: 35 AM CDT documented as of this encounter Last Filed Vital Signs Vital Sign Reading Time Taken Comments Blood Pressure 150/90 10/26/2019 11:14 AM [facility] Pulse - - Temperature - - Respiratory Rate - - Oxygen Saturation - - Inhaled Oxygen Concentration - - Weight 104.3 kg (230 lb) 10/26/2019 11:14 AM M[facility] Height 158.8 cm (5' 2.5 ) 10/26/2019 11:14 AM CS T Body Mass Index 41.4 10/26/2019 11:14 AM M[facility] documented in this encounter Ordered Prescriptions Prescription Sig Dispense Quantity Refills Last Filled Start Date End Date zolpidem (AMBIEN) 10 mg tablet TAKE 1/2 TO 1 (ONE-HALF TO ONE) TABLET BY MOUTH ONCE DAILY AT BEDTIME NEEDED 30 tablet 10/26/2019 0 ALPRAZolam (XANAX) 0.5 mg tablet Take 0.5 tablets (0.25 mg total) by mouth 3 (three) times a day as needed for anxiety 90 tablet 2 10/26/2019 0 sertraline (ZOLOFT) 50 mg tablet Take 1 tablet (50 mg total) by mouth daily 30 tablet 1 10/26/2019 0 documented in this encounter Progress Notes * Adiel Demarco MD - 10/26/2019 10:40 AM CST Images from the original note were not included. Brissa Ina 1985 ANNUAL WELLNESS EXAM AGE 33 y.o. Overall feels well. Exercises 2-3 times a week. A healthy diet consisting of generous fruits and vegetables with avoidance of salt and fat is reported. Seatbelts are worn regularly. Sunscreen is utilized when needed. Drives a car with no recent violations or accidents. The home situation is felt to be safe and secure. Texting while driving does not occur PERSONAL HABITS: She does not currently smoke, consume alcohol to excess or utilize recreational drugs. / I have reviewed the patient's medical history [...] resource strain: Not on file ??? Food insecurity Worry: Not on file Inability: Not on file ??? Transportation needs Medical: Not on file Non-medical: Not on file Tobacco Use ??? Smoking status: Former Smoker Substance and Sexual Activity ??? Alcohol use: Not on file ??? Drug use: Not on file ??? Sexual activity: Not on file Lifestyle ??? Physical activity Days per week: Not on file Minutes per session: Not on file ??? Stress: Not on file Relationships ??? Social connections Talks on phone: Not on file Gets together: Not on file Attends gnosticism service: Not on file Active member of club or organization: Not on file Attends meetings of clubs or organizations: Not on file Relationship status: Not on file ??? Intimate partner violence Fear of current or ex partner: Not on file Emotionally abused: Not on file Physically abused: Not on file Forced sexual activity: Not on file Other Topics Concern ??? Not on file Social History Narrative Drives car : (Added by [employer]) Always uses seat belt : (Added by [employer]) Consumes alcohol occasionally : (Added by [employer]) Eats in fast food outlets : (Added by [employer]) Employed : (Added by [employer]) Exercises sporadically : (Added by [employer]) Activities: Treadmill (Added by [employer]) : (Added by [employer]) Monogamous relationship with monogamous partner : (Added by [employer]) Owns dog : (Added by [employer]) Seeing a dentist : (Added by [employer]) Seeing a quick mixer operator : (Added by [employer]) Seeing an eye doctor : (Added by [employer]) Parent coping with child illness or disability : (Added by [employer]) Allergies: No Known Allergies Current Medications: Outpatient Encounter Medications as of 10/26/2019 Medication Sig Dispense Refill ??? ALPRAZolam (XANAX) 0.5 mg tablet Take 0.5 tablets (0.25 mg total) by mouth 3 (three) times a day as needed for anxiety 90 tablet 2 ??? tcvnuqpyaf-tceqsdnwqbivq-yugrjegr (FIORICET,ESGIC) 50-300-40 mg per capsule TAKE 1 TO 2 CAPSULES BY MOUTH EVERY 4 HOURS NEEDED FOR PAIN. MAX DAILY DOSE OF 6 CAPSULES IN 24 HOUR PERIOD. 1 ??? mesalamine (LIALDA) 1.2 gram EC tablet TAKE 4 TABLETS BY MOUTH ONCE DAILY ??? zolpidem (AMBIEN) 10 mg tablet TAKE 1/2 TO 1 (ONE-HALF TO ONE) TABLET BY MOUTH ONCE DAILY AT BEDTIME NEEDED 30 tablet 0 ??? [DISCONTINUED] ALPRAZolam (XANAX) 0.5 mg tablet TAKE 1 TABLET BY MOUTH THREE TIMES DAILY NEEDED FOR ANXIETY 90 tablet 2 ??? [DISCONTINUED] venlafaxine XR (EFFEXOR-XR) 150 mg 24 hr capsule Take 1 capsule (150 mg total) by mouth daily 90 capsule 3 ??? [DISCONTINUED] zolpidem (AMBIEN) 10 mg tablet TAKE 1/2 TO 1 (ONE-HALF TO ONE) TABLET BY MOUTH ONCE DAILY AT BEDTIME NEEDED 30 tablet 0 ??? sertraline (ZOLOFT) 50 mg tablet Take 1 tablet (50 mg total) by mouth daily 30 tablet 1 No facility-administered encounter medications on file as of 10/26/2019. Vitals: 10/26/19 1114 BP: 150/90 Weight: 104.3 kg (230 lb) Height: 158.8 cm (5' 2.5 ) Care Team Providers: Patient Care Team: Adiel Demarco MD as PCP - General Primary Pharm[facility]/DME [facility] [place], [place] - [address] [facility] [place] [id number] Problem Hypertension, Essential ROS per HPI otherwise all other systems negative. BP 150/90 Ht 158.8 cm (5' 2.5 ) Wt 104.3 kg (230 lb) BMI 41.40 kg/m?? PHYSICAL EXAMINATION: Well-appearing, no acute distress. Normocephalic. Pupils are reactive to light. Conjunctiva is pink. Oropharynx is clear. Neck is supple and without lymphadenopathy or masses. There is no goiter. Hearthas a regular rate and rhythm without murmurs. Normal respiratory effort is noted. Lungs are clear.Abdomen is soft and nontender. There is no hepatosplenomegaly. There is no guarding or rigidity. Extremities have no edema. Neurologic examination is nonfocal. No significant rashes are noted. Skin turgor appears good. Mucous membranes are moist. Joints are without any active synovitis. Affect is ap propriate. Assessment/Plan ANNUAL WELLNESS EXAM:: IMPRESSION: We discussed [...] Followup exam in one year is encouraged. Adiel Demarco MD HAND documented in this encounter Plan of Treatment Not on file documented as of this encounter Procedures Procedure Name Priority Date/Time Associated Diagnosis Comments POCT ASSAY QUANTITATIVE, GLUCOSE Routine 10/26/2019 11:34 AM [facility] Preventative health care POCT URINALYSIS, AUTO W/O SCOPE Routine 10/26/2019 11:34 AM M[facility] Preventative health care POCT LIPID PANEL Routine 10/26/2019 11:3 2 AM M[facility] Preventative health care documented in this encounter Results * POCT assay quantitative glucose (10/26/2019 11:34 AM M[facility]) Glucose Blood, POC 78 mg/dL Capillary blood 10/26/2019 1 1:34 AM [facility] Adiel Demarco MD POINT OF CARE TEST ORDERAB LES Final Result * POCT UA, AUTO W/O SCOPE (10/26/2019 11:34 AM M[facility]) Glucose, ur, POC Negative Negative mg/dL Bilirubin, ur, POC Negative Negative, Small, Moderate, Large Ketones, ur, POC Negative Negative Specific [place], POC 1.015 1.005 - 1.030 Blood, ur, POC Negative Negative pH, ur, POC 7.0 5.0 - 8.0 Protein, ur, POC Negative Negative Urobilinogen, Urine, POC 0.2 mg/dL Leukocytes, ur, POC Negative Negative Nitrite, ur, POC Negative Negative Urine 10/26/2019 11:3 4 AM M[facility] HAND us Adiel Demarco MD POINT OF CARE TEST ORDERAB LES Final Result * POCT lipid panel (10/26/2019 11:32 AM MILL HAND) HDL, POC 65 mg/dL Triglycerides, POC 111 mg/dL LDL Cholesterol POC 99 mg/dL Chol/HDL Ratio, POC 1.5 Non-HDL Cholesterol, POC 121 mg/dL Cholesterol Total, POC 186 mg/dL Capillary blood 10/26/2019 1 1:32 AM M[facility] Adiel Demarco MD POINT OF CARE TEST ORDERAB LES Final Result documented in this encounter Visit Diagnoses Diagnosis Preventative health care- Primary Routine general medical examination at a health care facility Obesity with body mass index 30 or greater Generalized anxiety disorder Primary insomnia Persistent disorder of initiating or maintaining sleep Crohn's disease of small intestine with other complication (HCC) Current mild episode of major depressive disorder, unspecified whether recurrent (HCC) Hypertension, essential Unspecified essential hypertension documented in this encounter Discontinued Medications Medication Sig Discontinue Reason Start Date End Da te venlafaxine XR (EFFEXOR-XR) 150 mg 24 hr capsuleIndications:Anxie ty with Depression Take 1 capsule (150 mg total) by mouth daily 05/03/2019 10/26/2019 ALPRAZolam (XANAX) 0.5 mg tablet TAKE 1 TABLET BY MOUTH THREE TIMES DAILY NEEDED FOR ANXIETY Reorder 07/30/2019 10/26/2019 zolpidem (AMBIEN) 10 mg tablet TAKE 1/2 TO 1 (ONE-HALF TO ONE) TABLET BY MOUTH ONCE DAILY AT BEDTIME NEEDED Reorder 09/25/2019 10/26/2019 documented as of this encounter Historical Medications * This list may reflect changes made after this encounter. mesalamine (LIALDA) 1.2 gram EC tablet TAKE 4 TABLETS BY MOUTH ONCE DAILY 09/14/2019 10/08/2020 added in this encounter Care Teams Hotel Or Motel Manager Relationship Specialty Start Date End Date Adiel Demarco MD [address] [place] [address] PCP - General 08/24/17 documented as of this encounter
--- OUTSIDE RECORDS SUMMARY | 2024-09-05 02:15 | XMS_ITS | Encounter Summary ---
Author Organization [facility] Address [address] [place] [address] Care Team Providers Care National Sales Director Name Role Phone Adiel Demarco MD Primary Care Provider [phone] Reason for Visit * Auth/Cert Specialty Diagnoses / Procedures Referred By Mar arroyo Referred To Contact Perioperative Diagnoses Pre-procedural examination Procedures FL EGD TRANSORAL BIOPSY SINGLE/MULTIPLE ESOPHAGOGASTRODUODENOSCOPY WITH POSSIBLE BIOPSY [facility] [address] [place] [address] Referral ID Status Reason Start Date Expiration Date Visits Re quested Visits Authorized [id number] 1 1 Encounter Details Date Type Department Care Team (Latest Contact Info) Description 06/06/2020 7:00 AM CDT - 06/06/2020 7:15 AM CDT Surgery [facility] [address] [place] [address] Kendall Barahona MD [address] [place] [address] [place], [place] [id number] ESOPHAGOGASTRODUODENOSCOPY WITH BIOPSY Surgery Details Date/Time Status Location OR Service Patient Class Case Cl ass Case Type Trauma Case? 06/06/2020 7:00 AM [facility] End[facility] Outpatient Elective No Panel 1 Procedure LRB Anes Op Region Wound Class Comments ESOPHAGOGASTRODUODENOSCOPY WITH BIOPSY N/A General Esophagus Clean Contaminated-II Surgeon Surgeon Role Service Panel Kendall Barahona MD Primary Endoscopy 1 Case Notes 05/28/2020 SCHEDULE COVID TESTING FOR 06/03/2020 AT 1020 [id number] NR 05/28/2020 documented in this encounter Social History Tobacco Use Types Packs/Day Years Used Date Smoking Tobacco: Former Cigarettes Q uit: 06/04/2010 Smokeless Tobacco: Never Alcohol Use Standard Drinks/Week Comments Yes 0 (1 standard drink = 0.6 oz pur e alcohol) Sex and Gender Information Value Date Recorded Sex Assigned at Not on file Gender Identity Not on file Sexual Orientation Not on file COVID-19 Exposure Response Date Recorded In the last month, have you been in contact with someone who was confirmed or suspected to have Coronavirus / COVID-19? No / Unsure 06/06/2020 5:59 AM CDT documented as of this encounter Last Filed Vital Signs Vital Sign Reading Time Taken Comments Blood Pressure 160/107 06/06/2020 6:03 AM CDT Pulse 71 06/06/2020 6:03 AM CDT Temperature 36.5 ??C (97.7 ??F) 06/06/2020 6:03 AM CD T Respiratory Rate 18 06/06/2020 6:03 AM CDT Oxygen Saturation 100% 06/06/2020 6:03 AM CDT Inhaled Oxygen Concentration - - Weight 108.9 kg (240 lb) 06/04/2020 9:09 AM CDT Height 157.5 cm (5' 2 ) 06/04/2020 9:09 AM CDT Body Mass Index 43.9 06/04/2020 9:09 AM CDT documented in this encounter Discharge Instructions * Discharge Instructions* Cindi Devine RN - 06/06/2020 7:35 AM CDT .Instructions after EGD After an upper endoscopy you may have a minor sore throat. A throat lozenge or Tylenol will help torelieve any discomfort. DO NOT drink alcohol until tomorrow. DO NOT drive, operate machinery, make critical decisions until tomorrow. Limit activities that require coordination or balance for 24 hours. Resume your previous diet unless otherwise instructed. Resume your previous medications unless otherwise instructed. Notify your physician if you develop any of the following: ??? Severe pain ??? Fever of 101 degrees F ??? Redness or soreness at the IV site ??? Large amount of bleeding, passing large blood clots, or black tarry stools If tissue samples were taken during the procedure, you will notified by phone with the results. If you have not been notified within two weeks, please call the office. Please NEVER assume that your results are fine if you do not hear from me. It is always possible that results did not get relayed to my office or were somehow overlooked. Office documented in this encounter Medications at Time of Discharge Medication Sig Dispensed Refills Start Date End Date sertraline HCl (SERTRALINE ORAL) Take 100 mg by mouth daily. ALPRAZOLAM ORAL Take 0.5 mg by mouth 3 times daily as needed. zolpidem tartrate (ZOLPIDEM ORAL) Take 10 mg by mouth nightly as needed. SUMAtriptan (IMITREX) 100 mg tablet Take 100 mg by mouth see administration instructions. may repeat in 2 hours; max dose 200mg in 24 hours MESALAMINE ORAL Take 4.8 Grams by mouth daily. 4 - 1.2GRAM TABLETS DAILY 07/18/2020 cholecalciferol, vitamin D3, (VITAMIN D3 ORAL) Take 10,000 Units by mouth daily. 07/18/2020 multivitamin (DAILY-ALEX) tablet Take 1 Tablet by mouth daily. 07/18/2020 documented as of this encounter H&P Notes * Kendall Barahona MD - 06/06/2020 7:18 [place] [address] History and Physical Patient: Brissa Buckley : 1985 Date: 06/06/2020 HISTORY OF PRESENT ILLNESS: Patient is a 34 y.o. female scheduled for EGD for GERD. Past Medical History: Diagnosis Date ??? Anxiety ??? Borderline hypertension NO MEDICATION ??? Crohn disease ??? Depression ??? Migraines Past Surgical History: Procedure Laterality Date ??? PT DENIES RELEVANT SURGICAL HISTORY Medications Prior to Admission Medication Sig Dispense Refill Last Dose ??? MESALAMINE ORAL Take 4.8 Grams by mouth daily. 4 - 1.2GRAM TABLETS DAILY ??? sertraline HCl (SERTRALINE ORAL) Take 100 mg by mouth daily. 06/05/2020 at Unknown time ??? ALPRAZOLAM ORAL Take 0.5 mg by mouth 3 times daily as needed. Past Week at Unknown time ??? zolpidem tartrate (ZOLPIDEM ORAL) Take 10 mg by mouth nightly as needed. Past Week at Unknown time ??? cholecalciferol, vitamin D3, (VITAMIN D3 ORAL) Take 10,000 Units by mouth daily. 06/05/2020 at Unknown time ??? multivitamin (DAILY-ALEX) tablet Take 1 Tablet by mouth daily. 06/05/2020 at Unknown time ??? SUMAtriptan (IMITREX) 100 mg tablet Take 100 mg by mouth see administration instructions. may repeat in 2 hours; max dose 200mg in 24 hours 06/04/2020 No Known Allergies Social History Socioeconomic History ??? Marital status: [...] Tobacco Use ??? Smoking status: Former Smoker Packs/day: 1.00 Types: Cigarettes Quit date: 06/04/2010 Years since quittin.0 ??? Smokeless tobacco: Never Used Substance and Sexual Activity ??? Alcohol use: Yes Frequency: 2-4 times a month ??? Drug use: Never ??? Sexual activity: Not on file Lifestyle ??? Physical activity Days per week: Not on file Minutes per session: Not on file ??? Stress: Not on file Relationships ??? Social connections Talks on phone: Not on file Gets together: Not on file Attends tenriism service: Not on file Active member of [...] ??? Not on file Social History Narrative ??? Not on file Family History Problem Relation Name Age of Onset ??? Healthy Father ??? Healthy Mother ??? Cancer Brother ??? Heart Disease Brother REVIEW OF SYSTEMS: Constitutional: no weight loss, no malaise Respiratory: no shortness of breath, no chest pain Cardiovascular: no angina, no palpitation Gastrointestinal: positive for heartburn; no dysphagia, no abdominal pain Musculoskeletal: no muscle pain PHYSICAL EXAM: BP (!) 160/107 (BP Location: Left arm, Patient Position (BP): Sitting) Pulse 71 Temp 97.7 ??F (36.5 ??C) (Temporal) Resp 18 Ht 5' 2 (1.575 m) Wt 108.9 kg (240 lb) LMP 05/30/2020 SpO2 100% BMI 43.90 kg/m?? Head: Normal Lungs: Clear to auscultation bilaterally Airway: No apparent abnormalities Heart: Regular rate and rhythm Abdomen: soft, nontender, nondistended Neurologic: alert and oriented x 3 IMPRESSION: 1. Indications for procedure as noted in HPI. PLAN: I discussed in depth with the patient her current clinical situation. Risks of the procedure include but are not limited to sore throat, bleeding, perforation, and complications from anesthesia. She understands and wishes to proceed with the procedure. All of her questions were answered. Kendall Barahona MD documented in this encounter Procedure Notes * Kendall Barahona MD - 06/06/2020 2:01 PM CDTAssociated Order(s): UPPER ENDOSCOPY REPORT [facility] Endoscopy Patient Name: Brissa Buckley Procedure Date: 06/06/2020 Date of : 1985 Admit Type: Outpatient Attending MD: Kendall Barahona MD Procedure: Upper GI endoscopy Indications: Gastro-esophageal reflux disease Providers: Kendall Barahona MD Referring MD: Medicines: Monitored Anesthesia Care Complications: No immediate complications. Procedure: Informed consent was obtained for the procedure, including moderate sedation after risks were discussed. Based on the pre-procedure assessment, including review of the patient's medical history, medications, allergies, and review of systems, the patient was deemed to be an appropriate candidate for sedation. A timeout was performed. Continuous ECG monitoring, pulse oximetry, blood pressure monitoring, and direct observation were performed. The EGD (9500) was introduced through the mouth, and advanced to the second part of duodenum. The upper GI endoscopy was accomplished without difficulty. The patient tolerated the procedure well. Estimated Blood Loss: Estimated blood loss: none. Findings: The esophagus was normal. A small hiatal hernia was present. No gross lesions were noted in the entire examined stomach. Biopsies were taken with a cold forceps for Helicobacter pylori testing using CLOtest. The examined duodenum was normal. Impression: - Normal esophagus. - Small hiatal hernia. - No gross lesions in the stomach. Biopsied. - Normal examined duodenum. Recommendation: - Follow an antireflux regimen. - Repeat upper endoscopy PRN. Kendall Barahona MD 06/06/2020 8:48:27 AM Number of Addenda: 0 [address] [address], [place] [address] documented in this encounter Miscellaneous Notes * Care Plan - Cindi Devine RN - 06/06/2020 7:40 AM CDT Potential for pain related to surgical/procedural intervention Interventions: Assess level of pain/comfort utilizing verbal/nonverbal pain scales; assess culturalor tenriism indicators attached to pain; administer pain medications as prescribed; utilize non-pharmacologic pain control and comfort measures Expected Outcome: Patient demonstrates and reports adequate pain control Outcome Met: no complaints Patient discharged home with family or significant other per wheelchair. Discharge instructions explained and given to patient. All questions answered. Verbalized understanding instructions. * Care Plan - Nanci Sahu RN - 06/06/2020 5:59 AM CDT Knowledge deficit related to procedure/environment Interventions: Assess learning needs and willingness to learn; give clear, concise explanations of the environment and sequence of events surrounding the periop experience; address patient/family questions and concerns; provide teaching as indicated, provide teaching related to postoperative pain assessment utilizing pain scales Expected Outcome: Patient verbalizes or demonstrates awareness/understanding of surgery and perioperative experience Outcome Met: Discussed pre op protocols, questions answered, verbalized understanding. documented in this encounter Plan of Treatment Not on file documented as of this encounter Procedures Procedure Name Priority Date/Time Associated Diagnosis Comments UPPER ENDOSCOPY REPORT 06/06/2020 2:02 PM CDT HELICOBACTER PYLORI RAPID UREASE TEST Routine 06/06/2020 7:24 AM CDT Pre-procedural examination FL EGD TRANSORAL BIOPSY SINGLE/MULTIPLE 06/06/2020 7:19 AM CDT Pre-procedural examination Case Notes 05/28/2020 SCHEDULE COVID TESTING FOR 06/03/2020 AT 1020 [id number] NR 05/28/2020 POC , URINE Routine 06/06/2020 5:54 AM CDT documented in this encounter Results * UPPER ENDOSCOPY REPORT (06/06/2020 2:02 PM CDT) Narrative Procedure Note Kendall Barahona MD - 06/06/2020 2:01 PM CDT [facility] Endoscopy Patient Name: Brissa Buckley Procedure Date: 06/06/2020 Date of : 1985 Admit Type: Outpatient Attending MD: Kendall Barahona MD Procedure: Upper GI endoscopy Indications: Gastro-esophageal reflux disease Providers: Kendall Barahona MD Referring MD: Medicines: Monitored Anesthesia Care Complications: No immediate complications. Procedure: Informed consent was obtained for the procedure, including moderate sedation after risks were discussed. Based on the pre-procedure assessment, including review of the patient's medical history, medications, allergies, and review of systems, the patient was deemed to be an appropriate candidate for sedation. A timeout was performed. Continuous ECG monitoring, pulse oximetry, blood pressure monitoring, and direct observation were performed. The EGD (9500) was introduced through the mouth, and advanced to the second part of duodenum. The upper GI endoscopy was accomplished without difficulty. The patient tolerated the procedure well. Estimated Blood Loss: Estimated blood loss: none. Findings: The esophagus was normal. A small hiatal hernia was present. No gross lesions were noted in the entire examined stomach. Biopsies were taken with a cold forceps for Helicobacter pylori testing using CLOtest. The examined duodenum was normal. Impression: - Normal esophagus. - Small hiatal hernia. - No gross lesions in the stomach. Biopsied. - Normal examined duodenum. Recommendation: - Follow an antireflux regimen. - Repeat upper endoscopy PRN. Kendall Barahona MD 06/06/2020 8:48:27 AM Number of Addenda: [address] [address] Kendall Barahona MD GI PROCEDURE ORDERAB LES * HELICOBACTER PYLORI RAPID UREASE TEST (06/06/2020 7:24 AM CDT) H. PYLORI RAPID UREASE TEST Negative Negative 06/07/2020 10:33 AM CDT [facility] Tissue ENTIRE STOMACH / Unknown Collection / Unknown 06/06/2020 7:24 AM CDT 06/06/2020 10:23 AM CDT Kendall Barahona MD MICROBIOLOGY - GENER AL ORDERABLES [facility] CLIA# [id number] [address] [place] [address] * POC , URINE (06/06/2020 5:54 AM CDT) HCG QUAL URINE Negative Negative 06/06/2020 5:54 AM CDT [facility] [employer]ORED [employer]SPORT SERVICE MANAGER NAME POC Nanci Sahu 06/06/2020 5:54 AM CDT [facility] Urine 06/06/2020 5:54 AM CDT 06/06/2020 5:59 AM CDT Kendall Barahona MD POINT OF CARE TESTIN G [facility] CLIA # [id number] [place] [address] * 2019 NOVEL CORONAVIRUS (COVID-19) PCR DETECTION (06/03/2020 10:32 AM CDT) COVID-19 PCR NOT DETECTED NOT DETECTED 06/04/2020 8:12 PM CDT [facility] Comment: A Not Detected (negative) test result for this test means that SARS- CoV-2 RNA was not present in the specimen above the limit of detection. A negative result does not rule out the possibility of COVID-19 and should not be used as the sole basis for treatment or patient management decisions. ??If COVID-19 is still suspected, based on exposure history together with other clinical findings, re-testing should be considered in consultation with public health authorities. Laboratory test results should always be considered in the context of clinical observations and epidemiological data in making a final diagnosis and patient management decisions. Please review the Fact Sheets and FDA authorized labeling available for health care providers and patients using the following websites: https://www.[employer].Populis/home/Covid-19/HCP/NAAT/fact-sheet2 https://www.[employer].Populis/home/Covid-19/Patients/NAAT/ fact-sheet2 This test has been authorized by the FDA under an Emergency Use Authorization (EUA) for use by authorized laboratories. Due to the current public health emergency, [facility] is receiving a high volume of samples from a wide variety of swabs and media for COVID-19 testing. In order to serve patients during this public health crisis, samples from appropriate clinical sources are being tested. Negative test results derived from specimens received in non-commercially manufactured viral collection and transport media, or in media and sample collection kits not yet authorized by FDA for COVID-19 testing should be cautiously evaluated and the patient potentially subjected to extra precautions such as additional clinical monitoring, including collection of an additional specimen. Methodology: ??Nucleic Acid Amplification Test (NAAT) includes RT-PCR or TMA ?? Additional information about COVID-19 can be found at the [facility] website: www.[employer].Populis/Covid19. Upper Respiratory ANTERIOR NARES SWAB / Unknown Collection / Unknown 06/03/2020 10:32 AM CDT 06/03/2020 11:51 AM CDT Narrative [facility] - 06/04/2020 8:12 PM CDT Performing Organization Information: ?Site ID: [id number] ?Name: [facility] ?Address: [address] [address] ?Director: Steve Reddy D.O., MPH Kendall Barahona MD MICROBIOLOGY - GENER AL ORDERABLES [facility] [phone] documented in this encounter Visit Diagnoses Diagnosis Preop testing- Primary Preoperative examination, unspecified Pre-procedural examination Preoperative examination, unspecified Pre-procedural examination Preoperative examination, unspecified documented in this encounter Administered Medications Inactive Administered Medications - up to 3 most recent administrations Medication Order MAR Action Action Date Dose Rate Site lactated ringers infusion IV, at 125 mL/hr, PRE-PROCEDURE CONTINUOUS, Starting on Tue06/06/20 at 0600, Until Tue06/06/20 at 0958, Stat, Pre-op Continue from Pre-Op 06/06/2020 7:19 AM CDT New Bag 06/06/2020 6:14 AM CDT 125 mL/hr lidocaine PF 1% (XYLOCAINE MPF) injection 0.3 mL 0.3 mL, Intradermal, PRE-PROCEDURE ONCE, 1 dose, Starting on Tue06/06/20 at 0552, Until Tue06/06/20 at 0958, Stat, Pre-op documented in this encounter Active and Recently Administered Medications Times are shown in CDT. Scheduled Medication Order 06/04/2020 06/05/2020 06/06/2020 lidocaine PF 1% (XYLOCAINE MPF) injection 0.3 mL 0.3 mL, Intradermal, PRE-PROCEDURE ONCE, 1 dose, Starting on Tue06/06/20 at 0552, Until Tue06/06/20 at 0958, Stat, Pre-op Continuous Medication Order 06/04/2020 06/05/2020 06/06/2020 lactated ringers infusion IV, at 125 mL/hr, PRE-PROCEDURE CONTINUOUS, Starting on Tue06/06/20 at 0600, Until Tue06/06/20 at 0958, Stat, Pre-op 0614 (New Bag - Prov ider: Nanci Sahu RN)0719 (Continue from Pre-Op - Provider: Molly Grimm CRNA)0725 (Fluid Volume - Provider: Molly Grimm CRNA)0740 (Stopped - Provider: Cindi Devine RN) documented in this encounter Care Teams National Sales Director Relationship Specialty Start Date End Date Adiel Demarco MD [address] [place] [address] PCP - General Internal Medicine 06/05/20 documented as of this encounter
--- OUTSIDE RECORDS SUMMARY | 2024-09-05 02:15 | XMS_ITS | Encounter Summary ---
Author Organization [facility] Address [address] [place] [address] Care Team Providers Care Value Analyst Name Role Phone Unavailable Primary Care Provider Unavailabl e Encounter Details Date Type Department Care Team (Latest Contact Info) Description 06/03/2020 10:20 AM CDT - 06/03/2020 11:59 PM CDT Hospital Encounter [facility] Pre Procedure Viral Testing [address] [address] Discharge Disposition: Home or Self Care Social History Tobacco Use Types Packs/Day Years Used Date Smoking Tobacco: Never Assessed Sex and Gender Information Value Date Recorded Sex Assigned at Not on file Gender Identity Not on file Sexual Orientation Not on file documented as of this encounter Medications at Time of Discharge [...] daily. 4 - 1.2GRAM TABLETS DAILY 07/18/2020 SUMAtriptan (IMITREX) 50 mg tablet Take 50 mg by mouth every 2 hours as needed for Headaches. may repeat in 2 hours; max dose 200mg in 24 hours 0 cholecalciferol, vitamin D3, (VITAMIN D3 ORAL) Take 10,000 Units by mouth daily. 07/18/2020 multivitamin (DAILY-ALEX) tablet Take 1 Tablet by mouth daily. 07/18/2020 documented as of this encounter Plan of Treatment Not on file documented as of this encounter Procedures Procedure Name Priority Date/Time Associated Diagnosis Comments 2019 NOVEL CORONAVIRUS (COVID-19) PCR DETECTION Routine 06/03/2020 10:32 AM CDT Preop testing documented in this encounter Results * 2019 NOVEL CORONAVIRUS (COVID-19) PCR DETECTION (06/03/2020 10:32 AM CDT) COVID-19 PCR NOT DETECTED NOT DETECTED 06/04/2020 8:12 PM CDT [facility] Comment: A Not Detected (negative) test result [...] providers and patients using the following websites: https://www.[employer].com/home/Covid-19/HCP/NAAT/fact-sheet2 https://www.[employer].Konne[employer]s/home/Covid-19/Patients/NAAT/ fact-sheet2 This test has been authorized by the FDA under an Emergency Use Authorization (EUA) for use by authorized laboratories. Due to the current public health emergency, [facility] is receiving a high volume of samples [...] about COVID-19 can be found at the [facility] website: www.[employer].Konnects/Covid19. Upper Respiratory ANTERIOR NARES SWAB / Unknown Collection / Unknown 06/03/2020 10:32 AM CDT 06/03/2020 11:51 AM CDT Narrative [facility] - 06/04/2020 8:12 PM CDT Performing Organization Information: ?Site ID: [id number] ?Name: [facility] ?Address: [address] [place] [address] ?Director: Steve Reddy D.O., MPH Kendall Barahona MD MICROBIOLOGY - GENER AL ORDERABLES Performing Organization Address City/State/[facility] Co de Phone Number [facility] [phone] documented in this encounter Visit Diagnoses Diagnosis Preop testing Preoperative examination, unspecified documented in this encounter
--- OUTSIDE RECORDS SUMMARY | 2024-09-05 02:15 | XMS_ITS | Encounter Summary ---
Author Organization [facility] Address [address] [place] [address] Care Team Providers Care Student Services Advisor Name Role Phone Adiel Demarco MD Primary Care Provider [phone] Reason for Visit * Auth/Cert Specialty Diagnoses / Procedures Referred By Mar arroyo Referred To Contact Perioperative Diagnoses Morbid (severe) obesity due to excess calories Procedures CO LAP, TRACEY RESTRICT PROC, LONGITUDINAL GASTRECTOMY GASTRECTOMY LONGITUDINAL LAPAROSCOPIC, Q-PAIN PUMP, POSS HERNIA HIATAL REPAIR LAPAROSCOPIC [1794] [facility] Operating Room [address] [facility] [address] [place] [address] Referral ID Status Reason Start Date Expiration Date Visits Re quested Visits Authorized [id number] 1 1 Encounter Details Date Type Department Care Team (Late st Contact Info) Description 07/17/2020 10:25 AM SECURITY GUARD DISPATCHER Anesthesia Event [facility] Operating Room [address] [facility] [address] [place] [address] Bear Feliciano MD NO ADDRESS ON FILE Anesthesia Record Procedure Summary Procedure Name Responsible Anesthesiologist Anesthesia Start Time Anesthesia Stop Time GASTRECTOMY LONGITUDINAL LAPAROSCOPIC, INSERTION OF TUNNELED ABDOMINAL WALL CATHETERS[1794] (Abdomen) Bear Feliciano MD 07/17/20 1025 07/17/20 1135 Events Date Time Event Comment 07/17/2020 0857 AN Equip Check Anesthesia eq uipment and materials checked in accordance with local policy. 0858 1025 An Start 1025 An Start Data 1025 In Room This event disp lays the In Room time documented in the Surgical Log. Deleting this event will not remove it from the log but will remove it from the Grid and Graph timeline. 1027 Pre-Induction Immediate pre- induction anesthetic assessment performed. Vital signs as noted on graphic. 1028 An Induction 1029 An Intubation 1030 Anesthesia Ready 1043 Procedure Start This event d isplays the Procedure Start time documented in the Surgical Log. Deleting this event will not remove it from the log but will remove it from the Grid and Graph timeline. 1118 An Extubation Emergence unev entful Awake, spontaneous respirations. Adequate muscle strength demonstrated Adequate tidal volume. Orapharynx suctioned. Extubated with positive pressure ventilation. 1122 Procedure Stop This event di splays the Procedure Stop time documented in the Surgical Log. Deleting this event will not remove it from the log but will remove it from the Grid and Graph timeline. 1123 an stop data 1126 Out of Room This event disp lays the Out of Room time documented in the Surgical Log. Deleting this event will not remove it from the log but will remove it from the Grid and Graph timeline. 1135 An Stop Meds Name Total fentaNYL (SUBLIMAZE) PF 50??mcg/mL injec tion 200 mcg midazolam PF (VERSED) 1 mg/mL injection 2 mg lidocaine PF (XYLOCAINE MPF) 2% injectio n 5 mL propofol (DIPRIVAN) 10??mg/mL injection 200 mg propofol (DIPRIVAN) 10??mg/mL injection 671.96 mg rocuronium (ZEMURON) 10mg/mL injection 5 0 mg succinycholine (ANECTINE) 140 mg/7 mL iv syringe 130 mg ceFAZolin (ANCEF) 2,000 mg in dextrose ( iso-osmotic) 50 mL IVPB (PREMIX) 2,000 mg metroNIDAZOLE (FLAGYL) IVPB 500 mg 500 m g dexamethasone (DECADRON) 4 mg/mL injecti on 8 mg ondansetron (ZOFRAN) 4??mg/2 mL injectio n 4 mg acetaminophen (OFIRMEV) 100 mg/10 mL IV 1,000 mg lactated ringers infusion 0 mL * Agents Name O2 Inspired O2 N2O Inspired N2O * Blood No blood administrations on file. Lines, Drains, and Airways Type Details Placement Removal Pain Pump 07/17/20; 1050; No; On Q; [id number]; Abdomen; SENSORCAINE 0.5% 07/17/20 1050 by Isabell Patel RN Peripheral IV Pre-Hospital Start: No; Orientation: Left; Location: Hand; Device: Angiocath; Gauge: 20 gauge; Insertion Attempts: 1 (OG Hoover RN); Patient Tolerance: tolerated well; Removal Indication: no longer indicated; Removal Interventions: direct pressure, catheter intact 07/17/20 0828 by Lesley Pool RN 07/18/20 1300 by Annemarie Babcock RN Endotracheal Airway Type: ETT; Size: 7; Attempts: 1; Verification: Auscultated bilateral breath sounds, Equal chest movement, Continuous waveform capnography 07/17/20 1029 by Julian Hurley, AUTO WHEEL ALIGNMENT SPECIALIST 07/17/20 1122 by Julian Hurley, AUTO WHEEL ALIGNMENT SPECIALIST Wound 07/17/20; 1137; abdo men; surgical; 07/18/20; 1315 07/17/20 1137 by Cindi Devine RN 07/18/20 1315 by Annemarie Babcock RN documented in this encounter Social History Tobacco [...] have Coronavirus / COVID-19? No / Unsure 07/17/2020 7:49 AM SECURITY GUARD DISPATCHER documented as of this encounter OR Notes * Anesthesia Postprocedure Evaluation - Bear Feliciano MD - 07/17/2020 11:43 AM CST Post Anesthesia Evaluation Vitals: Vitals Value Taken Time BP 147/105 07/17/20 1138 Temp 36.2 ??C 07/17/20 1127 Resp 46 07/17/20 1141 SpO2 95 % 07/17/20 1141 Pulse 91 07/17/20 1141 Heart Rate 91 bpm 07/17/20 1141 Vitals shown include unvalidated device data. Pain Rating: Anesthesia Post Evaluation Patient location during evaluation: PACU Patient participation: patient was able to participate in the post op evaluation Level of consciousness: 0 = alert, responsive, answers simple questions appropriately, able to perform simple tasks Pain management: adequate Airway patency: patent Two or more strategies used to mitigate risk of obstructive sleep apnea Nausea or Vomiting: none Anesthetic complications: no Cardiovascular status: regular rate and rhythm Respiratory status: no respiratory symptoms Hydration status: well hydrated Bear Feliciano MD RITY GUARD DISPATCHER * Anesthesia Handoff - Julian Hurley CRNA - 07/17/2020 11:35 AM SECURITY GUARD DISPATCHER Post-Anesthetic transfer of care report elements to appropriate post-anesthesia recovery environment completed in accordance with procedure. I completed my handoff to the receiving nurse during which we: 1. Identified the patient 2. Identified the responsible provider 3. Reviewed the pertinent medical history 4. Discussed the surgical course 5. Reviewed intra-op anesthesia management and issues during anesthesia 6. Set expectations for post-procedure period 7. Orders as necessary and appropriate for continuation of care are present in Epic. 8. Allowed opportunity for questions and acknowledgement of understanding. Vital Signs: BP: (!) 133/97 (07/17/2020 11:27 AM) Pulse: 90 (07/17/2020 11:27 AM) Temp: 36.2 ??C (07/17/2020 11:27 AM) Resp: 20 (07/17/2020 11:27 AM) SpO2: 100 % (07/17/2020 11:27 AM) 11:35 AM Julian Hurley CRNA RITY GUARD DISPATCHER * Anesthesia Procedure Notes - Julian Hurley CRNA - 07/17/2020 10:33 AM SECURITY GUARD DISPATCHER Associated Order(s): Airway Airway Date/Time: 07/17/2020 10:29 AM Location: OR Plan: routine intubation Patient Identity Confirmed by: Verbally with patient and armband Airway: not difficult Performed by: AUTO WHEEL ALIGNMENT SPECIALIST: Julian Hurley CRNA Indications and Patient Condition: Indications for Airway Management: Anesthesia Preoxygenated: Yes Mask Difficulty Assessment: 1 - vent by mask Plan to extubate at end of case: Yes Final Airway Details: Final Airway Type: Endotracheal airway Final Endotracheal Airway: ETT Cuffed: Yes Technique Used for Successful ETT Placement: Direct laryngoscopy Devices/Methods Used in Placement: Curved blade Insertion Site: Oral Laryngoscope Blade/Videolaryngoscope Blade Size: 3 ETT Size (mm): 7.0 Measured from: Teeth Tube secured with: Tape Placement Verified by: auscultation, end tidal CO2 and chest rise Cormack-Lehane Classification: Grade I - full view of glottis Number of Attempts at Approach: 1 RITY GUARD DISPATCHER * Anesthesia Preprocedure Evaluation - Bear Feliciano MD - 07/17/2020 8:53 AM CST Relevant Problems No relevant active problems Anesthesia Evaluation Airway Mallampati: II TM distance: >3 FB Neck ROM: full Dental (+) natural Pulmonary - negative ROS breath sounds clear to auscultation Cardiovascular Exercise tolerance: good Rhythm: regular Rate: normal Neuro/Psych - negative ROS (+) headaches (migranes once a month), GI/Hepatic/Renal (+) GERD well controlled, Endo/Other - negative ROS Abdominal (+) obese, Abdomen: soft. Bowel sounds: normal. Anesthesia History Anesthesia Plan ASA Final: 2 General Intravenous induction Oral ETT airway maintenance NPO status > 8 hours Anesthetic plan and risks discussed with Patient and Spouse. Plan for postoperative opioid use Smoking Compliance Patient did not smoke on day of surgery RITY GUARD DISPATCHER documented in this encounter Plan of Treatment Not on file documented as of this encounter Procedures Procedure Name Priority Date/Time Associated Diagnosis Comments CO ANES INSERT ENDOTRACHEAL AIRWAY Routine 07/17/2020 10:33 AM SECURITY GUARD DISPATCHER documented in this encounter Results * CO ANES INSERT ENDOTRACHEAL AIRWAY (07/17/2020 10:33 AM SECURITY GUARD DISPATCHER) Narrative Julian Hurley CRNA - 07/17/2020 10:33 AM SECURITY GUARD DISPATCHER Julian Hurley CRNA ? 07/17/2020 10:33 AM Airway Date/Time: 07/17/2020 10:29 AM Location: OR Plan: routine intubation Patient Identity Confirmed by: ??Verbally with patient and armband Airway: not difficult Performed by: AUTO WHEEL ALIGNMENT SPECIALIST: ??Julian Hurley CRNA Indications and Patient Condition: ??Indications for Airway Management: ??Anesthesia ??Preoxygenated: Yes ?Mask Difficulty Assessment: ??1 - vent by mask ??Plan to extubate at end of case: Yes ?? Final Airway Details: ??Final Airway Type: ??Endotracheal airway ??Final Endotracheal Airway: ??ETT ??Cuffed: Yes ?Technique Used for Successful ETT Placement: ??Direct laryngoscopy ??Devices/Methods Used in Placement: ??Curved blade ??Insertion Site: ??Oral ??Laryngoscope Blade/Videolaryngoscope Blade Size: ??3 ??ETT Size (mm): ??7.0 ??Measured from: ??Teeth ??Tube secured with: ??Tape ??Placement Verified by: auscultation, end tidal CO2 and chest rise ?Cormack-Lehane Classification: ??Grade I - full view of glottis ??Number of Attempts at Approach: ??1 Bear Feliciano MD PROCEDURE/MINOR SURG ICAL ORDERABLES documented in this encounter Visit Diagnoses Not on filedocumented in this encounter Administered Medications Inactive Administered Medications - up to 3 most recent administrations Medication Order MAR Action Action Date Dose Rate Site acetaminophen (OFIRMEV) 10 mg/ml injection INTRA-PROCEDURE PRN, Starting on Gabbie 07/17/20 at 1040, Until Gabbie 07/17/20 at 1135, Routine, Anesthesia Intra-op Given 07/17/2020 10:40 AM SECURITY GUARD DISPATCHER 1,000 mg ceFAZolin (ANCEF) 2,000 mg in dextrose (iso-osmotic) 50 mL IVPB (PREMIX) 2,000 mg, IV, PRE-PROCEDURE ONCE, 1 dose, Starting on Gabbie 07/17/20 at 0811, Until Gabbie 07/17/20 at 1025, Stat, Pre-op, Antibiotic Indication: Surgical prophylaxis Given 07/17/2020 10:25 AM SECURITY GUARD DISPATCHER 2,000 mg dexamethasone (DECADRON) injection INTRA-PROCEDURE PRN, Starting on Gabbie 07/17/20 at 1035, Until Gabbie 07/17/20 at 1135, Routine, Anesthesia Intra-op Given 07/17/2020 10:35 AM SECURITY GUARD DISPATCHER 8 mg fentaNYL PF (SUBLIMAZE) 50 mcg/mL injection INTRA-PROCEDURE PRN, Starting on Gabbie 07/17/20 at 1025, Until Gabbie 07/17/20 at 1135, Routine, Anesthesia Intra-op Given 07/17/2020 11:22 AM SECURITY GUARD DISPATCHER 50 mcg Given 07/17/2020 11:17 AM SECURITY GUARD DISPATCHER 50 mcg Given 07/17/2020 10:25 AM SECURITY GUARD DISPATCHER 100 mcg lidocaine PF 2% (XYLOCAINE MPF) injection INTRA-PROCEDURE PRN, Starting on Gabbie 07/17/20 at 1028, Until Gabbie 07/17/20 at 1135, Routine, Anesthesia Intra-op Given 07/17/2020 10:28 AM SECURITY GUARD DISPATCHER 5 mL metroNIDAZOLE (FLAGYL) IVPB 500 mg 500 mg, IV, ONE TIME ONLY, 1 dose, On Gabbie 07/17/20 at 0815, Stat, Pre-op, Antibiotic Indication: Surgical prophylaxis Given 07/17/2020 10:32 AM SECURITY GUARD DISPATCHER 500 mg midazolam (PF) (VERSED) injection INTRA-PROCEDURE PRN, Starting on Gabbie 07/17/20 at 1025, Until Gabbie 07/17/20 at 1135, Routine, Anesthesia Intra-op Given 07/17/2020 10:25 AM SECURITY GUARD DISPATCHER 2 mg ondansetron (ZOFRAN) 4 mg/2 mL injection INTRA-PROCEDURE PRN, Starting on Gabbie 07/17/20 at 1035, Until Gabbie 07/17/20 at 1135, Routine, Anesthesia Intra-op Given 07/17/2020 10:35 AM SECURITY GUARD DISPATCHER 4 mg propofoL (DIPRIVAN) injection INTRA-PROCEDURE PRN, Starting on Gabbie 07/17/20 at 1028, Until Gabbie 07/17/20 at 1135, Anesthesia Intra-op Given 07/17/2020 10:44 AM SECURITY GUARD DISPATCHER 40 mg Given 07/17/2020 10:28 AM SECURITY GUARD DISPATCHER 160 mg propofoL (DIPRIVAN) injection INTRA-PROCEDURE CONTINUOUS PRN, Starting on Gabbie 07/17/20 at 1028, Until Gabbie 07/17/20 at 1135, Anesthesia Intra-op Rate Change 07/17/2020 11:14 AM SECURITY GUARD DISPATCHER 75 mcg/kg/min 48.15 mL/hr Rate Change 07/17/2020 11:08 AM SECURITY GUARD DISPATCHER 100 mcg/kg/min 64.2 mL /hr Rate Change 07/17/2020 10:58 AM SECURITY GUARD DISPATCHER 150 mcg/kg/min 96.3 mL /hr rocuronium injection INTRA-PROCEDURE PRN, Starting on Gabbie 07/17/20 at 1028, Until Gabbie 07/17/20 at 1135, Routine, Anesthesia Intra-op Given 07/17/2020 10:54 AM SECURITY GUARD DISPATCHER 5 mg Given 07/17/2020 10:39 AM SECURITY GUARD DISPATCHER 40 mg Given 07/17/2020 10:28 AM SECURITY GUARD DISPATCHER 5 mg succinylcholine Chloride (ANECTINE) 140 mg/7 mL (20 mg/mL) injection INTRA-PROCEDURE PRN, Starting on Gabbie 07/17/20 at 1028, Until Gabbie 07/17/20 at 1135, Routine, Anesthesia Intra-op Given 07/17/2020 10:28 AM SECURITY GUARD DISPATCHER 130 mg documented in this encounter Care Teams Student Services Advisor Relationship Specialty Start Date End Date Adiel Demarco MD [address] [place] [address] PCP - General Internal Medicine 06/05/20 documented as of this encounter
--- OUTSIDE RECORDS SUMMARY | 2024-09-05 02:15 | XMS_ITS | Encounter Summary ---
Author Organization [facility] Address [address] [place] [address] Care Team Providers Care Accounting Administrator Name Role Phone Adiel Demarco MD Primary Care Provider [phone] Encounter Details Date Type Department Care Team (Latest Contact Info) Description 07/14/2020 10:53 AM SHREDDING MACHINE TENDER - 07/14/2020 11:59 PM SHREDDING MACHINE TENDER Hospital Encounter Marisol Pre Procedure Viral Testing [address] [address] Discharge Disposition: Home or Self [...] have Coronavirus / COVID-19? No / Unsure 07/14/2020 9:53 AM SHREDDING MACHINE TENDER documented as of this encounter Medications at Time of Discharge Medication Sig Dispensed Refills Start Date End Date mesalamine (LIALDA) 1.2 gram Tablet, Delayed Release (E.C.) Take 4 Tablets (4.8 Grams) by mouth daily. 4 - 1.2GRAM TABLETS DAILY 1 Tablet 07/25/2020 ondansetron (Zofran ODT) 4 mg Tablet, Rapid Dissolve Place 1 Tablet (4 mg) under tongue every 6 hours as needed for Nausea. 28 Tablet 07/17/2020 sertraline HCl (SERTRALINE ORAL) Take 100 mg by mouth daily. ALPRAZOLAM ORAL Take 0.5 mg by mouth 3 times daily as needed. zolpidem tartrate (ZOLPIDEM ORAL) Take 10 mg by mouth nightly as needed. SUMAtriptan (IMITREX) 100 mg tablet Take 100 mg by mouth see administration instructions. may repeat in 2 hours; max dose 200mg in 24 hours HYDROcodone-acetamin ophen (HYCET) 7.5-325 mg/15 mL SolutionIndications: Preop testing Take 15 mL by mouth every 6 hours as needed for Pain, Severe. Max Daily Amount: 60 mL 300 mL 07/17/2020 07/23/2020 MESALAMINE ORAL Take 4.8 Grams by mouth [...] 2019 NOVEL CORONAVIRUS (COVID-19) PCR DETECTION Routine 07/14/2020 10:53 AM SHREDDING MACHINE TENDER Preop testing documented in this encounter Results * 2019 NOVEL CORONAVIRUS (COVID-19) PCR DETECTION (07/14/2020 10:53 AM SHREDDING MACHINE TENDER) COVID-19 PCR NOT DETECTED NOT DETECTED 07/15/2020 5:47 PM SHREDDING MACHINE TENDER [facility] Comment: A Not Detected (negative) test result [...] a final diagnosis and patient management decisions. ?? Please review the Fact Sheets and FDA authorized labeling available for health care providers and patients using the following websites: https://www.[employer]/home/Covid-19/HCP/[facility]/fact- sheet.html https://www.[employer]/home/Covid-19/Patients/ [facility]/fact-sheet.html This test has been authorized by the FDA under an Emergency Use Authorization (EUA) for use by authorized laboratories. Due to the current public health emergency, [facility] is receiving a high volume of samples [...] about COVID-19 can be found at the [facility] website: www.[employer]/Covid19. Upper Respiratory ANTERIOR NARES SWAB / Unknown Collection / Unknown 07/14/2020 10:53 AM SHREDDING MACHINE TENDER 07/14/2020 11:44 AM SHREDDING MACHINE TENDER Narrative [facility] - 07/15/2020 5:47 PM SHREDDING MACHINE TENDER Performing Organization Information: ?Site ID: [id number] ?Name: [facility] ?Address: [address] [place] [id number] ?Director: Steve Reddy D.O., MPH Kendall Barahona MD MICROBIOLOGY - GENER AL ORDERABLES [facility] [phone] documented in this encounter Visit Diagnoses Diagnosis Preop testing Preoperative examination, unspecified documented in this encounter Care Teams Accounting Administrator Relationship Specialty Start Date End Date Adiel Demarco MD [address] [place] [address] PCP - General Internal Medicine 06/05/20 documented as of this encounter
--- OUTSIDE RECORDS SUMMARY | 2024-09-05 02:15 | XMS_ITS | Encounter Summary ---
Author Organization [facility] Address [address] [facility] Attn: Epic Prelude ADT TOMEKA TIWARI [address] Care Team Providers Care Stationary Equipment Mechanic Name Role Phone Adiel Demarco MD Primary Care Provider [phone] Encounter Details Date Type Department Care Team (Latest Contact Info) Description 07/17/2020 Travel Social History Tobacco Use Types Packs/Day Years [...] COVID-19? No / Unsure 07/17/2020 7:49 AM RV REPAIRER documented as of this encounter Plan of Treatment Not on file documented as of this encounter Visit Diagnoses Not on filedocumented in this encounter Care Teams Stationary Equipment Mechanic Relationship Specialty Start Date End Date Adiel Demarco MD [address] [place] [address] PCP - General Internal Medicine 06/05/20 documented as of this encounter
--- OUTSIDE RECORDS SUMMARY | 2024-09-05 02:15 | XMS_ITS | Encounter Summary ---
[facility] Address [address] [place] [address] Care Team Providers Care Vice President Supply Chain Name Role Phone Adiel Demarco MD Primary Care Provider [phone] Reason for Visit * Auth/Cert Specialty Diagnoses / Procedures Referred By Mar arroyo Referred To Contact Cardiology [facility] [address] [place] [phone] Referral ID Status Reason Start Date Expiration Date Visits Re quested Visits Authorized [id number] 1 1 Encounter Details Date Type Department Care Team (Latest Contact Info) Description 07/14/2020 9:55 AM VICE PRESIDENT TALENT MANAGEMENT - 07/14/2020 11:59 PM VICE PRESIDENT TALENT MANAGEMENT Hospital Encounter [facility] Outpatient Laboratory Services [address] [address] Kendall Barahona MD [address] [place] [address] Discharge Disposition: Home or Self Care Social [...] COVID-19? No / Unsure 07/14/2020 9:53 AM VICE PRESIDENT TALENT MANAGEMENT documented as of this encounter Medications at [...] Procedure Name Priority Date/Time Associated Diagnosis Comments CBC WITH DIFFERENTIAL Routine 07/14/2020 10:25 AM VICE PRESIDENT TALENT MANAGEMENT Morbid obesity COMPREHENSIVE METABOLIC PANEL Routine 07/14/2020 10:25 AM VICE PRESIDENT TALENT MANAGEMENT Morbid obesity documented in this encounter Results * COMPREHENSIVE METABOLIC PANEL (07/14/2020 10:25 AM VICE PRESIDENT TALENT MANAGEMENT) SODIUM 137 136 - 145 mmol/L 07/14/2020 10:51 AM [facility] [place] POTASSIUM 3.9 3.5 - 5.1 mmol/L 07/14/2020 10:51 AM [facility] [place] CHLORIDE 102 98 - 107 mmol/L 07/14/2020 10:51 AM [facility] [place] CO2 25 22 - 29 mmol/L 07/14/2020 10:51 AM [facility] [place] CALCIUM 9.3 8.6 - 10.0 mg/dL 07/14/2020 10:51 AM [facility] [place] BUN 7 6 - 20 mg/dL 07/14/2020 10:51 AM [facility] [place] CREATININE 0.64 0.51 - 0.95 mg/dL 07/14/2020 10:51 AM [facility] [place] GLUCOSE 92 74 - 99 mg/dL 07/14/2020 10:51 AM [facility] [place] TOTAL PROTEIN 6.7 6.6 - 8.7 g/dL 07/14/2020 10:51 AM [facility] [place] ALBUMIN 4.4 4.0 - 5.0 g/dL 07/14/2020 10:51 AM [facility] [place] BILIRUBIN TOTAL 0.2 <=1.2 mg/dL 07/14/2020 10:51 AM [facility] [place] ALKALINE PHOSPHATASE 76 35 - 104 U/L 07/14/2020 10:51 AM [facility] [place] AST 17 <40 U/L 07/14/2020 10:51 AM [facility] [place] ALT 22 <=33 U/L 07/14/2020 10:51 AM [facility] [place] GFR >60 >=60 mL/min/1.7 3 sq meter 07/14/2020 10:51 AM [facility] [place] Comment: eGFR has not been validated for use in the elderly (> 70 years of age), women, patients with serious co-morbid conditions, or persons with extremes of body size or muscle mass and should also be interpreted with caution in patients with acute kidney failure, dialysis dependent patients, patients reporting exceptional dietary intake (e.g. vegetarian diet, high protein diets, creatine supplementation), and patients with severe liver disease. Based on National Kidney Disease Education Program If patient is , please refer to the GFR result. GFR, >60 >=60 mL/min/1.7 3 sq meter 07/14/2020 10:51 AM [facility] [place] ANION GAP 10 5 - 15 mmol/L 07/14/2020 10:51 AM [facility] [place] Blood Venipuncture / Unknown 07/14/2020 10:25 AM VICE PRESIDENT TALENT MANAGEMENT 07/14/2020 10:25 AM VICE PRESIDENT TALENT MANAGEMENT Kendall Barahona MD CHEMISTRY ORDERABLES [facility] [place] CLIA # [id number] [address] [place] [address] * CBC WITH DIFFERENTIAL (07/14/2020 10:25 AM VICE PRESIDENT TALENT MANAGEMENT) WBC 8.7 4.0 - 11.0 K/uL 07/14/2020 10:30 AM [facility] [place] RBC 4.42 4.20 - 5.40 M/uL 07/14/2020 10:30 AM [facility] [place] HEMOGLOBIN 13.0 11.9 - 15.1 g/dL 07/14/2020 10:30 AM [facility] [place] HEMATOCRIT 38.9 38.0 - 47.0 % 07/14/2020 10:30 AM [facility] [place] MCV 88.0 80.0 - 98.0 fL 07/14/2020 10:30 AM [facility] [place] MCH 29.4 26.0 - 34.0 pg 07/14/2020 10:30 AM [facility] [place] MCHC 33.4 31.0 - 37.0 g/dL 07/14/2020 10:30 AM [facility] [place] RDW 12.3 11.5 - 14.5 % 07/14/2020 10:30 AM [facility] [place] RDW-STDEV 39.4 34.0 - 54.0 fL 07/14/2020 10:30 AM [facility] [place] PLATELETS 318 150 - 400 K/uL 07/14/2020 10:30 AM VICE PRESIDENT TALENT MANAGEMENT [facility] [place] MPV 9.6 8.5 - 12.5 fL 07/14/2020 10:30 AM [facility] [place] NEUTROPHILS 70 50 - 70 % 07/14/2020 10:30 AM VICE PRESIDENT TALENT MANAGEMENT [facility] [place] LYMPHOCYTES 20 20 - 40 % 07/14/2020 10:30 AM VICE PRESIDENT TALENT MANAGEMENT [facility] [place] MONOCYTES 7 2 - 8 % 07/14/2020 10:30 AM VICE PRESIDENT TALENT MANAGEMENT [facility] [place] EOSINOPHILS 2 1 - 3 % 07/14/2020 10:30 AM VICE PRESIDENT TALENT MANAGEMENT [facility] [place] BASOPHILS 1 0 - 1 % 07/14/2020 10:30 AM VICE PRESIDENT TALENT MANAGEMENT [facility] [place] IMMATURE GRANULOCYTES 0 0 - 2 % 07/14/2020 10:30 AM VICE PRESIDENT TALENT MANAGEMENT [facility] [place] NEUTROPHIL ABSOLUTE 6.01 1.80 - 7.70 K/uL 07/14/2020 10:30 AM VICE PRESIDENT TALENT MANAGEMENT [facility] [place] LYMPHOCYTE ABSOLUTE 1.76 1.00 - 3.30 K/uL 07/14/2020 10:30 AM VICE PRESIDENT TALENT MANAGEMENT [facility] [place] MONOCYTE ABSOLUTE 0.63 0.00 - 0.80 K/uL 07/14/2020 10:30 AM VICE PRESIDENT TALENT MANAGEMENT [facility] [place] EOSINOPHIL ABSOLUTE 0.17 0.00 - 0.45 K/uL 07/14/2020 10:30 AM VICE PRESIDENT TALENT MANAGEMENT [facility] [place] BASOPHILS ABSOLUTE 0.06 0.00 - 0.20 K/uL 07/14/2020 10:30 AM VICE PRESIDENT TALENT MANAGEMENT [facility] [place] IMMATURE GRANULOCYTES ABSOLUTE 0.02 0.00 - 0.31 K/uL 07/14/2020 10:30 AM VICE PRESIDENT TALENT MANAGEMENT [facility] [place] Blood Venipuncture / Unknown 07/14/2020 10:25 AM VICE PRESIDENT TALENT MANAGEMENT 07/14/2020 10:25 AM VICE PRESIDENT TALENT MANAGEMENT Kendall Barahona MD HEMATOLOGY ORDERABLE S [facility] [place] CLIA # [id number] [address] [place] [address] documented in this encounter Visit Diagnoses Diagnosis Morbid obesity- Primary documented in this encounter Care Teams Vice President Supply Chain Relationship Specialty Start Date End Date Adiel Demarco MD [address] [place] [address] PCP - General Internal Medicine 06/05/20 documented as of this encounter
--- OUTSIDE RECORDS SUMMARY | 2024-09-05 02:15 | XMS_ITS | Encounter Summary ---
Author Organization [facility] Address [address] [facility] Attn: Epic Prelude ADT TOMEKA TIWARI [address] Care Team Providers Care Charter Driver Name Role Phone Adiel Demarco MD Primary Care Provider [phone] Encounter Details Date Type Department Care Team (Latest Contact Info) Description 06/05/2020 Travel Social History Tobacco Use Types Packs/Day [...] have Coronavirus / COVID-19? No / Unsure 06/05/2020 11:14 AM CDT documented as of this encounter Plan of Treatment Not on file documented as of this encounter Visit Diagnoses Not on filedocumented in this encounter Care Teams Charter Driver Relationship Specialty Start Date End Date Adiel Demarco MD [address] [place] [address] PCP - General Internal Medicine 06/05/20 documented as of this encounter
--- OUTSIDE RECORDS SUMMARY | 2024-09-05 02:15 | XMS_ITS | Encounter Summary ---
Author Organization [facility] Address [address] [place] [address] Care Team Providers Care Cat Wagon Operator Name Role Phone Adiel Demarco MD Primary Care Provider [phone] Reason for Visit * Auth/Cert Specialty Diagnoses / Procedures Referred By Mar arroyo Referred To Contact Cardiology [facility] [address] [place] [phone] Referral ID Status Reason Start Date Expiration Date Visits Re quested Visits Authorized [id number] 1 1 Encounter Details Date Type Department Care Team (Latest Contact Info) Description 07/14/2020 9:58 AM REFINERY PIPELINE OPERATOR - 07/14/2020 11:59 PM REFINERY PIPELINE OPERATOR Hospital Encounter [facility] Diagnostic [facility] Neuro Services [address] [address] Marquis Barahona MD [address] [place] [address] Discharge Disposition: Home or Self Care [...] COVID-19? No / Unsure 07/14/2020 9:53 AM REFINERY PIPELINE OPERATOR documented as of this encounter Medications at [...] Procedure Name Priority Date/Time Associated Diagnosis Comments EKG 12-LEAD Routine 07/14/2020 10:16 AM REFINERY PIPELINE OPERATOR documented in this encounter Results * EKG 12-LEAD (07/14/2020 10:16 AM REFINERY PIPELINE OPERATOR) 07/14/2020 10:1 6 AM REFINERY PIPELINE OPERATOR Narrative INTERFACE SYSTEM - 07/14/2020 2:47 PM REFINERY PIPELINE OPERATOR ? Stationary ECG Study ?[place] ? Test Date: ?07/14/2020 10:16 AM Pat Name: ? BRISSA MONGE ? Department: ?? 1 ?Room: ? Gender: ? F ?Dusting And Brushing Machine Operator: ?? ZZ : ?1985 ? Requested By: MARQUIS SNOW M Order Number: [id number] ?Reading MD: ?? Souheil Khoukaz ? Measurements Intervals ?[place] ? Rate: ? 70 ? P: ?37 MN: ? 180 ?QRS: ?18 QRSD: ? 89 ? T: ?10 QT: ? 385 ? QTc: ?418 ? Interpretive Statements ? SINUS RHYTHM WITH SINUS ARRHYTHMIA Electronically Signed On 07-14-2020 14:47:56 REFINERY PIPELINE OPERATOR by Dionne Radford Procedure Note Dionne Radford MD - 07/14/2020 Stationary ECG Study [place] Test Date: 07/14/2020 10:16 AM Pat Name: BRISSA MONGE Department: 1 Room: Gender: F Dusting And Brushing Machine Operator: ISHA : 1985 Requested By: MARQUIS Dowell Order Number: [id number] Anabella MD: Dionne Radford Measurements Intervals [place] Rate: 70 P: 37 MN: 180 QRS: 18 QRSD: 89 T: 10 QT: 385 QTc: 418 Interpretive Statements SINUS RHYTHM WITH SINUS ARRHYTHMIA Electronically Signed On 07-14-2020 14:47:56 REFINERY PIPELINE OPERATOR by Dionne Radford Marquis Barahona MD ECG ORDERABLES INTERFACE SYSTEM Refer to clinic/hospital department documented in this encounter Visit Diagnoses Not on filedocumented in this encounter Care Teams Cat Wagon Operator Relationship Specialty Start Date End Date Adiel Demarco MD [address] [place] [address] PCP - General Internal Medicine 06/05/20 documented as of this encounter
--- OUTSIDE RECORDS SUMMARY | 2024-09-05 02:15 | XMS_ITS | Encounter Summary ---
Author Organization [facility] Address [address] [facility] Attn: Epic Prelude ADT TOMEKA TIWARI [address] Care Team Providers Care Film Flat Inspector Name Role Phone Adiel Demarco MD Primary Care Provider [phone] Encounter Details Date Type Department Care Team (Latest Contact Info) Description 06/06/2020 Travel Social History Tobacco Use Types Packs/Day [...] on filedocumented in this encounter Care Teams Film Flat Inspector Relationship Specialty Start Date End Date Adiel Demarco MD [address] [place] [address] PCP - General Internal Medicine 06/05/20 documented as of this encounter
--- OUTSIDE RECORDS SUMMARY | 2024-09-05 02:15 | XMS_ITS | Encounter Summary ---
Author Organization [facility] Address [address] [place] [address] Care Team Providers Care Baggage Screener Name Role Phone Adiel Demarco MD Primary Care Provider [phone] Reason for Visit * Auth/Cert Specialty Diagnoses / Procedures Referred By Mar arroyo Referred To Contact Perioperative Diagnoses Morbid (severe) obesity due to excess calories Procedures LA LAP, TRACEY RESTRICT PROC, LONGITUDINAL GASTRECTOMY GASTRECTOMY LONGITUDINAL LAPAROSCOPIC, Q-PAIN PUMP, POSS HERNIA HIATAL REPAIR LAPAROSCOPIC [1794] [facility] [address] [address] [place] [address] Referral ID Status Reason Start Date Expiration Date Visits Re quested Visits Authorized [id number] 1 1 Encounter Details Date Type Department Care Team (Latest Contact Info) Description 07/17/2020 7:50 AM PIGEON FANCIER - 07/18/2020 1:15 PM PIGEON FANCIER Hospital Encounter [facility] Surgical [address] [place] [address] Kendall Barahona MD [address] [place], [place] [id number] [place] [address] General medical exam Discharge Disposition: Home or Self Care Social [...] COVID-19? No / Unsure 07/17/2020 7:49 AM PIGEON FANCIER documented as of this encounter Last Filed Vital Signs Vital Sign Reading Time Taken Comments Blood Pressure 151/96 07/18/2020 12:26 PM PIGEON FANCIER Pulse 78 07/18/2020 12:26 PM PIGEON FANCIER Temperature 36.9 ??C (98.4 ??F) 07/18/2020 1 2:26 PM PIGEON FANCIER Respiratory Rate 16 07/18/2020 12:2 6 PM PIGEON FANCIER Oxygen Saturation 100% 07/18/2020 12: 26 PM PIGEON FANCIER Inhaled Oxygen Concentration - - Weight 107.1 kg (236 lb 3.2 oz) 07/18/2020 4:45 AM PIGEON FANCIER Height 157.5 cm (5' 2 ) 07/17/2020 12:1 0 PM PIGEON FANCIER Body Mass Index 43.2 07/17/2020 12:10 PM PIGEON FANCIER documented in this encounter Discharge Summaries * Pinky Spencer FNP - 07/18/2020 9:00 AM CST [address] [address] Brissa Buckley 34 y.o. female 1985 CSN: [id number] Date of Admission: 07/17/2020 Date of Discharge: 07/18/2020 Discharging Physician: Dr Lara Dictating Physician: ESA Smith and Dr Lara LOS: 1 day PCP: Adiel Demarco MD Activity: Per Dr. Barahona Dispo: home Diet: DIET BARIATRIC Additional restrictions: No Soda,, No Sugar,; Food Texture: Clear Liquid, Code Status at Discharge: Full Code Wound Care: Per Dr Barahona Chief Complaint: Morbid Obesity Body mass index is 43.2 kg/m??. Rationale for admission: Status post Laparoscopic vertical sleeve gastrectomy and placement of tunneled abdominal wall catheter x2 secondary to morbid obesity by Hospitalist group was consulted for ongoing medical issues: Hypertension, depression/anxiety, history of Crohn's disease, GERD, and general medical exam. Brief History: Patient is 34 y.o. female patient who is Status post Laparoscopic vertical sleeve gastrectomy and placement of tunneled abdominal wall catheter x2 secondary to morbid obesity by Dr Barahona. Hospitalist group was consulted for ongoing medical issues: Hypertension, GERD, history of Crohn's disease, depression/anxiety, and general medical exam. Discussed with Dr. Barahona patient may restarther Mealamine in 1 week. ?? Admitting Dx: Morbid Obesity Discharge Diagnoses: Active Problems: General medical exam History of Crohn's disease Benign hypertension Depression Discharge medications and new prescriptions: Medication List START taking these medications HYDROcodone-acetaminophen 7.5-325 mg/15 mL Solution Commonly known as: HYCET Take 15 mL by mouth every 6 hours as needed for Pain, Severe. Max Daily Amount: 60 mL Signed by: Kendall Barahona MD Quantity: 300 mL Refills: 0 ondansetron 4 mg Tablet, Rapid Dissolve Commonly known as: Zofran ODT Place 1 Tablet (4 mg) under tongue every 6 hours as needed for Nausea. Signed by: ESA Smith Quantity: 28 Tablet Refills: 0 CHANGE how you take these medications mesalamine 1.2 gram Tablet, Delayed Release (E.C.) Commonly known as: LIALDA What changed: ?? medication strength ?? These instructions start on July 25, 2020. If you are unsure what to do until then, ask yourdoctor or other care provider. Take 4 Tablets (4.8 Grams) by mouth daily. 4 - 1.2GRAM TABLETS DAILY Start taking on: July 25, 2020 Signed by: ESA Smith Quantity: 1 Tablet Refills: 0 CONTINUE taking these medications ALPRAZOLAM ORAL Take 0.5 mg by mouth 3 times daily as needed. Refills: 0 SERTRALINE ORAL Take 100 mg by mouth daily. Refills: 0 SUMAtriptan 100 mg tablet Commonly known as: IMITREX Take 100 mg by mouth see administration instructions. may repeat in 2 hours; max dose 200mg in 24 hours Refills: 0 ZOLPIDEM ORAL Take 10 mg by mouth nightly as needed. Refills: 0 STOP taking these medications multivitamin tablet Commonly known as: DAILY-LAUREN VITAMIN D3 ORAL Where to Get Your Medications These medications were sent to [facility] [address], [facility] [id number], [place] [id number] Hours: Tuesday-Tuesday: 8:30 a.m. - 5:00 p.m., Tuesday: 9:00 a.m. - 1:00 p.m. ?? HYDROcodone-acetaminophen 7.5-325 mg/15 mL Solution ?? mesalamine 1.2 gram Tablet, Delayed Release (E.C.) ?? ondansetron 4 mg Tablet, Rapid Dissolve Consultants: Marisol Rangel Discharge Lab Data: Lab Results Component Value Date/Time WBC 9.7 07/18/2020 03:10 AM HEMOGLOBIN 13.2 07/18/2020 03:10 AM HEMATOCRIT 39.2 07/18/2020 03:10 AM PLATELETS 342 07/18/2020 03:10 AM SODIUM 137 07/18/2020 03:10 AM CHLORIDE 105 07/18/2020 03:10 AM POTASSIUM 4.0 07/18/2020 03:10 AM CO2 22 07/18/2020 03:10 AM BUN 4 (L) 07/18/2020 03:10 AM CREATININE 0.62 07/18/2020 03:10 AM GLUCOSE 99 07/18/2020 03:10 AM AST 17 07/14/2020 10:25 AM ALT 22 07/14/2020 10:25 AM Discharge Exam: BP (!) 151/96 (BP Location: Right arm, Patient Position (BP): Sitting) Pulse 78 Temp 98.4 ??F (36.9 ??C) (Oral) Resp 16 Ht 5' 2 (1.575 m) Wt 107.1 kg (236 lb 3.2 oz) LMP 06/27/2020 SpO2 100% BMI 43.20 kg/m?? Physical Exam: General alert, cooperative, no distress, appears stated age Lungs respirations are even and unlabored, lung sounds are clear to auscultation bilaterally Heart regular rate and rhythm, S1, S2 normal, no murmur, click, rub or gallop Abdomen soft, non-tender. Abdominal incisions are well approximated with no erythema or drainage, tunneled abdominal wall catheter intact times 2. Bowel sounds normal. Extremities extremities normal, atraumatic, no cyanosis or edema Skin Skin color, texture, turgor normal. No rashes or lesions Hospital Course: This is a 34-year-old female patient who underwent a laparoscopic vertical sleeve gastrectomy and placement of tunnel abdominal wall catheters x2 by Dr Barahona. Hospitalist group was consulted for medical evaluation and management. Patient tolerated procedure well. Patient is tolerating liquids without difficulty, denies any nausea or vomiting and passing flatus. Patient is up ambulating without difficulty, voiding without difficulty and reports little to no pain. Patient was given discharge instructions by Shaka ESTES and Isabell ESTESyarn worker coordinators, Hospitalist Group ANIMAL CARE SERVICE WORKER, and or Dr. Barahona. Patient was also instructed to followup with primary care physician for continued medical management. Patient verbalizes understanding and reports no questions at this time. Discharge Condition: stable. Follow-up: Adiel Demarco MD in 1 week(s). Approximately 30 minutes minutes were spent in this discharge activity including patient education, home medications , follow up instructions, and diet information. Signed: ESA Smith 07/18/2020, 4:09 PM ON FANCIER documented in this encounter Discharge Instructions * Discharge Instructions* Pinky Spencer FNP - 07/17/2020 5:49 PM PIGEON FANCIER MEDICATIONS: Lortab Elixir 7.5/325mg Disp# 360ml Sig: Take 15 ml every 6 hours as needed for pain Home Medications: 1. Alprazolam Oral -- may crush 2. Cholecalciferol, Vitamin D3 oral -- STOP TAKING recommend change to chewable form if unable to swallow whole. Follow vitamin recommendation of surgeon or primary physician post surgery. 3. Mesalamine Oral --STOP TAKING swallow whole, do NOT CRUSH, cut, or chew. Capsules may be opened and sprinkled over yogart/applesauce. Follow up with physician if unable to swallow for medication adjustment 4. Multivitamin (Daily-Lauren) tablet -STOP TAKING- recommend change to chewable form if unable to swallow whole. Follow vitamin recommendation of surgeon or primary physician post surgery. 5. Sertraline oral -- may crush 6. Sumatriptan (Imitrex) 100 mg tablet -- may NOT be crushed, recommend nasal spray or injection ifunable to swallow tablet whole. May also speak with physician about changing product for migraine medication. 7. Zolpidem Tartrate -- may crush ? No vitamins for a week until after followup with personal Followup with Dr. Barahona as scheduled in one week Followup with Adiel Demarco MD In one week for continued medical management No NSAIDS: This includes all over the counter preparations containing a non- steroidal anti-inflammatory agent (i.e.: Motrin, Ibuprofen, Advil, Naprosyn, Aleve, Aspirin and Aspirin containing products, all combination products containing Ibuprofen or Naprosyn) SIGNS AND SYMPTOMS TO REPORT Contact your health care provider if you experience any of the following symptoms: fever greater than 100, redness from incision, or unrelieved nausea/vomiting. For Diabetic patients: Blood sugar consistently greater than 180 or less than 70. ACTIVITY Your activity level is: Per direction of surgeon You may return to work/school once you follow up with your doctor DIET Your diet is: clear liquid PAIN BALL Remove pain ball as instructed on July 20 WOUND CARE For your wound/incision: Shower daily Notify Dr. Barahona if : ?? There is redness, swelling, increasing pain in the wound ?? Pus is coming from wound. ?? You develop an unexplained oral temperature above 102?? F (38.9?? C) ?? You notice a foul smell coming from the wound . ON FANCIER * Attachments The following attachments cannot be sent through Care Everywhere. * acetaminophen and hydrocodone (Qatari) * ondansetron (oral) (Qatari) documented in this encounter Medications at Time [...] Amount: 60 mL 300 mL 07/17/2020 07/23/2020 documented as of this encounter Progress Notes * Annemarie Babcock RN - 07/18/2020 2:05 PM CST Discharge instructions reviewed with patient, new medications discussed as well as home medications. All questions answered. Encouraged patient to continue 4-6 ounces of fluids per hour, frequent ambulation/ankle pumps and incentive spirometer use. Brissa Buckley will be discharged via ambulatory to home. Brissa Buckley is accompanied by spouse and will be transported via private vehicle. ON FANCIER * Isabell Delgado RN - 07/18/2020 10:35 AM CST Images from the original note were not included. Isabell Delgado RN Registered Nurse Progress Notes ?? Signed Date of Service: 07/17/2020 ??2:08 PM []Hide copied text []Hover for details Bariatric surgery discharge instructions reviewed with patient.?Discussed diet, activity, meds, wound care , follow-up and signs of possible complications to report to surgeon. Written copy given . Questions answered ?? Isabell Delgado RN, BSN ON FANCIER * Adelina Puckett RN - 07/18/2020 6:46 AM CST Patient has had elevated heart rate at various times during the shift, at these times patient reported pain and was medicated with relief noted. ON FANCIER * Fe Grijalva RN - 07/17/2020 12:00 PM CST Patient transported via bed per OR team with IV intact. Patient has X3 incisions with adhesive D&I. On Q pain pump unclamped bilaterally with drsg D&I. Sequential on bilaterally. Patient encouraged to use IS and to ambulate frequently. Patient provided room orientation with call light and phone at the bedside. No distress voiced. Patients spouse at the bedside. ON FANCIER * Lesley Pool RN - 07/17/2020 8:35 AM CST CALLED TO BS Questions answered, denies needs. Call light in reach ON FANCIER * Tracy Burrell, PHARMACIST - 07/15/2020 12:48 PM CST Bariatric Medication Review Per home medication list viewed 07-15-20 1. Alprazolam Oral -- may crush 2. Cholecalciferol, Vitamin D3 oral -- recommend change to chewable form if unable to swallow whole. Follow vitamin recommendation of surgeon or primary physician post surgery. 3. Mesalamine Oral -- swallow whole, do NOT CRUSH, cut, or chew. Capsules may be opened and sprinkled over yogart/applesauce. Follow up with physician if unable to swallow for medication adjustment 4. Multivitamin (Daily-Lauren) tablet -- recommend change to chewable form if unable to swallow whole. Follow vitamin recommendation of surgeon or primary physician post surgery. 5. Sertraline oral -- may crush 6. Sumatriptan (Imitrex) 100 mg tablet -- may NOT be crushed, recommend nasal spray or injection ifunable to swallow tablet whole. May also speak with physician about changing product for migraine medication. 7. Zolpidem Tartrate -- may crush R Tam Burrell ON FANCIER documented in this encounter H&P Notes * Kendall Barahona MD - 07/17/2020 10:01 [place] [address] History and Physical Patient: Brissa Buckley : 1985 Date: 07/17/2020 HISTORY OF PRESENT ILLNESS: Patient is a 34 y.o. female scheduled for LVSG for Morbid Obesity. She was seen in the clinic and found to be an appropirate candidate for the procedure. The details of the clinic discussion can be found in the clinic notes. The patient reports no new conditions since being seen and is ready for the procedure today. Past Medical History: Diagnosis Date ??? Anxiety ??? Borderline hypertension NO MEDICATION ??? Crohn disease ??? Depression ??? GERD (gastroesophageal reflux disease) ??? Headache ??? Migraines ??? Wears contact lenses Past Surgical History: Procedure Laterality Date ??? LA EGD TRANSORAL BIOPSY SINGLE/MULTIPLE N/A 06/06/2020 ESOPHAGOGASTRODUODENOSCOPY WITH BIOPSY performed by Kendall Barahona MD at [facility] ??? PT DENIES RELEVANT SURGICAL HISTORY Medications Prior to Admission Medication Sig Dispense Refill Last Dose ??? MESALAMINE ORAL Take 4.8 Grams by mouth daily. 4 - 1.2GRAM TABLETS DAILY 07/10/2020 ??? sertraline HCl (SERTRALINE ORAL) Take 100 mg by mouth daily. 07/17/2020 at Unknown time ??? ALPRAZOLAM ORAL Take 0.5 mg by mouth 3 times daily as needed. 07/17/2020 at Unknown time ??? zolpidem tartrate (ZOLPIDEM ORAL) Take 10 mg by mouth nightly as needed. 07/16/2020 at Unknown time ??? cholecalciferol, vitamin D3, (VITAMIN D3 ORAL) Take 10,000 Units by mouth daily. 07/16/2020 at Unknown time ??? multivitamin (DAILY-LAUREN) tablet Take 1 Tablet by mouth daily. 07/16/2020 at Unknown time ??? SUMAtriptan (IMITREX) 100 mg tablet Take 100 mg by mouth see administration instructions. may repeat in 2 hours; max dose 200mg in 24 hours Past Month at Unknown time No Known Allergies Social History Socioeconomic History [...] Types: Cigarettes Quit date: 06/04/2010 Years since quittin.1 ??? Smokeless tobacco: Never Used Substance and [...] file Gets together: Not on file Attends sikhism service: Not on file Active member of [...] no muscle pain PHYSICAL EXAM: BP (!) 133/101 (BP Location: Left arm, Patient Position (BP): Sitting) Pulse 97 Temp 98.4 ??F (36.9 ??C) (Skin) Resp 18 Ht 5' 2 (1.575 m) Wt 107 kg (236 lb) LMP 06/27/2020 SpO2 100% BMI 43.16 kg/m?? Head: Normal Lungs: Clear to auscultation bilaterally Airway: No apparent abnormalities Heart: Regular rate and rhythm Abdomen: soft, nontender, nondistended Neurologic: alert and oriented x 3 IMPRESSION: 1. Obesity with comorbidities, good candidate for LVSG. PLAN: I discussed in depth with the patient her current clinical situation. Risks of the procedure were discussed in detail and the patient completed the online JOVANNI program prior to today's procedure. She understands and wishes to proceed with the procedure. All of her questions were answered. Kendall Barahona MD ON FANCIER documented in this encounter Consult Notes * Pinky Spencer ESA - 07/17/2020 5:00 PM CSTAssociated Order(s): IP CONSULT TO HOSPITALIST Hospitalist Consultation Note Patient Name: Brissa Buckley [id number] Primary Care Doctor: Adiel Demarco MD Requesting Physician: Kendall Barahona MD Date of Admission: 07/17/2020 Date of Service: 07/17/2020 Reason for Consultation: Status post Laparoscopic vertical sleeve gastrectomy and placement of tunneled abdominal wall catheter x2 secondary to morbid obesity by Hospitalist group was consulted for ongoing medical issues: Hypertension, depression/anxiety, history of Crohn's disease, GERD, and general medical exam HPI: Patient is 34 y.o. female patient who is Status post Laparoscopic vertical sleeve gastrectomy and placement of tunneled abdominal wall catheter x2 secondary to morbid obesity by Dr Barahona. Hospitalist group was consulted for ongoing medical issues: Hypertension, GERD, history of Crohn's disease, depre ssion/anxiety, and general medical exam. Past Medical History: Diagnosis Date ??? Anxiety ??? Borderline hypertension NO MEDICATION ??? Crohn disease ??? Depression ??? GERD (gastroesophageal reflux disease) ??? Headache ??? Migraines ??? Wears contact lenses Past Surgical History: Procedure Laterality Date ??? LA EGD TRANSORAL BIOPSY SINGLE/MULTIPLE N/A 06/06/2020 ESOPHAGOGASTRODUODENOSCOPY WITH BIOPSY performed by Kendall Barahona MD at [facility] ??? LA LAP, TRACEY RESTRICT PROC, LONGITUDINAL GASTRECTOMY N/A 07/17/2020 GASTRECTOMY LONGITUDINAL LAPAROSCOPIC, INSERTION OF TUNNELED ABDOMINAL WALL CATHETERS[179] performed by Kendall Barahona MD at [facility] OR ??? PT DENIES RELEVANT SURGICAL HISTORY Current Medications: Medications Prior to Admission Medication Sig Dispense Refill Last Dose ??? MESALAMINE ORAL Take 4.8 Grams by mouth daily. 4 - 1.2GRAM TABLETS DAILY 07/10/2020 ??? sertraline HCl (SERTRALINE ORAL) Take 100 mg by mouth daily. 07/17/2020 at Unknown time ??? ALPRAZOLAM ORAL Take 0.5 mg by mouth 3 times daily as needed. 07/17/2020 at Unknown time ??? zolpidem tartrate (ZOLPIDEM ORAL) Take 10 mg by mouth nightly as needed. 07/16/2020 at Unknown time ??? cholecalciferol, vitamin D3, (VITAMIN D3 ORAL) Take 10,000 Units by mouth daily. 07/16/2020 at Unknown time ??? multivitamin (DAILY-LAUREN) tablet Take 1 Tablet by mouth daily. 07/16/2020 at Unknown time ??? SUMAtriptan (IMITREX) 100 mg tablet Take 100 mg by mouth see administration instructions. may repeat in 2 hours; max dose 200mg in 24 hours Past Month at Unknown time Medication Allergies:No Known Allergies Family History Problem Relation Name Age of Onset ??? Healthy Father ??? Healthy Mother ??? Cancer Brother ??? Heart Disease Brother Social History: Social History Tobacco Use ??? Smoking status: Former Smoker Packs/day: 1.00 Types: Cigarettes Quit date: 06/04/2010 Years since quittin. ??? Smokeless tobacco: Never Used Substance Use Topics ??? Alcohol use: Yes Frequency: 2-4 times a month ROS: Constitutional denies: chills, HEENT denies: nasal drainage, nasal congestion dysphagia or sore throat Respiratory denies: cough, or shortness of breath Cardiovascular denies: chest pain, Gastrointestinal/Abdominal denies: nausea, vomiting. Reports: Abdominal pain 10/08 Genitourinary denies: discharge, dysuria, frequency, hematuria, pain Musculoskeletal denies: back pain, joint swelling, muscle pain, Skin denies: dryness, rash Neurological/Psych denies: headache, numbness, tingling, weakness All other systems reviewed and negative; non-contributory for chief complaint. Physical Exam: BP (!) 139/94 (BP Location: Right arm, Patient Position (BP): Supine) Pulse (!) 111 Temp 98.5 ??F (36.9 ??C) (Oral) Resp 18 Ht 5' 2 (1.575 m) Wt 107 kg (235 lb 14.3 oz) LMP 06/27/2020 SpO2 96% BMI 43.15 kg/m?? Appearance: Morbidly obese, well-appearing, NAD, HEENT: Normocephalic, PERRLA. Neck: Supple, Cardiovascular: Regular rate and rhythm without murmurs, rubs or clicks. Pulmonary: Respirations are even and unlabored, lung sounds are clear bilaterally. GI / : Abdomen soft, non tender, non distended abdominal incision is well approximated no erythema or drainage, tunneled abdominal wall catheters intact x2, Bowel sounds hypoactive. Extremities: No clubbing, cyanosis or edema. Dorsalis pedis pulses palpable bilaterally. MS: Strength / ROM intact, no calf tenderness/SCDs intact Skin: Warm and dry, color normal Neurologic: Alert and oriented times 3. Cranial nerves 2-12 are intact. Data Base: Lab: Results for orders placed or performed during the hospital encounter of 07/17/20 (from the past 24 hour(s)) POC , URINE Result Value Ref Range HCG QUAL URINE Negative Negative MANUFACTURING PLANNER NAME Lesley Pool Labs reviewed on chart by continuity writer done prior to arrival Assessment:PLAN 1. Morbid obesity Status post laparoscopic vertical sleeve gastrectomy and placement of tunnel abdominal wall catheters x2 secondary to morbid obesity by Dr. Barahona IV fluids/antiemetics/pain control using pain scale/incentive spirometer encourage frequently tolerating ice chips without difficulty/tolerated procedure well 2. DVT/GI prophylaxis Heparin/SCDs/H2 aidan 3. Anxiety/depression Resume home medication in a.m. when tolerating p.o. 4. Hypertension borderline Currently on no home medication We will continue to monitor 5. History of Crohn's disease On Mesalamine will have patient hold currently until approved to take by Dr. Barahona. Currently without exacerbation This patient was discussed with Dr. Nicholas and she agrees with the above plan. More than 30 minutes spent in the care of the patient today; more than 50% of time was spent in discussion of plan of care, going over lab and test results, expected course of disease, prognosis, counselling, discharge planning, and coordination of care. Thank you for consulting [facility]. We will gladly follow the patient throughout their stay. ESA Smith ON FANCIER documented in this encounter OR Notes * Operative Report - Kendall Barahona MD - 07/17/2020 11:22 AM CST Brissa Buckley [id number] 07/17/2020 PRE OP DIAGNOSES: Morbid obesity with comorbidities POST OP DIAGNOSES: Morbid obesity with comorbidities INDICATION FOR PROCEDURE: This patient is a pleasant 34 y.o. year-old female suffering from morbid obesity and its comorbidities. After being seen in the clinic, she was found to be an appropriate candidate for a laparoscopic vertical sleeve gastrectomy. OPERATIONS PERFORMED: Laparoscopic vertical sleeve gastrectomy Laparoscopic placement of tunneled abdominal wall catheters x2 SURGEON: Kendall Barahona MD AUTO BRAKE MECHANIC: None ANESTHESIA: GETA ESTIMATED BLOOD LOSS IN MLS: 50 cc COMPLICATIONS: None SPECIMEN: None PREOPERATIVE NOTE: The contemplated operative procedure, risks, benefits and alternatives to this procedure have been discussed with this patient and/or legal direct marketing representative. The patient and/or legal direct marketing representative acknowledge(s) understanding of the above and consent(s) to the procedure. OPERATIVE FINDINGS: Procedure performed laparoscopically as anticipated preoperatively. No evidence of kinking or twisting of the stomach and there appeared to be no evidence of ongoing oozing or bleeding at the conclusion of the case. OPERATIVE PROCEDURE: The patient was given intravenous antibiotics, sequential stockings, subcutaneous heparin in the preoperative area. After informed consent, the patient was transferred to the operating room, placed in a supine position, and underwent general anesthesia. An oral Realize tube was placed. The abdomen was prepped and draped in the usual sterile fashion using ChloraPrep. Next a timeout was obtained that revealed the correct patient, position, and laterality of the procedure. The procedure began with entry into the abdominal cavity using an opti-View trocar just to the patient's left of the umbilicus. Pneumoperitoneum thereafter was achieved. A circumferential view of theabdomen revealed no evidence of hepatic or pelvic pathology. Next a right upper quadrant and right periumbilical port were placed under direct laparoscopic vision. The liver was retracted manually throughout the case and the patient was positioned in reverse Trendelenburg position. The greater curvature was devascularized with the Sonicision and extended to the region of the spleen. The short gastric vessels were carefully taken down as dissection continued to the angle of His.Posterior attachments were freed up, the dissection was continued until about 5 cm of the left diaphragmatic susan was well visualized. The pylorus was then identified and marked approximately 4 cm proximally. The greater curvature dissection was extended distally to that area. The sleeve dissectionwas completed and inspected and found to be hemostatic. Next the Realize Tube was advanced to the antrum. The first staple line was performed using a 60 mmlinear stapler with black load and SeamGuard. Subsequent staple loads were using the purple linear staplers with SeamGuard. Care was taken near the incisura to minimize encroachment, and the final staple load was fired approximately 1 cm away from the esophagus, to minimize injury to the esophagus.There was a technically good staple line with good hemostasis. The Realize Tube was slowly withdrawn, and there was no twisting or kinking of the gastric sleeve. The patient was flattened. There remained good hemostasis. A tunneled abdominal wall introducer wasplaced through a separate incision in the xiphoid region. It was tunneled through the subcutaneous fat, the abdominal wall fascia, into the preperitoneal plane along the right subcostal margin. A catheter was placed, the sheath was removed, and the catheter was irrigated to assure its patency. A sec ond tunneled abdominal wall catheter was placed through a separate incision in the subxiphoid region. It was tunneled through the subcutaneous fat, through the abdominal wall fascia into the preperitoneal plane along the left subcostal margin. A catheter was placed, the sheath was removed, and the catheter was irrigated to assure its patency. Both catheters had good patency, they were secured to the skin with Dermabond, Steri-Strips, and Tegaderm. Both catheters were placed under direct laparoscopic visualization. Next, The remnant stomach was then removed under direct vision. The removed stomach was inspected and found to be without gross abnormality. There was no leakage or spillage within the abdomen. The specimen delivery site was closed with an 0 Vicryl suture using a suture passer. Then the pneumoperitoneum was released, as the trocars were removed, and there was no bleeding. The wound was irrigated, there was good hemostasis, and the skin edges were approximated using interrupted subcutaneous subcuticular 4-0 PDS suture. Dermabond was applied. The patient tolerated the procedure well, there were no complications, the patient was transferred to the recovery room awake and in stable condition. ON FANCIER documented in this encounter Miscellaneous Notes * Care Plan - Annemarie Babcock RN - 07/18/2020 2:05 PM CST Day 1 - Current (Register Pathway: Adult and Obstetrics) Patient, family, or healthcare designee is participating in individual care plan process Outcome: Met Patient, family, or healthcare designee understands side effects of medications Outcome: Met Pathway Day of Surgery - Current (INTERDIS PW: BARIATRIC SURGERY - POST-OP) Fluid Management: (Maintain Hydration) Patient verbalizes understanding of the importance of hydration. Urine output equal to or greater than 30 mL/Hour. Outcome: Met Activity/Rehab: Patient will be able to perform ADLs and ambulate day of surgery with minimal assistance. Encourage ambulation within two hours after recovery from anesthesia. Outcome: Met Hemodynamics: Patient able to maintain SBP greater than 90 and less than 150 mmHg, HR greater than 50 and less than 100/min, Respirations greater than 10/min and less than 29/min, O2 sat greater thanor equal to 92%. Outcome: Met Pain Management: Patient verbalizes pain reduction and determines acceptable level/goal (0-10) thatwill allow for maximal function with ADLs. Outcome: Met Surgical Site: (Impaired Skin Integrity) Patient is free of signs of infection, (fever, redness, swelling, drainage) Wound and drain assessment (target </= 30 mL/day). Outcome: Met Nutrition: Patient verbalizes understanding of dietary restriction and modification. Patient verbalizes none or decreased nausea and vomiting. Outcome: Met Respiratory: Patient verbalizes understanding of and compliance with O2 devices. Outcome: Met Neurovascular: (DVT/VTE Prevention) Free of signs and symptoms of DVT/ VTE. Ambulation day of surgery. Encourage ambulation within two hours after recovery from anesthesia. Outcome: Met Discharge Planning: Discharge needs identified and patient verbalizes understanding of medications and follow-up. Outcome: Met ON FANCIER * Care Plan - Adelina Puckett RN - 07/18/2020 4:59 AM CST Patient ambulating, urinating, tolerating oral intake. Complaining of some RLQ pain that comes and goes. Day 1 - Current (Register Pathway: Adult and Obstetrics) Patient, family, or healthcare designee is participating in individual care plan process Outcome: Met Patient, family, or healthcare designee understands side effects of medications Outcome: Met Pathway Day of Surgery - Current (INTERDIS PW: BARIATRIC SURGERY - POST-OP) Fluid Management: (Maintain Hydration) Patient verbalizes understanding of the importance of hydration. Urine output equal to or greater than 30 mL/Hour. Outcome: Met Activity/Rehab: Patient will be able to perform ADLs and ambulate day of surgery with minimal assistance. Encourage ambulation within two hours after recovery from anesthesia. Outcome: Met Hemodynamics: Patient able to maintain SBP greater than 90 and less than 150 mmHg, HR greater than 50 and less than 100/min, Respirations greater than 10/min and less than 29/min, O2 sat greater thanor equal to 92%. Outcome: Met Pain Management: Patient verbalizes pain reduction and determines acceptable level/goal (0-10) thatwill allow for maximal function with ADLs. Outcome: Met Surgical Site: (Impaired Skin Integrity) Patient is free of signs of infection, (fever, redness, swelling, drainage) Wound and drain assessment (target </= 30 mL/day). Outcome: Met Nutrition: Patient verbalizes understanding of dietary restriction and modification. Patient verbalizes none or decreased nausea and vomiting. Outcome: Met Respiratory: Patient verbalizes understanding of and compliance with O2 devices. Outcome: Met Neurovascular: (DVT/VTE Prevention) Free of signs and symptoms of DVT/ VTE. Ambulation day of surgery. Encourage ambulation within two hours after recovery from anesthesia. Outcome: Met Discharge Planning: Discharge needs identified and patient verbalizes understanding of medications and follow-up. Outcome: Met ON FANCIER * Care Plan - Cindi Devine RN - 07/17/2020 11:56 AM CST Potential for pain related to surgical/procedural intervention Interventions: Assess level of pain/comfort utilizing verbal/nonverbal pain scales; assess culturalor sikhism indicators attached to pain; administer pain medications as prescribed; utilize non-pharmacologic pain control and comfort measures Expected Outcome: Patient demonstrates and reports adequate pain control Outcome Met: able to sleep, states severe pain when awake but then able to sleep ON FANCIER * Care Plan - Lesley Pool, RN - 07/17/2020 8:34 AM CST Knowledge deficit related to procedure/environment Interventions: Assess [...] pre op protocols, questions answered, verbalized understanding. ON FANCIER documented in this encounter Plan of Treatment Not on file documented as of this encounter Procedures Procedure Name Priority Date/Time Associated Diagnosis Comments CBC WITH DIFFERENTIAL Routine 07/18/2020 3:10 AM PIG[facility]CI[facility] BASIC METABOLIC PANEL Routine 07/18/2020 3:10 AM [facility] LA LAPS GSTRC RSTRICTIV PX LONGITUDINAL GASTRECTOMY 07/17/2020 10:00 AM [facility] Morbid (severe) obesity due to excess calories Case Notes 07/11/2020 SCHEDULE COVID TESTING FOR 07/14/2020 AT 1450 CODE 18 Q-PAIN PUMP [id number] POC , URINE Routine 07/17/2020 8:40 AM PIG[facility] FANCIER documented in this encounter Results * (ABNORMAL) BASIC METABOLIC PANEL (07/18/2020 3:10 AM PIGEON FANCIER) SODIUM 137 136 - 145 mmol/L 07/18/2020 4:13 AM [facility] [place] POTASSIUM 4.0 3.5 - 5.1 mmol/L 07/18/2020 4:13 AM P[facility] F[facility] [place] CHLORIDE 105 98 - 107 mmol/L 07/18/2020 4:13 AM [facility] [place] CO2 22 22 - 29 mmol/L 07/18/2020 4:13 AM [facility] [place] CALCIUM 9.4 8.6 - 10.0 mg/dL 07/18/2020 4:13 AM [facility] [place] BUN 4(L) 6 - 20 mg/dL 07/18/2020 4:13 AM [facility] [employer] [facility] CREATININE 0.62 0.51 - 0.95 mg/dL 07/18/2020 4:13 AM [facility] [place] [place] GLUCOSE 99 74 - 99 mg/dL 07/18/2020 4:13 AM [facility] [place] [place] GFR >60 >=60 mL/min/1.7 3 sq meter 07/18/2020 4:13 AM [facility] [place] Comment: eGFR has not been [...] GFR, >60 >=60 mL/min/1.7 3 sq meter 07/18/2020 4:13 AM [facility] [employer] [facility] ANION GAP 10 5 - 15 mmol/L 07/18/2020 4:13 AM [facility] [facility] Blood Venipuncture / Unknown 07/18/2020 3:10 AM P[facility] F[facility]CIER 07/18/2020 3:50 AM P[facility] Kendall Barahona MD CHEMISTRY ORDERABLES [facility] [employer] [facility] CLIA # [id number] [facility] [address] [place] [id number] * (ABNORMAL) CBC WITH DIFFERENTIAL (07/18/2020 3:10 AM PIGEON FANCIER) Pathologist [facility] WBC 9.7 4.0 - 11.0 K/uL 07/18/2020 3:55 AM [facility] [employer] [facility] RBC 4.53 4.20 - 5.40 M/uL 07/18/2020 3:55 AM [facility] [employer] [facility] HEMOGLOBIN 13.2 11.9 - 15.1 g/dL 07/18/2020 3:55 AM PIGEON F[facility]CI[facility] [place] HEMATOCRIT 39.2 38.0 - 47.0 % 07/18/2020 3:55 AM [facility] [place] MCV 86.5 80.0 - 98.0 fL 07/18/2020 3:55 AM [facility] F[facility] [place] MCH 29.1 26.0 - 34.0 pg 07/18/2020 3:55 AM PIGE[facility] FANCI[facility] [place] MCHC 33.7 31.0 - 37.0 g/dL 07/18/2020 3:55 AM P[facility] FAN[facility] [place] RDW 12.3 11.5 - 14.5 % 07/18/2020 3:55 AM P[facility] F[facility] [place] RDW-STDEV 38.9 34.0 - 54.0 fL 07/18/2020 3:55 AM P[facility] FANCI[facility] [place] PLATELETS 342 150 - 400 K/uL 07/18/2020 3:55 AM P[facility] F[facility] [place] MPV 10.2 8.5 - 12.5 fL 07/18/2020 3:55 AM P[facility] F[facility]CI[facility] [place] NEUTROPHILS 81(H) 50 - 70 % 07/18/2020 3:55 AM P[facility] FANCI[facility] [place] LYMPHOCYTES 11(L) 20 - 40 % 07/18/2020 3:55 AM P[facility] F[facility]CI[facility] [place] MONOCYTES 8 2 - 8 % 07/18/2020 3:55 AM P[facility] F[facility] [place] EOSINOPHILS 0(L) 1 - 3 % 07/18/2020 3:55 AM PIG[facility]ON F[facility]CI[facility] [place] BASOPHILS 0 0 - 1 % 07/18/2020 3:55 AM PIG[facility] F[facility] [place] IMMATURE GRANULOCYTES 0 0 - 2 % 07/18/2020 3:55 AM P[facility] F[facility] [place] NEUTROPHIL ABSOLUTE 7.89(H) 1.80 - 7.70 K/uL 07/18/2020 3:55 AM PIGEON FANCI[facility] [place] LYMPHOCYTE ABSOLUTE 1.03 1.00 - 3.30 K/uL 07/18/2020 3:55 AM PIG[facility] F[facility] [place] MONOCYTE ABSOLUTE 0.78 0.00 - 0.80 K/uL 07/18/2020 3:55 AM PIGE[facility] FANCI[facility] [place] EOSINOPHIL ABSOLUTE 0.00 0.00 - 0.45 K/uL 07/18/2020 3:55 AM PIGE[facility] FANCIER [facility] [place] BASOPHILS ABSOLUTE 0.01 0.00 - 0.20 K/uL 07/18/2020 3:55 AM [facility] [place] IMMATURE GRANULOCYTES ABSOLUTE 0.03 0.00 - 0.31 K/uL 07/18/2020 3:55 AM [facility] F[facility] [place] Blood Venipuncture / Unknown 07/18/2020 3:10 AM PIGEON FANCIER 07/18/2020 3:50 AM [facility] Kendall Barahona MD HEMATOLOGY ORDERABLE S [facility] [place] CLIA # [id number] [facility] [address] [place] [address] * POC , URINE (07/17/2020 8:40 AM PIGEON FANCIER) Pathologist [facility] HCG QUAL URINE Negative Negative 07/17/2020 8:40 AM PIGEON FANCIER [facility] [employer] [facility] [place] [employer] NAME POC Lesley Pool 07/17/2020 8:40 AM PIGEON FANCIER [facility] [employer] [facility] [place] Urine 07/17/2020 8:40 AM PIGEON FANCIER 07/17/2020 8:42 AM [facility] FANCIER Kendall Barahona MD POINT OF CARE TESTIN G Performing Organization Address City/[facility]/ZIP Co de Phone Number [facility] CLIA # [id number] [address] [phone] * 2019 NOVEL CORONAVIRUS (COVID-19) PCR DETECTION (07/14/2020 10:53 AM PIGEON FANCIER) Pathologist [facility] COVID-19 PCR NOT DETECTED NOT DETECTED 07/15/2020 5:47 PM PIGEON FANCIER [facility] Comment: A Not Detected (negative) test result [...] providers and patients using the following websites: https://www.[email or web address]ubes/home/Covid-19/HCP/[facility]/fact- sheet.html https://www.[email or web address]/home/Covid-19/Patients/ [facility]/fact-sheet.html This test has been authorized by the FDA under an Emergency Use Authorization (EUA) for use by authorized laboratories. Due to the current public health emergency, [facility] is receiving a high volume of samples [...] about COVID-19 can be found at the [facility] website: www.Hotlease.Com.SoupQubes/Covid19. Upper Respiratory ANTERIOR NARES SWAB / Unknown Collection / Unknown 07/14/2020 10:53 AM PIGEON FANCIER 07/14/2020 11:44 AM PIGEON FANCIER Narrative [facility] - 07/15/2020 5:47 PM PIGEON FANCIER Performing Organization Information: ?Site ID: [id number] ?Name: [facility] ?Address: [address] [address] ?Director: Steve Reddy D.O., MPH Kendall Barahona MD MICROBIOLOGY - GENER AL ORDERABLES [facility] [phone] documented in this encounter Visit Diagnoses Diagnosis Preop testing- Primary Preoperative examination, unspecified General medical exam Unspecified general medical examination History of Crohn's disease Personal history of unspecified digestive disease Benign hypertension Essential hypertension, benign Depression Depressive disorder, not elsewhere classified documented in this encounter Administered Medications Inactive Administered Medications - up to 3 most recent administrations Medication Order MAR Action Action Date Dose Rate Site acetaminophen (OFIRMEV) 10 mg/ml injection 1,000 mg 1,000 mg, IV, ONE TIME ONLY, 1 dose, On Gabbie 07/17/20 at 1645, Routine, Post-op - Floor New Bag 07/17/2020 4:00 PM [facility] FANCIER 1,000 mg 400 mL/hr acetaminophen (OFIRMEV) 10 mg/ml injection 1,000 mg 1,000 mg, IV, ONE TIME ONLY, 1 dose, On Gabbie 07/17/20 at 2245, Routine, Post-op - Floor Rate Verify 07/17/2020 9:53 PM PIGEON FANCIER 400 mL/hr New Bag 07/17/2020 9:50 PM PIGEON FANCIER 1,000 mg 400 mL/hr bupivacaine PF 5 mg/mL (0.5%) 270 mL infusion for On-Q pump See Admin Instructions, CONTINUOUS, Starting on Gabbie 07/17/20 at 0815, Until Tue07/18/20 at 1608, Routine, Pre-op New Bag 07/17/2020 11:39 AM PIG[facility] FANCIER Abdominal Tissue ceFAZolin (ANCEF) 2,000 mg in dextrose (iso-osmotic) 50 mL IVPB (PREMIX) 2,000 mg, IV, POST-PROCEDURE Q 8 HOURS, 2 doses, First dose on Gabbie 07/17/20 at 1830, Last dose on Tue07/18/20 at 0230, Routine, Post-op - Floor, Antibiotic Indication: Surgical prophylaxis Rate Verify 07/18/2020 1:45 AM PIGEON FANCIER 100 mL/hr New Bag 07/18/2020 1:45 AM PIGEON FANCIER 2,000 mg 100 mL/hr Rate Verify 07/17/2020 6:00 PM PIGEON FANCIER 100 mL/hr famotidine PF (PEPCID) 20 mg/2 mL injection 20 mg 20 mg, IV, PRE-PROCEDURE ONCE, 1 dose, Starting on Gabbie 07/17/20 at 0811, Until Tue07/17/20 at 0828, Stat, Pre-op Given 07/17/2020 8:28 AM PIG[facility] FANCIER 20 mg famotidine PF (PEPCID) 20 mg/2 mL injection 20 mg 20 mg, IV, TWO TIMES DAILY, First dose on Gabbie 07/17/20 at 2100, Until Discontinued, Routine, Post-op - Floor Given 07/18/2020 8:06 AM PIGEON FANCIER 20 mg Given 07/17/2020 8:39 PM PIG[facility] FANCIER 20 mg fentaNYL PF (SUBLIMAZE) 50 mcg/mL injection 50 mcg 50 mcg, IV, POST-PROCEDURE Q 3 MINUTES PRN, 5 doses, Starting on Gabbie 07/17/20 at 1141, Until Gabbie 07/17/20 at 1158, Pain, Routine, PACU Given 07/17/2020 11:46 AM PIGE[facility] FANCIER 50 mcg Given 07/17/2020 11:44 AM [facility] FANCIER 50 mcg heparin injection 5,000 Units 5,000 Units, subCUT, PRE-PROCEDURE ONCE, 1 dose, Starting on Gabbie 07/17/20 at 0811, Until Gabbie 07/17/20 at 0828, Stat, Pre-op Given 07/17/2020 8:28 AM [facility] FANCIER 5,000 Units Abdomen, Left Lower Quadrant heparin injection 5,000 Units 5,000 Units, subCUT, EVERY 8 HOURS, First dose on Gabbie 07/17/20 at 2030, Until Discontinued, Routine, Post-op - Floor Given 07/18/2020 12:29 PM PIG[facility] FANCIER 5,000 Units Abdomen, Right Lower Quadrant Given 07/18/2020 4:45 AM [facility] FANCIER 5,000 Units A bdomen, Left Lower Quadrant Given 07/17/2020 8:38 PM PIGEON FANCIER 5,000 Units A bdomen, Left Lower Quadrant HYDROcodone-acetaminophen (HYCET) 7.5-325 mg/15 mL oral solution 15 mL 15 mL (7.5 mg), Oral, EVERY 4 HOURS PRN, Starting on Tue07/18/20 at 0445, Until Tue07/18/20 at 1608, Pain (See admin instructions), Routine, Post-op - Floor Given 07/18/2020 7:46 AM [facility] FANCIER 15 m L HYDROmorphone (PF) (DILAUDID) injection 0.3 mg 0.3 mg, IV, EVERY 4 HOURS PRN, Starting on Gabbie 07/17/20 at 1204, Until Tue07/18/20 at 1608, Pain (See admin instructions), Routine, Post-op - Floor Given 07/18/2020 10:27 AM [facility] FANCIER 0.3 mg HYDROmorphone (PF) (DILAUDID) injection 0.6 mg 0.6 mg, IV, EVERY 30 MINUTES PRN, Starting on Gabbie 07/17/20 at 1204, Until Tue07/18/20 at 1608, Pain (See admin instructions), Routine, Post-op - Floor Given 07/17/2020 10:39 PM PIGE[facility] FANCIER 0.6 mg ketorolac (TORADOL) injection 30 mg 30 mg, IV, EVERY 6 HOURS PRN, Starting on Gabbie 07/17/20 at 1204, Until Tue07/18/20 at 1608, Other (See Comment), Cramping or aching pain, Routine, Post-op - Floor Given 07/17/2020 6:06 PM [facility] FANCIER 30 mg Given 07/17/2020 12:27 PM [facility] FANCIER 30 mg lactated ringers bolus solution 2,000 mL 2,000 mL, IV, PRE-PROCEDURE ONCE, 1 dose, Starting on Gabbie 07/17/20 at 0811, Until Gabbie 07/17/20 at 0935, at 2,000 mL/hr, Administer over 60 Minutes, Stat, Pre-op New Bag 07/17/2020 8:28 AM [facility]ANCIER 2,000 mL 2000 mL/hr lactated ringers infusion IV, at 125 mL/hr, PRE-PROCEDURE CONTINUOUS, Starting on Gabbie 07/17/20 at 0815, Until Gabbie 07/17/20 at 1158, Stat, Pre-op New Bag 07/17/2020 9:36 AM [facility]CIER 125 mL/hr metoclopramide (REGLAN) 5 mg/mL injection 10 mg 10 mg, IV, EVERY 6 HOURS PRN, Starting on Gabbie 07/17/20 at 1204, Until Tue07/18/20 at 1608, Nausea/Emesis, Routine, Post-op - Floor Given 07/17/2020 12:27 PM [facility]CIER 10 mg metroNIDAZOLE (FLAGYL) IVPB 500 mg 500 mg, IV, POST-PROCEDURE Q 8 HOURS, 2 doses, First dose on Gabbie 07/17/20 at 1830, Last dose on Tue07/18/20 at 0230, Routine, Post-op - Floor, Antibiotic Indication: Surgical prophylaxis Rate Verify 07/18/2020 2:25 AM PIG[facility]ON FANCIER 100 mL/hr New Bag 07/18/2020 2:17 AM PIGEON FANCIER 500 mg 100 mL/hr Rate Verify 07/17/2020 6:35 PM P[facility] FANCIER 100 mL/hr morphine 4 mg/mL injection 2 mg 2 mg, IV, EVERY 4 HOURS PRN, Starting on Gabbie 07/17/20 at 1204, Until Tue07/18/20 at 1608, Pain (See admin instructions), Routine, Post-op - Floor Given 07/18/2020 2:20 AM P[facility]ON FANCIER 2 mg Given 07/17/2020 7:36 PM [facility] FANCIER 2 mg naloxone (NARCAN) 0.4 mg/mL injection 0.1 mg 0.1 mg, IV, SEE ADMIN INSTRUCTIONS, Starting on Gabbie 07/17/20 at 1141, Until Tue07/18/20 at 1608, Routine, PACU ondansetron (ZOFRAN) 4 mg/2 mL injection 4 mg 4 mg, IV, EVERY 6 HOURS PRN, Starting on Gabbie 07/17/20 at 1204, Until Tue07/18/20 at 1608, Nausea/Emesis, Routine, Post-op - Floor Given 07/18/2020 8:06 AM PIGEON FANCIER 4 mg Given 07/17/2020 7:36 PM PIGEON FANCIER 4 mg ondansetron (ZOFRAN) 4 mg/2 mL injection 4 mg 4 mg, IV, EVERY 6 HOURS PRN, Starting on Gabbie 07/17/20 at 1204, Until Tue07/18/20 at 1608, Nausea/Emesis, Routine, Post-op - Floor Given 07/17/2020 10:39 PM PIGEON FANCIER 4 mg potassium CHLORIDE in dextrose 5% - NaCl 0.45% 1,000 mL 20 mEq/L infusion IV, at 150 mL/hr, CONTINUOUS, Starting on Gabbie 07/17/20 at 1145, Until Tue07/18/20 at 1608, Routine, Post-op - Floor Rate Verify 07/18/2020 7:53 AM PIGEON FANCIER 150 mL/hr New Bag 07/18/2020 7:34 AM PIGEON FANCIER 150 mL/hr Rate Change 07/18/2020 7:30 AM PIGEON FANCIER 150 mL/hr scopolamine (TRANSDERM-SCOP) 1 mg/72 hr transdermal patch 1 Patch 1 Patch, Transdermal, ONE TIME ONLY, 1 dose, On Gabbie 07/17/20 at 0815, Stat, Pre-op Applied 07/17/2020 8:28 AM PIGEON FANCIER 1 Patch Mastoid,Left sertraline (ZOLOFT) tablet 100 mg 100 mg, Oral, DAILY, First dose on Tue07/18/20 at 0900, Until Discontinued, Previous Med: sertraline HCl (SERTRALINE ORAL) - Orig Sig - Take 100 mg by mouth daily. Given 07/18/2020 8:06 AM P[facility]EON FANCIER 100 mg documented in this encounter Active and Recently Administered Medications Times are shown in PIGEON FANCIER. Scheduled Medication Order 07/16/2020 07/17/2020 07/18/2020 acetaminophen (OFIRMEV) 10 mg/ml injection 1,000 mg (COMPLETED) 1,000 mg, IV, ONE TIME ONLY, 1 dose, On Gabbie 07/17/20 at 1645, Routine, Post-op - Floor 1600 (New Bag - Provider: Fe Grijalva, MEERA)1615 (Stopped - Provider: Fe Grijalva, MEERA) acetaminophen (OFIRMEV) 10 mg/ml injection 1,000 mg (COMPLETED) 1,000 mg, IV, ONE TIME ONLY, 1 dose, On Gabbie 07/17/20 at 2245, Routine, Post-op - Floor 2150 (New Bag - Provider: Adelina Puckett RN)2153 (Rate Verify - Provider: Annemarie Babcock RN)2205 (Stopped - Provider: Adelina Puckett RN) ceFAZolin (ANCEF) 2,000 mg in dextrose (iso-osmotic) 50 mL IVPB (PREMIX) (COMPLETED) 2,000 mg, IV, PRE-PROCEDURE ONCE, 1 dose, Starting on Gabbie 07/17/20 at 0811, Until Gabbie 07/17/20 at 1025, Stat, Pre-op, Antibiotic Indication: Surgical prophylaxis 1025 (Given - Provider: Julian Hurley CRNA) ceFAZolin (ANCEF) 2,000 mg in dextrose (iso-osmotic) 50 mL IVPB (PREMIX) (COMPLETED)(Linked Group 1) 2,000 mg, IV, POST-PROCEDURE Q 8 HOURS, 2 doses, First dose on Gabbie 07/17/20 at 1830, Last dose on Tue07/18/20 at 0230, Routine, Post-op - Floor, Antibiotic Indication: Surgical prophylaxis 1756 (New Bag - Provider: Fe Grijalva RN)1800 (Rate Verify - Provider: Annemarie Babcock RN)1826 (Stopped - Provider: Fe Grijalva RN) 0145 (New Bag - Provider: Adelina Puckett RN)0145 (Rate Verify - Provider: Annemarie Babcock RN)0159 (Stopped - Provider: Annemarie Babcock RN)0215 (Stopped - Provider: Adelina Puckett RN) famotidine PF (PEPCID) 20 mg/2 mL injection 20 mg (COMPLETED) 20 mg, IV, PRE-PROCEDURE ONCE, 1 dose, Starting on Gabbie 07/17/20 at 0811, Until Gabbie 07/17/20 at 0828, Stat, Pre-op 0828 (Given - Provider: Lesley Pool RN) famotidine PF (PEPCID) 20 mg/2 mL injection 20 mg 20 mg, IV, TWO TIMES DAILY, First dose on Gabbie 07/17/20 at 2100, Until Discontinued, Routine, Post-op - Floor 2038 (Given - Provider: Adelina Puckett RN) 0806 (Given - Provider: Annemarie Babcock RN) heparin injection 5,000 Units (COMPLETED) 5,000 Units, subCUT, PRE-PROCEDURE ONCE, 1 dose, Starting on Gabbie 07/17/20 at 0811, Until Gabbie 07/17/20 at 0828, Stat, Pre-op 0828 (Given - Provider: Lesley Pool, MEERA) heparin injection 5,000 Units 5,000 Units, subCUT, EVERY 8 HOURS, First dose on Gabbie 07/17/20 at 2030, Until Discontinued, Routine, Post-op - Floor 2037 (Given - Provider: Adelina Puckett RN) 0445 (Given - Provider: Adelina Puckett RN)1229 (Given - Provider: Annemarie Babcock, MEERA) lactated ringers bolus solution 2,000 mL (COMPLETED) 2,000 mL, IV, PRE-PROCEDURE ONCE, 1 dose, Starting on Gabbie 07/17/20 at 0811, Until Gabbie 07/17/20 at 0935, at 2,000 mL/hr, Administer over 60 Minutes, Stat, Pre-op 0828 (New Bag - Provider: Lesley Pool RN)0935 (Stopped - Provider: Lesley Pool RN) metroNIDAZOLE (FLAGYL) IVPB 500 mg (COMPLETED) 500 mg, IV, ONE TIME ONLY, 1 dose, On Tue07/17/20 at 0815, Stat, Pre-op, Antibiotic Indication: Surgical prophylaxis 1032 (Given - Provider: Julian Hurley CRNA) metroNIDAZOLE (FLAGYL) IVPB 500 mg (COMPLETED)(Linked Group 1) 500 mg, IV, POST-PROCEDURE Q 8 HOURS, 2 doses, First dose on Tue07/17/20 at 1830, Last dose on Tue07/18/20 at 0230, Routine, Post-op - Floor, Antibiotic Indication: Surgical prophylaxis 1832 (New Bag - Provider: Fe Grijalva RN)1835 (Rate Verify - Provider: Annemarie Babcock RN)1932 (Stopped - Provider: Adelina Puckett RN) 0217 (New Bag - Provider: Adelina Puckett RN)0225 (Rate Verify - Provider: Annemarie Babcock RN)0316 (Stopped - Provider: Annemarie Babcock RN)0317 (Stopped - Provider: Adelina Puckett RN) naloxone (NARCAN) 0.4 mg/mL injection 0.1 mg 0.1 mg, IV, SEE ADMIN INSTRUCTIONS, Starting on Tue07/17/20 at 1204, Until Tue07/18/20 at 1608, Routine, Post-op - Floor naloxone (NARCAN) 0.4 mg/mL injection 0.1 mg 0.1 mg, IV, SEE ADMIN INSTRUCTIONS, Starting on Tue07/17/20 at 1141, Until Tue07/18/20 at 1608, Routine, PACU scopolamine (TRANSDERM-SCOP) 1 mg/72 hr transdermal patch 1 Patch 1 Patch, Transdermal, ONE TIME ONLY, 1 dose, On Gabbie 07/17/20 at 0815, Stat, Pre-op 0828 (Applied - Provider: Lesley Pool RN) 1315 (Due: Removed - Provider: PROVIDER, DISCHARGE PATIENT - Comment: Time automatically adjusted from order being discontinued) sertraline (ZOLOFT) tablet 100 mg 100 mg, Oral, DAILY, First dose on Tue07/18/20 at 0900, Until Discontinued, Previous Med: sertraline HCl (SERTRALINE ORAL) - Orig Sig - Take 100 mg by mouth daily. 0806 (Given - Provid er: Annemarie Babcock, RN) Continuous Medication Order 07/16/2020 07/17/2020 07/18/2020 bupivacaine PF 5 mg/mL (0.5%) 270 mL infusion for On-Q pump See Admin Instructions, CONTINUOUS, Starting on Gabbie 07/17/20 at 0815, Until 07/18/20 at 1608, Routine, Pre-op 1139 (New Bag - Provider: Cindi Devine RN - Comment: started in or) lactated ringers infusion (CANCELED) IV, at 125 mL/hr, PRE-PROCEDURE CONTINUOUS, Starting on Gabbie 07/17/20 at 0815, Until Gabbie 07/17/20 at 1158, Stat, Pre-op 0900 (Stopped - Provider: Cindi Devine RN)0936 (New Bag - Provider: Lesley Pool RN) 0734 (Stopped - Provider: Annemarie Babcock RN) potassium CHLORIDE in dextrose 5% - NaCl 0.45% 1,000 mL 20 mEq/L infusion IV, at 150 mL/hr, CONTINUOUS, Starting on Gabbie 07/17/20 at 1145, Until Tue07/18/20 at 1608, Routine, Post-op - Floor 1152 (New Bag - Provider: Cindi Devine RN)2038 (New Bag - Provider: Adelina Puckett RN)2039 (Rate Verify - Provider: Annemarie Babcock RN)213 (Rate Change - Provider: Annemarie Babcock RN)214 (Rate Change - Provider: Annemarie Babcock RN)2153 (Paused - Provider: Annemarie Babcock RN)2209 (Restarted - Provider: Annemarie Babcock RN) 0129 (Paused - Provider: Annemarie Babcock RN)0159 (Restarted - Provider: Annemarie Babcock, RN)0216 (Paused - Provider: Annemarie Babcock, RN)0316 (Restarted - Provider: Annemarie Babcock RN)0535 (Rate Change - Provider: Annemarie Babcock RN)0547 (Rate Change - Provider: Annemarie Babcock RN)0707 (Rate Change - Provider: Annemarie Babcock RN)0717 (Rate Change - Provider: Annemarie Babcock RN)0717 (Paused - Provider: Annemarie Babcock RN)0717 (Paused - Provider: Annemarie Babcock RN)0730 (Rate Change - Provider: Annemarie Babcock RN)0733 (Paused - Provider: Annemarie Babcock RN)0734 (Paused - Provider: Annemarie Babcock RN)0734 (New Bag - Provider: Annemarie Babcock RN)0753 (Rate Verify - Provider: Annemarie Babcock RN) PRN Medication Order 07/16/2020 07/17/2020 07/18/2020 bupivacaine 0.5 % (SENSORCAINE,MARCAINE) 5 mg/mL (0.5%) injection (CANCELED) INTRA-PROCEDURE PRN, Starting on Gabbie 07/17/20 at 1051, Until Gabbie 07/17/20 at 1126, Routine, Intra-op 1051 (Given - Provider: Kendall Barahona MD - Comment: USED WITH ON Q PAIN PUMP) fentaNYL PF (SUBLIMAZE) 50 mcg/mL injection 50 mcg (CANCELED) 50 mcg, IV, POST-PROCEDURE Q 3 MINUTES PRN, 5 doses, Starting on Gabbie 07/17/20 at 1141, Until Gabbie 07/17/20 at 1158, Pain, Routine, PACU 1144 (Given - Provider: Cindi Devine RN)1146 (Given - Provider: Cindi Devine RN) HYDROcodone-acetaminophen (HYCET) 7.5-325 mg/15 mL oral solution 15 mL 15 mL (7.5 mg), Oral, EVERY 4 HOURS PRN, Starting on Tue07/18/20 at 0445, Until Tue07/18/20 at 1608, Pain (See admin instructions), Routine, Post-op - Floor 0746 (Given - Provid er: Annemarie Babcock RN) HYDROcodone-acetaminophen (HYCET) 7.5-325 mg/15 mL oral solution 15 mL 15 mL (7.5 mg), Oral, EVERY 4 HOURS PRN, Starting on 07/18/20 at 0445, Until Tue07/18/20 at 1608, Pain (See admin instructions), Routine, Post-op - Floor HYDROmorphone (PF) (DILAUDID) injection 0.3 mg 0.3 mg, IV, EVERY 4 HOURS PRN, Starting on Gabbie 07/17/20 at 1204, Until Tue07/18/20 at 1608, Pain (See admin instructions), Routine, Post-op - Floor 1027 (Given - Provid er: Annemarie Babcock RN) HYDROmorphone (PF) (DILAUDID) injection 0.6 mg 0.6 mg, IV, EVERY 30 MINUTES PRN, Starting on Gabbie 07/17/20 at 1204, Until Tue07/18/20 at 1608, Pain (See admin instructions), Routine, Post-op - Floor 2239 (Given - Provider: Adelina Puckett, MEERA) ketorolac (TORADOL) injection 30 mg 30 mg, IV, EVERY 6 HOURS PRN, Starting on Gabbie 07/17/20 at 1204, Until Tue07/18/20 at 1608, Other (See Comment), Cramping or aching pain, Routine, Post-op - Floor 1227 (Given - Provider: Fe Grijalva RN)1806 (Given - Provider: Fe Grijalva RN) magnesium hydroxide (MILK OF MAGNESIA) oral suspension 30 mL 30 mL, Oral, DAILY PRN, Starting on Gabbie 07/17/20 at 1204, Until Tue07/18/20 at 1608, Constipation, Routine, Post-op - Floor metoclopramide (REGLAN) 5 mg/mL injection 10 mg 10 mg, IV, EVERY 6 HOURS PRN, Starting on Gabbie 07/17/20 at 1204, Until Tue07/18/20 at 1608, Nausea/Emesis, Routine, Post-op - Floor 1227 (Given - Provider: Fe Grijalva RN) morphine 4 mg/mL injection 2 mg 2 mg, IV, EVERY 4 HOURS PRN, Starting on Gabbie 07/17/20 at 1204, Until Tue07/18/20 at 1608, Pain (See admin instructions), Routine, Post-op - Floor 1936 (Given - Provider: Adelina Puckett RN) 0220 (Given - Provider: Adelina Puckett RN) ondansetron (ZOFRAN) 4 mg/2 mL injection 4 mg 4 mg, IV, EVERY 6 HOURS PRN, Starting on Gabbie 07/17/20 at 1204, Until Tue07/18/20 at 1608, Nausea/Emesis, Routine, Post-op - Floor 1936 (Given - Provider: Adelina Puckett, MEERA) 0806 (Given - Provider: Annemarie Babcock RN) ondansetron (ZOFRAN) 4 mg/2 mL injection 4 mg 4 mg, IV, EVERY 6 HOURS PRN, Starting on Gabbie 07/17/20 at 1204, Until Tue07/18/20 at 1608, Nausea/Emesis, Routine, Post-op - Floor 2239 (Given - Provider: Adelina Puckett RN) sodium chloride 0.9 % irrigation solution (CANCELED) INTRA-PROCEDURE PRN, Starting on Gabbie 07/17/20 at 1051, Until Gabbie 07/17/20 at 1126, Routine, Intra-op 1051 (Given - Provider: Kendall Barahona MD) Linked Groups Order Group 1: ceFAZolin (ANCEF) 2,000 mg in dextrose (iso-osmotic) 50 mL IVPB (PREMIX) (COMPLETED)Jump to med 2,000 mg, IV, POST-PROCEDURE Q 8 HOURS, 2 doses, First dose on Gabbie 07/17/20 at 1830, Last dose on Tue07/18/20 at 0230, Routine, Post-op - Floor, Antibiotic Indication: Surgical prophylaxis And metroNIDAZOLE (FLAGYL) IVPB 500 mg (COMPLETED)Jump to med 500 mg, IV, POST-PROCEDURE Q 8 HOURS, 2 doses, First dose on Gabbie 07/17/20 at 1830, Last dose on Tue07/18/20 at 0230, Routine, Post-op - Floor, Antibiotic Indication: Surgical prophylaxis documented in this encounter Care Teams Baggage Screener Relationship Specialty Start Date End Date Adiel Demarco MD [address] [place] [id number] PCP - General Internal Medicine 06/05/20 documented as of this encounter
--- OUTSIDE RECORDS SUMMARY | 2024-09-05 02:15 | XMS_ITS | Clinical Summary ---
Author Organization [facility] Address [address] [place] [address] Phone Care Team Providers Care Software Configuration Specialist Name Role Phone Adiel Demarco MD Primary Care Provider [phone] Allergies No known active allergies Medications Medication Sig Dispensed Refills Start Date End Date Status sertraline HCl (SERTRALINE ORAL) Take 100 mg by mouth daily. Active ALPRAZOLAM ORAL Take 0.5 mg by mouth 3 times daily as needed. Active zolpidem tartrate (ZOLPIDEM ORAL) Take 10 mg by mouth nightly as needed. Active SUMAtriptan (IMITREX) 100 mg tablet Take 100 mg by mouth see administration instructions. may repeat in 2 hours; max dose 200mg in 24 hours Active ondansetron (Zofran ODT) 4 mg Tablet, Rapid Dissolve Place 1 Tablet (4 mg) under tongue every 6 hours as needed for Nausea. 28 Tablet 07/17/2020 Active mesalamine (LIALDA) 1.2 gram Tablet, Delayed Release (E.C.) Take 4 Tablets (4.8 Grams) by mouth daily. 4 - 1.2GRAM TABLETS DAILY 1 Tablet 07/25/2020 Active HYDROcodone-aceta minophen (HYCET) 7.5-325 mg/15 mL Solution Take 15 mL by mouth every 6 hours as needed for pain. Max Daily Amount: 60 mL 300 mL 07/23/2020 Active Active Problems Problem Noted Date Diagnosed Date General medical exam 07/17/2020 History of Crohn's disease 07/17/2020 Benign hypertension 07/17/2020 Depression 07/17/2020 Immunizations Name Administration Dates Next Due Influenza Seasonal Unspecified Formulation IM Family History Medical History Relation Name Comments Cancer Brother Heart Disease Brother Healthy Father Healthy Mother Relation Name Status Comments Brother Father Alive Mother Alive Social History Tobacco Use Types Packs/Day Years Used Date Smoking Tobacco: Former Cigarettes Q uit: 06/04/2010 Smokeless Tobacco: Never Alcohol Use Standard Drinks/Week Comments Yes 0 (1 standard drink = 0.6 oz pur e alcohol) Sex and Gender Information Value Date Recorded Sex Assigned at Not on file Gender Identity Not on file Sexual Orientation Not on file Last Filed Vital Signs Vital Sign Reading Time Taken Comments Blood Pressure 151/96 07/18/2020 12:26 PM UTILIZATION MANAGEMENT RN Pulse 78 07/18/2020 12:26 PM UTILIZATION MANAGEMENT RN Temperature 36.9 ??C (98.4 ??F) 07/18/2020 1 2:26 PM UTILIZATION MANAGEMENT RN Respiratory Rate 16 07/18/2020 12:2 6 PM UTILIZATION MANAGEMENT RN Oxygen Saturation 100% 07/18/2020 12: 26 PM UTILIZATION MANAGEMENT RN Inhaled Oxygen Concentration - - Weight 107.1 kg (236 lb 3.2 oz) 07/18/2020 4:45 AM UTILIZATION MANAGEMENT RN Height 157.5 cm (5' 2 ) 07/17/2020 12:1 0 PM UTILIZATION MANAGEMENT RN Body Mass Index 43.2 07/17/2020 12:10 PM UTILIZATION MANAGEMENT RN Plan of Treatment Health Maintenance Due Date Last Done Comments HEPATITIS B VACCINES (1 of 3 - 19+ 3-dose series) 11/10/2006 CERVICAL CANCER SCREENING 11/10/2017 INFLUENZA VACCINE (#1) 2024 0, 04/05/2020, 06/16/2019, Additional history exists DTAP/TDAP/TD VACCINES (2 - Td or Tdap) 11/03/2028 11/03/2018 HPV VACCINES Aged Out No longer eligi ble based on patient's age to complete this topic PNEUMOCOCCAL VACCINE 0-64 YEARS Aged Out No longer eligible based on patient's age to complete this topic Medical Devices Implanted Type Area Hospitalist Device Identifier Shelf Expiration Date Model / Serial / Lot Seamguard Endogia 60 Blk [id number] - [id number] Implanted:Qty : 2 on 07/17/2020 by Kendall Barahona MD at [facility] [employer] N/A: St[employer] 12/17/2022 [id number] / / [id number] Seamguard Endogia 60 Prpl [id number] - [id number] Implanted:Qty : 3 on 07/17/2020 by Kendall Barahona MD at [facility] [employer] N/A: Stomach [employer] 12/31/2022 [id number] / / [id number] Copper Iud Advance Directives For more information, please contact: [phone] * Full Code (Latest Code Status on File) Date Activated Date Inactivated Comments 07/17/2020 8:12 AM 07/18/2020 4:13 PM * Full Code Date Activated Date Inactivated Comments 06/06/2020 5:52 AM 06/06/2020 9:58 AM Care Teams Software Configuration Specialist Relationship Specialty Start Date End Date Adiel Demarco MD [address] [place] [address] PCP - General Internal Medicine 06/05/20
--- OUTSIDE RECORDS SUMMARY | 2024-09-05 02:15 | XMS_ITS | Encounter Summary ---
Author Organization [facility] Address [address] [facility] Attn: Epic Prelude ADT [place] [address] Care Team Providers Care Stereoptic Projection Topographer Name Role Phone Unavailable Primary Care Provider Unavailabl e Encounter Details Date Type Department Care Team (Latest Contact Info) Description 06/04/2020 Travel Social History Tobacco Use Types Packs/Day [...] have Coronavirus / COVID-19? No / Unsure 06/04/2020 9:08 AM CDT documented as of this encounter Plan of Treatment Not on file documented as of this encounter Visit Diagnoses Not on filedocumented in this encounter
--- OUTSIDE RECORDS SUMMARY | 2024-09-05 02:15 | XMS_ITS | Encounter Summary ---
Author Organization [facility] Address [address] [facility] Attn: Epic Prelude ADT [place] [address] Care Team Providers Care Senior Medical Billing Specialist Name Role Phone Adiel Demarco MD Primary Care Provider [phone] Encounter Details Date Type Department Care Team (Latest Contact Info) Description 07/14/2020 Travel Social History Tobacco Use Types Packs/Day [...] COVID-19? No / Unsure 07/14/2020 9:53 AM FLAVOR MAKER documented as of this encounter Plan of Treatment Not on file documented as of this encounter Visit Diagnoses Not on filedocumented in this encounter Care Teams Senior Medical Billing Specialist Relationship Specialty Start Date End Date Adiel Demarco MD [address] [place] [address] PCP - General Internal Medicine 06/05/20 documented as of this encounter
--- OUTSIDE RECORDS SUMMARY | 2024-09-05 02:15 | XMS_ITS | Encounter Summary ---
Author Organization [facility] Address [address] [facility] Attn: Epic Prelude ADT [place] [address] Care Team Providers Care Cafe Cook Name Role Phone Adiel Demarco MD Primary Care Provider [phone] Encounter Details Date Type Department Care Team (Latest Contact Info) Description 07/15/2020 Travel Social History Tobacco Use Types Packs/Day [...] have Coronavirus / COVID-19? No / Unsure 07/15/2020 12:11 PM CREATIVE WRITER documented as of this encounter Plan of Treatment Not on file documented as of this encounter Visit Diagnoses Not on filedocumented in this encounter Care Teams Cafe Cook Relationship Specialty Start Date End Date Adiel Demarco MD [address] [place] [address] PCP - General Internal Medicine 06/05/20 documented as of this encounter
--- OUTSIDE RECORDS SUMMARY | 2024-09-05 02:15 | XMS_ITS | Encounter Summary ---
Author Organization [facility] Address [address] [place] [address] Care Team Providers Care Marine Fitter Name Role Phone Adiel Demarco MD Primary Care Provider [phone] Reason for Visit * Auth/Cert Specialty Diagnoses / Procedures Referred By Mar arroyo Referred To Contact Perioperative Diagnoses Pre-procedural examination Procedures [place] EGD TRANSORAL BIOPSY SINGLE/MULTIPLE ESOPHAGOGASTRODUODENOSCOPY WITH POSSIBLE BIOPSY [facility] Endoscopy [address] [place] [address] Referral ID Status Reason Start Date Expiration Date Visits Re quested Visits Authorized [id number] 1 1 Encounter Details Date Type Department Care Team (Latest Contact Info) Description 06/06/2020 5:35 AM CDT - 06/06/2020 7:58 AM CDT Hospital Encounter [facility] Post Anesthesia Care Unit [address] [place] [address] Kendall Barahona MD [address] [address] [place] [address] Pre-procedural examination Discharge Disposition: Home or Self Care Social [...] Sign Reading Time Taken Comments Blood Pressure 117/99 06/06/2020 7:38 AM CDT Pulse 64 06/06/2020 7:38 AM CDT Temperature 37.2 ??C (98.9 ??F) 06/06/2020 7:38 AM CD T Respiratory Rate 20 06/06/2020 7:38 AM CDT Oxygen Saturation 98% 06/06/2020 7:38 AM CDT Inhaled Oxygen Concentration - - [...] Barahona MD - 06/06/2020 7:18 [place] [address] History and Physical Patient: Brissa Buckley : [...] file Gets together: Not on file Attends jainism service: Not on file Active member of [...] 2:01 PM CDTAssociated Order(s): UPPER ENDOSCOPY REPORT [facility] Endoscopy Patient Name: Brisas Buckley Procedure Date: 06/06/2020 Date of : [...] 8:48:27 AM Number of Addenda: 0 [address] [address], [place] [address] documented in this encounter Miscellaneous Notes * Care Plan - Cindi Devine RN - 06/06/2020 7:40 AM CDT Potential for pain related to surgical/procedural intervention Interventions: Assess level of pain/comfort utilizing verbal/nonverbal pain scales; assess culturalor jainism indicators attached to pain; administer pain medications [...] Routine 06/06/2020 7:24 AM CDT Pre-procedural examination [place] EGD TRANSORAL BIOPSY SINGLE/MULTIPLE 06/06/2020 7:19 AM CDT Pre-procedural examination Case Notes 05/28/2020 SCHEDULE COVID TESTING FOR 06/03/2020 AT 1020 [id number] NR 05/28/2020 POC , URINE Routine 06/06/2020 5:54 AM CDT documented in this encounter Results * UPPER ENDOSCOPY REPORT (06/06/2020 2:02 PM CDT) Narrative Procedure Note Kendall Barahona MD - 06/06/2020 2:01 PM CDT [facility] Endoscopy Patient Name: Brissa Buckley Procedure [...] 8:48:27 AM Number of Addenda: 0 [address] [facility], [place] [address] Kendall Barahona MD GI PROCEDURE ORDERAB LES * HELICOBACTER PYLORI RAPID UREASE TEST (06/06/2020 7:24 AM CDT) H. PYLORI RAPID UREASE TEST Negative Negative 06/07/2020 10:33 AM CDT [facility] Tissue ENTIRE STOMACH / Unknown Collection / Unknown 06/06/2020 7:24 AM CDT 06/06/2020 10:23 AM CDT Kendall Barahona MD MICROBIOLOGY - GENER AL ORDERABLES [facility] [employer] [facility] CLIA# [id number] [address] [place] [address] * POC , URINE (06/06/2020 5:54 AM CDT) HCG QUAL URINE Negative Negative 06/06/2020 5:54 AM CDT [facility] FORM TAMPER NAME POC Nanci Sahu 06/06/2020 5:54 AM CDT [facility] [employer] [facility] Urine 06/06/2020 5:54 AM CDT 06/06/2020 5:59 AM CDT Kendall Barahona MD POINT OF CARE TESTIN G [facility] [employer] [facility] CLIA # [id number] [address] [place] [address] * 2019 NOVEL CORONAVIRUS (COVID-19) PCR DETECTION (06/03/2020 10:32 AM CDT) COVID-19 PCR NOT DETECTED NOT DETECTED 06/04/2020 8:12 PM CDT [facility] Comment: A Not Detected (negative) test [...] providers and patients using the following websites: https://www.AnyLeaf.AiMeiWei/home/Covid-19/HCP/NAAT/fact-sheet2 https://www.AnyLeaf.AiMeiWei/home/Covid-19/Patients/NAAT/ fact-sheet2 This test has been authorized by the FDA under an Emergency Use Authorization (EUA) for use by authorized laboratories. Due to the current public health emergency, [facility] is receiving a high volume of samples [...] about COVID-19 can be found at the [facility] website: www.Cumulux.AiMeiWei/Covid19. Upper Respiratory ANTERIOR NARES SWAB / Unknown Collection / Unknown 06/03/2020 10:32 AM CDT 06/03/2020 11:51 AM CDT Narrative [facility] - 06/04/2020 8:12 PM CDT Performing Organization Information: ?Site ID: [place] ?Name: [facility] ?Address: [address] [place] [address] ?Director: Steve Reddy D.O., MPH Kendall Barahona MD MICROBIOLOGY - GENER AL ORDERABLES [facility] [phone] documented in this encounter Visit Diagnoses Diagnosis [...] RN) documented in this encounter Care Teams Marine Fitter Relationship Specialty Start Date End Date Adiel Demarco MD [address] [place] [address] PCP - General Internal Medicine 06/05/20 documented as of this encounter
--- OUTSIDE RECORDS SUMMARY | 2024-09-05 02:15 | XMS_ITS | Encounter Summary ---
Author Organization [facility] Address [address] [place] [address] Care Team Providers Care Forensic Medical Examiner Name Role Phone Adiel Demarco MD Primary Care Provider [phone] Reason for Visit * Auth/Cert Specialty Diagnoses / Procedures Referred By Mar arroyo Referred To Contact Perioperative Diagnoses Morbid (severe) obesity due to excess calories Procedures OK LAP, TRACEY RESTRICT PROC, LONGITUDINAL GASTRECTOMY GASTRECTOMY LONGITUDINAL LAPAROSCOPIC, Q-PAIN PUMP, POSS HERNIA HIATAL REPAIR LAPAROSCOPIC [1794] [facility] Operating Room [address] [place] [address] Referral ID Status Reason Start Date Expiration Date Visits Re quested Visits Authorized [id number] 1 1 Encounter Details Date Type Department Care Team (Late st Contact Info) Description 07/17/2020 10:00 AM [facility] - 07/17/2020 11:00 AM [facility] Surgery [facility] Operating Room [address] [facility] [address] [place] [address] Kendall Barahona MD [address] [place] [address] [address] [place] [address] GASTRECTOMY LONGITUDINAL LAPAROSCOPIC, INSERTION OF TUNNELED ABDOMINAL WALL CATHETERS[1794] Surgery Details Date/Time Status Location OR Service Patient Class Case Class Case Type Trauma Case? 07/17/2020 10:00 AM Posted [facility] OR OR General Surgery Surgery Admit Elective No Panel 1 Procedure LRB Anes Op Region Wound Class Comments GASTRECTOMY LONGITUDINAL LAPAROSCOPIC, INSERTION OF TUNNELED ABDOMINAL WALL CATHETERS[1794] N/A General Abdomen Clean Contaminated-II CODE 18 Q-PAIN PUMP Surgeon Surgeon Role Service Panel Kendall Barahona MD Primary General Surgery 1 Case Notes 07/11/2020 SCHEDULE COVID TESTING FOR 07/14/2020 AT 1450 CODE 18 Q-PAIN PUMP [id number] documented in this encounter Social History Tobacco [...] COVID-19? No / Unsure 07/17/2020 7:49 AM NUT SHELLER MACHINE OPERATOR documented as of this encounter Last Filed Vital Signs Vital Sign Reading Time Taken Comments Blood Pressure 133/101 07/17/2020 8:32 AM NUT SHELLER MACHINE OPERATOR Pulse 97 07/17/2020 8:32 AM NUT SHELLER MACHINE OPERATOR Temperature 36.9 ??C (98.4 ??F) 07/17/2020 8:32 AM CS T Respiratory Rate 18 07/17/2020 8:32 AM NUT SHELLER MACHINE OPERATOR Oxygen Saturation 100% 07/17/2020 8:32 AM NUT SHELLER MACHINE OPERATOR Inhaled Oxygen Concentration - - Weight 107 kg (236 lb) 07/17/2020 8:32 AM NUT SHELLER MACHINE OPERATOR Height 157.5 cm (5' 2 ) 07/15/2020 12:19 PM NUT SHELLER MACHINE OPERATOR Body Mass Index 43.2 07/17/2020 12:10 PM NUT SHELLER MACHINE OPERATOR documented in this encounter Discharge Summaries * Pinky Spencer FNP - 07/18/2020 9:00 AM CST [facility] [address] [place] [phone] Brissa Amanda Buckley 34 y.o. female 1985 CSN: [id number] Date of Admission: 07/17/2020 Date of Discharge: [...] Your Medications These medications were sent to [facility] [address], [place] [address], [place] [address] Hours: Tuesday-Tuesday: 8:30 a.m. - 5:00 p.m., Tuesday: 9:00 a.m. - 1:00 p.m. ?? HYDROcodone-acetaminophen 7.5-325 mg/15 mL Solution ?? mesalamine 1.2 gram Tablet, Delayed Release (E.C.) ?? ondansetron 4 mg Tablet, Rapid Dissolve Consultants: [facility] Discharge Lab Data: Lab Results Component Value [...] discharge instructions by Shaka ESTES and Isabell ESTESdietitian research coordinators, Hospitalist Group CLERICAL WAREHOUSEMAN, and or Dr. Barahona. Patient was also [...] information. Signed: ESA Smith 07/18/2020, 4:09 PM SHELLER MACHINE OPERATOR documented in this encounter Discharge Instructions * Discharge Instructions* Pinky Spencer FNP - 07/17/2020 5:49 PM NUT SHELLER MACHINE OPERATOR MEDICATIONS: Lortab Elixir 7.5/325mg Disp# 360ml Sig: [...] foul smell coming from the wound . SHELLER MACHINE OPERATOR * Attachments The following attachments cannot be sent through Care Everywhere. * acetaminophen and hydrocodone (Ethiopian) * ondansetron (oral) (Ethiopian) documented in this encounter Medications at Time [...] be discharged via ambulatory to home. Brissa Buclkey is accompanied by spouse and will be transported via private vehicle. SHELLER MACHINE OPERATOR * Isabell Delgado RN - 07/18/2020 10:35 [...] Questions answered ?? Isabell Delgado RN, BSN SHELLER MACHINE OPERATOR * Adelina Puckett RN - 07/18/2020 6:46 AM CST Patient has had elevated heart rate at various times during the shift, at these times patient reported pain and was medicated with relief noted. SHELLER MACHINE OPERATOR * Fe Grijalva RN - 07/17/2020 12:00 [...] distress voiced. Patients spouse at the bedside. SHELLER MACHINE OPERATOR * Lesley Pool RN - 07/17/2020 8:35 AM CST CALLED TO BS Questions answered, denies needs. Call light in reach SHELLER MACHINE OPERATOR * Tracy Burrell PHARMACIST - 07/15/2020 12:48 PM CST Bariatric [...] 7. Zolpidem Tartrate -- may crush R Handrahan, RPh SHELLER MACHINE OPERATOR documented in this encounter H&P Notes * Kendall Barahona MD - 07/17/2020 10:01 [place] [address] History and Physical Patient: Brissa Buckley : [...] Past Surgical History: Procedure Laterality Date ??? OK EGD TRANSORAL BIOPSY SINGLE/MULTIPLE N/A 06/06/2020 ESOPHAGOGASTRODUODENOSCOPY WITH BIOPSY performed by Kendall Barahoan MD at [facility] ??? PT DENIES RELEVANT SURGICAL HISTORY Medications [...] file Gets together: Not on file Attends congregation service: Not on file Active member of [...] her questions were answered. Kendall Barahona MD SHELLER MACHINE OPERATOR documented in this encounter Consult Notes * Johanna PinkyESA - 07/17/2020 5:00 PM CSTAssociated Order(s): IP CONSULT TO HOSPITALIST Hospitalist Consultation Note Patient Name: Brissa Buckley [id number] Primary Care Doctor: Adiel Demarco MD Requesting [...] Past Surgical History: Procedure Laterality Date ??? OK EGD TRANSORAL BIOPSY SINGLE/MULTIPLE N/A 06/06/2020 ESOPHAGOGASTRODUODENOSCOPY WITH BIOPSY performed by Kendall Barahona MD at [facility] ??? OK LAP, TRACEY RESTRICT PROC, LONGITUDINAL GASTRECTOMY N/A 07/17/2020 GASTRECTOMY LONGITUDINAL LAPAROSCOPIC, INSERTION OF TUNNELED ABDOMINAL WALL CATHETERS[1794] performed by Kendall Barahona MD at [facility] OR ??? PT DENIES RELEVANT SURGICAL HISTORY [...] quittin.1 ??? Smokeless tobacco: Never Used Substance Use [...] Ref Range HCG QUAL URINE Negative Negative WELL SERVICE FLOORPERSON NAME Lesley Pool Labs reviewed on chart by comic book writer done prior to arrival Assessment:PLAN 1. [...] coordination of care. Thank you for consulting [facility]. We will gladly follow the patient throughout their stay. ESA Smith SHELLER MACHINE OPERATOR documented in this encounter OR Notes * Operative Report - Kendall Barahona MD - 07/17/2020 11:22 AM CST Brissa Buckley [id number] 07/17/2020 PRE OP DIAGNOSES: Morbid obesity with [...] wall catheters x2 SURGEON: Kendall Barahona MD CUMULATIVE EFFECTS ANALYST: None ANESTHESIA: GETA ESTIMATED BLOOD LOSS IN MLS: 50 cc COMPLICATIONS: None SPECIMEN: None PREOPERATIVE NOTE: The contemplated operative procedure, risks, benefits and alternatives to this procedure have been discussed with this patient and/or legal passenger relations representative. The patient and/or legal passenger relations representative acknowledge(s) understanding of the above and [...] recovery room awake and in stable condition. SHELLER MACHINE OPERATOR documented in this encounter Miscellaneous Notes * Care Plan - Annemarie Babcock RN - 07/18/2020 2:05 PM CST Day 1 - Current ([place] [facility]: Adult and Obstetrics) Patient, family, or [...] understanding of medications and follow-up. Outcome: Met SHELLER MACHINE OPERATOR * Care Plan - Adelina Puckett RN - 07/18/2020 4:59 AM CST Patient ambulating, urinating, tolerating oral intake. Complaining of some RLQ pain that comes and goes. Day 1 - Current ([place] [facility]: Adult and Obstetrics) Patient, family, or [...] understanding of medications and follow-up. Outcome: Met SHELLER MACHINE OPERATOR * Care Plan - Cindi Devine RN - 07/17/2020 11:56 AM CST Potential for pain related to surgical/procedural intervention Interventions: Assess level of pain/comfort utilizing verbal/nonverbal pain scales; assess culturalor congregation indicators attached to pain; administer pain medications as prescribed; utilize non-pharmacologic pain control and comfort measures Expected Outcome: Patient demonstrates and reports adequate pain control Outcome Met: able to sleep, states severe pain when awake but then able to sleep SHELLER MACHINE OPERATOR * Care Plan - Lesley Pool RN - 07/17/2020 8:34 AM CST Knowledge [...] pre op protocols, questions answered, verbalized understanding. SHELLER MACHINE OPERATOR documented in this encounter Plan of Treatment Not on file documented as of this encounter Procedures Procedure Name Priority Date/Time Associated Diagnosis Comments CBC WITH DIFFERENTIAL Routine 07/18/2020 3:10 AM NUT SHELLER MACHINE OPERATOR BASIC METABOLIC PANEL Routine 07/18/2020 3:10 AM NUT SHELLER MACHINE OPERATOR OK LAPS GSTRC RSTRICTIV PX LONGITUDINAL GASTRECTOMY 07/17/2020 10:00 AM NUT SHELLER MACHINE OPERATOR Morbid (severe) obesity due to excess calories Case Notes 07/11/2020 SCHEDULE COVID TESTING FOR 07/14/2020 AT 1450 CODE 18 Q-PAIN PUMP [id number] POC , URINE Routine 07/17/2020 8:40 AM NUT SHELLER MACHINE OPERATOR documented in this encounter Results * (ABNORMAL) BASIC METABOLIC PANEL (07/18/2020 3:10 AM NUT SHELLER MACHINE OPERATOR) SODIUM 137 136 - 145 mmol/L 07/18/2020 4:13 AM NUT SHELLER MACHINE OPERATOR [facility] [place] POTASSIUM 4.0 3.5 - 5.1 mmol/L 07/18/2020 4:13 AM [facility] [place] CHLORIDE 105 98 - 107 mmol/L 07/18/2020 4:13 AM [facility] [place] CO2 22 22 - 29 mmol/L 07/18/2020 4:13 AM [facility] [place] CALCIUM 9.4 8.6 - 10.0 mg/dL 07/18/2020 4:13 AM [facility] [place] BUN 4(L) 6 - 20 mg/dL 07/18/2020 4:13 AM [facility] [place] CREATININE 0.62 0.51 - 0.95 mg/dL 07/18/2020 4:13 AM [facility] [place] GLUCOSE 99 74 - 99 mg/dL 07/18/2020 4:13 AM [facility] [employer] [facility] GFR >60 >=60 mL/min/1.7 3 sq meter 07/18/2020 4:13 AM [facility] [employer] [facility] [place] Comment: eGFR has not [...] mL/min/1.7 3 sq meter 07/18/2020 4:13 AM [facility] [employer] [facility] [place] ANION GAP 10 5 - 15 mmol/L 07/18/2020 4:13 AM [facility] Blood Venipuncture / Unknown 07/18/2020 3:10 AM NUT SHELLER MACHINE OPERATOR 07/18/2020 3:50 AM NUT SHELLER MACHINE OPERATOR Kendall Barahona MD CHEMISTRY ORDERABLES [facility] [employer] [facility] [place] CLIA # [id number] [facility] [address] [place] [address] * (ABNORMAL) CBC WITH DIFFERENTIAL (07/18/2020 3:10 AM NUT SHELLER MACHINE OPERATOR) [facility] WBC 9.7 4.0 - 11.0 K/uL 07/18/2020 3:55 AM NUT SHELLER MACHINE OPERATOR [employer] [facility] [place] RBC 4.53 4.20 - 5.40 M/uL 07/18/2020 3:55 AM NUT SHELLER MACHINE OPERATOR [employer] [place] HEMOGLOBIN 13.2 11.9 - 15.1 g/dL 07/18/2020 3:55 AM NUT SHELLER MACHINE OPERATOR [facility] [place] HEMATOCRIT 39.2 38.0 - 47.0 % 07/18/2020 3:55 AM NUT SHELLER MACHINE OPERATOR [facility] [place] MCV 86.5 80.0 - 98.0 fL 07/18/2020 3:55 AM NUT SHELLER MACHINE OPERATOR [facility] [place] MCH 29.1 26.0 - 34.0 pg 07/18/2020 3:55 AM NUT SHELLER MACHINE OPERATOR [employer] [place] MCHC 33.7 31.0 - 37.0 g/dL 07/18/2020 3:55 AM NUT SHELLER MACHINE OPERATOR [employer] [facility] [place] RDW 12.3 11.5 - 14.5 % 07/18/2020 3:55 AM NUT SHELLER MACHINE OPERATOR [facility] [place] RDW-STDEV 38.9 34.0 - 54.0 fL 07/18/2020 3:55 AM NUT SHELLER MACHINE OPERATOR [employer] [facility] [place] PLATELETS 342 150 - 400 K/uL 07/18/2020 3:55 AM NUT SHELLER MACHINE OPERATOR [employer] [facility] [place] MPV 10.2 8.5 - 12.5 fL 07/18/2020 3:55 AM NUT SHELLER MACHINE OPERATOR [employer] [facility] [place] NEUTROPHILS 81(H) 50 - 70 % 07/18/2020 3:55 AM NUT SHELLER MACHINE OPERATOR [employer] [facility] [place] LYMPHOCYTES 11(L) 20 - 40 % 07/18/2020 3:55 AM NUT SHELLER MACHINE OPERATOR [employer] [facility] [place] MONOCYTES 8 2 - 8 % 07/18/2020 3:55 AM NUT SHELLER MACHINE OPERATOR [employer] [place] EOSINOPHILS 0(L) 1 - 3 % 07/18/2020 3:55 AM NUT SHELLER MACHINE OPERATOR [facility] [place] BASOPHILS 0 0 - 1 % 07/18/2020 3:55 AM NUT SHELLER MACHINE OPERATOR [employer] [place] IMMATURE GRANULOCYTES 0 0 - 2 % 07/18/2020 3:55 AM NUT SHELLER MACHINE OPERATOR [employer] [place] NEUTROPHIL ABSOLUTE 7.89(H) 1.80 - 7.70 K/uL 07/18/2020 3:55 AM NUT SHELLER MACHINE OPERATOR [facility] [place] LYMPHOCYTE ABSOLUTE 1.03 1.00 - 3.30 K/uL 07/18/2020 3:55 AM NUT SHELLER MACHINE OPERATOR [facility] [place] MONOCYTE ABSOLUTE 0.78 0.00 - 0.80 K/uL 07/18/2020 3:55 AM NUT SHELLER MACHINE OPERATOR [facility] [place] EOSINOPHIL ABSOLUTE 0.00 0.00 - 0.45 K/uL 07/18/2020 3:55 AM NUT SHELLER MACHINE OPERATOR [employer] [facility] [place] BASOPHILS ABSOLUTE 0.01 0.00 - 0.20 K/uL 07/18/2020 3:55 AM NUT SHELLER MACHINE OPERATOR [facility] [place] IMMATURE GRANULOCYTES ABSOLUTE 0.03 0.00 - 0.31 K/uL 07/18/2020 3:55 AM NUT SHELLER MACHINE OPERATOR [facility] [place] Blood Venipuncture / Unknown 07/18/2020 3:10 AM NUT SHELLER MACHINE OPERATOR 07/18/2020 3:50 AM NUT SHELLER MACHINE OPERATOR Kendall Barahona MD HEMATOLOGY ORDERABLE S [facility] [employer] [facility] [place] CLIA # [id number] [facility] [address] [place] [address] * POC , URINE (07/17/2020 8:40 AM NUT SHELLER MACHINE OPERATOR) HCG QUAL URINE Negative Negative 07/17/2020 8:40 AM NUT SHELLER MACHINE OPERATOR [facility] [place] WELL SERVICE FLOORPERSON NAME POC Lesley Pool 07/17/2020 8:40 AM NUT SHELLER MACHINE OPERATOR [facility] [place] Urine 07/17/2020 8:40 AM NUT SHELLER MACHINE OPERATOR 07/17/2020 8:42 AM NUT SHELLER MACHINE OPERATOR Kendall Barahona MD POINT OF CARE TESTIN G [facility] [employer] [facility] [place] CLIA # [id number] [address] [address] * 2019 NOVEL CORONAVIRUS (COVID-19) PCR DETECTION (07/14/2020 10:53 AM NUT SHELLER MACHINE OPERATOR) [facility] COVID-19 PCR NOT DETECTED NOT DETECTED 07/15/2020 5:47 PM NUT SHELLER MACHINE OPERATOR [facility] Comment: A Not Detected (negative) [...] providers and patients using the following websites: https://www.[employer].KidZui/home/Covid-19/HCP/[facility]/fact- sheet.html https://www.[employer].KidZui/home/Covid-19/Patients/ Quest[facility]/fact-sheet.html This test has been authorized by the FDA under an Emergency Use Authorization (EUA) for use by authorized laboratories. Due to the current public health emergency, [facility] is receiving a high volume of samples [...] about COVID-19 can be found at the [facility] website: www.Repunch.KidZui/Covid19. Upper Respiratory ANTERIOR NARES SWAB / Unknown Collection / Unknown 07/14/2020 10:53 AM NUT SHELLER MACHINE OPERATOR 07/14/2020 11:44 AM NUT SHELLER MACHINE OPERATOR Narrative [facility] - 07/15/2020 5:47 PM NUT SHELLER MACHINE OPERATOR Performing Organization Information: ?Site ID: [id number] ?Name: [facility] ?Address: [address] [address] ?Director: Steve Reddy D.O., MPH Kendall Barahona MD MICROBIOLOGY - GENER AL ORDERABLES [facility] [phone] documented in this encounter Visit Diagnoses Diagnosis Preop testing- Primary Preoperative examination, unspecified Morbid (severe) obesity due to excess calories documented in this encounter Administered Medications Inactive Administered Medications - up to 3 most recent administrations Medication Order MAR Action Action Date Dose Rate Site bupivacaine 0.5 % (SENSORCAINE,MARCAINE) 5 mg/mL (0.5%) injection INTRA-PROCEDURE PRN, Starting on Tue07/17/20 at 1051, Until Tue07/17/20 at 1126, Routine, Intra-op Given 07/17/2020 10:51 AM NUT SHELLER MACHINE OPERATOR 10 mL Operative Site bupivacaine PF 5 mg/mL (0.5%) 270 mL infusion for On-Q pump See Admin Instructions, CONTINUOUS, Starting on Tue07/17/20 at 0815, Until Tue07/18/20 at 1608, Routine, Pre-op New Bag 07/17/2020 11:39 AM NUT SHELLER MACHINE OPERATOR Abdominal Tissue famotidine PF (PEPCID) 20 mg/2 mL injection 20 mg 20 mg, IV, TWO TIMES DAILY, First dose on Gabbei 07/17/20 at 2100, Until Discontinued, Routine, Post-op - Floor Given 07/18/2020 8:06 AM NUT SHELLER MACHINE OPERATOR 20 mg Given 07/17/2020 8:39 PM NUT SHELLER MACHINE OPERATOR 20 mg heparin injection 5,000 Units 5,000 Units, subCUT, EVERY 8 HOURS, First dose on Gabbie 07/17/20 at 2030, Until Discontinued, Routine, Post-op - Floor Given 07/18/2020 12:29 PM NUT SHELLER MACHINE OPERATOR 5,000 Units Abdomen, Right Lower Quadrant Given 07/18/2020 4:45 AM NUT SHELLER MACHINE OPERATOR 5,000 Units A bdomen, Left Lower Quadrant Given 07/17/2020 8:38 PM NUT SHELLER MACHINE OPERATOR 5,000 Units A bdomen, Left Lower Quadrant HYDROcodone-acetaminophen (HYCET) 7.5-325 mg/15 mL oral solution 15 mL 15 mL (7.5 mg), Oral, EVERY 4 HOURS PRN, Starting on Tue07/18/20 at 0445, Until Tue07/18/20 at 1608, Pain (See admin instructions), Routine, Post-op - Floor Given 07/18/2020 7:46 AM NUT SHELLER MACHINE OPERATOR 15 m L HYDROmorphone (PF) (DILAUDID) injection 0.3 mg 0.3 mg, IV, EVERY 4 HOURS PRN, Starting on Gabbie 07/17/20 at 1204, Until Tue07/18/20 at 1608, Pain (See admin instructions), Routine, Post-op - Floor Given 07/18/2020 10:27 AM NUT SHELLER MACHINE OPERATOR 0.3 mg HYDROmorphone (PF) (DILAUDID) injection 0.6 mg 0.6 mg, IV, EVERY 30 MINUTES PRN, Starting on Gabbie 07/17/20 at 1204, Until Tue07/18/20 at 1608, Pain (See admin instructions), Routine, Post-op - Floor Given 07/17/2020 10:39 PM NUT SHELLER MACHINE OPERATOR 0.6 mg ketorolac (TORADOL) injection 30 mg 30 mg, IV, EVERY 6 HOURS PRN, Starting on Gabbie 07/17/20 at 1204, Until Tue07/18/20 at 1608, Other (See Comment), Cramping or aching pain, Routine, Post-op - Floor Given 07/17/2020 6:06 PM NUT SHELLER MACHINE OPERATOR 30 mg Given 07/17/2020 12:27 PM NUT SHELLER MACHINE OPERATOR 30 mg metoclopramide (REGLAN) 5 mg/mL injection 10 mg 10 mg, IV, EVERY 6 HOURS PRN, Starting on Gabbie 07/17/20 at 1204, Until Tue07/18/20 at 1608, Nausea/Emesis, Routine, Post-op - Floor Given 07/17/2020 12:27 PM NUT SHELLER MACHINE OPERATOR 10 mg morphine 4 mg/mL injection 2 mg 2 mg, IV, EVERY 4 HOURS PRN, Starting on Gabbie 07/17/20 at 1204, Until Tue07/18/20 at 1608, Pain (See admin instructions), Routine, Post-op - Floor Given 07/18/2020 2:20 AM NUT SHELLER MACHINE OPERATOR 2 mg Given 07/17/2020 7:36 PM NUT SHELLER MACHINE OPERATOR 2 mg naloxone (NARCAN) 0.4 mg/mL injection 0.1 mg 0.1 mg, IV, SEE ADMIN INSTRUCTIONS, Starting on Gabbie 07/17/20 at 1141, Until Tue07/18/20 at 1608, Routine, PACU ondansetron (ZOFRAN) 4 mg/2 mL injection 4 mg 4 mg, IV, EVERY 6 HOURS PRN, Starting on Gabbie 07/17/20 at 1204, Until Tue07/18/20 at 1608, Nausea/Emesis, Routine, Post-op - Floor Given 07/18/2020 8:06 AM NUT SHELLER MACHINE OPERATOR 4 mg Given 07/17/2020 7:36 PM NUT SHELLER MACHINE OPERATOR 4 mg ondansetron (ZOFRAN) 4 mg/2 mL injection 4 mg 4 mg, IV, EVERY 6 HOURS PRN, Starting on Gabbie 07/17/20 at 1204, Until Tue07/18/20 at 1608, Nausea/Emesis, Routine, Post-op - Floor Given 07/17/2020 10:39 PM NUT SHELLER MACHINE OPERATOR 4 mg potassium CHLORIDE in dextrose 5% - NaCl 0.45% 1,000 mL 20 mEq/L infusion IV, at 150 mL/hr, CONTINUOUS, Starting on Gabbie 07/17/20 at 1145, Until Tue07/18/20 at 1608, Routine, Post-op - Floor Rate Verify 07/18/2020 7:53 AM NUT SHELLER MACHINE OPERATOR 150 mL/hr New Bag 07/18/2020 7:34 AM NUT SHELLER MACHINE OPERATOR 150 mL/hr Rate Change 07/18/2020 7:30 AM NUT SHELLER MACHINE OPERATOR 150 mL/hr sertraline (ZOLOFT) tablet 100 mg 100 mg, Oral, DAILY, First dose on Tue07/18/20 at 0900, Until Discontinued, Previous Med: sertraline HCl (SERTRALINE ORAL) - Orig Sig - Take 100 mg by mouth daily. Given 07/18/2020 8:06 AM NUT SHELLER MACHINE OPERATOR 100 mg sodium chloride 0.9 % irrigation solution INTRA-PROCEDURE PRN, Starting on Gabbie 07/17/20 at 1051, Until Gabbie 07/17/20 at 1126, Routine, Intra-op Given 07/17/2020 10:51 AM NUT SHELLER MACHINE OPERATOR 1,000 mL Oper ative Site documented in this encounter Active and Recently Administered Medications Times are shown in NUT SHELLER MACHINE OPERATOR. Scheduled Medication Order 07/16/2020 07/17/2020 07/18/2020 acetaminophen (OFIRMEV) 10 mg/ml injection 1,000 mg (COMPLETED) 1,000 mg, IV, ONE TIME ONLY, 1 dose, On Gabbie 07/17/20 at 1645, Routine, Post-op - Floor 1600 (New Bag - Provider: Fe Grijalva RN)1615 (Stopped - Provider: Fe Grijalva RN) acetaminophen (OFIRMEV) 10 mg/ml injection 1,000 mg [...] 0828 (Given - Provider: Lesley Pool, MEERA) famotidine PF (PEPCID) 20 mg/2 mL injection 20 mg 20 mg, IV, TWO TIMES DAILY, First dose on Gabbie 07/17/20 at 2100, Until Discontinued, Routine, Post-op - Floor 2038 (Given - Provider: Adelina Puckett, MEERA) 0806 (Given - Provider: Annemarie Babcock, MEERA) heparin injection 5,000 Units (COMPLETED) 5,000 Units, subCUT, PRE-PROCEDURE ONCE, 1 dose, Starting on Gabbie 07/17/20 at 0811, Until Gabbie 07/17/20 at 0828, Stat, Pre-op 0828 (Given - Provider: Lesley Pool, MEERA) heparin injection 5,000 Units 5,000 Units, subCUT, EVERY 8 HOURS, First dose on Gabbie 07/17/20 at 2030, Until Discontinued, Routine, Post-op - Floor 2037 (Given - Provider: Adelina Puckett, MEERA) 0445 (Given - Provider: Adelina Puckett RN)1229 (Given - Provider: Annemarie Babcock, MEERA) lactated ringers bolus solution 2,000 mL (COMPLETED) 2,000 mL, IV, PRE-PROCEDURE ONCE, 1 dose, Starting on Gabbie 07/17/20 at 0811, Until Gabbie 07/17/20 at 0935, at 2,000 mL/hr, Administer over 60 Minutes, Stat, Pre-op 0828 (New Bag - Provider: Lesley Pool, MEERA)0935 (Stopped - Provider: Lesley Pool, MEERA) metroNIDAZOLE (FLAGYL) IVPB 500 mg (COMPLETED) 500 mg, IV, ONE TIME ONLY, 1 dose, On Gabbie 07/17/20 at 0815, Stat, Pre-op, Antibiotic Indication: Surgical prophylaxis 1032 (Given - Provider: Julian Hurley, PERSONAL CARE SERVICE PROVIDER) metroNIDAZOLE (FLAGYL) IVPB 500 mg (COMPLETED)(Linked Group 1) 500 mg, IV, POST-PROCEDURE Q 8 HOURS, 2 doses, First dose on Gabbie 07/17/20 at 1830, Last dose on Tue07/18/20 at 0230, Routine, Post-op - Floor, Antibiotic Indication: Surgical prophylaxis 1831 (New Bag - Provider: Fe Grijalva RN)1834 (Rate Verify - Provider: Annemarie Babcock RN)193 (Stopped - Provider: Adelina Puckett RN) 0217 (New Bag - Provider: Adelina Puckett RN)022 (Rate Verify - Provider: Annemarie Babcock RN)0316 (Stopped - Provider: Annemarie Babcock RN)0317 (Stopped - Provider: Adelina Puckett RN) naloxone (NARCAN) 0.4 mg/mL injection 0.1 mg 0.1 mg, IV, SEE ADMIN INSTRUCTIONS, Starting on Gabbie 07/17/20 at 1204, Until Tue07/18/20 at 1608, Routine, [...] daily. 0806 (Given - Provid er: Annemarie Babcock RN) Continuous Medication Order 07/16/2020 07/17/2020 07/18/2020 bupivacaine PF 5 mg/mL (0.5%) 270 mL infusion for On-Q pump See Admin Instructions, CONTINUOUS, Starting on Gabbie 07/17/20 at 0815, Until Tue07/18/20 at 1608, Routine, Pre-op 1139 (New Bag - Provider: Cindi Devine RN - Comment: started in or) lactated ringers infusion (CANCELED) IV, at 125 mL/hr, PRE-PROCEDURE CONTINUOUS, Starting on Gabbie 07/17/20 at 0815, Until Gabbie 07/17/20 at 1158, Stat, Pre-op 0900 (Stopped - Provider: Cindi Devine RN)0936 (New Bag - Provider: Lesley Pool, MEERA) 0734 (Stopped - Provider: Annemarie Babcock RN) potassium CHLORIDE in dextrose 5% - NaCl 0.45% 1,000 mL 20 mEq/L infusion IV, at 150 mL/hr, CONTINUOUS, Starting on Gabbie 07/17/20 at 1145, Until 07/18/20 at 1608, Routine, Post-op - Floor 1152 (New Bag - Provider: Cindi Devine RN)203 (New Bag - Provider: Adelina Puckett RN)204 (Rate Verify - Provider: Annemarie Babcock RN)2135 (Rate Change - Provider: Annemarie Babcock RN)2149 (Rate Change - Provider: Annemarie Babcock RN)2153 (Paused - Provider: Annemarie Babcock RN)2209 (Restarted - Provider: Annemarie Babcock RN) 0129 (Paused - Provider: Annemarie Babcock RN)0159 (Restarted - Provider: Annemarie Babcock RN)0216 (Paused - Provider: Annemarie Babcock RN)0316 (Restarted - Provider: Annemarie Babcock RN)0535 [...] 1936 (Given - Provider: Adelina Puckett RN) 0806 [...] prophylaxis documented in this encounter Care Teams Forensic Medical Examiner Relationship Specialty Start Date End Date Adiel Demarco MD [address] [place] [address] PCP - General Internal Medicine 06/05/20 documented as of this encounter
--- OUTSIDE RECORDS SUMMARY | 2024-09-05 02:15 | XMS_ITS | Encounter Summary ---
Author Organization [facility] Address [address] [place] [address] Care Team Providers Care Rubber Goods Tester Water Name Role Phone Adiel Demarco MD Primary Care Provider [phone] Reason for Visit * Auth/Cert Specialty Diagnoses / Procedures Referred By Mar arroyo Referred To Contact Perioperative Diagnoses Pre-procedural examination Procedures GA EGD TRANSORAL BIOPSY SINGLE/MULTIPLE ESOPHAGOGASTRODUODENOSCOPY WITH POSSIBLE BIOPSY [facility] [address] [facility] [address] [place] [address] Referral ID Status Reason Start Date Expiration Date Visits Re quested Visits Authorized [id number] 1 1 Encounter Details Date Type Department Care Team (Late st Contact Info) Description 06/06/2020 7:19 AM CDT Anesthesia Event [facility] Endoscopy [address] [facility] [address] [place] [address] Clarence Trejo DO [address] [place] [address] Molly Grimm CRNA [address] [place] [address] Anesthesia Record Procedure Summary Procedure Name Responsible Anesthesiologist Anesthesia Start Time Anesthesia Stop Time ESOPHAGOGASTRODUODENOSCOPY W ITH BIOPSY (Esophagus) Clarence Trejo DO 06/06/20 0719 06/06/20 0732 Events Date Time Event Comment 06/06/2020 0628 AN Equip Check Anesthesia eq uipment and materials checked in accordance with local policy. 0706 0719 An Start 0719 An Start Data 0719 In Room This event disp lays the In Room time documented in the Surgical Log. Deleting this event will not remove it from the log but will remove it from the Grid and Graph timeline. 0721 Pre-Induction Immediate pre- induction anesthetic assessment performed. Vital signs as noted on graphic. 0722 An Induction End-Tidal Carbo n Dioxide Monitoring Disclosure End-Tidal Carbon Dioxide Monitoring used during procedure. Since neither an endotracheal tube nor supraglottic device will be used, recorded numbers are not indicative of a true end tidal CO2 concentration. The values indicate presence of carbon dioxide and have no bearing on the quality of respiration. Monitoring is also subject to the measuring device and its location, implying that a low or absent reading does not necessarily indicate apnea or obstruction. Clinical correlation will be used. 0722 Anesthesia Ready 0723 Procedure Start This event d isplays the Procedure Start time documented in the Surgical Log. Deleting this event will not remove it from the log but will remove it from the Grid and Graph timeline. 0727 Procedure Stop This event di splays the Procedure Stop time documented in the Surgical Log. Deleting this event will not remove it from the log but will remove it from the Grid and Graph timeline. 0727 an stop data 0727 Out of Room This event disp lays the Out of Room time documented in the Surgical Log. Deleting this event will not remove it from the log but will remove it from the Grid and Graph timeline. 0732 An Stop Meds Name Total lidocaine (XYLOCAINE) 2% injection 100 m g propofol (DIPRIVAN) 10??mg/mL injection 170 mg lactated ringers infusion 400 mL * Agents Name N2O O2 * Blood No blood administrations on file. Lines, Drains, and Airways Type Details Placement Removal Peripheral IV Orientation: Right; Location: Hand; Device: Angiocath; Gauge: 20 gauge; Insertion Attempts: 1 (JG); Patient Tolerance: tolerated well; Removal Indication: no longer indicated; Removal Interventions: pressure dressing, catheter intact 06/06/20 06 by Nanci Sahu RN 06/06/20738 by Cindi Devine RN Supraglottic Airway Type: nasal cannula; Confirmation: satisfactory chest rise, SAO2, end tidal CO2 06/06/20720 by Molly Grimm, SAP GRC SECURITY 06/06/208 by PROVIDER, DISCHARGE PATIENT documented in this encounter Social History Tobacco [...] AM CDT documented as of this encounter OR Notes * Anesthesia Postprocedure Evaluation - Clarence Trejo DO - 06/06/2020 9:04 AM CDT Post Anesthesia Evaluation Vitals: Vitals Value Taken Time BP 117/99 06/06/20 0738 Temp 37.2 ??C 06/06/20737 Resp 20 06/06/20 0738 SpO2 98 % 06/06/20 0738 Pulse 64 06/06/20 0738 Heart Rate Pain Rating: Anesthesia Post Evaluation Patient location during evaluation: PACU Patient participation: patient was able to participate in the post op evaluation Post-procedure mental status: returned to preop baseline. Pain management: adequate Airway patency: patent Nausea or Vomiting: none Anesthetic complications: no Cardiovascular status: other - see comment (same as preop rhythm) Respiratory status: no respiratory symptoms Hydration status: well hydrated Clarence Trejo DO * Anesthesia Postprocedure Evaluation - Clarence Trejo DO - 06/06/2020 8:31 AM CDT Post Anesthesia Evaluation Vitals: Vitals Value Taken Time BP 117/99 06/06/20 0738 Temp 37.2 ??C 06/06/20737 Resp 20 06/06/20 0738 SpO2 98 % 06/06/20 07 Pulse 64 06/06/20 0738 Heart Rate Pain Rating: Anesthesia Post Evaluation Patient location during evaluation: PACU Patient participation: patient was able to participate in the post op evaluation Post-procedure mental status: returned to preop baseline. Pain management: adequate Multimodal analgesia pain management approach Airway patency: patent Two or more strategies used to mitigate risk of obstructive sleep apnea ( ) Nausea or Vomiting: none Anesthetic complications: no Cardiovascular status: other - see comment (same as preop rhythm) Respiratory status: no respiratory symptoms Hydration status: well hydrated Comments: Two or more of the following MONROE mitigation strategies were employed: Intraop administration of CPAP, nasopharyngeal or oral airway during sedation or in PACU Multimodal analgesia Extubation when pt is awake Verification of full reversal of neuromuscular blockade Extubation and recovery carried out in lateral, semiupright or nonsupine postion Post op CPAP or nasophayngeal or oropharyngeal airway usage in PACU Clarence Trejo DO * Anesthesia Handoff - Molly Grimm CRNA - 06/06/2020 7:30 AM CDT Post-Anesthetic transfer of care report elements to [...] acknowledgement of understanding. Vital Signs: BP: (!) 113/101 (06/06/2020 7:28 AM) Pulse: 77 (06/06/2020 7:28 AM) Temp: 36.3 ??C (06/06/2020 7:28 AM) Resp: 14 (06/06/2020 7:28 AM) SpO2: 96 % (06/06/2020 7:28 AM) 7:32 AM Molly Grimm CRNA * Anesthesia Preprocedure Evaluation - Clarence Trejo DO - 06/06/2020 7:04 AM CDT Relevant Problems No relevant active problems Anesthesia Evaluation Anesthesia Plan ASA Final: [address] [place] [address] PRE ANESTHESIA EVALUATION 06/06/2020 7:05 AM Name: Brissa Buckley Age: 34 y.o. Sex: female [facility]: [id number] Procedure: Procedure(s): ESOPHAGOGASTRODUODENOSCOPY WITH POSSIBLE BIOPSY Surgeons/Assistants: Surgeon(s) and Role: * Kendall Barahona MD - Primary Diagnosis: Pre-procedural examination [Z01.818] BP (!) 160/107 (BP Location: Left arm, Patient Position (BP): Sitting) Pulse 71 Temp 36.5 ??C (Temporal) Resp 18 Ht 5' 2 (1.575 m) Wt 108.9 kg (240 lb) LMP 05/30/2020 SpO2 100% BMI 43.90 kg/m?? Weight: Weight: 108.9 kg (240 lb) (06/04/20908) Height: Ht Readings from Last 1 Encounters: 06/04/20 5' 2 (1.575 m) BMI: Body mass index is 43.9 kg/m??. NPO Status: Last Food Intake (Date): 06/05/20 (06/06/20603) Last Food Intake (hh:mm): 0 (06/06/20603) Last Fluid Intake (Date): 06/05/20 (06/06/20603) Last Fluid Intake (hh:mm): 0 (06/06/20603) No Known Allergies Prior to Admission Medications Prescriptions Last Dose Informant Patient Reported? Taking? ALPRAZOLAM ORAL Past Week at Unknown time Patient Yes Yes Sig: Take 0.5 mg by mouth 3 times daily as needed. MESALAMINE ORAL Patient Yes Yes Sig: Take 4.8 Grams by mouth daily. 4 - 1.2GRAM TABLETS DAILY SUMAtriptan (IMITREX) 100 mg tablet 06/04/2020 Patient Yes Yes Sig: Take 100 mg by mouth see administration instructions. may repeat in 2 hours; max dose 200mg in24 hours cholecalciferol, vitamin D3, (VITAMIN D3 ORAL) 06/05/2020 at Unknown time Patient Yes Yes Sig: Take 10,000 Units by mouth daily. multivitamin (DAILY-ALEX) tablet 06/05/2020 at Unknown time Patient Yes Yes Sig: Take 1 Tablet by mouth daily. sertraline HCl (SERTRALINE ORAL) 06/05/2020 at Unknown time Patient Yes Yes Sig: Take 100 mg by mouth daily. zolpidem tartrate (ZOLPIDEM ORAL) Past Week at Unknown time Patient Yes Yes Sig: Take 10 mg by mouth nightly as needed. Facility-Administered Medications: None Current Facility-Administered Medications Medication Dose Route Frequency Provider Last Rate Last Dose ??? lactated ringers infusion IV Pre-Proc Continuous Olegario Burger MD 125 mL/hr at 06/06/20 0614 ??? lidocaine PF 1% (XYLOCAINE MPF) injection 0.3 mL 0.3 mL Intradermal Pre-Proc Once Olegario Burger MD There are no active problems to display for this patient. Past Medical History: Diagnosis Date ??? Anxiety ??? Borderline hypertension NO MEDICATION ??? Crohn disease ??? Depression ??? Migraines Past Surgical History: Procedure Laterality Date ??? PT DENIES RELEVANT SURGICAL HISTORY Previous Anesthesia Problems/Concerns: No anesthesia problems/complications Social History Tobacco Use ??? Smoking status: Former Smoker Packs/day: 1.00 Types: Cigarettes Quit date: 06/04/2010 Years since quittin.0 ??? Smokeless tobacco: Never Used Substance Use Topics ??? Alcohol use: Yes Frequency: 2-4 times a month Family History Problem Relation Name Age of Onset ??? Healthy Father ??? Healthy Mother ??? Cancer Brother ??? Heart Disease Brother Exercise Tolerance: [] Excellent [] Good [x] Fair [] Poor [] Unable to exercise due to physical disability GERD: [x] No [] Yes [] Controlled [] Uncontrolled MONROE Screening: yes [] POSITIVE: The patient's symptoms suggest the possibility of MONROE. The pathophysiology of snoring and apnea was discussed as well as the group home need for significant weight loss. A formal Sleep Study was suggested. The use of Breathe-Right nasal strips may provide some benefit. Did discuss CPAP as potential treatment if MONROE is confirmed. [x] NEGATIVE: The patient's symptoms did not suggest the possibility of MONROE. [] PREVIOUSLY DIAGNOSED LABS No results found for: WBC, MANUALWBC, HGB, HGBPOC, HCT, HCTPOC, PLT, MCV No results found for: NA, K, CL, CO2, CA, BUN, CREAT, GLUCOSE, TOTALPROTEIN, ALBUMIN, BILITOTAL, ALKPHOS, AST, ALT, ANIONGAP, BCRATIO No results found for: INR, PT, APTT, PROTIMEPOC Lab Results Component Value Date/Time HCG QUAL URINE Negative 06/06/2020 05:54 AM No results found for: GLUCPOC EKG: No results found for this or any previous visit. CXR: No results found for this or any previous visit. PHYSICAL EXAM ASA Class: ASA 2 - Patient with mild systemic disease with no functional limitations Heart: regular rate and rhythm Lungs: clear to auscultation Neuro: alert & oriented AIRWAY Airway Class: II (soft palate, uvula, fauces visible); Thyromental Distance (TMD): 3+ Finger Breadth Neck ROM: full Dentition: fair I have seen and examined this patient and confirm that all data is current and accurate. ANESTHETIC PLAN: General Patient identified and history and physical performed. Risks and plan of anesthesia discussed with patient and/or legal medical representative and patient and/or legal medical representative agreed to proceed. Clarence Trejo DO 06/06/2020 documented in this encounter Plan of Treatment [...] 06/06/2020 6:14 AM CDT 125 mL/hr lidocaine 2 % (XYLOCAINE) injection INTRA-PROCEDURE PRN, Starting on Tue06/06/20 at 0722, Until Tue06/06/20 at 0732, Routine, Anesthesia Intra-op Given 06/06/2020 7:22 AM CDT 100 mg propofoL (DIPRIVAN) injection INTRA-PROCEDURE PRN, Starting on Tue06/06/20 at 0722, Until Tue06/06/20 at 0732, Anesthesia Intra-op Given 06/06/2020 7:25 AM CDT 50 mg Given 06/06/2020 7:24 AM CDT 50 mg Given 06/06/2020 7:22 AM CDT 70 mg documented in this encounter Care Teams Rubber Goods Tester Water Relationship Specialty Start Date End Date Adiel Demarco MD [address] [place] [address] PCP - General Internal Medicine 06/05/20 documented as of this encounter
--- OUTSIDE RECORDS SUMMARY | 2024-09-05 02:15 | XMS_ITS | Encounter Summary ---
Author Organization [facility] Address [address] [place] [address] Care Team Providers Care Human Projectile Name Role Phone Adiel Demarco MD Primary Care Provider [phone] Encounter Details Date Type Department Care Team (Late st Contact Info) Description 07/11/2020 Abstract [facility] Operating Room [address] [place] [address] Kendall Barahona MD [address] [place] [address] Social History Tobacco Use Types Packs/Day Years [...] COVID-19? No / Unsure 07/14/2020 9:53 AM ELECTRONIC PAGINATION SYSTEM OPERATOR documented as of this encounter Plan of Treatment Not on file documented as of this encounter Visit Diagnoses Not on filedocumented in this encounter Care Teams Human Projectile Relationship Specialty Start Date End Date Adiel Demarco MD [address] [place] [address] PCP - General Internal Medicine 06/05/20 documented as of this encounter
--- OUTSIDE RECORDS SUMMARY | 2024-09-05 02:32 | XMS_ITS | Encounter Summary ---
Author Organization [facility] Address [address] [place] [address] Phone Care Team Providers Care Inventory Management Specialist Name Role Phone Ines Santoyo MD Primary Care Provider Unav argentinaable Haley Irving DO Unavailable [phone] Kali Coon DO Unavailable [phone] Mey Rm PANTOGRAPH OPERATOR, SKIP TENDER Unavailable [phone] Reason for Visit * Reason Onset Date Comments Medication Refill 01/11/2020 Encounter Details Date Type Department Care Team (Late st Contact Info) Description 01/11/2020 Refill [facility] - Gastroenterology [facility] [address] [place] [address] Kali Coon, DO [address] [id number] Medication Refill Social History Tobacco Use Types [...] on filedocumented in this encounter Care Teams Inventory Management Specialist Relationship Specialty Start Date End Date Ines Santoyo MD PCP - General Internal Medicine 02/27/16 Haley Irving DO [address] [place] [address] Consulting Physician Internal Medicine 02/27/16 Kali Coon DO [address] [address] Gastroenterology 02/27/16 Mey Rm APRN, SKIP TENDER [address] [place] [address] Nurse Practitioner Advanced Practice Nurse 06/08/16 documented as of this encounter
--- OUTSIDE RECORDS SUMMARY | 2024-09-05 02:32 | XMS_ITS | Encounter Summary ---
Author Organization [facility] Address [address] [place] [address] Phone Care Team Providers Care Screen Maker Name Role Phone Ines Santoyo MD Primary Care Provider Unav Haley Humphrey DO Unavailable [phone] Kali Coon DO Unavailable [phone] Mey Rm ARMY RANGER, BINDERY MACHINE SETTER Unavailable [phone] Reason for Visit * Reason Comments Medication Refill Encounter Details Date Type Department Care Team (Late st Contact Info) Description 09/13/2019 Refill [facility] - Gastroenterology [facility] [address] [place] [address] Mey Rm, ARMY RANGER, BINDERY MACHINE SETTER [address] [place] [address] Medication Refill Social History Tobacco [...] Notes * Telephone Encounter - Indra Love, RESIDENT ASSOCIATE - 09/13/2019 12:52 PM DIRECTOR LONG TERM CARE Patient calling requesting refill of: Requested Prescriptions Pending Prescriptions Disp Refills ??? mesalamine (LIALDA) 1.2 GM Tablet Delayed Response [Pharmacy Med Name: Mesalamine 1.2 GM Oral Tablet Delayed Release] 120 Tab 0 Sig: TAKE 4 TABLETS BY MOUTH ONCE DAILY Last fill: 09/13/2019 Patients last OV with GI: 06/08/16 Next Office Visit with GI: None scheduled CTOR LONG TERM CARE documented in this encounter Plan of Treatment Not on file documented as of this encounter Visit Diagnoses Not on filedocumented in this encounter Care Teams Screen Maker Relationship Specialty Start Date End Date Ines Santoyo MD PCP - General Internal Medicine 02/27/16 Haley Irving DO [address], [place] [address] Consulting Physician Internal Medicine 02/27/16 Kali Coon DO [address] [place] [address] Gastroenterology 02/27/16 Mey Rm APRN, CNP [address], [place] [address] Nurse Practitioner Advanced Practice Nurse 06/08/16 documented as of this encounter
--- OUTSIDE RECORDS SUMMARY | 2024-09-05 02:32 | XMS_ITS | Clinical Summary ---
Author Organization [facility] Address [address], [address] [address] Phone Care Team Providers Care Customs Consultant Name Role Phone Ines Santoyo MD Primary Care Provider Unav ailable Haley Irving DO Unavailable Kali Coon DO Unavailable [phone] Mey Rm DUMPER [employer]ING PLANT, ORGANIZATIONAL DEVELOPMENT MANAGER Unavailable Allergies No known active allergies Medications [...] age to complete this topic Care Teams Customs Consultant Relationship Specialty Start Date End Date Ines Santoyo MD PCP - General Internal Medicine 02/27/16 Haley Irving DO [address] [place] [address] Consulting Physician Internal Medicine 02/27/16 Kali Coon DO [address] [place] [address] Gastroenterology 02/27/16 Mey Rm APRN, ORGANIZATIONAL DEVELOPMENT MANAGER [address] [place] [address] Nurse Practitioner Advanced Practice Nurse 06/08/16
--- OUTSIDE RECORDS SUMMARY | 2024-09-05 02:33 | XMS_ITS | Clinical Summary ---
Author Organization [facility] Address [address] [place] [address] Care Team Providers Care Fermenting Cellars Receiver Name Role Phone Adiel Demarco MD Primary Care Provider [phone] Allergies No known active allergies Medications ALPRAZolam [...] disability 0 12/13/2017 Colitis 03/16/2016 Crohn's disease ([facility]/HCC) 02/17/2016 Overview (12/09/2017): Impression: stable, followed by [...] Department Care Team Description 06/29/2024 Orders Only [address] [address] Adiel Demarco MD Elevated BP [...] on file Legal Sex Female 4:31 AM HUMAN RESOURCES ADVISOR Gender Identity Female 11/23/2019 9:35 AM CDT Sexual Orientation Straight 11/23/2019 9: 35 AM CDT Obstetrics History Last Filed Vital Signs Vital Sign Reading Time Taken Comments Blood Pressure 105/79 08/31/2023 4:45 AM HUMAN RESOURCES ADVISOR Pulse 89 08/31/2023 4:45 AM HUMAN RESOURCES ADVISOR Temperature 37 ??C (98.6 ??F) 08/30/2023 10:29 PM HUMAN RESOURCES ADVISOR Respiratory Rate 15 08/31/2023 4:45 AM HUMAN RESOURCES ADVISOR Oxygen Saturation 97% 08/31/2023 4:45 AM HUMAN RESOURCES ADVISOR Inhaled Oxygen Concentration - - Weight 65.8 kg (145 lb) 08/30/2023 10:29 PM HUMAN RESOURCES ADVISOR Height 152.4 cm (5') 08/30/2023 10:29 PM HUMAN RESOURCES ADVISOR Body Mass Index 28.32 08/30/2023 10:29 PM HUMAN RESOURCES ADVISOR Plan of Treatment Health Maintenance Due Date [...] patient's age to complete this topic Insurance [facility] Care Teams Fermenting Cellars Receiver Relationship Specialty Start Date End Date Adiel Demarco MD [address] [place] [address] PCP - General 08/24/17
--- OUTSIDE RECORDS SUMMARY | 2024-09-05 02:33 | XMS_ITS | Encounter Summary ---
Author Organization [facility] Healthcare Address [address] [place] [address] Care Team Providers Care Traffic Clerk Name Role Phone Adiel Demarco MD Primary Care Provider [phone]- [phone] Reason for Visit * Reason Comments Addiction Problem Encounter Details Date Type Department Care Team (Late st Contact Info) Description 08/30/2023 10:43 PM DE ICER INSTALLER - 08/31/2023 12:17 PM DE ICER INSTALLER Emergency [address] [address] Montrell Pacheco II, MD [address] [place] [id number] Acute alcoholic intoxication without complication (HCC) (Primary [...] on file Legal Sex Female 4:31 AM DE ICER INSTALLER Gender Identity Female 11/23/2019 9:35 AM CDT Sexual Orientation Straight 11/23/2019 9: 35 AM CDT documented as of this encounter Last Filed Vital Signs Vital Sign Reading Time Taken Comments Blood Pressure 105/79 08/31/2023 4:45 AM DE ICER INSTALLER Pulse 89 08/31/2023 4:45 AM DE ICER INSTALLER Temperature 37 ??C (98.6 ??F) 08/30/2023 10:29 PM DE ICER INSTALLER Respiratory Rate 15 08/31/2023 4:45 AM DE ICER INSTALLER Oxygen Saturation 97% 08/31/2023 4:45 AM DE ICER INSTALLER Inhaled Oxygen Concentration - - Weight 65.8 kg (145 lb) 08/30/2023 10:29 PM DE ICER INSTALLER Height 152.4 cm (5') 08/30/2023 10:29 PM DE ICER INSTALLER Body Mass Index 28.32 08/30/2023 10:29 PM DE ICER INSTALLER documented in this encounter Discharge Instructions * Discharge Instructions* Everett Welsh PA - 08/31/2023 11:02 AM DE ICER INSTALLER MENTAL HEALTH CRISIS/URGENT CARE SERVICES National Suicide Prevention Hotline (Available by calling or texting 149 to speak with a counselor for support or additional resources) [facility] [phone] (Crisis hotline) [facility] Behavioral Health [phone] (Crisis hotline) Addiction Resources for [facility] Medical Stabilization/Detox - Private Insurance/Private Pay [facility]: Debora Mackay [phone] or [phone] (can also work with vets/CCN) [facility]: Paolo Joseph [phone] [facility]: [phone] [facility]: [phone] Medical Stabilization/Detox - Medicaid/Medicare/Private Insurance/Private Pay [facility]: [phone] [facility] ([place]): [phone] [facility]: [phone] [facility] [place]: [phone] (can also take uninsured clients for detox) [facility] ([facility]): [phone] Residential - Private Insurance/Private Pay [facility]: Debora Mackay [phone] or [phone] (can also work with vets/CCN) [facility] Recovery [place]: [place] Area: Debbi Yañez [phone] 24 hour admission line [phone] [facility]: Paolo Joseph [phone] [facility]: [phone] [facility]: [phone] Residential - State Funded/Private Insurance/Private Pay [facility] ([facility]): [phone]. Have client e-mail [email or web address] (women only, Medicaid/State Funded only): [phone] [facility] ([facility]): [phone] [facility] ([facility]): [phone] [facility] ([place]): [phone] [facility] ([place]): [phone] [facility] [place] ([facility]): [phone] [facility]): [phone] Out of State Detox/Residential - Private Insurance/Private Pay/ [facility] ([place]): Nicole Forrest [phone] [facility]: Katherin Simons [phone] Patient Safety Plan Step 1: Warning Signs [...] Phone number: B. Pager or Emergency number: [phone]. Clinician Name: MD Amanda Gould. Phone number: [phone] B. Pager of Emergency number: [phone]. Suicide Prevention Lifeline Phone: Dial or Text: [phone] Step 6: Making the environment safe: Gun is locked up 2. Refrain from drinking alcohol The one thing that is most important to me and worth living for is (patients/clients own words): My family ICER INSTALLER ICER INSTALLER * Attachments The following attachments cannot be sent through Care Everywhere. * Abuse of Alcohol (AfterCare(R) Instructions(ER/ED)) (Moroccan) documented in this encounter Medications at Time [...] in this encounter Progress Notes * Gisella Tran - 08/31/2023 12:17 PM CST [employer]- PRS consulted for Alcohol Use Disorder-AUD/ETOH. PRS called patient and left a voice mail with call back info to discuss treatment options. PRS will attempt to follow up with patient again. Gisella Tran, [employer] Medical Stabilization [phone] ICER INSTALLER documented in this encounter Consult Notes * Channing Schuster, [employer] - 08/31/2023 9:35 AM CSTAssociated Order(s): CONSULT TO BEHAVIORAL HEALTH [facility] Behavioral Health Integration Services ([facility]) [facility] Initial Assessment Date: 08/31/23 Assessment Start time: 947 Assessment End time: 1045 Patient Name: Brissa Buckley Preferred Name: Brissa Preferred Pronouns: she/her/hers Legal Status: Patient is own legal guardian. Date of : 1985 Information Source: Patient, spouse and EMR Chief Complaint: Addiction Problem [facility] consultation was requested by CHIQUITA Higginbotham for [...] this encounter to review for patient at [facility]. Recommendations: CHIQUITA Welsh and [facility] discussed patient disposition. Based on the clinical [...] will sign off on patient. Please contact [facility] for any further needs. [phone]. Plan of Care: Patient will be discharged. ~[facility] has completed After Visit Summary on patient. ~[facility] has completed safety plan with patient. ~Referral made to Intensive Outpatient Program [facility]. Care Plan while remaining in hospital: Patient Strengths: Motivation/Readiness to change, Medication compliance, Insurance, Steady employment, Denominational/cultural/spiritual involvement, Education, and Stable home environment Patient [...] September 08 Next appointment with therapist/counselor: denies Business Services Director Name, Agency and Phone number: denies Current [...] was reported initially. SAFE-T Protocol with C-SSRS ([place] Risk and Protective Factors) - Recent Step 1: Identify Risk Factors: [place] Suicide Severity Rating Scale (Recent Screener) Initial [...] things - anyone or anything (e.g., family, quaker, pain of ) - that stopped you [...] [] Lived in war affected area [] [place] responsible for the serious injury or of [...] or disability 12/13/2017 Colitis 03/16/2016 Crohn's disease ([facility]) ([facility]) 02/17/2016 Obesity 07/31/2015 Major depressive disorder 10/01/2014 [...] Trazodone. Patient is now on [id number] [place], [place] - [address] [place] [address] [facility] [address] [place], [place] - [address] [facility] [address] [facility] [address] Social/Family History Brissa Buckley is a 37 y.o. White female who was born in [place], [place] and raised in [place], [place]. Patient's gender assigned at was female and currently identifies as a female. Patient prefers Preferred Pronouns: she/her/hers pronouns. Patient currently resides with spouse and two daughters. Patient has two siblings. Patient has two children. Patient received her associates degree at [employer]. Patient reports She has no difficulty reading or writing in Moroccan. Patient is able to read and write. Patient states her tenriism preference is Synagogue Patient is currentlyworking for a [employer] in [place]. Financial issues related to credit card debt. Patient has never served in the [employer] [facility]. Patient denies any legal issues. There is no current involvementwith [facility] or [facility]. Patient denies any family history of mental illness. Patient denies any family history of suicide attempts/ by suicide. Patient denies any family history of substance use. Substance Screening Smoking Status: Vape Substance Use: Patient admits to drinking alcohol. Last use: Yesterday Alcohol level 406 upon arrival to ED. Patient denies drug use. Additional Assessments: Behavioral Health Integration Services [facility] Intake Assessment Addendum Substance Use Alcohol Alcohol [...] in this patient's care. Channing Schuster, [place], [facility] Behavioral Health [facility] This was a telepsych/telemedicine visit with Brissa Buckley which took place via real-time video connection with [employer]. During the visit, I was located at my residence, and the patient was located at [facility] in the [facility]. My visit with the patient started at [...] Patient and/or guardian is aware that the [facility] and Hospital Staff will have access to the patient's relevant medical information including psychiatric and/or psychological information, alcohol and/or drug use and mental health records. Patient and/or guardian understands this consent is part of the patient's medical record. ICER INSTALLER documented in this encounter ED Notes * [...] Phone number: B. Pager or Emergency number: [phone]. Clinician Name: MD Amanda Gould. Phone number: [phone] B. Pager of Emergency number: [phone]. Suicide Prevention Lifeline Phone: Dial or Text: [phone] Step 6: Making the environment safe: Gun is locked up 2. Refrain from drinking alcohol The one thing that is most important to me and worth living for is (patients/clients own words): My family Channing SchusterDICKSON, [facility] 08/31/23 10:26 AM ICER INSTALLER * Anjana Chavez, RN - 08/31/2023 3:05 AM CST Pt received 1L NS when she arrived to ED. Pt reporting, I'm parched. I need more fluids. Pt also reporting she is unable top walk and wants a purewick so she can void. Anjana Chavez, RN 08/31/23 0305 ICER INSTALLER * Irma Leone PA - 08/30/2023 10:39 [...] 650 mg (650 mg oral Given 08/31/23 4183) CURRENT HOME MEDICATIONS Current Facility-Administered Medications: LORazepam [...] Reason for testing?->Screening [facility] URINALYSIS AND REFLEX TO MICROSCOPIC AND [...] Pacheco II, MD at 08/31/2023 3:22 PM DE ICER INSTALLER ICER INSTALLER ICER INSTALLER * Clarence López RN - 08/30/2023 10:32 [...] . Patient is A&Ox4 GCS 15,presents to sports betting manager and PA observably intoxicated. Cooperative with care at this time. ICER INSTALLER documented in this encounter Miscellaneous Notes * ED Triage Provider Note - Irma Leone PA - 08/30/2023 10:33 PM DE ICER INSTALLER Brissa Buckley is 37 y.o. female here [...] Bruce Jr., MD at 09/01/2023 4:33 AM DE ICER INSTALLER ICER INSTALLER ICER INSTALLER ICER INSTALLER Associated attestation - Teo Bruce Jr., MD - 09/01/2023 4:33 AM DE ICER INSTALLER I was present and available in the [...] Diagnosis Comments ETHANOL Timed 08/31/2023 8:07 AM DE ICER INSTALLER ETHANOL STAT 08/31/2023 3:39 AM DE ICER INSTALLER DRUGS OF ABUSE SCREEN, URINE WITH REFLEX CONFIRMATION STAT 08/30/2023 11:31 PM DE ICER INSTALLER URINALYSIS AND REFLEX TO MICROSCOPIC AND CULTURE STAT 08/30/2023 11:31 PM DE ICER INSTALLER POCT HCG, URINE Routine 08/30/2023 11:30 PM DE ICER INSTALLER INFLUENZA A/B, RSV, AND COVID-19 PCR Routine 08/30/2023 10:41 PM DE ICER INSTALLER EGFR STAT 08/30/2023 10:41 PM DE ICER INSTALLER DIFFERENTIAL AUTO STAT 08/30/2023 10: 41 PM DE ICER INSTALLER THYROID FUNCTION CASCADE Routine 08/30/2023 10:41 PM DE ICER INSTALLER CBC WITH AUTO DIFFERENTIAL STAT 08/30/2023 10:41 PM DE ICER INSTALLER MAGNESIUM STAT 08/30/2023 10:41 PM DE ICER INSTALLER ETHANOL STAT 08/30/2023 10:41 PM DE ICER INSTALLER ACETAMINOPHEN LEVEL STAT 08/30/2023 1 0:41 PM DE ICER INSTALLER SALICYLATE LEVEL STAT 08/30/2023 10:4 1 PM DE ICER INSTALLER COMPREHENSIVE METABOLIC PANEL STAT 08/30/2023 10:41 PM DE ICER INSTALLER documented in this encounter Results * (ABNORMAL) Ethanol (08/31/2023 8:07 AM DE ICER INSTALLER) Ethanol 73(H) <=10 mg/dL [facility] Comment: Interpretive Data Legal limit of intoxication > or = 80 mg/dL Levels > or = 400 mg/dL are potentially TOXIC. Current interpretive data was last revised on 2018. Blood 08/31/2023 8:07 AM DE ICER INSTALLER 08/31/2023 8:14 AM DE ICER INSTALLER Irma [facility] LAB BLOOD ORDERABLES Final R esult Performing Organization Address City/[facility] Co de Phone Number LUIS ARMANDO[address] [place] [address] * (ABNORMAL) Ethanol (08/31/2023 3:39 AM DE ICER INSTALLER) Ethanol 210(H) <=10 mg/dL [facility] Comment: Interpretive Data Legal limit of intoxication > or = 80 mg/dL Levels > or = 400 mg/dL are potentially TOXIC. Current interpretive data was last revised on 2018. Blood 08/31/2023 3:39 AM DE ICER INSTALLER 08/31/2023 3:45 AM DE ICER INSTALLER us Irma [facility] LAB BLOOD ORDERABLES Final R esult Performing Organization Address City/[facility] Co de Phone Number [address] [place] [address] * Urinalysis reflex to microscopic and culture Urine (08/30/2023 11:31 PM DE ICER INSTALLER) Color, ur Straw Yellow [facility] Clarity, ur [...] tendency for uric acid stone formation. Source: [facility] Current Interpretive Data was last [...] HEALTH SYSTEM Urine 08/30/2023 11:3 1 PM DE ICER INSTALLER 08/30/2023 11:34 PM DE ICER INSTALLER Irma [facility] LAB MICROBIOLOGY - GENERAL O RDERABLES Final Result [facility] [address] [facility] Department [place] [address] * Drugs of Abuse Screen, Urine with Reflex Confirmation (08/30/2023 11:31 PM DE ICER INSTALLER) Amphetamine, ur Not Detected CutOff 500ng/mL [facility] [...] on 2017. Urine 08/30/2023 11:3 1 PM DE ICER INSTALLER 08/30/2023 11:34 PM DE ICER INSTALLER Narrative [facility] - 08/31/2023 12:00 AM DE ICER INSTALLER Drug of Abuse screening is performed by immunoassay for medical purposes only. ??This is not to be used for Pain Management purposes. ??If Detected, confirmation testing will be performed for Amphetamines, Cocaine, Fentanyl, Methadone, Opiates, Oxycodone or Phencyclidine. Irma [facility] LAB URINE ORDERABLES Final R esult [facility] [address] [facility] Department [place] [address] * POCT hCG, urine (08/30/2023 11:30 PM DE ICER INSTALLER) HCG, ur, POC Negative Negative Lot Number [id number] QC Backgroud Clear Acceptable QC Control Line Acceptable Urine 08/30/2023 11:3 0 PM DE ICER INSTALLER Irma [facility] POINT OF CARE TEST ORDERABLE S Final Result * eGFR (08/30/2023 10:41 PM DE ICER INSTALLER) eGFR 120 mL/min/1. 73 m2 [facility] Comment: [...] reviewed 2021. Blood 08/30/2023 10:4 1 PM DE ICER INSTALLER 08/30/2023 10:45 PM DE ICER INSTALLER us Irma [facility] LAB BLOOD ORDERABLES Final R esult [facility] [address] [facility] Department [place] [address] * Differential, auto (08/30/2023 10:41 PM DE ICER INSTALLER) Neutrophil abs 3.0 1.5 - 6.5 K/cumm [...] on 2017. Blood 08/30/2023 10:4 1 PM DE ICER INSTALLER 08/30/2023 10:45 PM DE ICER INSTALLER Irma [facility] LAB BLOOD ORDERABLES Final R esult [facility] [address] [facility] Department of Laboratories [place], [place] [id number] * Influenza A/B, RSV, and COVID-19 PCR Nasopharyngeal (08/30/2023 10:41 PM DE ICER INSTALLER) COVID-19 RNA Negative Negative [facility] Influenza A RNA Negative Negative [facility] Influenza B RNA Negative Negative [facility] RSV RNA Negative Negative [facility] Comment: Interpretive data: Testing performed by [facility]. This test is performed using the [employer] Xpert Xpress CoV-2/Flu/RSV plus assay. This is a multiplex, real-time reverse transcriptase PCR assay intended for the qualitative detection of nucleic acid from SARS-CoV-2, influenza A, influenza B, and respiratory syncytial virus. This assay has been cleared by the [place] Food and Drug administration. The performance characteristics have been verified by the [facility]. ??Results must be considered in the clinical context, and a negative result does not rule out infection. Interpretive Data last revised 2023 Nasopharyngeal 08/30/2023 10 :41 PM DE ICER INSTALLER 08/30/2023 10:45 PM DE ICER INSTALLER Narrative [facility] - 08/30/2023 11:23 PM DE ICER INSTALLER Is the Patient experiencing symptoms consistent with COVID?->No Reason for testing?->Screening [facility] Irma [facility] LAB MICROBIOLOGY - GENERAL O RDERABLES Final Result Performing Organization Address [facility] Co de Phone Number [address] [employer] [address] * Magnesium (08/30/2023 10:41 PM DE ICER INSTALLER) Pathologist [facility] Magnesium 1.9 1.4 - 2.5 mg/dL [facility] Blood 08/30/2023 10:4 1 PM DE ICER INSTALLER 08/30/2023 10:45 PM DE ICER INSTALLER Irma [facility] LAB BLOOD ORDERABLES Final R esult Performing Organization Address [facility] Co de Phone Number [address] [address] * Acetaminophen level (08/30/2023 10:41 PM DE ICER INSTALLER) Acetaminophen <5 <=5 mcg/mL [facility] Comment: Interpretive Data Significant hepatic injury may occur and treatment with n-acetyl cysteine is generally recommended if the acetaminophen level exceeds: 150 mcg/mL at 4 hours after ingestion ??75 mcg/mL at 8 hours after ingestion ??38 mcg/mL at 12 hours after ingestion ??19 mcg/mL at 16 hours after ingestion Consult toxicology or poison control ([phone]) for unknown ingestion time. Current interpretive data was last revised 2023. Blood 08/30/2023 10:4 1 PM DE ICER INSTALLER 08/30/2023 10:45 PM DE ICER INSTALLER Irma [facility] LAB BLOOD ORDERABLES Final R esult Performing Organization Address City/[facility] Co de Phone Number [facility] [address] [place] [address] * TSH reflex to free T4 (08/30/2023 10:41 PM DE ICER INSTALLER) TSH 1.09 0.30 - 4.20 mcIUnit/mL [facility] Blood 08/30/2023 10:4 1 PM DE ICER INSTALLER 08/30/2023 10:45 PM DE ICER INSTALLER Irma [facility] LAB BLOOD ORDERABLES Final R esult Performing Organization Address [facility] Co de Phone Number LUIS ARMANDO[address] [employer] [address] * (ABNORMAL) Ethanol (08/30/2023 10:41 PM DE ICER INSTALLER) Ethanol 406(H) <=10 mg/dL [facility] Comment: Interpretive Data Legal limit of intoxication > or = 80 mg/dL Levels > or = 400 mg/dL are potentially TOXIC. Current interpretive data was last revised on 2018. Blood 08/30/2023 10:4 1 PM DE ICER INSTALLER 08/30/2023 10:45 PM DE ICER INSTALLER Irma [facility] LAB BLOOD ORDERABLES Final R esult Performing Organization Address [facility] Co de Phone Number [facility] [address] [employer] [address] * Salicylate level (08/30/2023 10:41 PM DE ICER INSTALLER) Pathologist [facility] Salicylate <1.0 <=1.0 mg/dL [facility] Comment: Interpretive Data Toxic: 30 mg/dL or greater. Current interpretive data was last revised 2023. Blood 08/30/2023 10:4 1 PM DE ICER INSTALLER 08/30/2023 10:45 PM DE ICER INSTALLER Irma [facility] LAB BLOOD ORDERABLES Final R esult [facility] [address] [facility] Department [place] [address] * (ABNORMAL) Comprehensive metabolic panel (08/30/2023 10:41 PM DE ICER INSTALLER) [facility] Sodium 145 135 - 145 mmol/L [facility] [...] [facility]ALTH SYSTEM Blood 08/30/2023 10:4 1 PM DE ICER INSTALLER 08/30/2023 10:45 PM DE ICER INSTALLER us Irma [facility] LAB BLOOD ORDERABLES Final R esult Performing Organization Address City/[facility] Co de Phone Number [facility] [address] [place] [address] * CBC with auto differential (08/30/2023 10:41 PM DE ICER INSTALLER) WBC 5.4 3.8 - 9.9 K/cumm [facility] [...] HEALTH SYSTEM Blood 08/30/2023 10:4 1 PM DE ICER INSTALLER 08/30/2023 10:45 PM DE ICER INSTALLER us Irma [facility] LAB BLOOD ORDERABLES Final R esult Performing Organization Address City/[facility] Co de Phone Number [facility] [address] [employer] [address] documented in this encounter Visit Diagnoses Diagnosis Acute alcoholic intoxication without complication (HCC)- Primary Suicidal ideation documented in this encounter Administered Medications Inactive Administered Medications - up to 3 most recent administrations Medication Order MAR Action Action Date Dose Rate Site acetaminophen (TYLENOL) tablet 650 mg 650 mg, oral, Once, On Tue08/31/23 at 0403, For 1 dose Given 08/31/2023 4:15 AM DE ICER INSTALLER 650 mg ALPRAZolam (XANAX) tablet 0.5 mg 0.5 mg, oral, Once, On Tue08/31/23 at 0803, For 1 dose Given 08/31/2023 8:08 AM DE ICER INSTALLER 0.5 mg ALPRAZolam (XANAX) tablet 1 mg 1 mg, oral, Once, On Tue08/31/23 at 0231, For 1 dose Given 08/31/2023 2:57 AM DE ICER INSTALLER 1 mg ibuprofen (ADVIL,MOTRIN) tablet/capsule 600 mg 600 mg, oral, Once, On Tue08/31/23 at 0745, For 1 dose Given 08/31/2023 8:08 AM DE ICER INSTALLER 600 mg lisinopriL (PRINIVIL,ZESTRIL) tablet 20 mg 20 mg, oral, Once, On Tue08/31/23 at 0803, For 1 dose Given 08/31/2023 8:08 AM DE ICER INSTALLER 20 mg LORazepam (ATIVAN) injection 1 mg 1 mg, intravenous, Once, On Tue08/30/23 at 2239, For 1 dose, For IV administration, draw up ordered admin dose/volume, then dilute with equal volume of 0.9% sodium chloride and administer total volume to patient. Do not exceed a rate of 2 mg/minute., Indications: anxietyIndications:anxiety Given 08/30/2023 11:08 PM DE ICER INSTALLER 1 mg LORazepam (ATIVAN) injection 1 mg [...] 1 dose New Bag 08/30/2023 11:08 PM DE ICER INSTALLER 1,000 mL documented in this encounter Active and Recently Administered Medications Times are shown in DE ICER INSTALLER. Scheduled Medication Order 08/29/2023 08/30/2023 08/31/2023 acetaminophen [...] 024 documented in this encounter Care Teams Traffic Clerk Relationship Specialty Start Date End Date Adiel Demarco MD [address] [place] [address] PCP - General 08/24/17 documented as of this encounter
--- OUTSIDE RECORDS SUMMARY | 2024-09-05 02:33 | XMS_ITS | Encounter Summary ---
Author Organization [facility] Address [address] [place] [address] Phone Care Team Providers Care Spinning Bath Patroller Name Role Phone Adiel Demarco MD Primary Care Provider +1- [phone] Encounter Details Date Type Department Care Team (Late st Contact Info) Description 12/17/2022 10:30 AM CDT Office Visit [facility] [address] [place] [address] Lynnette Perry NP [address] [place], [place] [id number] Elevated BP without diagnosis of hypertension (Primary Dx) Social History Tobacco Use Types Packs/Day Years Used Date Smoking Tobacco: Former Tobacco Cessation:Counseling Given: Not Answered Comments Unknown Sex and Gender Information Value Date Recorded Sex Assigned at Not on file Legal Sex Female 4:31 AM EDITOR DICTIONARY Gender Identity Female 11/23/2019 9:35 AM CDT [...] not included. Patient Education DASH Eating Plan HARBOR POLICE LIEUTENANT: The DASH (Dietary Approaches to Stop Hypertension) [...] add flavor to foods. Try lemon or gakona juice or vinegar to give foods a [...] oil, and liquid and soft tub margarines. Odd-3 fatty acids are found in fatty fish, [...] or 1?? ounces of liquor. ?? Copyright [employer] 2020 Information is for End User's use only and may not be sold, redistributed or otherwise used for commercial purposes. All illustrations and images included in CareNotes?? are the copyrighted property of [employer]. or [employer] The above information is an forestry aid technician only. It is not intended as medical [...] 12/08/2022 added in this encounter Care Teams Spinning Bath Patroller Relationship Specialty Start Date End Date Adiel Demarco MD [address] [place] [address] PCP - General 08/24/17 documented as of this encounter
--- OUTSIDE RECORDS SUMMARY | 2024-09-05 02:33 | XMS_ITS | Encounter Summary ---
Author Organization [facility] Address [address] [place] [address] Phone Care Team Providers Care Front End Technician Name Role Phone Adiel Demarco MD Primary Care Provider +1- [phone] Encounter Details Date Type Department Care Team (Late st Contact Info) Description 06/29/2024 Orders Only [facility] [address] [place] [address] Adiel Demarco MD [address] [place], [place] [id number] Elevated BP without diagnosis of hypertension Social [...] on file Legal Sex Female 4:31 AM INDUSTRIAL/ORGANIZATIONAL PSYCHOLOGIST Gender Identity Female 11/23/2019 9:35 AM CDT [...] documented as of this encounter Care Teams Front End Technician Relationship Specialty Start Date End Date Adiel Demarco MD [address] [place] [address] PCP - General 08/24/17 documented as of this encounter
--- OUTSIDE RECORDS SUMMARY | 2024-09-05 02:33 | XMS_ITS | Referral Summary ---
Author Organization [facility] Address [address] [place] [address] Care Team Providers Care Washroom Cleaner Name Role Phone Adiel Demarco MD Primary Care Provider +1- [phone] Encounters Date Type Department Care Team Description 06/29/2024 Orders Only [address] [address] Adiel Demarco MD Elevated BP [...] disability 0 12/13/2017 Colitis 03/16/2016 Crohn's disease ([facility]) 02/17/2016 Overview (12/09/2017): Impression: stable, followed by [...] on file Legal Sex Female 4:31 AM FORESTRY EXTENSION SPECIALIST Gender Identity Female 11/23/2019 9:35 AM CDT Sexual Orientation Straight 11/23/2019 9: 35 AM CDT Last Filed Vital Signs Vital Sign Reading Time Taken Comments Blood Pressure 105/79 08/31/2023 4:45 AM FORESTRY EXTENSION SPECIALIST Pulse 89 08/31/2023 4:45 AM FORESTRY EXTENSION SPECIALIST Temperature 37 ??C (98.6 ??F) 08/30/2023 10:29 PM FORESTRY EXTENSION SPECIALIST Respiratory Rate 15 08/31/2023 4:45 AM FORESTRY EXTENSION SPECIALIST Oxygen Saturation 97% 08/31/2023 4:45 AM FORESTRY EXTENSION SPECIALIST Inhaled Oxygen Concentration - - Weight 65.8 kg (145 lb) 08/30/2023 10:29 PM FORESTRY EXTENSION SPECIALIST Height 152.4 cm (5') 08/30/2023 10:29 PM FORESTRY EXTENSION SPECIALIST Body Mass Index 28.32 08/30/2023 10:29 PM FORESTRY EXTENSION SPECIALIST Plan of Treatment Not on file Insurance [facility] H[facility]PP[facility] Address: [address] [address] [facility]/PPO Address: [address] [place] [address] Care Teams Washroom Cleaner Relationship Specialty Start Date End Date Adiel Demarco MD [address] [place] [address] [facility] - General 08/24/17
--- OUTSIDE RECORDS SUMMARY | 2024-09-05 02:33 | XMS_ITS | Encounter Summary ---
Author Organization [facility] Address [address] [place] [address] Phone Care Team Providers Care Cement Mason [address] [address] Name Role Phone Adiel Demarco MD Primary Care Provider +1- [phone] Reason for Visit * Reason Comments Anxiety Encounter Details Date Type Department Care Team (Late st Contact Info) Description 05/18/2021 1:30 PM CDT Office Visit [facility] [address] [place] [address] Lynnette Perry NP [address] [place], [place] [id number] Generalized anxiety disorder (Primary Dx); Mild episode of recurrent major depressive disorder (HCC); Fever blister Social History Tobacco Use Types Packs/Day Years Used Date Smoking Tobacco: Former Comments Unknown Sex and Gender Information Value Date Recorded Sex Assigned at Not on file 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 She knows she needs a therapist. [id number] Zoloft daily. Has tried lexapro, Effexor, and [...] Refill ? ? al & mag hydroxide iukvihqecjq-qpcozhzzjwfjeyi-amfdaisdc-nystatin (MAGIC MOUTHWASH) suspension 1-1-1-1 Swish and swallow [...] documented as of this encounter Care Teams Cement [address] [employer] [address] Relationship Specialty Start Date End Date Adiel Demarco MD [address] [place] [address] PCP - General 08/24/17 documented as of this encounter
--- OUTSIDE RECORDS SUMMARY | 2024-09-05 02:33 | XMS_ITS | Encounter Summary ---
Author Organization [facility] Address [address] [place] [address] Phone Care Team Providers Care Blender Snuff Name Role Phone Adiel Demarco MD Primary Care Provider +1- [phone] Encounter Details Date Type Department Care Team (Late st Contact Info) Description 11/16/2021 10:00 AM CDT Office Visit [facility] [address] [place] [address] Lynnette Perry NP [address] [place], [place] [id number] Healthcare maintenance (Primary Dx) Social History Tobacco Use Types Packs/Day Years Used Date Smoking Tobacco: Former Comments Unknown Sex and Gender Information Value Date Recorded Sex Assigned at Not on file Legal Sex Female 4:31 AM SENIOR SOFTWARE ENGINEER Gender Identity Female 11/23/2019 9:35 AM CDT [...] independently with help available. Depression/anxiety: Seeing a psychotherapist who changed her to Lamictal. Feeling good. 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 ADD: recently started on adderall. Feeling great [...] (specimen) 11/16/2021 10:31 AM CDT Lynnette Perry POULTRY FARMER EGG POINT OF CARE ALONSO T ORDERABLES Final [...] 11/16/2021 added in this encounter Care Teams Blender Snuff Relationship Specialty Start Date End Date Adiel Demarco MD [address] [place] [address] PCP - General 08/24/17 documented as of this encounter
--- OUTSIDE RECORDS SUMMARY | 2024-09-05 02:33 | XMS_ITS | Encounter Summary ---
Author Organization [facility] Address [address] [place] [address] Phone Care Team Providers Care Panel Fitter Name Role Phone Adiel Demarco MD Primary Care Provider +1- [phone] Encounter Details Date Type Department Care Team (Late st Contact Info) Description 01/28/2023 10:40 AM CDT Lab [facility] [address] [place] [address] Social History Tobacco Use Types Packs/Day Years Used Date Smoking Tobacco: Former PHQ-2 Answer Date Recorded PHQ-2 Total Score (If total score is 3 or more points, staff should administer the PHQ-9) 0 01/28/2023 Comments No Sex and Gender Information Value Date Recorded Sex Assigned at Not on file Legal Sex Female 4:31 AM JIG BORER Gender Identity Female 11/23/2019 9:35 AM CDT Sexual Orientation Straight 11/23/2019 9: 35 AM CDT documented as of this encounter Plan of Treatment Not on file documented as of this encounter Visit Diagnoses Not on filedocumented in this encounter Care Teams Panel Fitter Relationship Specialty Start Date End Date Adiel Demarco MD [address] [place] [address] PCP - General 08/24/17 documented as of this encounter
--- OUTSIDE RECORDS SUMMARY | 2024-09-05 02:33 | XMS_ITS | Encounter Summary ---
Author Organization [facility] Address [address] [place] [address] Phone Care Team Providers Care Pheresis Specialist Name Role Phone Adiel Demarco MD Primary Care Provider +1- [phone] Encounter Details Date Type Department Care Team (Late st Contact Info) Description 11/25/2020 Telephone [facility] [address] [place] [address] Adiel Demarco MD [address] [place], [place] [id number] Social History Tobacco Use Types Packs/Day Years Used Date Smoking Tobacco: Former Comments Unknown Sex and Gender Information Value Date Recorded Sex Assigned at Not on file Legal Sex Female 4:31 AM RETORT OR CONDENSER PRESS OPERATOR Gender Identity Female 11/23/2019 9:35 AM CDT Sexual Orientation Straight 11/23/2019 9: 35 AM CDT documented as of this encounter Miscellaneous Notes * Telephone Encounter - Ellen Nina MA - 11/25/2020 3:57 PM CDT Office contact patient/pharmacy all question answered. * Telephone Encounter - Ellen Nina MA - 11/25/2020 3:57 PM CDT ----- Message from Brissa Buckley sent at 11/25/2020 3:19 PM CDT ----- Regarding: Prescription Question Contact: Dc Dr. Demarco. My pharmacy called yesterday regarding my new Zoloft prescription. They were unsureof the instructions that were written and couldn't get a hold of anyone at the office. They reachedout to me to reach out to you. Will you or your events administrative assistant please contact [facility] and let them know the directions for Zoloft. I appreciate your time. Thank you! documented in this encounter Plan of Treatment Not on file documented as of this encounter Visit Diagnoses Not on filedocumented in this encounter Care Teams Pheresis Specialist Relationship Specialty Start Date End Date Adiel Demarco MD [address] [place] [address] PCP - General 08/24/17 documented as of this encounter
--- OUTSIDE RECORDS SUMMARY | 2024-09-05 02:33 | XMS_ITS | Encounter Summary ---
Author Organization [facility] Address [address] [place] [address] Phone Care Team Providers Care Records Supervisor Name Role Phone Adiel Demarco MD Primary Care Provider +1- [phone] Encounter Details Date Type Department Care Team (Late st Contact Info) Description 11/27/2020 3:40 PM CDT Telemedicine [address] [address] Adiel Demarco MD [address] [place] [address] Stomatitis and mucositis (Primary Dx) Social History Tobacco Use Types Packs/Day Years Used Date Smoking Tobacco: Former Comments Unknown Sex and Gender Information Value Date Recorded Sex Assigned at Not on file Legal Sex Female 4:31 AM 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 ? al & mag hydroxide irycznydggz-rrwkckqzxwzzirx-aauybuosv-nystatin (MAGIC MOUTHWASH) suspension 1-1-1-1 Swish and swallow [...] as PCP - General Primary Pharmacy/DME suppliers: [facility] - [place], [place] - [address] [facility] [address] [place] [address] [place] [address] ROS per HPI otherwise all other systems [...] Other orders - al & mag hydroxide vgpvcpcgiyw-jcfnwdzaljibkrr-qogialhos-nystatin (MAGIC MOUTHWASH) suspension 1-1-1-1; Swish and swallow 20 mL every 4 (four) hours as needed (Mouth pain) Adiel Demarco MD This was a telemedicine visit which took place via [employer] . During the visit, I was located in [facility] and the patient was located at his home in the state of [place]. The patient visit started at 3:50 p.m. [...] unspecified documented in this encounter Care Teams Records Supervisor Relationship Specialty Start Date End Date Adiel Demarco MD [address] [place] [address] PCP - General 08/24/17 documented as of this encounter
--- OUTSIDE RECORDS SUMMARY | 2024-09-05 02:33 | XMS_ITS | Encounter Summary ---
Author Organization [facility] Address [address] [place] [address] Phone Care Team Providers Care Poolroom Table Attendant Name Role Phone Adiel Demarco MD Primary Care Provider +1- [phone] Encounter Details Date Type Department Care Team (Late st Contact Info) Description 06/23/[address] 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
--- OUTSIDE RECORDS SUMMARY | 2024-09-05 02:33 | XMS_ITS | Encounter Summary ---
Author Organization [facility] Address [address] [place] [address] Phone Care Team Providers Care Industrial Designer Name Role Phone Adiel Demarco MD Primary Care Provider +1- [phone] Encounter Details Date Type Department Care Team (Late st Contact Info) Description 11/16/2021 Orders Only [facility] [address] [place] [address] Adiel Demarco MD [address] [place], [place] [id number] Social History Tobacco Use Types Packs/Day Years Used Date Smoking Tobacco: Former Comments Unknown Sex and Gender Information Value Date Recorded Sex Assigned at Not on file Legal Sex Female 4:31 AM OBIEE OBIA SOLUTION ARCHITECT Gender Identity Female 11/23/2019 9:35 AM [...] documented as of this encounter Care Teams Industrial Designer Relationship Specialty Start Date End Date Adiel Demarco MD [address] [place] [address] PCP - General 08/24/17 documented as of this encounter
--- OUTSIDE RECORDS SUMMARY | 2024-09-05 02:33 | XMS_ITS | Encounter Summary ---
Author Organization [facility] Address [address] [place] [address] Phone Care Team Providers Care Graduate Studies Dean Name Role Phone Adiel Demarco MD Primary Care Provider +1- [phone] Encounter Details Date Type Department Care Team (Late st Contact Info) Description 04/17/2021 Orders Only [facility] [address] [place] [address] Lynnette Perry NP [address] [place], [place] [id number] Social History Tobacco Use Types Packs/Day Years Used Date Smoking Tobacco: Former Comments Unknown Sex and Gender Information Value Date Recorded Sex Assigned at Not on file Legal Sex Female 4:31 AM NAUMKEAG OPERATOR Gender Identity Female 11/23/2019 9:35 AM [...] on filedocumented in this encounter Care Teams Graduate Studies Dean Relationship Specialty Start Date End Date Adiel Demarco MD [address] [place] [address] PCP - General 08/24/17 documented as of this encounter
--- OUTSIDE RECORDS SUMMARY | 2024-09-05 02:33 | XMS_ITS | Encounter Summary ---
Author Organization [facility] Address [address] [place] [address] Phone Care Team Providers Care Wholesale Parts Salesperson Name Role Phone Adiel Demarco MD Primary Care Provider +1- [phone] Encounter Details Date Type Department Care Team (Late st Contact Info) Description 05/09/2023 1:00 PM CDT Telemedicine [address] [address] Adiel Demarco MD [address] [place] [address] Insomnia due to medical condition [...] file Legal Sex Female 4:31 AM DIRECTOR INVESTMENT BANKING Gender Identity Female 11/23/2019 9:35 AM CDT [...] as PCP - General Primary Pharmacy/DME suppliers: [facility], [place] - [address] [place] [address] [email or web address] - [place], [place] [address] [place] [address] [facility] - [place], [place] - [address] [facility] [address] [facility] [place] [address] ROS per HPI otherwise all other systems [...] During the visit, I was located in [facility] and the patient was located at his home in the [facility]. The patient visit started at 1:20 p.m. and ended at 1:28 p.m. Total encounter time includes time spent in direct contact with patient The patient: has been informed that the visit may not be secure and acknowledged the information. The option of participating in a telephone or video visit during the [facility] emergencywas explained to them. [...] documented as of this encounter Care Teams Wholesale Parts Salesperson Relationship Specialty Start Date End Date Adiel Demarco MD [address] [place] [address] PCP - General 08/24/17 documented as of this encounter
--- OUTSIDE RECORDS SUMMARY | 2024-09-05 02:33 | XMS_ITS | Encounter Summary ---
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) Social History Tobacco Use Types Packs/Day Years Used Date Smoking Tobacco: Former Comments Unknown Sex and Gender Information Value Date Recorded Sex Assigned at Not on file Legal Sex Female 4:31 AM ALLERGY AND IMMUNOLOGY CHIEF Gender Identity Female 11/23/2019 9:35 AM CDT [...] as PCP - General Primary Pharmacy/DME suppliers: [facility] - [address] [address] [facility] - [place] - [address] [place] [address] ROS per HPI otherwise all other systems [...] office if there are any questions at [phone]. documented in this encounter Plan of Treatment [...] 03/08/2022 added in this encounter Care Teams Trapeze Artist Relationship Specialty Start Date End Date Adiel Demarco MD [address] [place] [address] PCP - General 08/24/17 documented as of this encounter
--- OUTSIDE RECORDS SUMMARY | 2024-09-05 02:33 | XMS_ITS | Encounter Summary ---
Author Organization [facility] Address [address] [place] [address] Phone Care Team Providers Care Cheese Factory Worker Name Role Phone Adiel Demarco MD Primary Care Provider +1- [phone] Encounter Details Date Type Department Care Team (Late st Contact Info) Description 06/24/2021 4:[address] [facility] [address] [place] [address] Lynnette Perry NP [address] [place] [address] Generalized anxiety disorder; Mild episode of recurrent major depressive disorder (HCC) Social History Tobacco Use Types Packs/Day Years Used Date Smoking Tobacco: Former Comments Unknown Sex and Gender Information Value Date Recorded Sex Assigned at Not on file Legal Sex Female 4:31 AM MEDICAL GENETICS DIRECTOR Gender Identity Female 11/23/2019 9:35 AM [...] Refill ? ? al & mag hydroxide mlywfjlvpju-jcagxzxuuozsqty-rvpvobtaj-nystatin (MAGIC MOUTHWASH) suspension 1-1-1-1 Swish and swallow [...] which took place via Real-time video connection ([employer], A Fourth Act or similar). During the visit, I was located in the office and the patient was located in the state [facility]. The patient visit started at 1615 and ended at 1640. Greater than 50 % ofthe video/phone call was spent on counseling and coordinating care. Patient was counseled on depression and anxiety management. The patient: has been informed that the visit may not be secure and acknowledged the information. The option of participating in a telephone or video visit during the [address] emergency[address] explained to them. After being [...] 05/18/2021 06/24/2021 al & mag hydroxide simethicone-diphenhydram ylh-enobylaxa-qgytzalt (MAGIC MOUTHWASH) suspension 1-1-1-1 Swish and swallow 20 mL every 4 (four) hours as needed (Mouth pain) 11/27/2020 06/24/2021 documented as of this encounter Care Teams Cheese Factory Worker Relationship Specialty Start Date End Date Adiel Demarco MD [address] [place] [address] PCP - General 08/24/17 documented as of this encounter
--- OUTSIDE RECORDS SUMMARY | 2024-09-05 02:33 | XMS_ITS | Encounter Summary ---
Author Organization [facility] Address [address] [place] [address] Phone Care Team Providers Care Improvement Analyst Name Role Phone Adiel Demarco MD Primary Care Provider +1- [phone] Encounter Details Date Type Department Care Team (Late st Contact Info) Description 05/01/2021 Orders Only [facility] [address] [place] [address] Lynnette Perry NP [address] [place], [place] [id number] Social History Tobacco Use Types Packs/Day Years Used Date Smoking Tobacco: Former Comments Unknown Sex and Gender Information Value Date Recorded Sex Assigned at Not on file Legal Sex Female 4:31 AM DATA ENTRY MANAGER Gender Identity Female 11/23/2019 9:35 AM [...] on filedocumented in this encounter Care Teams Improvement Analyst Relationship Specialty Start Date End Date Adiel Demarco MD [address] [place] [address] PCP - General 08/24/17 documented as of this encounter
--- OUTSIDE RECORDS SUMMARY | 2024-09-05 02:33 | XMS_ITS | Encounter Summary ---
Author Organization [facility] Address [address] [place] [address] Phone Care Team Providers Care Records Administrator Name Role Phone Adiel Demarco MD Primary Care Provider +1- [phone] Reason for Visit * Reason Comments Annual Exam Encounter Details Date Type Department Care Team (Late st Contact Info) Description 01/28/2023 10:00 AM CDT Office Visit [facility] [address] [place] [address] Lynnette Perry NP [address] [place], [place] [id number] Healthcare maintenance (Primary Dx); Vitamin D deficiency [...] on file Legal Sex Female 4:31 AM SCHOOL BUSINESS MANAGER Gender Identity Female 11/23/2019 9:35 AM [...] AND PELVIC EXAMS: Last PAP: follows with DIAL EQUIPMENT ENGINEER, 11/2022 Result: negative BONE HEALTH: Encouraged adequate [...] CDT) Iron 154.1(H) 37.0 - 145.0 ug/dL [facility] Total Iron Binding Capacity 337.9 ug/dL [facility] Unsaturated Iron Binding Capacity 183.8 112.0 - 346.0 ug/dL [facility] % Iron Saturation 45.6(H) 25.0 - 45.0 % [facility] Blood 01/28/2023 10:2 5 AM CDT 01/28/2023 10:37 AM CDT Lynnette Perry COMMUNITY AFFAIRS MANAGER LAB BLOOD ORDERAB LES Final Result Performing Organization Address [facility] Co de Phone Number [address] [address] * (ABNORMAL) Vitamin D 25 hydroxy (01/28/2023 10:25 AM CDT) Vitamin D 23.50(L) >29.00 ng/ml [facility] Blood 01/28/2023 10:2 5 AM CDT 01/28/2023 10:37 AM CDT Lynnette Perry COMMUNITY AFFAIRS MANAGER LAB BLOOD ORDERAB LES Final Result Performing Organization Address [facility] Co de Phone Number [address] [address] * (ABNORMAL) Vitamin B12 (01/28/2023 10:25 AM CDT) Vitamin B12 1,551(H) 232 - 1,245 pg/mL [facility] Blood 01/28/2023 10:2 5 AM CDT 01/28/2023 10:37 AM CDT Lynnette Perry COMMUNITY AFFAIRS MANAGER LAB BLOOD ORDERAB LES Final Result Performing Organization Address [facility]/ZIP Co de Phone Number [address] [address] * CBC with auto differential (01/28/2023 10:23 AM CDT) WBC 5.0 3.5 - 10.0 K/uL [facility] RBC 4.56 3.50 - 5.50 M/uL [facility] Hemoglobin 13.9 11.5 - 16.5 g/dL [facility] Hematocrit 38.8 35.0 - 55.0 % [facility] MCV 85.0 75.0 - 100.0 fL [facility] MCH 30.60 25.00 - 35.00 pg [facility] MCHC 36.00 31.00 - 38.00 g/dL [facility] RDW 13.0 11.0 - 16.0 % [facility] Platelets 364 140 - 400 K/uL [facility] MPV 8.0 8.0 - 11.0 fL [facility] Granulocyte, Absolute 3.2 1.2 - 8.0 K/uL [facility] Lymphocyte, Absolute 1.4 0.5 - 5.0 K/uL [facility] Monocyte, Absolute 0.4 0.1 - 1.5 K/uL [facility] Granulocyte, Percentage 63.8 35.0 - 80.0 % [facility] Lymphocyte, Percentage 28.9 15.0 - 50.0 % [facility] Monocyte, Percentage 7.3 2.0 - 15.0 % [facility] Blood 01/28/2023 10:2 3 AM CDT 01/28/2023 10:37 AM CDT Lynnette Perry COMMUNITY AFFAIRS MANAGER LAB BLOOD ORDERAB LES Final Result Performing Organization Address City/State/[facility] Co de Phone Number [facility] [address] [place] [address] * (ABNORMAL) Comprehensive metabolic panel (01/28/2023 10:23 AM CDT) Glucose 75 74 - 200 mg/dL [facility] BUN 9 6 - 20 mg/dL [facility] Creatinine 0.7 0.7 - 1.3 mg/dL [facility] eGFR 99 mL/min/1.7 3m2 [facility] BUN/Creat Ratio 13 Ratio [facility] Bilirubin, Total 0.2 0.0 - 1.2 mg/dL [facility] AST (SGOT) 13 0 - 32 U/L [facility] ALT (SGPT) 12 10 - 35 U/L [facility] Alkaline phosphatase 65 35 - 104 U/L [facility] Calcium 8.9 8.6 - 10.0 mg/dL [facility] Sodium 135(L) 136 - 145 mEq/L [facility] Potassium 4.5 3.5 - 5.1 mEq/L [facility] Chloride 102 98 - 107 mEq/L [facility] CO2 28.0 22.0 - 29.0 mEq/L [facility] Anion Gap 5 3 - 12 mEq/L [facility] Total Protein 6.7 6.6 - 8.7 g/dL [facility] Albumin 4.2 3.5 - 5.2 g/dL [facility] Globulin 2.5 g/dL [facility] Albumin/Globulin 1.6 Ratio [facility] Blood 01/28/2023 10:2 3 AM CDT 01/28/2023 10:37 AM CDT Lynnette Perry NP LAB BLOOD ORDERAB LES Final Result Performing Organization Address City/[facility] Co de Phone Number [facility] [address] [place] [address] * Lipid panel (01/28/2023 10:23 AM CDT) Triglyceride 79 0 - 150 mg/dL [facility] Cholesterol 159 0 - 200 mg/dL [facility] HDL 92 >45 mg/dL [facility] LDL-Calculated 51 mg/dL [facility] CHOL/HDL Risk Ratio 2 Ratio [facility] LDL/HDL Risk Ratio 1 Ratio [facility] Blood 01/28/2023 10:2 3 AM CDT 01/28/2023 10:37 AM CDT Lynnette Perry NP LAB BLOOD ORDERAB LES Final Result Performing Organization Address City/[facility] Co de Phone Number [facility] [address] [place] [address] * (ABNORMAL) Hemoglobin A1c (01/28/2023 10:23 AM CDT) HBA1C 4.8(L) 5.0 - 6.3 % [facility] Comment: Interpretive Comment: Normal: ? 4.5 - 5.6 Pre-Diabetes: 5.7 - 6.4 Diabetes is: ??6.5 Ranges based on ADA Guidelines Blood 01/28/2023 10:2 3 AM CDT 01/28/2023 10:37 AM CDT Lynnette Perry COMMUNITY AFFAIRS MANAGER LAB BLOOD ORDERAB LES Final Result [facility] [address] [place] [address] documented in this encounter Visit Diagnoses Diagnosis [...] 01/25/2023 added in this encounter Care Teams Records Administrator Relationship Specialty Start Date End Date Adiel Demarco MD [address] [place] [address] PCP - General 08/24/17 documented as of this encounter
--- OUTSIDE RECORDS SUMMARY | 2024-09-05 02:34 | XMS_ITS | Encounter Summary ---
Author Organization [facility] Facility Care Team Providers Care Wood Engraver Name Role Phone Unavailable Primary Care Provider Unavailabl e Encounter Details Date Type Department Care Team (Late st Contact Info) Description 06/13/2012 - 08/28/2012 11:59 PM ANODIC TREATER Hospital Encounter [facility]INCON[facility] Social History Tobacco Use Types Packs/Day Years Used Date Smoking Tobacco: Never Assessed Comments Unknown Sex and Gender Information Value Date Recorded Sex Assigned at Not on file Legal Sex Female 4:31 AM ANODIC TREATER Gender Identity Female 11/23/2019 9:35 AM CDT Sexual Orientation Straight 11/23/2019 9: 35 AM CDT documented as of this encounter Plan of Treatment Not on file documented as of this encounter Visit Diagnoses Not on filedocumented in this encounter
--- OUTSIDE RECORDS SUMMARY | 2024-09-05 02:34 | XMS_ITS | Encounter Summary ---
Author Organization [facility] Healthcare Address [address] [place] [address] Care Team Providers Care Chin Strap Sewer Name Role Phone Adiel Demarco MD Primary Care Provider +1- [phone] Encounter Details Date Type Department Care Team (Late st Contact Info) Description 03/14/2020 Patient Self-Triage [facility] HealthCare/ Physicians [address] [place] [address] Mychart, Generic Provider [address] [place], [place] [id number] Social History Tobacco Use Types Packs/Day Years Used Date Smoking Tobacco: Former Comments Unknown Sex and Gender Information Value Date Recorded Sex Assigned at Not on file Legal Sex Female 4:31 AM MANAGER TRANSPORT Gender Identity Female 11/23/2019 9:35 AM CDT Sexual Orientation Straight 11/23/2019 9: 35 AM CDT documented as of this encounter Plan of Treatment Not on file documented as of this encounter Visit Diagnoses Not on filedocumented in this encounter Care Teams Chin Strap Sewer Relationship Specialty Start Date End Date Adiel Demarco MD [address] [place] [address] PCP - General 08/24/17 documented as of this encounter
--- OUTSIDE RECORDS SUMMARY | 2024-09-05 02:34 | XMS_ITS | Encounter Summary ---
Author Organization [facility] Address [address] [place] [address] Phone Care Team Providers Care Jewel Oliving Machine Operator Name Role Phone Adiel Demarco MD Primary Care Provider +1- [phone] Encounter Details Date Type Department Care Team (Late st Contact Info) Description 11/07/2020 Orders Only [facility] [address] [place] [address] Adiel Demarco MD [address] [place], [place] [id number] Social History Tobacco Use Types Packs/Day Years Used Date Smoking Tobacco: Former Comments Unknown Sex and Gender Information Value Date Recorded Sex Assigned at Not on file 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
--- OUTSIDE RECORDS SUMMARY | 2024-09-05 02:34 | XMS_ITS | Encounter Summary ---
Author Organization [facility] Healthcare Address [address] [place] [address] Care Team Providers Care Net Wpf Developer Name Role Phone Adiel Demarco MD Primary Care Provider +1- [phone] Encounter Details Date Type Department Care Team (Late st Contact Info) Description 03/08/2020 E-Visit [facility] HealthCare/ Physicians [address] [place], [place] [id number] Nathalia Forte MD [address] [place] [address] [id number] RE: E-Visit Submission: COVID-19 Evaluation Social History Tobacco Use Types Packs/Day Years Used Date Smoking Tobacco: Former Comments Unknown Sex and Gender Information Value Date Recorded Sex Assigned at Not on file 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 She was given instructions regarding follow up and timeframe if symptoms worsen or don???t improve. These instructions were included in the [employer] message reply tothe patient. Patient Instructions were [...] type documented in this encounter Care Teams Net Wpf Developer Relationship Specialty Start Date End Date Adiel Demarco MD [address] [place] [address] PCP - General 08/24/17 documented as of this encounter
--- OUTSIDE RECORDS SUMMARY | 2024-09-05 02:34 | XMS_ITS | Encounter Summary ---
Author Organization [facility] Address [address] [place] [address] Phone Care Team Providers Care Security System Installer Name Role Phone Adiel Demarco MD Primary Care Provider +1- [phone] Reason for Visit * Reason Onset Date Comments covid testing 06/19/2020 Encounter Details Date Type Department Care Team (Late st Contact Info) Description 06/19/2020 Telephone [facility] [address] [place] [address] Adiel Demarco MD [address] [place] [address] covid testing Social History Tobacco Use Types Packs/Day Years Used Date Smoking Tobacco: Former Comments Unknown Sex and Gender Information Value Date Recorded Sex Assigned at Not on file 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 * Telephone Encounter - Adiel [...] regarding an order to be sent to [facility] for Covid testing. Patient is fatigue, running a temp. Cough also was exposed to a co-worker who tested positive on Tuesday. Please call. Thank you documented in this encounter Plan of Treatment Not on file documented as of this encounter Visit Diagnoses Not on filedocumented in this encounter Care Teams Security System Installer Relationship Specialty Start Date End Date Adiel Demarco MD [address] [place] [address] PCP - General 08/24/17 documented as of this encounter
--- OUTSIDE RECORDS SUMMARY | 2024-09-05 02:34 | XMS_ITS | Encounter Summary ---
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
--- OUTSIDE RECORDS SUMMARY | 2024-09-05 02:34 | XMS_ITS | Encounter Summary ---
Author Organization [facility] Address [address] [place] [address] Phone Care Team Providers Care Cracker Off Name Role Phone Adiel Demarco MD Primary Care Provider +1- [phone] Encounter Details Date Type Department Care Team (Late st Contact Info) Description 11/23/2019 11:00 AM CDT Office Visit [facility] [address] [place] [address] Lynnette Perry NP [address] [place] [address] Generalized anxiety disorder (Primary Dx); Mild episode of recurrent major depressive disorder (CMS/HCC); Hypertension, essential Social History Tobacco Use Types Packs/Day Years Used Date Smoking Tobacco: Former Comments Unknown Sex and Gender Information Value Date Recorded Sex Assigned at Not on file Legal Sex Female 4:31 AM BATTERY CHECKER Gender Identity Female 11/23/2019 9:35 AM CDT [...] taken during the visit 139/115. Went to dress designer last week 132/80. Weight was 225lb this [...] needed for anxiety 90 tablet 2 ??? eqpsejtlch-hghygmhshvsga-vylvanky (FIORICET,ESGIC) 50-300-40 mg per capsule TAKE 1 [...] BP was only mildly elevated at the [employer] office she will obtain a different home [...] documented as of this encounter Care Teams Cracker Off Relationship Specialty Start Date End Date Adiel Demarco MD [address] [place] [address] PCP - General 08/24/17 documented as of this encounter
--- OUTSIDE RECORDS SUMMARY | 2024-09-05 02:34 | XMS_ITS | Encounter Summary ---
Author Organization [facility] Address [address] [place] [address] Phone Care Team Providers Care Horseback Excavator Name Role Phone Adiel Demarco MD Primary Care Provider +1- [phone] Encounter Details Date Type Department Care Team (Late st Contact Info) Description 07/15/2020 Telephone [facility] [address] [place] [address] Adiel Demarco MD [address] [place] [address] Social History Tobacco Use Types Packs/Day Years Used Date Smoking Tobacco: Former Comments Unknown Sex and Gender Information Value Date Recorded Sex Assigned at Not on file Legal Sex Female 4:31 AM CORPORATE OPERATIONS COMPLIANCE MANAGER Gender Identity Female 11/23/2019 9:35 AM CDT Sexual Orientation Straight 11/23/2019 9: 35 AM CDT documented as of this encounter Miscellaneous Notes * Telephone Encounter - Aydee Villanueva MA - 07/15/2020 12:01 PM CST My Chart says that a script was sent to her pharmacy but she called the pharmacy and they don't have any medication for her. ORATE OPERATIONS COMPLIANCE MANAGER documented in this encounter Plan of Treatment Not on file documented as of this encounter Visit Diagnoses Not on filedocumented in this encounter Care Teams Horseback Excavator Relationship Specialty Start Date End Date Adiel Demarco MD [address] [place] [address] PCP - General 08/24/17 documented as of this encounter
--- OUTSIDE RECORDS SUMMARY | 2024-09-05 02:34 | XMS_ITS | Encounter Summary ---
Author Organization [facility] Facility Care Team Providers Care Health Care Technician Name Role Phone Unavailable Primary Care Provider Unavailabl e Encounter Details Date Type Department Care Team (Late st Contact Info) Description 01/07/2011 2:29 PM CDT - 01/07/2011 11:59 PM CDT Hospital Encounter [facility] CLINCONV Liza Oneil MD [address] [facility] [address] [place] [address] Lump or mass in breast Social History Tobacco Use Types Packs/Day Years Used Date Smoking Tobacco: Never Assessed Comments Unknown Sex and Gender Information Value Date Recorded Sex Assigned at Not on file Legal Sex Female 4:31 AM SEED POTATO CUTTER Gender Identity Female 11/23/2019 9:35 AM CDT Sexual Orientation Straight 11/23/2019 9: 35 AM CDT documented as of this encounter Plan of Treatment Not on file documented as of this encounter Visit Diagnoses Diagnosis Lump or mass in breast documented in this encounter
--- OUTSIDE RECORDS SUMMARY | 2024-09-05 02:34 | XMS_ITS | Encounter Summary ---
Author Organization [facility] Healthcare Address [address] [place] [address] Care Team Providers Care Cup Machine Operator Name Role Phone Adiel Demarco MD Primary Care Provider +1- [phone] Encounter Details Date Type Department Care Team (Late st Contact Info) Description 03/14/2020 E-Visit [facility] HealthCare/ Physicians [address] [place], [place] [id number] Vania Cullen NP [address] [place], [place] [id number] RE: E-Visit Submission: COVID-19 Evaluation Social History Tobacco Use Types Packs/Day Years Used Date Smoking Tobacco: Former Comments Unknown Sex and Gender Information Value Date Recorded Sex Assigned at Not on file Legal Sex Female 4:31 AM 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 She was given instructions regarding follow up and timeframe if symptoms worsen or don???t improve. These instructions were included in the [employer] message reply tothe patient. Patient Instructions were [...] type documented in this encounter Care Teams Cup Machine Operator Relationship Specialty Start Date End Date Adiel Demarco MD [address] [place] [address] PCP - General 08/24/17 documented as of this encounter
--- OUTSIDE RECORDS SUMMARY | 2024-09-05 02:34 | XMS_ITS | Encounter Summary ---
Author Organization [facility] Address [address] [place] [address] Phone Care Team Providers Care Animal Trainer Name Role Phone Adiel Demarco MD Primary Care Provider +1- [phone] Reason for Visit * Reason Comments Follow-up Encounter Details Date Type Department Care Team (Latest Contact Info) Description 05/03/2019 1:20 PM CDT Office Visit [address] [address] Adiel Demarco MD [address] [place] [address] Vitamin D deficiency disease (Primary Dx); [...] on file Legal Sex Female 4:31 AM SYSTEM ADMINISTRATOR Gender Identity Female 11/23/2019 9:35 AM [...] Body Mass Index 37.2 11/03/2018 11:38 AM SYSTEM ADMINISTRATOR documented in this encounter Ordered Prescriptions [...] recommended 20-40 minutes of daily exercise and [id number] daily diet. I recommended eating small meals [...] 04/23/2020 added in this encounter Care Teams Animal Trainer Relationship Specialty Start Date End Date Adiel Demarco MD [address] [place] [address] PCP - General 08/24/17 documented as of this encounter
--- OUTSIDE RECORDS SUMMARY | 2024-09-05 02:34 | XMS_ITS | Encounter Summary ---
Author Organization [facility] Address [address] [place] [address] Phone Care Team Providers Care Research Worker Encyclopedia Name Role Phone Adiel Demarco MD Primary Care Provider +1- [phone] Reason for Visit * Reason Onset Date Comments Med Refill 11/20/2020 Encounter Details Date Type Department Care Team (Late st Contact Info) Description 11/20/2020 Telephone [facility] [address] [place] [address] Adiel Demarco MD [address] [place] [address] Med Refill Social History Tobacco Use Types Packs/Day Years Used Date Smoking Tobacco: Former Comments Unknown Sex and Gender Information Value Date Recorded Sex Assigned at Not on file Legal Sex Female 4:31 AM WORK DISTRIBUTOR Gender Identity Female 11/23/2019 9:35 AM CDT [...] on filedocumented in this encounter Care Teams Research Worker Encyclopedia Relationship Specialty Start Date End Date Adiel Demarco MD [address] [place] [address] PCP - General 08/24/17 documented as of this encounter
--- OUTSIDE RECORDS SUMMARY | 2024-09-05 02:34 | XMS_ITS | Encounter Summary ---
Author Organization [facility] Address [address] [place] [address] Phone Care Team Providers Care Tap Builder Name Role Phone Adiel Demarco MD Primary Care Provider +1- [phone] Reason for Visit * Reason Comments Surgical Clearance Encounter Details Date Type Department Care Team (Late st Contact Info) Description 04/23/2020 9:30 AM CDT Office Visit [facility] [address] [place] [address] Lynnette Perry, ARASH [address] [place], [place] [id number] Pre-operative clearance (Primary Dx); Essential hypertension; Encounter for pre-bariatric surgery counseling and education; Allergic dermatitis due to other chemical product Social History Tobacco Use Types Packs/Day Years Used Date Smoking Tobacco: Former Comments Unknown Sex and Gender Information Value Date Recorded Sex Assigned at Not on file Legal Sex Female 4:31 AM EDGER SAW OPERATOR Gender Identity Female 11/23/2019 9:35 AM [...] Body Mass Index 42.66 10/26/2019 11:14 AM EDGER SAW OPERATOR documented in this encounter Ordered Prescriptions Prescription [...] HPI She is seeing Dr. Barahona with [facility] for weight management. She is hoping to [...] 11/16/2021 added in this encounter Care Teams Tap Builder Relationship Specialty Start Date End Date Adiel Demarco MD [address] [place] [address] PCP - General 08/24/17 documented as of this encounter
--- OUTSIDE RECORDS SUMMARY | 2024-09-05 02:34 | XMS_ITS | Encounter Summary ---
Author Organization [facility] Address [address] [place] [address] Phone Care Team Providers Care Siphoner Name Role Phone Adiel Demarco MD Primary Care Provider +1- [phone] Encounter Details Date Type Department Care Team (Late st Contact Info) Description 06/25/2020 Orders Only [facility] [address] [place] [address] Scanning, Provider Social History Tobacco Use Types Packs/Day Years Used Date Smoking Tobacco: Former Comments Unknown Sex and Gender Information Value Date Recorded Sex Assigned at Not on file Legal Sex Female 4:31 AM PICKLING OPERATOR Gender Identity Female 11/23/2019 9:35 AM [...] on filedocumented in this encounter Care Teams Siphoner Relationship Specialty Start Date End Date Adiel Demarco MD [address] [place] [address] PCP - General 08/24/17 documented as of this encounter
--- OUTSIDE RECORDS SUMMARY | 2024-09-05 02:34 | XMS_ITS | Encounter Summary ---
Author Organization [facility] Healthcare Address [address] [place] [address] Care Team Providers Care Automotive Professional Name Role Phone Adiel Demarco MD Primary Care Provider +1- [phone] Encounter Details Date Type Department Care Team (Late st Contact Info) Description 03/08/2020 Patient Self-Triage [facility] HealthCare/ Physicians [address] [place] [address] Mychart, Generic Provider [address] [place], [place] [id number] Social History Tobacco Use Types Packs/Day Years Used Date Smoking Tobacco: Former Comments Unknown Sex and Gender Information Value Date Recorded Sex Assigned at Not on file Legal Sex Female 4:31 AM HUMAN RESOURCES LEADER Gender Identity Female 11/23/2019 9:35 AM CDT Sexual Orientation Straight 11/23/2019 9: 35 AM CDT documented as of this encounter Plan of Treatment Not on file documented as of this encounter Visit Diagnoses Not on filedocumented in this encounter Care Teams Automotive Professional Relationship Specialty Start Date End Date Adiel Demarco MD [address] [place] [address] PCP - General 08/24/17 documented as of this encounter
--- OUTSIDE RECORDS SUMMARY | 2024-09-05 02:34 | XMS_ITS | Encounter Summary ---
Author Organization [facility] Address [address] [place] [address] Phone Care Team Providers Care Clipper Machine Name Role Phone Adiel Demarco MD Primary Care Provider +1- [phone] Reason for Visit * Reason Comments Preventative Care Encounter Details Date Type Department Care Team (Late st Contact Info) Description 11/03/2018 11:00 AM NUTRITION TEACHER Office Visit [facility] [address] [place] [address] Adiel Demarco MD [address] [place] [address] Health care maintenance (Primary Dx); Crohn's disease of small intestine without complication (CMS/HCC); Generalized anxiety disorder; Other insomnia; Current mild episode of major depressive disorder without prior episode (CMS/HCC) Social History Tobacco Use Types Packs/Day Years Used Date Smoking Tobacco: Former Comments Unknown Sex and Gender Information Value Date Recorded Sex Assigned at Not on file Legal Sex Female 4:31 AM NUTRITION TEACHER Gender Identity Female 11/23/2019 9:35 AM CDT Sexual Orientation Straight 11/23/2019 9: 35 AM CDT documented as of this encounter Last Filed Vital Signs Vital Sign Reading Time Taken Comments Blood Pressure 140/100 11/03/2018 11:38 AM NUTRITION TEACHER Pulse - - Temperature - - Respiratory Rate - - Oxygen Saturation - - Inhaled Oxygen Concentration - - Weight 94.8 kg (209 lb) 11/03/2018 11:38 AM NUTRITION TEACHER Height 160 cm (5' 3 ) 11/03/2018 11:38 AM NUTRITION TEACHER Body Mass Index 37.02 11/03/2018 11:38 AM NUTRITION TEACHER documented in this encounter Patient Instructions * Patient Instructions* Adiel Demarco MD - 11/03/2018 11:00 AM NUTRITION TEACHER Check with your local [facility] or [facility] pharmacy about the availability of GARDASIL, and vaccine to prevent HPV. ITION TEACHER documented in this encounter Ordered Prescriptions Prescription [...] file Gets together: Not on file Attends mormon service: Not on file Active member of [...] History Narrative Drives car : (Added by [employer]) Always uses seat belt : (Added by [employer]) Consumes alcohol occasionally : (Added by [employer]) Eats in fast food outlets : (Added by [employer]) Employed : (Added by [employer]) Exercises sporadically : (Added by [employer]) Activities: Treadmill (Added by [employer]) : (Added by [employer]) Monogamous relationship with monogamous partner : (Added by [employer]) Owns dog : (Added by [employer]) Seeing a dentist : (Added by [employer]) Seeing a obstetrics specialist : (Added by [employer]) Seeing an eye doctor : (Added by [employer]) Parent coping with child illness or disability : (Added by [employer]) Allergies: No Known Allergies Current Medications: Outpatient [...] as PCP - General Primary Pharmacy/DME suppliers: [facility] - [place], [place] - [address] [place] [address] No problems updated. A 14 point review [...] pressure 120/80 or lower. Adiel Demarco MD ITION TEACHER documented in this encounter Plan of Treatment Not on file documented as of this encounter Procedures Procedure Name Priority Date/Time Associated Diagnosis Comments POCT ASSAY QUANTITATIVE, GLUCOSE Routine 11/03/2018 11:58 AM NUTRITION TEACHER Health care maintenance POCT URINALYSIS, AUTO W/O SCOPE Routine 11/03/2018 11:58 AM NUTRITION TEACHER Health care maintenance POCT LIPID PANEL Routine 11/03/2018 11:5 8 AM NUTRITION TEACHER Health care maintenance documented in this encounter Results * POCT assay quantitative glucose (11/03/2018 11:58 AM NUTRITION TEACHER) Glucose Blood, POC 87 mg/dL Capillary blood 11/03/2018 1 1:58 AM NUTRITION TEACHER Adiel Demarco MD POINT OF CARE TEST ORDERAB LES Final Result * (ABNORMAL) POCT UA, AUTO W/O SCOPE (11/03/2018 11:58 AM NUTRITION TEACHER) Glucose, ur, POC Negative Negative mg/dL Bilirubin, ur, POC Negative Negative Ketones, ur, POC Negative Negative Specific [place], POC 1.010 1.005 - 1.030 Blood, ur, POC Negative Negative pH, ur, POC 7.0 5.0 - 8.0 Protein, ur, POC Negative Negative Urobilinogen, Urine, POC 0.2 mg/dL Leukocytes, ur, POC Trace(A) Negative Nitrite, ur, POC Negative Negative Urine 11/03/2018 11:5 8 AM NUTRITION TEACHER Adiel Demarco MD POINT OF CARE TEST ORDERAB LES Final Result * POCT lipid panel (11/03/2018 11:58 AM NUTRITION TEACHER) HDL, POC 71 mg/dL Triglycerides, POC 74 mg/dL LDL Cholesterol POC 87 mg/dL Chol/HDL Ratio, POC 1.2 Non-HDL Cholesterol, POC 101 mg/dL Cholesterol Total, POC 172 mg/dL Capillary blood 11/03/2018 1 1:58 AM NUTRITION TEACHER Adiel Demarco MD POINT OF CARE TEST [...] 11/03/2018 documented in this encounter Care Teams Clipper Machine Relationship Specialty Start Date End Date Adiel Demarco MD [address] [place] [address] PCP - General 08/24/17 documented as of this encounter
--- OUTSIDE RECORDS SUMMARY | 2024-09-05 02:34 | XMS_ITS | Encounter Summary ---
Author Organization [facility] Address [address] [place] [address] Phone Care Team Providers Care Instrument Repairer Steam Plant Name Role Phone Adiel Demarco MD Primary Care Provider +1- [phone] Reason for Visit * Reason Comments Preventative Care Encounter Details Date Type Department Care Team (Late st Contact Info) Description 10/26/2019 10:40 AM SENIOR CYTOTECHNOLOGIST Office Visit [facility] [address] [place] [address] Adiel Demarco MD [address] [place] [address] Preventative health care (Primary Dx); [...] file Legal Sex Female 4:31 AM SENIOR CYTOTECHNOLOGIST Gender Identity Female 11/23/2019 9:35 AM CDT Sexual Orientation Straight 11/23/2019 9: 35 AM CDT documented as of this encounter Last Filed Vital Signs Vital Sign Reading Time Taken Comments Blood Pressure 150/90 10/26/2019 11:14 AM SENIOR CYTOTECHNOLOGIST Pulse - - Temperature - - Respiratory Rate - - Oxygen Saturation - - Inhaled Oxygen Concentration - - Weight 104.3 kg (230 lb) 10/26/2019 11:14 AM SENIOR CYTOTECHNOLOGIST Height 158.8 cm (5' 2.5 ) 10/26/2019 11:14 AM CS T Body Mass Index 41.4 10/26/2019 11:14 AM SENIOR CYTOTECHNOLOGIST documented in this encounter Ordered Prescriptions Prescription [...] History Narrative Drives car : (Added by [employer]) Always uses seat belt : (Added by [employer]) Consumes alcohol occasionally : (Added by [employer]) Eats in fast food outlets : (Added by [employer]) Employed : (Added by [employer]) Exercises sporadically : (Added by [employer]) Activities: Treadmill (Added by [employer]) : (Added by [employer]) Monogamous relationship with monogamous partner : (Added by [employer]) Owns dog : (Added by [employer]) Seeing a dentist : (Added by [employer]) Seeing a deicer repairer pneumatic : (Added by [employer]) Seeing an eye doctor : (Added by [employer]) Parent coping with child illness or disability : (Added by [employer]) Allergies: No Known Allergies Current Medications: Outpatient Encounter Medications as of 10/26/2019 Medication Sig Dispense Refill ??? ALPRAZolam (XANAX) 0.5 mg tablet Take 0.5 tablets (0.25 mg total) by mouth 3 (three) times a day as needed for anxiety 90 tablet 2 ??? sqtmituxmv-knedzctfarlkx-moylifro (FIORICET,ESGIC) 50-300-40 mg per capsule TAKE 1 [...] PCP - General Primary Pharmacy/DME suppliers: [facility] - [place], [place] - [address] [place] [place] [address] Problem Hypertension, Essential ROS per HPI otherwise [...] one year is encouraged. Adiel Demarco MD OR CYTOTECHNOLOGIST documented in this encounter Plan of Treatment Not on file documented as of this encounter Procedures Procedure Name Priority Date/Time Associated Diagnosis Comments POCT ASSAY QUANTITATIVE, GLUCOSE Routine 10/26/2019 11:34 AM SENIOR CYTOTECHNOLOGIST Preventative health care POCT URINALYSIS, AUTO W/O SCOPE Routine 10/26/2019 11:34 AM SENIOR CYTOTECHNOLOGIST Preventative health care POCT LIPID PANEL Routine 10/26/2019 11:3 2 AM SENIOR CYTOTECHNOLOGIST Preventative health care documented in this encounter Results * POCT assay quantitative glucose (10/26/2019 11:34 AM SENIOR CYTOTECHNOLOGIST) Glucose Blood, POC 78 mg/dL Capillary blood 10/26/2019 1 1:34 AM SENIOR CYTOTECHNOLOGIST Adiel Demarco MD POINT OF CARE TEST ORDERAB LES Final Result * POCT UA, AUTO W/O SCOPE (10/26/2019 11:34 AM SENIOR CYTOTECHNOLOGIST) Glucose, ur, POC Negative Negative mg/dL Bilirubin, ur, POC Negative Negative, Small, Moderate, Large Ketones, ur, POC Negative Negative Specific [place], POC 1.015 1.005 - 1.030 Blood, ur, POC Negative Negative pH, ur, POC 7.0 5.0 - 8.0 Protein, ur, POC Negative Negative Urobilinogen, Urine, POC 0.2 mg/dL Leukocytes, ur, POC Negative Negative Nitrite, ur, POC Negative Negative Urine 10/26/2019 11:3 4 AM SENIOR CYTOTECHNOLOGIST us Adiel Demarco MD POINT OF CARE TEST ORDERAB LES Final Result * POCT lipid panel (10/26/2019 11:32 AM SENIOR CYTOTECHNOLOGIST) HDL, POC 65 mg/dL Triglycerides, POC 111 mg/dL LDL Cholesterol POC 99 mg/dL Chol/HDL Ratio, POC 1.5 Non-HDL Cholesterol, POC 121 mg/dL Cholesterol Total, POC 186 mg/dL Capillary blood 10/26/2019 1 1:32 AM SENIOR CYTOTECHNOLOGIST Adiel Demarco MD POINT OF CARE TEST [...] 10/08/2020 added in this encounter Care Teams Instrument Repairer Steam Plant Relationship Specialty Start Date End Date Adiel Demarco MD [address] [place] [address] PCP - General 08/24/17 documented as of this encounter
--- OUTSIDE RECORDS SUMMARY | 2024-09-05 02:34 | XMS_ITS | Encounter Summary ---
Author Organization [facility] Address [address] [place] [address] Phone Care Team Providers Care Senior Recruiter Name Role Phone Adiel Demarco MD Primary Care Provider +1- [phone] Encounter Details Date Type Department Care Team (Late st Contact Info) Description 11/19/2020 11:20 AM CDT Telemedicine [address] [address] Adiel Demarco MD [address] [place] [address] Parent coping with child illness or disability (Primary Dx); Mild episode of recurrent major depressive disorder (CMS/HCC); Insomnia due to medical condition; Generalized anxiety disorder Social History Tobacco Use Types Packs/Day Years Used Date Smoking Tobacco: Former Comments Unknown Sex and Gender Information Value Date Recorded Sex Assigned at Not on file Legal Sex Female 4:31 AM MEAT CUTTER APPRENTICE Gender Identity Female 11/23/2019 9:35 AM CDT [...] as PCP - General Primary Pharmacy/DME suppliers: [facility] - [facility] [address] [facility] [address] [facility] [place] [address] ROS per HPI otherwise all other systems [...] a telemedicine visit which took place via K[employer]. During the visit, I was located in [facility] and the patient was located at his home in the [facility]. The patient visit started at 11 20 and ended at 1135 Total encounter time includes time spent in direct contact with patient The patient: has been informed that the visit may not be secure and acknowledged the information. The option of participating in a telephone or video visit during the [facility] [place] [address] emergencywas explained to them. documented in this [...] documented as of this encounter Care Teams Senior Recruiter Relationship Specialty Start Date End Date Adiel Demarco MD [address] [place] [address] PCP - General 08/24/17 documented as of this encounter
--- OUTSIDE RECORDS SUMMARY | 2024-09-05 02:34 | XMS_ITS | Encounter Summary ---
Author Organization [facility] Facility Care Team Providers Care Laborer Cutting Tool Name Role Phone Unavailable Primary Care Provider Unavailabl e Encounter Details Date Type Department Care Team (Late st Contact Info) Description 10/27/2010 - 08/28/2011 11:59 PM INSURANCE COORDINATOR Hospital Encounter [facility] Social History Tobacco Use Types Packs/Day Years Used Date Smoking Tobacco: Never Assessed Comments Unknown Sex and Gender Information Value Date Recorded Sex Assigned at Not on file Legal Sex Female 4:31 AM INSURANCE COORDINATOR Gender Identity Female 11/23/2019 9:35 AM CDT Sexual Orientation Straight 11/23/2019 9: 35 AM CDT documented as of this encounter Plan of Treatment Not on file documented as of this encounter Visit Diagnoses Not on filedocumented in this encounter
--- OUTSIDE RECORDS SUMMARY | 2024-09-05 02:34 | XMS_ITS | Encounter Summary ---
Author Organization [facility] Address [address] [place] [address] Phone Care Team Providers Care Software Programmer Name Role Phone Adiel Demarco MD Primary Care Provider +1- [phone] Encounter Details Date Type Department Care Team (Late st Contact Info) Description 10/08/2020 10:40 AM GUEST ROOM ATTENDANT Telemedicine [address] [address] Adiel Demarco MD [address] [place] [address] Parent coping with child illness or [...] on file Legal Sex Female 4:31 AM GUEST ROOM ATTENDANT Gender Identity Female 11/23/2019 9:35 AM CDT [...] as PCP - General Primary Pharmacy/DME suppliers: [facility] - [place], [place] - [address] [facility] [address] [place] [address] ROS per HPI otherwise all other systems [...] general. Novel but unproven modalities such as TopTenREVIEWS, coloring in avoidance of stimulants such as caffeine were mentioned. Will continue to monitor symptoms and any side effects of our treatment strategy. Adiel Demarco MD This was a telemedicine visit which took place via [employer]. During the visit, I was located in [facility] and the patient was located at his home in the [facility]. The patient visit started at 1048 and ended at 1102 Total encounter time includes time spent in direct contact with patient The patient: has been informed that the visit may not be secure and acknowledged the information. The option of participating in a telephone or video visit during the COVID-19 public health emergencywas explained to them. T ROOM ATTENDANT documented in this encounter Plan of Treatment [...] documented as of this encounter Care Teams Software Programmer Relationship Specialty Start Date End Date Adiel Demarco MD [address] [place] [address] PCP - General 08/24/17 documented as of this encounter
--- OUTSIDE RECORDS SUMMARY | 2024-09-05 02:34 | XMS_ITS | Encounter Summary ---
Author Organization [facility] Address [address] [place] [address] Phone Care Team Providers Care Teachers Aide Name Role Phone Adiel Demarco MD Primary Care Provider +1- [phone] Reason for Visit * Reason Onset Date Comments Med Refill 10/26/2019 Encounter Details Date Type Department Care Team (Late st Contact Info) Description 10/26/[address] [facility] [address] [place] [address] Adiel Demarco MD [address] [place] [address] Med Refill Social History Tobacco Use Types Packs/Day Years Used Date Smoking Tobacco: Former Comments Unknown Sex and Gender Information Value Date Recorded Sex Assigned at Not on file Legal Sex Female 4:31 AM RADIOLOGY RESIDENT Gender Identity Female 11/23/2019 9:35 AM CDT Sexual Orientation Straight 11/23/2019 9: 35 AM CDT documented as of this encounter Miscellaneous Notes * Telephone Encounter - Gem Topete MA - 10/26/2019 3:46 PM CST PHONED IN PTS RX. OLOGY RESIDENT * Telephone Encounter - Aydee Villanueva MA - 10/26/2019 3:01 PM CST She has two scripts that Dr. Demarco gave her that weren't signed. Wanting to confirm you will callin those scripts today. OLOGY RESIDENT documented in this encounter Plan of Treatment Not on file documented as of this encounter Visit Diagnoses Not on filedocumented in this encounter Care Teams Teachers Aide Relationship Specialty Start Date End Date Adiel Demarco MD [address] [place] [address] PCP - General 08/24/17 documented as of this encounter
--- OUTSIDE RECORDS SUMMARY | 2024-09-05 02:34 | XMS_ITS | Encounter Summary ---
Author Organization [facility] Healthcare Address [address] [place] [address] Care Team Providers Care Poly Area Supervisor Name Role Phone Adiel Demarco MD Primary Care Provider +1- [phone] Encounter Details Date Type Department Care Team (Late st Contact Info) Description 03/08/2020 Patient Self-Triage [facility] HealthCare/ Physicians [address] [place] [address] Mychart, Generic Provider [address] [place], [place] [id number] Social History Tobacco Use Types Packs/Day Years Used Date Smoking Tobacco: Former Comments Unknown Sex and Gender Information Value Date Recorded Sex Assigned at Not on file Legal Sex Female 4:31 AM ARCHAEOLOGY PROFESSOR Gender Identity Female 11/23/2019 9:35 AM CDT Sexual Orientation Straight 11/23/2019 9: 35 AM CDT documented as of this encounter Plan of Treatment Not on file documented as of this encounter Visit Diagnoses Not on filedocumented in this encounter Care Teams Poly Area Supervisor Relationship Specialty Start Date End Date Adiel Demarco MD [address] [place] [address] PCP - General 08/24/17 documented as of this encounter
== END 2024-08-29 05:18 | disposition left against medical advice (07) ==
DX: F60.0 Paranoid personality disorder (principal); F41.9 Anxiety disorder, unspecified
CPT/HCPCS: 99199